=== PATIENT | female | born 1980 | race Caucasian/White ===

== ENCOUNTER 2016-08-04 17:39 | Emergency (ER) | payer OTHER ==
[2016-08-04] MEDS ORDERED: NS 0.9% 1000 ML* 1,000 ML IV ONE (17:55)
[2016-08-04] MEDS ORDERED: Ondansetron INJ* 2 MG/ML VIAL IV ONE (18:01)
[2016-08-04 18:19] LABS: Hematocrit 40 % (35-47); Hemoglobin 13.5 g/dl (12.0-16.0); Mean Corpuscular HGB Conc 34 g/dl (31-36); Mean Corpuscular Hemoglobin 30 pg (27-31); Mean Corpuscular Volume 89 fL (80-97); Mean Platelet Volume 8 um3 (7.4-10.4); Red Blood Count 4.49 10^6/ul (4.0-5.4); Red Cell Distribution Width 14 % (10.5-15); White Blood Count 7.2 10^3/ul (3.5-10.8)
[2016-08-04 18:40] LABS: Albumin 4.1 g/dL (3.2-5.2); BUN/Creatinine Ratio 15.9 (8-20); C Reactive Protein 8.77 mg/L (< 5.00); Calcium 9.3 mg/dL (8.6-10.3); EGFR African American 136.7 (>60); EGFR Non-African American 106.3 (>60); Globulin 3.3 g/dL (2-4); Potassium 3.4 mmol/L (3.5-5.0); Total Bilirubin 0.4 mg/dL (0.2-1.0); Total Protein 7.4 g/dL (6.4-8.9)
[2016-08-04 18:59] LABS: Urine Bacteria Absent (Absent); Urine Bilirubin Negative (Negative); Urine Glucose Negative (Negative); Urine Nitrite Negative (Negative)
[2016-08-04] MEDS ORDERED: HYDROcodone/ACETAMIN 5-325 MG* 1 TAB PO ONE (19:02)
--- NOTE | 2016-08-04 19:06 | RAD ---
HISTORY: Vaginal bleeding COMPARISONS: August 06, 2015 TECHNIQUE: Multiple transverse and longitudinal ultrasound images were obtained of the pelvis using grayscale, color Doppler, and spectral Doppler imaging using the endovaginal transducer. FINDINGS: UTERUS: The uterus measures 9.8 x 4.9 x 6.1 cm. The uterus is normal in shape, size, contour, and echotexture. ENDOMETRIUM: The endometrial stripe is smooth. The endometrium measures 1.2 cm in thickness. CUL-DE-SAC: There is no free fluid within the cul-de-sac. RIGHT OVARY: The right ovary measures 2.5 x 1.3 x 1.9 cm. Normal arterial and venous waveforms are identifiable within the ovary on spectral Doppler imaging. LEFT OVARY: The left ovary measures 2.2 x 1.4 x 2 cm. Normal arterial and venous waveforms are identifiable within the ovary on spectral Doppler imaging. BLADDER: The bladder is not well visualized. IMPRESSION: UNREMARKABLE ULTRASOUND OF THE PELVIS. THE ENDOMETRIAL STRIPE MEASURES UP TO 1.2 CM IN THICKNESS.
[2016-08-04] MEDS ORDERED: Potassium Chlor TAB* 20 MEQ TAB.ER PO ONE (19:12)
--- NOTE | 2016-08-04 19:19 | ED ---
Alex Mason Erika, scribed for Bear Lorenzo MD on 08/04/16 at 1816 . GI/ HPI - HPI Summary HPI Summary: Patient is a 35-year-old female presenting to the ED with a CC of left suprapubic pain starting 5 days ago. Currently, patient rates pain a 10/10. Patient reports that this pain has been associated with vaginal bleeding, which is unusual for patient as she takes the Depo shot. Patient also reports nausea and vomiting (3x) today, but denies diarrhea and constipation. Patient states she was seen at [facility] yesterday, and had a negative pelvic exam. She declines a pelvic exam today. Hx left ovarian cyst. Patient also reports that she has had nasal discharge for a few days. Hx asthma, seizures, COPD. PSHx cholecystectomy, appendectomy, D&C, laparoscopic surgery. FHx diabetes, CAD , kidney cancer. Patient smokes 1 PPD, rarely drinks, and denies illicit drug use. - History of Current Complaint Chief Complaint: EDVaginalBleeding Time Seen by Provider: 08/04/16 17:50 Stated Complaint: LOWER LEFT ABD PAIN Hx Obtained From: Patient Onset/Duration: Started Days Ago, Atraumatic, Still Present Timing: Constant Severity: Moderate Pain Intensity: 10 Location of Pain: Suprapubic - L Associated Signs and Symptoms: Positive: Nausea, Vomiting. Negative: Constipation, Diarrhea Additional Signs & Symptoms: Positive: Vaginal Bleeding - Allergy/Home Medications Allergies/Adverse Reactions: Allergies Allergy/AdvReac Type Severity Reaction Status Date / Time Aspirin Allergy Severe Swelling Verified 06/18/16 14:23 Of Face,Lips,& Throat Latex Allergy Intermediate Unknown Verified 06/18/16 14:23 Reaction Details Phenobarbital Allergy Intermediate Swelling Verified 06/18/16 14:23 Of Face,Lips,& Throat Cortisone Allergy LOCALIZED Verified 06/18/16 14:23 SWELLING TO INJ SITE PMH/Surg Hx/FS Hx/Imm Hx Endocrine/Hematology History: Denies: Hx Anticoagulant Therapy, Hx Diabetes, Hx Thyroid Disease, Other Endocrine/Hematological Disorders Cardiovascular History: Denies: Hx Congestive Heart Failure, Hx Deep Vein Thrombosis, Hx Hypertension , Hx Myocardial Infarction, Hx Pacemaker/ICD, Other Cardiovascular Problems/ Disorders Respiratory History: Reports: Hx Asthma - She is using her sister's Symbicort 160/4.5--she states she is on abluterol, Hx Chronic Obstructive Pulmonary Disease (COPD) Denies: Hx Lung Cancer, Hx Pneumonia, Hx Pulmonary Embolism, Other Respiratory Problems/Disorders GI History: Reports: Hx Gall Bladder Disease Denies: Hx Gastrointestinal Bleed, Hx Ulcer, Hx Urosepsis, Other GI Disorders History: Reports: Other Problems/Disorders - OVARIAN CYST, Denies: Hx Kidney Stones, Hx Renal Disease Musculoskeletal History: Denies: Other Musculoskeletal History Sensory History: Denies: Other Sensory Impairments Opthamlomology History: Denies: Other Sensory Impairments Neurological History: Reports: Hx Seizures Denies: Hx Dementia, Hx Migraine, Hx Transient Ischemic Attacks (TIA), Other Neuro Impairments/Disorders Psychiatric History: Reports: Hx Anxiety, Hx Depression - She confesses to depression--on no Rx., Hx Bipolar Disorder Denies: Hx Schizophrenia, Hx Substance Abuse, Other Psychiatric Issues/ Disorders - Surgical History Surgery Procedure, Year, and Place: GALLBLADDER OUT 2010. 2010. APPENDECTOMY - Immunization History Date of Tetanus Vaccine: w/in last 10 years Date of Influenza Vaccine: none Infectious Disease History: No Infectious Disease History: Denies: Hx Clostridium Difficile, Hx Hepatitis, Hx Human Immunodeficiency Virus (HIV), Hx of Known/Suspected MRSA, Hx Shingles, Hx Tuberculosis, Hx Known/ Suspected VRE, Hx Known/Suspected VRSA, History Other Infectious Disease, Traveled Outside the [place] in Last 30 Days - Family History Known Family History: Positive: Cardiac Disease, Diabetes, Other - kidney cancer - Social History Alcohol Use: Rare Hx Substance Use: No Substance Use Type: Reports: None Hx Tobacco Use: Yes Smoking Status (MU): Heavy Every Day Tobacco Smoker Review of Systems Positive: Nasal Discharge Positive: Abdominal Pain - left suprapubic, Vomiting, Nausea. Negative: Diarrhea Genitourinary: Other - vaginal bleeding All Other Systems Reviewed And Are Negative: Yes Physical Exam - Summary Physical Exam Summary: VITAL SIGNS: Reviewed. GENERAL: Patient is a well developed and nourished female who is lying comfortable in the stretcher. Patient is not in any acute respiratory distress. HEAD AND FACE: Normocephalic and atraumatic. EYES: PERRLA, EOMI x 2, No injected conjunctiva. EARS: Hearing grossly intact. Ear canals and tympanic membranes are WNL. MOUTH: Oropharynx within normal limits. NECK: Supple, trachea is midline, no adenopathy, no JVD. CHEST: Symmetric, no tenderness at palpation LUNGS: Clear to auscultation bilaterally. No wheezing or crackles. CVS: RRR,, S1 and S2 present, no murmurs or gallops appreciated. ABDOMEN: Soft, non-tender. No signs of distention. Positive bowel sounds. No rebound no guarding, and no masses palpated. No abdominal bruit or pulsations. EXTREMITIES: FROM in all major joints, no edema, no cyanosis or clubbing. NEURO: Alert and oriented x 3. No acute neurological deficits. Speech is normal. SKIN: Dry and warm HEALTHCARE SPECIALIST: patient refuses. She reports she [facility] and it was found wnl. Triage Information Reviewed: Yes Vital Signs On Initial Exam: Initial Vitals Temp Pulse Resp BP Pulse Ox 99.9 F 108 18 138/82 98 08/04/16 17:40 08/04/16 17:40 08/04/16 17:40 08/04/16 17:40 08/04/16 17:40 Vital Signs Reviewed: Yes Diagnostics - Vital Signs Vital Signs Temp Pulse Resp BP Pulse Ox 08/04/16 17:40 99.9 F 108 18 138/82 98 - Laboratory Result Diagrams: 08/04/16 18:10 08/04/16 18:10 Lab Statement: Any lab studies that have been ordered have been reviewed, and results considered in the medical decision making process. - Ultrasound No standard instances Ultrasound Interpretation Completed By: Radiologist - IMPRESSION: UNREMARKABLE ULTRASOUND OF THE PELVIS. THE ENDOMETRIAL STRIPE MEASURES UP TO 1.2 CM IN THICKNESS. GIGU Course/Dx - Course Assessment/Plan: Patient is a 35-year-old female presenting to the ED with a CC of left suprapubic pain starting 5 days ago. Currently, patient rates pain a 10/ 10. Patient reports that this pain has been associated with vaginal bleeding, which is unusual for patient as she takes the Depo shot. Patient also reports nausea and vomiting (3x) today, but denies diarrhea and constipation. Patient states she was seen [facility], and had a negative pelvic exam. She declines a pelvic exam today. Hx left ovarian cyst. Blood work WNL except potassium of 3.4 for which the pt was given potassium chloride. Pelvic US unremarkable, both ovaries WNL. In the ED course the patient was given [place] for the pain. I offered the pt a CT scan to r/o Diverticulitis. colitis or any other intrabadominal pathology but she declined. I offered the pt a pelvic exam and she declined since she had a pelvic exam yesterday at [facility]. Therefore, she is going to be discharged home with follow up from her PCP. I discussed all the findings and test results with the patient. Patient was instructed to return to the emergency room immediately if any of the symptoms return or worsens. They were explained the possibility of an early abdominal pathology which was not detected at this time despite the physical exam and testing. They understand and agree. Abdominal exam before discharge: Soft, NT. No signs of distention. BS present. No rebound no guarding , and no masses palpated. Patient is alert and oriented and hemodynamically stable. Patient is to follow up with primary care physician in the next 2 to 3 days. Patient agree and understands. VITAL SIGNS: Reviewed. - Diagnoses Differential Diagnoses - Female: Diverticulitis, Ovarian Cyst, Ovarian Torsion, Provider Diagnoses: Pelvic pain Discharge - Discharge Plan Condition: Stable Disposition: HOME Prescriptions: Naproxen TAB* [Naprosyn TAB*] 500 mg PO Q8H PRN #12 tab PRN Reason: Pain Patient Education Materials: Pelvic Pain in Women (ED) Referrals: Bear Ritchie MD [Primary Care Provider] - The documentation as recorded by the Alex sharma Erika accurately reflects the service I personally performed and the decisions made by me, Bear Lorenzo MD.
[2016-08-04 19:38] VITALS: BP 119/75
== END 2016-08-04 19:38 | disposition home or self-care (01) ==
LOC: ED 17:39
DX: R10.2 Pelvic and perineal pain (principal); J44.9 Chronic obstructive pulmonary disease, unspecified; J45.909 Unspecified asthma, uncomplicated; F31.9 Bipolar disorder, unspecified; F41.9 Anxiety disorder, unspecified; F17.210 Nicotine dependence, cigarettes, uncomplicated
CPT/HCPCS: 36415; 76830; 80053; 81003; 81015; 82150; 83690; 84702; 85025; 86140; 96360; 96374; 99283; A9270-GY; J2405

== ENCOUNTER 2016-08-10 15:58 | Emergency (ER) | payer OTHER ==
[2016-08-10] MEDS ORDERED: NS 0.9% 1000 ML* 2,000 ML IV ONE (17:08)
[2016-08-10] MEDS ORDERED: Ondansetron INJ* 2 MG/ML VIAL IV ONE (17:32)
[2016-08-10] MEDS ORDERED: HYDROmorphone INJ* 1 MG/ML CARPUJECT SYRINGE IV ONE (17:32)
[2016-08-10 17:33] LABS: Hematocrit 44 % (35-47); Hemoglobin 14.4 g/dl (12.0-16.0); Mean Corpuscular HGB Conc 33 g/dl (31-36); Mean Corpuscular Hemoglobin 30 pg (27-31); Mean Corpuscular Volume 91 fL (80-97); Mean Platelet Volume 8 um3 (7.4-10.4); Red Cell Distribution Width 14 % (10.5-15); White Blood Count 8.9 10^3/ul (3.5-10.8)
[2016-08-10 18:03] LABS: Albumin 4.4 g/dL (3.2-5.2); BUN/Creatinine Ratio 22.1 (8-20); C Reactive Protein 4.86 mg/L (< 5.00); Calcium 9.5 mg/dL (8.6-10.3); EGFR African American 125.2 (>60); EGFR Non-African American 97.4 (>60); Globulin 3.5 g/dL (2-4); Magnesium 1.8 mg/dL (1.9-2.7); Potassium 3.5 mmol/L (3.5-5.0); Total Bilirubin 0.2 mg/dL (0.2-1.0); Total Protein 7.9 g/dL (6.4-8.9)
[2016-08-10 18:26] LABS: TSH (Thyroid Stimulating Horm) 1.89 mcIU/mL (0.34-5.60)
--- NOTE | 2016-08-10 18:37 | RAD ---
INDICATION: Fall. Possible chest injury. COMPARISON: Chest x-ray February 09, 2015 TECHNIQUE: An AP portable view obtained at 1753 hours is submitted. FINDINGS: Bones/Soft Tissues: There are no acute bony findings. Cardiomediastinal: The cardiomediastinal silhouette is normal. Lungs: There are no infiltrates. Pleura: There are no pleural effusions. Other: None IMPRESSION: NO ACTIVE DISEASE.
--- NOTE | 2016-08-10 18:38 | RAD ---
INDICATION: Left elbow injury COMPARISON: None TECHNIQUE: AP, lateral, and oblique views were obtained. FINDINGS: The bony structures, joint spaces, and soft tissues are normal for age. IMPRESSION: NEGATIVE EXAMINATION.
--- NOTE | 2016-08-10 18:38 | RAD ---
INDICATION: Left forearm injury COMPARISON: None TECHNIQUE: AP and lateral views were obtained. FINDINGS: The bony structures, joint spaces, and soft tissues are normal for age. IMPRESSION: NO ACUTE FRACTURE
--- NOTE | 2016-08-10 18:38 | RAD ---
INDICATION: Left humerus injury COMPARISON: None TECHNIQUE: AP and lateral views were obtained. FINDINGS: The bony structures, joint spaces, and soft tissues are normal for age. IMPRESSION: NEGATIVE EXAMINATION.
--- NOTE | 2016-08-10 18:39 | RAD ---
INDICATION: Left wrist injury COMPARISON: None TECHNIQUE: AP, lateral, and oblique views were obtained. FINDINGS: The bony structures, joint spaces, and soft tissues are normal for age. IMPRESSION: NO ACUTE FRACTURE.
--- NOTE | 2016-08-10 19:47 | ED ---
Clau Mason Anna, scribed for Shahzad Hoffmann MD on 08/10/16 at 1658 . Syncope/Near Syncope - HPI Summary HPI Summary: Patient is a 35 y/o female coming to [facility] following sudden onset of syncope that occurred this afternoon at 1500 while she was standing at the bus stop. She reports feeling dizzy, when her left knee buckled and she lost consciousness. A witness reported seizure-like behavior and called EMS. Upon arrival of EMS, she was A&Ox3. She did not remember falling but now reports left arm pain and lack of sensation in left arm. She heard a pop in her wrist after the incident. She additionally reports feeling hot flashes this morning. Denies CP, palpitations, SOB, incontinence, or head pain. She reports that today s symptoms are similar to previous seizures. Her last seizure was two months ago. Denies use of drugs or alcohol but reports drinking four cups of coffee today. She takes Kepra daily. She reports that she recently had to move and has experienced increased stress. - History Of Current Complaint Chief Complaint: ED Time Seen by Provider: 08/10/16 16:23 Hx Obtained From: Patient, EMS, Other: - Passerby Onset/Duration: Sudden Onset, Lasting Minutes, Resolved Timing: Minutes Context: Witnessed, Loss Of Consciousness Activity At Onset: Other - Standing Associated Head Trauma: No Associated Signs And Symptoms: Seizure - Allergies/Home Medications Allergies/Adverse Reactions: Allergies Allergy/AdvReac Type Severity Reaction Status Date / Time Aspirin Allergy Severe Swelling Verified 06/18/16 14:23 Of Face,Lips,& Throat Latex Allergy Intermediate Unknown Verified 06/18/16 14:23 Reaction Details Phenobarbital Allergy Intermediate Swelling Verified 06/18/16 14:23 Of Face,Lips,& Throat Cortisone Allergy LOCALIZED Verified 06/18/16 14:23 SWELLING TO INJ SITE PMH/Surg Hx/FS Hx/Imm Hx Endocrine/Hematology History: Denies: Hx Anticoagulant Therapy, Hx Diabetes, Hx Thyroid Disease, Other Endocrine/Hematological Disorders Cardiovascular History: Denies: Hx Congestive Heart Failure, Hx Deep Vein Thrombosis, Hx Hypertension , Hx Myocardial Infarction, Hx Pacemaker/ICD, Other Cardiovascular Problems/ Disorders Respiratory History: Reports: Hx Asthma - She is using her sister's Symbicort 160/4.5--she states she is on abluterol, Hx Chronic Obstructive Pulmonary Disease (COPD) Denies: Hx Lung Cancer, Hx Pneumonia, Hx Pulmonary Embolism, Other Respiratory Problems/Disorders GI History: Reports: Hx Gall Bladder Disease Denies: Hx Gastrointestinal Bleed, Hx Ulcer, Hx Urosepsis, Other GI Disorders History: Reports: Other Problems/Disorders - OVARIAN CYST, Denies: Hx Kidney Stones, Hx Renal Disease Musculoskeletal History: Denies: Other Musculoskeletal History Sensory History: Denies: Other Sensory Impairments Opthamlomology History: Denies: Other Sensory Impairments Neurological History: Reports: Hx Seizures Denies: Hx Dementia, Hx Migraine, Hx Transient Ischemic Attacks (TIA), Other Neuro Impairments/Disorders Psychiatric History: Reports: Hx Anxiety, Hx Depression - She confesses to depression--on no Rx., Hx Bipolar Disorder Denies: Hx Schizophrenia, Hx Substance Abuse, Other Psychiatric Issues/ Disorders - Surgical History Surgery Procedure, Year, and Place: GALLBLADDER OUT 2010. 2010. APPENDECTOMY - Immunization History Date of Tetanus Vaccine: w/in last 10 years Date of Influenza Vaccine: none Infectious Disease History: No Infectious Disease History: Denies: Hx Clostridium Difficile, Hx Hepatitis, Hx Human Immunodeficiency Virus (HIV), Hx of Known/Suspected MRSA, Hx Shingles, Hx Tuberculosis, Hx Known/ Suspected VRE, Hx Known/Suspected VRSA, History Other Infectious Disease, Traveled Outside the [place] in Last 30 Days - Family History Known Family History: Positive: None, Cardiac Disease, Diabetes, Other - kidney cancer - Social History Alcohol Use: Rare Alcohol Amount: states quit 12/19/15 Hx Substance Use: No Substance Use Type: Reports: None Hx Tobacco Use: Yes Smoking Status (MU): Heavy Every Day Tobacco Smoker Review of Systems Positive: Other - hot flashes Positive: Arthralgia - left arm pain Neurological: Other - dizziness Positive: Numbness, Syncope All Other Systems Reviewed And Are Negative: Yes Physical Exam Triage Information Reviewed: Yes Vital Signs On Initial Exam: Initial Vitals Temp Pulse Resp BP Pulse Ox 97.5 F 109 16 121/80 98 08/10/16 16:02 08/10/16 16:02 08/10/16 16:02 08/10/16 16:02 08/10/16 16:02 Vital Signs Reviewed: Yes Appearance: Positive: Well-Appearing, No Pain Distress Skin: Positive: Warm, Skin Color Reflects Adequate Perfusion, Dry Head/Face: Positive: Normal Head/Face Inspection Eyes: Positive: EOMI, HAN[place]H ENT: Positive: Normal ENT inspection Neck: Positive: Supple, Nontender Respiratory/Lung Sounds: Positive: Clear to Auscultation, Breath Sounds Present Cardiovascular: Positive: RRR, Other - Bilateral pulses symmetric and 2+ Abdomen Description: Positive: Nontender, Soft Bowel Sounds: Positive: Present Musculoskeletal: Positive: Other - Left arm tenderness Neurological: Positive: Normal, Sensory/Motor Intact, Alert, Oriented to Person Place, Time Psychiatric: Positive: Affect/Mood Appropriate Diagnostics - Vital Signs Vital Signs Temp Pulse Resp BP Pulse Ox 08/10/16 16:02 97.5 F 109 16 121/80 98 - Laboratory Lab Results: Lab Results 08/10/16 08/10/16 08/10/16 Range/Units 17:21 17:21 17:21 WBC 8.9 (3.5-10.8) 10^3/ul RBC 4.80 (4.0-5.4) 10^6/ul Hgb 14.4 (12.0-16.0) g/dl Hct 44 (35-47) % MCV 91 (80-97) fL MCH 30 (27-31) pg MCHC 33 (31-36) g/dl RDW 14 (10.5-15) % Plt Count 256 (150-450) 10^3/ul MPV 8 (7.4-10.4) um3 Neut % (Auto) 56.5 (38-83) % Lymph % (Auto) 34.4 (25-47) % [place] % (Auto) 6.3 (1-9) % Eos % (Auto) 1.4 (0-6) % Baso % (Auto) 1.4 (0-2) % Absolute Neuts (auto) 5.0 (1.5-7.7) 10^3/ul Absolute Lymphs (auto) 3.1 (1.0-4.8) 10^3/ul Absolute Monos (auto) 0.6 (0-0.8) 10^3/ul Absolute Eos (auto) 0.1 (0-0.6) 10^3/ul Absolute Basos (auto) 0.1 (0-0.2) 10^3/ul Absolute Nucleated RBC 0 10^3/ul Nucleated RBC % 0 INR (Anticoag Therapy) 1.06 (0.89-1.11) APTT 27.3 (26.0-36.3) seconds Sodium 137 (133-145) mmol/L Potassium 3.5 (3.5-5.0) mmol/L Chloride 108 (101-111) mmol/L Carbon Dioxide 21 L (22-32) mmol/L Anion Gap 8 (2-11) mmol/L BUN 15 (6-24) mg/dL Creatinine 0.68 (0.51-0.95) mg/dL Est GFR ( Amer) 125.2 (>60) Est GFR (Non-Af Amer) 97.4 (>60) BUN/Creatinine Ratio 22.1 H (8-20) Glucose 136 H (70-100) mg/dL Lactic Acid (0.5-2.0) mmol/L Calcium 9.5 (8.6-10.3) mg/dL Magnesium 1.8 L (1.9-2.7) mg/dL Total Bilirubin 0.20 (0.2-1.0) mg/dL AST 16 (13-39) U/L ALT 19 (7-52) U/L Alkaline Phosphatase 43 (34-104) U/L Total Creatine Kinase 69 (10-223) U/L CK-MB (CK-2) 0.8 (0.6-6.3) ng/mL Troponin I 0.00 (<0.04) ng/mL C-Reactive Protein 4.86 (< 5.00) mg/L Total Protein 7.9 (6.4-8.9) g/dL Albumin 4.4 (3.2-5.2) g/dL Globulin 3.5 (2-4) g/dL Albumin/Globulin Ratio 1.3 (1-3) TSH 1.89 (0.34-5.60) mcIU/mL Beta HCG, Quant 1.71 mIU/mL 08/10/16 Range/Units 17:21 WBC (3.5-10.8) 10^3/ul RBC (4.0-5.4) 10^6/ul Hgb (12.0-16.0) g/dl Hct (35-47) % MCV (80-97) fL MCH (27-31) pg MCHC (31-36) g/dl RDW (10.5-15) % Plt Count (150-450) 10^3/ul MPV (7.4-10.4) um3 Neut % (Auto) (38-83) % Lymph % (Auto) (25-47) % [place] % (Auto) (1-9) % Eos % (Auto) (0-6) % Baso % (Auto) (0-2) % Absolute Neuts (auto) (1.5-7.7) 10^3/ul Absolute Lymphs (auto) (1.0-4.8) 10^3/ul Absolute Monos (auto) (0-0.8) 10^3/ul Absolute Eos (auto) (0-0.6) 10^3/ul Absolute Basos (auto) (0-0.2) 10^3/ul Absolute Nucleated RBC 10^3/ul Nucleated RBC % INR (Anticoag Therapy) (0.89-1.11) APTT (26.0-36.3) seconds Sodium (133-145) mmol/L Potassium (3.5-5.0) mmol/L Chloride (101-111) mmol/L Carbon Dioxide (22-32) mmol/L Anion Gap (2-11) mmol/L BUN (6-24) mg/dL Creatinine (0.51-0.95) mg/dL Est GFR ( Amer) (>60) Est GFR (Non-Af Amer) (>60) BUN/Creatinine Ratio (8-20) Glucose (70-100) mg/dL Lactic Acid 2.0 (0.5-2.0) mmol/L Calcium (8.6-10.3) mg/dL Magnesium (1.9-2.7) mg/dL Total Bilirubin (0.2-1.0) mg/dL AST (13-39) U/L ALT (7-52) U/L Alkaline Phosphatase (34-104) U/L Total Creatine Kinase (10-223) U/L CK-MB (CK-2) (0.6-6.3) ng/mL Troponin I (<0.04) ng/mL C-Reactive Protein (< 5.00) mg/L Total Protein (6.4-8.9) g/dL Albumin (3.2-5.2) g/dL Globulin (2-4) g/dL Albumin/Globulin Ratio (1-3) TSH (0.34-5.60) mcIU/mL Beta HCG, Quant mIU/mL Result Diagrams: 08/10/16 17:21 08/10/16 17:21 Lab Statement: Any lab studies that have been ordered have been reviewed, and results considered in the medical decision making process. - Radiology CXR Xray Interpretation: No Acute Changes Radiology Interpretation Completed By: Radiologist Humerus XR Xray Interpretation: No Acute Changes Radiology Interpretation Completed By: Radiologist Forearm XR Xray Interpretation: No Acute Changes Radiology Interpretation Completed By: Radiologist Elbow XR Xray Interpretation: No Acute Changes Radiology Interpretation Completed By: Radiologist Wrist XR Xray Interpretation: No Acute Changes Radiology Interpretation Completed By: Radiologist Re-Evaluation - Re-Evaluation First Eval Re-Evaluation Time: 19:43 Change: Improved - Patient reports the medication has helped her pain. Discussed results and plan of care with patient. Patient is agreeable with plan. Course/Dx Assessment/Plan: DISCUSSED RESULTS WITH PATIENT. RX TORADOL. F/U PMD. DISCHARGE HOME STABLE. - Diagnoses Provider Diagnoses: Arm pain, Altered mental state Discharge - Discharge Plan Condition: Stable Disposition: HOME Patient Education Materials: Arm Pain (ED), Epilepsy (ED) Referrals: Bear Ritchie MD [Primary Care Provider] - Additional Instructions: FOLLOW UP WITH YOUR DOCTOR. RETURN TO THE EMERGENCY DEPARTMENT FOR ANY WORSENING OF YOUR CONDITION OR QUESTIONS OR CONCERNS. The documentation as recorded by the Clau sharma Anna accurately reflects the service I personally performed and the decisions made by , Shahzad Hoffmann MD.
[2016-08-10] MEDS ORDERED: Ketorolac INJ* 30 MG/ML 1 ML VIAL IV ONE (20:03)
[2016-08-10 20:38] VITALS: BP 123/76
== END 2016-08-10 20:36 | disposition home or self-care (01) ==
LOC: ED 15:58
DX: M79.602 Pain in left arm (principal); R41.82 Altered mental status, unspecified; R55 Syncope and collapse; R20.0 Anesthesia of skin; F17.210 Nicotine dependence, cigarettes, uncomplicated
CPT/HCPCS: 36415; 71010; 80053; 80177; 82550; 82553; 83605; 83735; 84443; 84484; 84702; 85025; 85610; 85730; 86140; 93005; 96374; 96375; 99285; J1170; J1885; J2405

== ENCOUNTER 2016-08-13 12:47 | Emergency (ER) | payer OTHER ==
[2016-08-13 14:12] LABS: Hematocrit 44 % (35-47); Hemoglobin 14.4 g/dl (12.0-16.0); Mean Corpuscular HGB Conc 33 g/dl (31-36); Mean Corpuscular Hemoglobin 30 pg (27-31); Mean Corpuscular Volume 91 fL (80-97); Mean Platelet Volume 8 um3 (7.4-10.4); Red Blood Count 4.78 10^6/ul (4.0-5.4); Red Cell Distribution Width 14 % (10.5-15); White Blood Count 9.7 10^3/ul (3.5-10.8)
[2016-08-13 14:23] LABS: Albumin 4.3 g/dL (3.2-5.2); BUN/Creatinine Ratio 23.9 (8-20); Calcium 9.6 mg/dL (8.6-10.3); EGFR African American 119.1 (>60); EGFR Non-African American 92.6 (>60); Globulin 3.5 g/dL (2-4); Potassium 3.7 mmol/L (3.5-5.0); Total Bilirubin 0.2 mg/dL (0.2-1.0); Total Protein 7.8 g/dL (6.4-8.9)
[2016-08-13] MEDS ORDERED: levETIRAcetam IV* 500 MG in NS 0.9% 100 ML* 100 ML IVPB ONE (15:31)
[2016-08-13 15:33] VITALS: BP 104/67
--- NOTE | 2016-08-15 23:25 | ED ---
Alex Mason Erika, scribed for Colt Gregory MD on 08/13/16 at 1505 . Neurological HPI - HPI Summary HPI Summary: Patient is a 35-year-old female presenting to the ED with a CC of seizures today. She reports that she had 3 seizures today - 1 in [employer], and [address] stop. Each sz lasted less than one minute per friend, who states that he pushes a pressure point under each of pt's breasts to stop the seizures. Per friend, patient was banging her head onto the bus stop wall during the seizure, which he describes as tonic-clonic. Currently, patient reports a headache and her aura, which she describes as dizziness and shaking. Patient denies recent fever, cold, or cough. She states she has been sleeping and eating well. Patient states she has been compliant with her 750 mg Keppra. She is followed by Dr. Singer, but prescriptions were from Dr. Bear Ritchie. - History of Current Complaint Chief Complaint: EDSeizure Stated Complaint: DIFF BREATHING/SEIZURE Time Seen by Provider: 08/13/16 13:30 Hx Obtained From: Patient, Family/Subpoena Server Hx Last Menstrual Period: depo Onset/Duration: Sudden Onset, Started hours ago, Resolved Timing: Intermittent Episodes Lasting: - 1 minute Onset Severity: Moderate Current Severity: None Number of Seizures: 3 Pain Intensity: 8 Seizure Character: Total-Clonic Associated Signs and Symptoms: Positive: Headache, Dizziness - Allergy/Home Medications Allergies/Adverse Reactions: Allergies Allergy/AdvReac Type Severity Reaction Status Date / Time Aspirin Allergy Severe Swelling Verified 06/18/16 14:23 Of Face,Lips,& Throat Latex Allergy Intermediate Unknown Verified 06/18/16 14:23 Reaction Details Phenobarbital Allergy Intermediate Swelling Verified 06/18/16 14:23 Of Face,Lips,& Throat Cortisone Allergy LOCALIZED Verified 06/18/16 14:23 SWELLING TO INJ SITE Home Medications: Home Medications medroxyPROGESTERone ACETATE* [DEPO-Provera] 150 mg IM SEE INSTRUCTIONS 08/13/16 [History Confirmed 08/13/16] PMH/Surg Hx/FS Hx/Imm Hx Endocrine/Hematology History: Denies: Hx Anticoagulant Therapy, Hx Diabetes, Hx Thyroid Disease, Other Endocrine/Hematological Disorders Cardiovascular History: Denies: Hx Congestive Heart Failure, Hx Deep Vein Thrombosis, Hx Hypertension , Hx Myocardial Infarction, Hx Pacemaker/ICD, Other Cardiovascular Problems/ Disorders Respiratory History: Reports: Hx Asthma - She is using her sister's Symbicort 160/4.5--she states she is on abluterol, Hx Chronic Obstructive Pulmonary Disease (COPD) Denies: Hx Lung Cancer, Hx Pneumonia, Hx Pulmonary Embolism, Other Respiratory Problems/Disorders GI History: Reports: Hx Gall Bladder Disease Denies: Hx Gastrointestinal Bleed, Hx Ulcer, Hx Urosepsis, Other GI Disorders History: Reports: Other Problems/Disorders - OVARIAN CYST, Denies: Hx Kidney Stones, Hx Renal Disease Musculoskeletal History: Denies: Other Musculoskeletal History Sensory History: Denies: Other Sensory Impairments Opthamlomology History: Denies: Other Sensory Impairments Neurological History: Reports: Hx Seizures Denies: Hx Dementia, Hx Migraine, Hx Transient Ischemic Attacks (TIA), Other Neuro Impairments/Disorders Psychiatric History: Reports: Hx Anxiety, Hx Depression - She confesses to depression--on no Rx., Hx Bipolar Disorder Denies: Hx Schizophrenia, Hx Substance Abuse, Other Psychiatric Issues/ Disorders - Surgical History Surgery Procedure, Year, and Place: GALLBLADDER OUT 2010. 2010. APPENDECTOMY - Immunization History Date of Tetanus Vaccine: w/in last 10 years Date of Influenza Vaccine: none Infectious Disease History: No Infectious Disease History: Denies: Hx Clostridium Difficile, Hx Hepatitis, Hx Human Immunodeficiency Virus (HIV), Hx of Known/Suspected MRSA, Hx Shingles, Hx Tuberculosis, Hx Known/ Suspected VRE, Hx Known/Suspected VRSA, History Other Infectious Disease, Traveled Outside the [place] in Last 30 Days - Family History Known Family History: Positive: Cardiac Disease, Diabetes, Other - kidney cancer - Social History Alcohol Use: Rare Alcohol Amount: states quit 12/19/15 Hx Substance Use: No Substance Use Type: Reports: None Hx Tobacco Use: Yes Smoking Status (MU): Heavy Every Day Tobacco Smoker Review of Systems Negative: Fever Negative: Sore Throat, Nasal Discharge Negative: Cough Neurological: Other - seizures, dizziness, shaking Positive: Headache All Other Systems Reviewed And Are Negative: Yes Physical Exam Triage Information Reviewed: Yes Vital Signs On Initial Exam: Initial Vitals Temp Pulse Resp BP Pulse Ox 98.5 F 94 16 114/67 96 08/13/16 13:40 08/13/16 13:40 08/13/16 13:40 08/13/16 13:40 08/13/16 13:40 Vital Signs Reviewed: Yes Appearance: Positive: Well-Appearing, No Pain Distress Skin: Positive: Warm, Skin Color Reflects Adequate Perfusion, Dry Head/Face: Positive: Normal Head/Face Inspection Eyes: Positive: Normal ENT: Positive: Normal ENT inspection Neck: Positive: Supple, Nontender Respiratory/Lung Sounds: Positive: Clear to Auscultation, Breath Sounds Present Cardiovascular: Positive: RRR Abdomen Description: Positive: Nontender, Soft Bowel Sounds: Positive: Present Musculoskeletal: Positive: Normal Neurological: Positive: Normal Psychiatric: Positive: Affect/Mood Appropriate Diagnostics - Vital Signs Vital Signs Temp Pulse Resp BP Pulse Ox 08/13/16 13:40 98.5 F 94 16 114/67 96 - Laboratory Lab Results: Lab Results 08/13/16 08/13/16 08/13/16 Range/Units 13:33 13:33 13:33 WBC 9.7 (3.5-10.8) 10^3/ul RBC 4.78 (4.0-5.4) 10^6/ul Hgb 14.4 (12.0-16.0) g/dl Hct 44 (35-47) % MCV 91 (80-97) fL MCH 30 (27-31) pg MCHC 33 (31-36) g/dl RDW 14 (10.5-15) % Plt Count 261 (150-450) 10^3/ul MPV 8 (7.4-10.4) um3 Neut % (Auto) 62.7 (38-83) % Lymph % (Auto) 30.0 (25-47) % [place] % (Auto) 5.8 (1-9) % Eos % (Auto) 1.0 (0-6) % Baso % (Auto) 0.5 (0-2) % Absolute Neuts (auto) 6.1 (1.5-7.7) 10^3/ul Absolute Lymphs (auto) 2.9 (1.0-4.8) 10^3/ul Absolute Monos (auto) 0.6 (0-0.8) 10^3/ul Absolute Eos (auto) 0.1 (0-0.6) 10^3/ul Absolute Basos (auto) 0 (0-0.2) 10^3/ul Absolute Nucleated RBC 0 10^3/ul Nucleated RBC % 0 INR (Anticoag Therapy) 1.05 (0.89-1.11) Sodium 138 (133-145) mmol/L Potassium 3.7 (3.5-5.0) mmol/L Chloride 108 (101-111) mmol/L Carbon Dioxide 23 (22-32) mmol/L Anion Gap 7 (2-11) mmol/L BUN 17 (6-24) mg/dL Creatinine 0.71 (0.51-0.95) mg/dL Est GFR ( Amer) 119.1 (>60) Est GFR (Non-Af Amer) 92.6 (>60) BUN/Creatinine Ratio 23.9 H (8-20) Glucose 111 H (70-100) mg/dL Lactic Acid (0.5-2.0) mmol/L Calcium 9.6 (8.6-10.3) mg/dL Magnesium 2.0 (1.9-2.7) mg/dL Total Bilirubin 0.20 (0.2-1.0) mg/dL AST 14 (13-39) U/L ALT 16 (7-52) U/L Alkaline Phosphatase 45 (34-104) U/L Total Protein 7.8 (6.4-8.9) g/dL Albumin 4.3 (3.2-5.2) g/dL Globulin 3.5 (2-4) g/dL Albumin/Globulin Ratio 1.2 (1-3) // Range/Units 14:12 WBC (3.5-10.8) 10^3/ul RBC (4.0-5.4) 10^6/ul Hgb (12.0-16.0) g/dl Hct (35-47) % MCV (80-97) fL MCH (27-31) pg MCHC (31-36) g/dl RDW (10.5-15) % Plt Count (150-450) 10^3/ul MPV (7.4-10.4) um3 Neut % (Auto) (38-83) % Lymph % (Auto) (25-47) % [place] % (Auto) (1-9) % Eos % (Auto) (0-6) % Baso % (Auto) (0-2) % Absolute Neuts (auto) (1.5-7.7) 10^3/ul Absolute Lymphs (auto) (1.0-4.8) 10^3/ul Absolute Monos (auto) (0-0.8) 10^3/ul Absolute Eos (auto) (0-0.6) 10^3/ul Absolute Basos (auto) (0-0.2) 10^3/ul Absolute Nucleated RBC 10^3/ul Nucleated RBC % INR (Anticoag Therapy) (0.89-1.11) Sodium (133-145) mmol/L Potassium (3.5-5.0) mmol/L Chloride (101-111) mmol/L Carbon Dioxide (22-32) mmol/L Anion Gap (2-11) mmol/L BUN (6-24) mg/dL Creatinine (0.51-0.95) mg/dL Est GFR ( Amer) (>60) Est GFR (Non-Af Amer) (>60) BUN/Creatinine Ratio (8-20) Glucose (70-100) mg/dL Lactic Acid 1.4 (0.5-2.0) mmol/L Calcium (8.6-10.3) mg/dL Magnesium (1.9-2.7) mg/dL Total Bilirubin (0.2-1.0) mg/dL AST (13-39) U/L ALT (7-52) U/L Alkaline Phosphatase (34-104) U/L Total Protein (6.4-8.9) g/dL Albumin (3.2-5.2) g/dL Globulin (2-4) g/dL Albumin/Globulin Ratio (1-3) Result Diagrams: 08/13/16 13:33 08/13/16 13:33 Lab Statement: Any lab studies that have been ordered have been reviewed, and results considered in the medical decision making process. Re-Evaluation - Re-Evaluation First Eval Re-Evaluation Time: 15:08 Comment: Discussed results and discharge Course/Dx - Course Course Of Treatment: Ms. Winn had no further seizures here and her W/U was normal. - Diagnoses Provider Diagnoses: Breakthrough seizure Discharge - Discharge Plan Condition: Stable Disposition: HOME Patient Education Materials: Recurrent Seizures in Adults (ED) Referrals: Brenda Corado MD [Medical Doctor] - Sandrine Singer MD [Primary Care Provider] - (Next week) Additional Instructions: Please follow up with your PCP next week The documentation as recorded by the Alex sharma Erika accurately reflects the service I personally performed and the decisions made by me, Colt Gregory MD.
== END 2016-08-13 15:31 | disposition home or self-care (01) ==
LOC: ED 12:47
DX: G40.909 Epilepsy, unspecified, not intractable, without status epilepticus (principal); F17.290 Nicotine dependence, other tobacco product, uncomplicated; J45.909 Unspecified asthma, uncomplicated; F31.9 Bipolar disorder, unspecified; Z72.0 Tobacco use
CPT/HCPCS: 36415; 80053; 83605; 83735; 85025; 85610; 99284

== ENCOUNTER 2016-09-01 14:19 | Emergency (ER) | payer OTHER ==
[2016-09-01] MEDS ORDERED: Diazepam TAB(*) 5 MG PO ONE (14:38)
--- NOTE | 2016-09-01 15:19 | ED ---
Back Pain - HPI Summary HPI Summary: Patient presents with exacerbation of her low back pain after lifting a heavy TV two days ago. She felt a twinge in the back when she lifted the TV and had a little pain yesterday, but today around lunch time her pain became more severe. She is able to bear weight with pain and denies N/T, incontinence of urine or stool. She too two 500mg Naproxen without relief. - History of Current Complaint Chief Complaint: EDBackInjuryPain Stated Complaint: BACK PAIN Time Seen by Provider: 09/01/16 14:29 Hx Obtained From: Patient Hx Last Menstrual Period: depo Onset/Duration: Gradual Onset Onset/Duration: Started Days Ago, Traumatic - lifting a TV, Worse Since - today Timing: Constant Back Pain Location: Is Discrete @ - lower back Severity Initially: Mild Severity Currently: Severe Pain Intensity: 9 Aggravating Symptom(s): Movement Alleviating Symptom(s): Rest Associated Signs And Symptoms: Positive: Pain with Weight Bearing Related History: Previous Back Injury - Allergies/Home Medications Allergies/Adverse Reactions: Allergies Allergy/AdvReac Type Severity Reaction Status Date / Time Aspirin Allergy Severe Swelling Verified 06/18/16 14:23 Of Face,Lips,& Throat Latex Allergy Intermediate Unknown Verified 06/18/16 14:23 Reaction Details Phenobarbital Allergy Intermediate Swelling Verified 06/18/16 14:23 Of Face,Lips,& Throat Cortisone Allergy LOCALIZED Verified 06/18/16 14:23 SWELLING TO INJ SITE PMH/Surg Hx/FS Hx/Imm Hx Endocrine/Hematology History: Denies: Hx Anticoagulant Therapy, Hx Diabetes, Hx Thyroid Disease, Other Endocrine/Hematological Disorders Cardiovascular History: Denies: Hx Congestive Heart Failure, Hx Deep Vein Thrombosis, Hx Hypertension , Hx Myocardial Infarction, Hx Pacemaker/ICD, Other Cardiovascular Problems/ Disorders Respiratory History: Reports: Hx Asthma - She is using her sister's Symbicort 160/4.5--she states she is on abluterol, Hx Chronic Obstructive Pulmonary Disease (COPD) Denies: Hx Lung Cancer, Hx Pneumonia, Hx Pulmonary Embolism, Other Respiratory Problems/Disorders GI History: Reports: Hx Gall Bladder Disease Denies: Hx Gastrointestinal Bleed, Hx Ulcer, Hx Urosepsis, Other GI Disorders History: Reports: Other Problems/Disorders - OVARIAN CYST, Denies: Hx Kidney Stones, Hx Renal Disease Musculoskeletal History: Reports: Hx Back Problems Denies: Other Musculoskeletal History Sensory History: Denies: Other Sensory Impairments Opthamlomology History: Denies: Other Sensory Impairments Neurological History: Reports: Hx Seizures Denies: Hx Dementia, Hx Migraine, Hx Transient Ischemic Attacks (TIA), Other Neuro Impairments/Disorders Psychiatric History: Reports: Hx Anxiety, Hx Depression - She confesses to depression--on no Rx., Hx Bipolar Disorder Denies: Hx Schizophrenia, Hx Substance Abuse, Other Psychiatric Issues/ Disorders - Surgical History Surgery Procedure, Year, and Place: GALLBLADDER OUT 2010. 2010. APPENDECTOMY - Immunization History Date of Tetanus Vaccine: w/in last 10 years Date of Influenza Vaccine: none Infectious Disease History: Denies: Hx Clostridium Difficile, Hx Hepatitis, Hx Human Immunodeficiency Virus (HIV), Hx of Known/Suspected MRSA, Hx Shingles, Hx Tuberculosis, Hx Known/ Suspected VRE, Hx Known/Suspected VRSA, History Other Infectious Disease, Traveled Outside the [place] in Last 30 Days - Family History Known Family History: Positive: None, Cardiac Disease, Diabetes, Other - kidney cancer - Social History Occupation: Unemployed Lives: With Family Alcohol Use: Rare Alcohol Amount: states quit 12/19/15 Hx Substance Use: No Substance Use Type: Reports: None Hx Tobacco Use: Yes Smoking Status (MU): Heavy Every Day Tobacco Smoker Review of Systems Positive: Myalgia. Negative: Decreased ROM, Edema Negative: Bruising Negative: Weakness, Paresthesia, Numbness All Other Systems Reviewed And Are Negative: Yes Physical Exam Triage Information Reviewed: Yes Vital Signs On Initial Exam: Initial Vitals Temp Pulse Resp BP Pulse Ox 98.4 F 91 20 112/68 98 09/01/16 14:27 09/01/16 14:27 09/01/16 14:27 09/01/16 14:27 09/01/16 14:27 Vital Signs Reviewed: Yes Appearance: Positive: Well-Appearing, Well-Nourished, Pain Distress Skin: Positive: Warm, Skin Color Reflects Adequate Perfusion, Dry, Soft Head/Face: Positive: Normal Head/Face Inspection Eyes: Positive: EOMI, HANNAH, Conjunctiva Clear ENT: Positive: Hearing grossly normal Neck: Positive: Supple, Nontender, No Lymphadenopathy Respiratory/Lung Sounds: Positive: Clear to Auscultation, Breath Sounds Present Cardiovascular: Positive: RRR Abdomen Description: Positive: Nontender, Soft Bowel Sounds: Positive: Present Musculoskeletal: Positive: Limited @ - flexion limited to 60 degrees due to pain , Pain @ - TTP bilateral lower back muscles. Negative: Edema Left, Edema Right Neurological: Positive: Sensory/Motor Intact, Alert, Oriented to Person Place, Time, NV Bundle Intact Distally, Abnormal Gait Psychiatric: Positive: Affect/Mood Appropriate AVPU Assessment: Alert - Roverto Coma Scale Coma Scale Total: 15 Diagnostics - Vital Signs Vital Signs Temp Pulse Resp BP Pulse Ox 09/01/16 14:27 98.4 F 91 20 112/68 98 - Laboratory Lab Statement: Any lab studies that have been ordered have been reviewed, and results considered in the medical decision making process. Re-Evaluation - Re-Evaluation First Eval Re-Evaluation Time: 16:10 Change: Unchanged Comment: Patient still thinks her pain is bad and mentions that when she went to [facility] they gave her Dilaudid and morphine, which both took her pain away. I explained that we do not use narcotics for acute exacerbations of chronic back pain. Second Eval Change: Improved Comment: Lidoderm patch and toradol have decreased her pain. Back Pain Course/Dx - Diagnoses Differential Diagnosis/HQI/PQRI: Positive: Aneurysm, Arthritis, Cauda Equina Syndrome, Epidural Abscess, Herniated Disc, Strain, Sprain Provider Diagnoses: Acute exacerbation of chronic low back pain Discharge - Discharge Plan Condition: Stable Disposition: HOME Prescriptions: Cyclobenzaprine TAB* [Flexeril 10 MG TAB*] 10 mg PO TID PRN #15 tab PRN Reason: Pain Patient Education Materials: Low Back Strain (ED) Referrals: Sandrine Singer MD [Primary Care Provider] - Additional Instructions: Please use the medication provided as needed and use the walker to take pressure off your back for the next 1-2 days. Follow-up with your primary care provider in 2-3 days for evaluation. Return to the emergency department if symptoms worsen.
[2016-09-01] MEDS ORDERED: Ketorolac INJ* 60 MG/2 ML VIAL IM ONE (16:12)
[2016-09-01] MEDS ORDERED: Lidocaine PATCH 5%* 1 PATCH TRANSDERM ONE (16:27)
[2016-09-01 17:15] VITALS: BP 114/66
== END 2016-09-01 17:13 | disposition home or self-care (01) ==
LOC: ED 14:19
DX: G89.29 Other chronic pain (principal); M54.5 Low back pain
CPT/HCPCS: 96372; 99283; A9270-GY; J1885

== ENCOUNTER 2016-10-08 15:42 | Emergency (ER) | payer OTHER ==
[2016-10-08 16:46] VITALS: BP 111/61
[2016-10-08] MEDS ORDERED: Ketorolac INJ* 60 MG/2 ML VIAL IM ONE (17:55)
[2016-10-08] MEDS ORDERED: Cyclobenzaprine TAB* 10 MG PO ONE (17:55)
--- NOTE | 2016-10-08 18:51 | ED ---
Back Pain - HPI Summary HPI Summary: patient presents with an exacerbation of her chronic back pain after several falls over the past week. Her pain started yesterday and became worse today while walking. She has tried Motrin without relief. She has pain with weight bearing and has not discussed this with her PCP. No incontinence of urine or stool. No N/T or inability to ambulate. - History of Current Complaint Chief Complaint: EDBackInjuryPain Stated Complaint: BACK PAIN Time Seen by Provider: 10/08/16 17:42 Hx Obtained From: Patient Hx Last Menstrual Period: depo Onset/Duration: Gradual Onset Onset/Duration: Started Days Ago Timing: Constant Back Pain Location: Is Discrete @ - low back Severity Initially: Moderate Severity Currently: Severe Pain Intensity: 10 Character: Sharp, Aching, Stiffness Aggravating Symptom(s): Walking Alleviating Symptom(s): Nothing Associated Signs And Symptoms: Positive: Pain with Weight Bearing Related History: Previous Back Injury - Allergies/Home Medications Allergies/Adverse Reactions: Allergies Allergy/AdvReac Type Severity Reaction Status Date / Time Aspirin Allergy Severe Swelling Verified 06/18/16 14:23 Of Face,Lips,& Throat Latex Allergy Intermediate Unknown Verified 06/18/16 14:23 Reaction Details Phenobarbital Allergy Intermediate Swelling Verified 06/18/16 14:23 Of Face,Lips,& Throat Cortisone Allergy LOCALIZED Verified 06/18/16 14:23 SWELLING TO INJ SITE PMH/Surg Hx/FS Hx/Imm Hx Endocrine/Hematology History: Denies: Hx Anticoagulant Therapy, Hx Diabetes, Hx Thyroid Disease, Other Endocrine/Hematological Disorders Cardiovascular History: Denies: Hx Congestive Heart Failure, Hx Deep Vein Thrombosis, Hx Hypertension , Hx Myocardial Infarction, Hx Pacemaker/ICD, Other Cardiovascular Problems/ Disorders Respiratory History: Reports: Hx Asthma - She is using her sister's Symbicort 160/4.5--she states she is on abluterol, Hx Chronic Obstructive Pulmonary Disease (COPD) Denies: Hx Lung Cancer, Hx Pneumonia, Hx Pulmonary Embolism, Other Respiratory Problems/Disorders GI History: Reports: Hx Gall Bladder Disease Denies: Hx Gastrointestinal Bleed, Hx Ulcer, Hx Urosepsis, Other GI Disorders History: Reports: Other Problems/Disorders - OVARIAN CYST, Denies: Hx Kidney Stones, Hx Renal Disease Musculoskeletal History: Reports: Hx Back Problems Denies: Other Musculoskeletal History Sensory History: Denies: Other Sensory Impairments Opthamlomology History: Denies: Other Sensory Impairments Neurological History: Reports: Hx Seizures Denies: Hx Dementia, Hx Migraine, Hx Transient Ischemic Attacks (TIA), Other Neuro Impairments/Disorders Psychiatric History: Reports: Hx Anxiety, Hx Depression - She confesses to depression--on no Rx., Hx Bipolar Disorder Denies: Hx Schizophrenia, Hx Substance Abuse, Other Psychiatric Issues/ Disorders - Surgical History Surgery Procedure, Year, and Place: GALLBLADDER OUT 2010. 2010. APPENDECTOMY - Immunization History Date of Tetanus Vaccine: w/in last 10 years Date of Influenza Vaccine: none Infectious Disease History: No Infectious Disease History: Denies: Hx Clostridium Difficile, Hx Hepatitis, Hx Human Immunodeficiency Virus (HIV), Hx of Known/Suspected MRSA, Hx Shingles, Hx Tuberculosis, Hx Known/ Suspected VRE, Hx Known/Suspected VRSA, History Other Infectious Disease, Traveled Outside the [place] in Last 30 Days - Family History Known Family History: Positive: None, Cardiac Disease, Diabetes, Other - kidney cancer - Social History Occupation: Unemployed Lives: With Family Alcohol Use: Rare Alcohol Amount: states quit 12/19/15 Hx Substance Use: No Substance Use Type: Reports: None Hx Tobacco Use: Yes Smoking Status (MU): Heavy Every Day Tobacco Smoker Cessation Counseling: Patient Advised to Stop Review of Systems Positive: Myalgia. Negative: Edema Negative: Weakness, Paresthesia, Numbness All Other Systems Reviewed And Are Negative: Yes Physical Exam Triage Information Reviewed: Yes Vital Signs On Initial Exam: Initial Vitals Temp Pulse Resp BP Pulse Ox 98.3 F 100 20 108/88 98 10/08/16 15:43 10/08/16 15:43 10/08/16 15:43 10/08/16 15:43 10/08/16 15:43 Vital Signs Reviewed: Yes Appearance: Positive: Well-Appearing, Well-Nourished, Pain Distress Skin: Positive: Warm, Skin Color Reflects Adequate Perfusion, Dry, Soft Head/Face: Positive: Normal Head/Face Inspection Eyes: Positive: EOMI, HANNAH, Conjunctiva Clear ENT: Positive: Hearing grossly normal Respiratory/Lung Sounds: Positive: Breath Sounds Present Cardiovascular: Positive: RRR Musculoskeletal: Positive: Strength/ROM Intact, Pain @ - TTP bilateral SI joints and lumbar spine muscles Neurological: Positive: Sensory/Motor Intact, Alert, Oriented to Person Place, Time, NV Bundle Intact Distally, Abnormal Gait Psychiatric: Positive: Affect/Mood Appropriate AVPU Assessment: Alert Diagnostics - Vital Signs Vital Signs Temp Pulse Resp BP Pulse Ox 10/08/16 16:45 99.1 F 89 16 111/61 99 10/08/16 16:25 98.3 F 100 20 108/88 98 10/08/16 15:43 98.3 F 100 20 108/88 98 - Laboratory Lab Statement: Any lab studies that have been ordered have been reviewed, and results considered in the medical decision making process. - Radiology No standard instances Xray Interpretation: No Acute Changes Radiology Interpretation Completed By: Radiologist Back Pain Course/Dx - Course Course Of Treatment: I reiterated to the patient that she needs to use the walker I provided previously to support her and take weight off her back when she has pain, and that it is imperative that she see her PCP to develop a plan to deal with her back pain and acute exacerbations. The patient was mildly belligerent but ultimately agreed to follow through. - Diagnoses Differential Diagnosis/HQI/PQRI: Positive: Cauda Equina Syndrome, Compressive Cord Syndrome, Herniated Disc, Strain, Sprain Provider Diagnoses: Acute exacerbation of chronic low back pain Discharge - Discharge Plan Condition: Stable Disposition: HOME Prescriptions: Cyclobenzaprine TAB* [Flexeril 10 MG TAB*] 10 mg PO TID PRN #15 tab PRN Reason: Pain Ketorolac TAB (NF) [Toradol TAB (NF)] 10 mg PO Q6H #12 tab Patient Education Materials: Chronic Back Pain (ED) Referrals: Sandrine Singer MD [Primary Care Provider] - Additional Instructions: Please call Dr. Singer's office for an appointment to be seen next week to discuss how to manage your back pain and what can help. Use the medication provided as needed. Rest your back and use heat or ice to help with pain.
--- NOTE | 2016-10-08 18:58 | RAD ---
Indication: Fall, low back pain. 5 views of lumbar spine are reviewed. There is disc space narrowing at L4-L5 with endplate sclerosis. Degenerative disc disease is noted at L2-L3 and L3-L4. The intravertebral foramen appear patent. IMPRESSION: Degenerative disc disease at L2-L3 and L3-L4 as well as L4-L5. No fracture is noted.
== END 2016-10-08 19:58 | disposition home or self-care (01) ==
LOC: ED 15:42
DX: M54.9 Dorsalgia, unspecified (principal)
CPT/HCPCS: 72110; 99282; A9270-GY; J1885

== ENCOUNTER 2016-12-02 17:11 | Emergency (ER) | payer OTHER ==
[2016-12-02] MEDS ORDERED: oxyCODONE/Acetamin 5/325 MG* TAB PO ONE (19:02)
[2016-12-02 19:13] VITALS: BP 122/86
[2016-12-02 21:04] LABS: UR Preg Internal Control QC Line Present
--- NOTE | 2016-12-02 21:08 | RAD ---
Indication: Left hip pain. 2 views of left hip and an AP view the pelvis demonstrates no fracture. Pelvic ring is intact. IMPRESSION: No fracture of the pelvis or left hip is noted.
--- NOTE | 2016-12-02 23:36 | ED ---
Art Mason Aidan, scribed for Mor Cutler MD on 12/02/16 at 1930 . Back Pain - HPI Summary HPI Summary: 36 y/o female presents to the ED with a complaint of acute, constant, severe ( reported 04/05) left hip pain that began just after the patient tripped and fell onto the left side of her hip just VERIFICATION REP. Pt denies any dizziness/ lightheadedness. Hx of chronic back problems. Pt is allergic to ASA. - History of Current Complaint Chief Complaint: EDHipPelvisInjury Stated Complaint: LT HIP PAIN Time Seen by Provider: 12/02/16 17:30 Hx Obtained From: Patient Hx Last Menstrual Period: depo Onset/Duration: Sudden Onset Onset/Duration: Started Hours Ago, Still Present Timing: Constant Back Pain Location: Is Discrete @ - left hip Severity Initially: Severe Severity Currently: Severe Pain Intensity: 10 Pain Scale Used: 0-10 Numeric Character: Sharp Aggravating Symptom(s): Nothing - unknown Alleviating Symptom(s): Nothing - unknown Associated Signs And Symptoms: Positive: Negative Related History: Previous Back Injury - Hx of chronic back problems - Risk Factors TAD Risk Factors: Smoking - Allergies/Home Medications Allergies/Adverse Reactions: Allergies Allergy/AdvReac Type Severity Reaction Status Date / Time Aspirin Allergy Severe Swelling Verified 10/20/16 11:59 Of Face,Lips,& Throat Latex Allergy Intermediate Unknown Verified 10/20/16 11:59 Reaction Details Phenobarbital Allergy Intermediate Swelling Verified 10/20/16 11:59 Of Face,Lips,& Throat Cortisone Allergy LOCALIZED Verified 10/20/16 11:59 SWELLING TO INJ SITE PMH/Surg Hx/FS Hx/Imm Hx Endocrine/Hematology History: Denies: Hx Anticoagulant Therapy, Hx Diabetes, Hx Thyroid Disease, Other Endocrine/Hematological Disorders Cardiovascular History: Denies: Hx Congestive Heart Failure, Hx Deep Vein Thrombosis, Hx Hypertension , Hx Myocardial Infarction, Hx Pacemaker/ICD, Other Cardiovascular Problems/ Disorders Respiratory History: Reports: Hx Asthma - She is using her sister's Symbicort 160/4.5--she states she is on abluterol, Hx Chronic Obstructive Pulmonary Disease (COPD) Denies: Hx Lung Cancer, Hx Pneumonia, Hx Pulmonary Embolism, Other Respiratory Problems/Disorders GI History: Reports: Hx Gall Bladder Disease Denies: Hx Gastrointestinal Bleed, Hx Ulcer, Hx Urosepsis, Other GI Disorders History: Reports: Other Problems/Disorders - OVARIAN CYST, Denies: Hx Kidney Stones, Hx Renal Disease Musculoskeletal History: Reports: Hx Back Problems Denies: Other Musculoskeletal History Sensory History: Denies: Other Sensory Impairments Opthamlomology History: Denies: Other Sensory Impairments Neurological History: Reports: Hx Seizures Denies: Hx Dementia, Hx Migraine, Hx Transient Ischemic Attacks (TIA), Other Neuro Impairments/Disorders Psychiatric History: Reports: Hx Anxiety, Hx Depression - She confesses to depression--on no Rx., Hx Bipolar Disorder Denies: Hx Schizophrenia, Hx Substance Abuse, Other Psychiatric Issues/ Disorders - Surgical History Surgery Procedure, Year, and Place: GALLBLADDER OUT 2010. 2010. APPENDECTOMY - Immunization History Date of Tetanus Vaccine: w/in last 10 years Date of Influenza Vaccine: none Infectious Disease History: No Infectious Disease History: Denies: Hx Clostridium Difficile, Hx Hepatitis, Hx Human Immunodeficiency Virus (HIV), Hx of Known/Suspected MRSA, Hx Shingles, Hx Tuberculosis, Hx Known/ Suspected VRE, Hx Known/Suspected VRSA, History Other Infectious Disease, Traveled Outside the [place] in Last 30 Days - Family History Known Family History: Positive: Cardiac Disease, Diabetes, Other - kidney cancer - Social History Occupation: Unemployed Lives: Alone Alcohol Use: Rare Alcohol Amount: states quit 12/19/15 Hx Substance Use: No Substance Use Type: Reports: None Hx Tobacco Use: Yes Smoking Status (MU): Heavy Every Day Tobacco Smoker Review of Systems Constitutional: Negative Eyes: Negative ENT: Negative Cardiovascular: Negative Respiratory: Negative Gastrointestinal: Negative Genitourinary: Negative Positive: Arthralgia - left hip pain. Negative: Myalgia, Decreased ROM, Edema Skin: Negative Neurological: Negative Psychological: Normal All Other Systems Reviewed And Are Negative: Yes Physical Exam - Summary Physical Exam Summary: Constitutional: Well-developed, Well-nourished, Alert. (-) Distressed Skin: Warm, Dry HENT: Normocephalic; Atraumatic Eyes: Conjunctiva normal Neck: Musculoskeletal ROM normal neck. (-) JVD, (-) Stridor, (-) Tracheal deviation Cardio: Rhythm regular, rate normal, Heart sounds normal; Intact distal pulses; The pedal pulses are 2+ and symmetric. Radial pulses are 2+ and symmetric. (-) Murmur Pulmonary/Chest wall: Effort normal. (-) Respiratory distress, (-) Wheezes, (-) Rales Abd: Soft, (-) Tenderness, (-) Distension, (-) Guarding, (-) Rebound Musculoskeletal: (-) Edema Lymph: (-) Cervical adenopathy Neuro: Alert, Oriented x3 Psych: Mood and affect Normal Triage Information Reviewed: Yes Vital Signs On Initial Exam: Initial Vitals Temp Pulse Resp BP Pulse Ox 98.7 F 95 18 107/76 97 12/02/16 17:12 12/02/16 17:12 12/02/16 17:12 12/02/16 17:12 12/02/16 17:12 Vital Signs Reviewed: Yes - Roverto Coma Scale Coma Scale Total: 15 Diagnostics - Vital Signs Vital Signs Temp Pulse Resp BP Pulse Ox 12/02/16 19:18 16 12/02/16 19:00 92 122/86 96 12/02/16 18:42 94 110/72 96 12/02/16 18:00 95 96 12/02/16 17:18 100 98 12/02/16 17:12 98.7 F 95 18 107/76 97 - Laboratory Lab Statement: Any lab studies that have been ordered have been reviewed, and results considered in the medical decision making process. - Radiology LEFT HIP/PELVIS X-RAY Xray Interpretation: No Acute Changes - IMPRESSION: No fracture of the pelvis or left hip is noted. Re-Evaluation - Re-Evaluation First Eval Re-Evaluation Time: 21:02 - Pt is feeling much better Change: Improved Back Pain Course/Dx - Course Course Of Treatment: 36 y/o female presents with left hip pain. Imaging and labs reviewed. While in the ED, she is ambulatory and able to bear weight. - Diagnoses Provider Diagnoses: Fall, Contusion, hip, Chronic back pain Discharge - Discharge Plan Condition: Stable Disposition: HOME Discharge Disposition Comment: Please follow up with your primary care provider within 48 hours. Prescriptions: Lidocaine PATCH 5%* [Lidoderm 5% Patch*] 1 patch TRANSDERM DAILY #10 patch Patient Education Materials: Hip Contusion (ED), Chronic Back Pain (ED) Referrals: No Primary Care Phys,NOPCP [Primary Care Provider] - [facility] [Outside] The documentation as recorded by the Art sharma Aidan accurately reflects the service I personally performed and the decisions made by He gordillo Jerry, MD.
== END 2016-12-02 21:10 | disposition home or self-care (01) ==
LOC: ED 17:11
DX: S70.00XA Contusion of unspecified hip, initial encounter (principal); M54.9 Dorsalgia, unspecified; G89.29 Other chronic pain; W19.XXXA Unspecified fall, initial encounter; Y93.9 Activity, unspecified; Y92.9 Unspecified place or not applicable; Y99.9 Unspecified external cause status
CPT/HCPCS: 81025; 99282; A9270-GY

== ENCOUNTER 2016-12-23 13:15 | Emergency (ER) | payer OTHER ==
[2016-12-23] MEDS ORDERED: HYDROcodone/ACETAMIN 5-325 MG* 1 TAB PO ONE (13:59)
[2016-12-23 14:06] LABS: Hematocrit 40 % (35-47); Hemoglobin 13.3 g/dl (12.0-16.0); Mean Corpuscular HGB Conc 33 g/dl (31-36); Mean Corpuscular Hemoglobin 30 pg (27-31); Mean Corpuscular Volume 92 fL (80-97); Mean Platelet Volume 9 um3 (7.4-10.4); Red Blood Count 4.38 10^6/ul (4.0-5.4); Red Cell Distribution Width 14 % (10.5-15)
--- NOTE | 2016-12-23 14:24 | RAD ---
INDICATION: Left greater than right hip pain after a fall TECHNIQUE: An AP view of the pelvis was obtained. FINDINGS: The bones are in normal alignment. No fracture is seen. Joint spaces appear maintained. IMPRESSION: NO EVIDENCE FOR FRACTURE. IF THE PATIENT'S SYMPTOMS PERSIST RECOMMEND FOLLOW-UP IMAGING.
[2016-12-23 14:25] LABS: Albumin 3.9 g/dL (3.2-5.2); BUN/Creatinine Ratio 17.9 (8-20); Calcium 9.3 mg/dL (8.6-10.3); EGFR African American 126.7 (>60); EGFR Non-African American 98.5 (>60); Magnesium 1.7 mg/dL (1.9-2.7); Potassium 3.2 mmol/L (3.5-5.0); Total Bilirubin 0.3 mg/dL (0.2-1.0); Total Protein 6.9 g/dL (6.4-8.9)
--- NOTE | 2016-12-23 15:02 | RAD ---
Indication: Seizure. History of seizures. Comparison: December 12, 2015 Technique: Noncontrast CT vertex of skull through foramen magnum. Report: The sulci, ventricles, and basal cisterns are normal for age. Monique matter white matter differentiation is preserved without evidence for edema. No intra or extra axial hemorrhage, mass, or fluid collection detected. Unremarkable visualized orbital contents. Unremarkable calvarium and skull base. Unremarkable scalp. The visualized paranasal sinuses and mastoid air spaces are clear. IMPRESSION: Negative unenhanced head CT.
[2016-12-23 15:08] VITALS: BP 115/76
--- NOTE | 2016-12-23 22:17 | ED ---
Giovana Mason Edward, scribed for Colt Gregory MD on 12/23/16 at 1358 . Syncope/Near Syncope - HPI Summary HPI Summary: 36 y/o BIBA s/p seizure earlier today. Patient's episode was a witnessed LOC by her friends. Friends stated patient fell and hit her head hard. Patient c/o L head and L hip pain. Denies neck pain and lower extremity pain. Patient does not remember the seizure episode. PMHx seizures. - History Of Current Complaint Chief Complaint: EDSeizure Time Seen by Provider: 12/23/16 13:32 Hx Obtained From: Patient Onset/Duration: Sudden Onset Timing: Frequency Of Episodes - 1 Context: Witnessed Associated Head Trauma: Yes Associated Signs And Symptoms: Negative - Denies neck pain, Head Trauma (Recent ) - L side head pain. Fell during seizure, Other - L hip pain Frequency: Episodes x___ - 1 - Allergies/Home Medications Allergies/Adverse Reactions: Allergies Allergy/AdvReac Type Severity Reaction Status Date / Time Aspirin Allergy Severe Swelling Verified 10/20/16 11:59 Of Face,Lips,& Throat Latex Allergy Intermediate Unknown Verified 10/20/16 11:59 Reaction Details Phenobarbital Allergy Intermediate Swelling Verified 10/20/16 11:59 Of Face,Lips,& Throat Cortisone Allergy LOCALIZED Verified 10/20/16 11:59 SWELLING TO INJ SITE PMH/Surg Hx/FS Hx/Imm Hx Previously Healthy: No Endocrine/Hematology History: Denies: Hx Anticoagulant Therapy, Hx Diabetes, Hx Thyroid Disease, Other Endocrine/Hematological Disorders Cardiovascular History: Denies: Hx Congestive Heart Failure, Hx Deep Vein Thrombosis, Hx Hypertension , Hx Myocardial Infarction, Hx Pacemaker/ICD, Other Cardiovascular Problems/ Disorders Respiratory History: Reports: Hx Asthma - She is using her sister's Symbicort 160/4.5--she states she is on abluterol, Hx Chronic Obstructive Pulmonary Disease (COPD) Denies: Hx Lung Cancer, Hx Pneumonia, Hx Pulmonary Embolism, Other Respiratory Problems/Disorders GI History: Reports: Hx Gall Bladder Disease Denies: Hx Gastrointestinal Bleed, Hx Ulcer, Hx Urosepsis, Other GI Disorders History: Reports: Other Problems/Disorders - OVARIAN CYST, Denies: Hx Kidney Stones, Hx Renal Disease Musculoskeletal History: Reports: Hx Back Problems Denies: Other Musculoskeletal History Sensory History: Denies: Other Sensory Impairments Opthamlomology History: Denies: Other Sensory Impairments Neurological History: Reports: Hx Seizures Denies: Hx Dementia, Hx Migraine, Hx Transient Ischemic Attacks (TIA), Other Neuro Impairments/Disorders Psychiatric History: Reports: Hx Anxiety, Hx Depression - She confesses to depression--on no Rx., Hx Bipolar Disorder Denies: Hx Schizophrenia, Hx Substance Abuse, Other Psychiatric Issues/ Disorders - Surgical History Surgery Procedure, Year, and Place: GALLBLADDER OUT 2010. 2010. APPENDECTOMY - Immunization History Date of Tetanus Vaccine: w/in last 10 years Date of Influenza Vaccine: none Infectious Disease History: No Infectious Disease History: Denies: Hx Clostridium Difficile, Hx Hepatitis, Hx Human Immunodeficiency Virus (HIV), Hx of Known/Suspected MRSA, Hx Shingles, Hx Tuberculosis, Hx Known/ Suspected VRE, Hx Known/Suspected VRSA, History Other Infectious Disease, Traveled Outside the [place] in Last 30 Days - Family History Known Family History: Positive: Cardiac Disease, Diabetes, Other - kidney cancer - Social History Alcohol Use: Rare Alcohol Amount: states quit 12/19/15 Hx Substance Use: No Substance Use Type: Reports: None Hx Tobacco Use: Yes Smoking Status (MU): Heavy Every Day Tobacco Smoker Type: Cigarettes Review of Systems Constitutional: Negative Eyes: Negative ENT: Negative Cardiovascular: Negative Respiratory: Negative Gastrointestinal: Negative Genitourinary: Negative Musculoskeletal: Other - L head pain due to fall Positive: Arthralgia - L hip pain due to fall Skin: Negative Positive: Syncope - Witnessed LOC Psychological: Normal All Other Systems Reviewed And Are Negative: Yes Physical Exam Triage Information Reviewed: Yes Vital Signs On Initial Exam: Initial Vitals Temp Pulse Resp BP Pulse Ox 98.7 F 90 18 123/82 98 12/23/16 13:22 12/23/16 13:22 12/23/16 13:22 12/23/16 13:22 12/23/16 13:22 Vital Signs Reviewed: Yes Appearance: Positive: Well-Appearing, No Pain Distress Skin: Positive: Warm, Skin Color Reflects Adequate Perfusion, Dry Head/Face: Positive: Normal Head/Face Inspection Eyes: Positive: Normal ENT: Positive: Normal ENT inspection Neck: Positive: Supple, Nontender Respiratory/Lung Sounds: Positive: Clear to Auscultation, Breath Sounds Present Cardiovascular: Positive: RRR Abdomen Description: Positive: Nontender, Soft Bowel Sounds: Positive: Present Musculoskeletal: Positive: Other - Not tender to ROM but TTP in left hip. Tender in L parietal without obvious injury Neurological: Positive: Normal Psychiatric: Positive: Normal, Affect/Mood Appropriate Diagnostics - Vital Signs Vital Signs Temp Pulse Resp BP Pulse Ox 12/23/16 13:48 99 12/23/16 13:22 98.7 F 90 18 123/82 98 - Laboratory Lab Results: Lab Results 12/23/16 12/23/16 12/23/16 Range/Units 14:00 14:00 14:00 WBC 11.0 H (3.5-10.8) 10^3/ul RBC 4.38 (4.0-5.4) 10^6/ul Hgb 13.3 (12.0-16.0) g/dl Hct 40 (35-47) % MCV 92 (80-97) fL MCH 30 (27-31) pg MCHC 33 (31-36) g/dl RDW 14 (10.5-15) % Plt Count 221 (150-450) 10^3/ul MPV 9 (7.4-10.4) um3 Neut % (Auto) 62.4 (38-83) % Lymph % (Auto) 29.4 (25-47) % [place] % (Auto) 5.0 (1-9) % Eos % (Auto) 1.7 (0-6) % Baso % (Auto) 1.5 (0-2) % Absolute Neuts (auto) 6.9 (1.5-7.7) 10^3/ul Absolute Lymphs (auto) 3.2 (1.0-4.8) 10^3/ul Absolute Monos (auto) 0.5 (0-0.8) 10^3/ul Absolute Eos (auto) 0.2 (0-0.6) 10^3/ul Absolute Basos (auto) 0.2 (0-0.2) 10^3/ul Absolute Nucleated RBC 0 10^3/ul Nucleated RBC % 0 INR (Anticoag Therapy) 1.08 (0.89-1.11) Sodium 136 (133-145) mmol/L Potassium 3.2 L (3.5-5.0) mmol/L Chloride 105 (101-111) mmol/L Carbon Dioxide 22 (22-32) mmol/L Anion Gap 9 (2-11) mmol/L BUN 12 (6-24) mg/dL Creatinine 0.67 (0.51-0.95) mg/dL Est GFR ( Amer) 126.7 (>60) Est GFR (Non-Af Amer) 98.5 (>60) BUN/Creatinine Ratio 17.9 (8-20) Glucose 171 H (70-100) mg/dL Lactic Acid (0.5-2.0) mmol/L Calcium 9.3 (8.6-10.3) mg/dL Magnesium 1.7 L (1.9-2.7) mg/dL Total Bilirubin 0.30 (0.2-1.0) mg/dL AST 18 (13-39) U/L ALT 26 (7-52) U/L Alkaline Phosphatase 37 (34-104) U/L Total Protein 6.9 (6.4-8.9) g/dL Albumin 3.9 (3.2-5.2) g/dL Globulin 3.0 (2-4) g/dL Albumin/Globulin Ratio 1.3 (1-3) Beta HCG, Quant 1.99 mIU/mL 12/23/16 Range/Units 14:00 WBC (3.5-10.8) 10^3/ul RBC (4.0-5.4) 10^6/ul Hgb (12.0-16.0) g/dl Hct (35-47) % MCV (80-97) fL MCH (27-31) pg MCHC (31-36) g/dl RDW (10.5-15) % Plt Count (150-450) 10^3/ul MPV (7.4-10.4) um3 Neut % (Auto) (38-83) % Lymph % (Auto) (25-47) % [place] % (Auto) (1-9) % Eos % (Auto) (0-6) % Baso % (Auto) (0-2) % Absolute Neuts (auto) (1.5-7.7) 10^3/ul Absolute Lymphs (auto) (1.0-4.8) 10^3/ul Absolute Monos (auto) (0-0.8) 10^3/ul Absolute Eos (auto) (0-0.6) 10^3/ul Absolute Basos (auto) (0-0.2) 10^3/ul Absolute Nucleated RBC 10^3/ul Nucleated RBC % INR (Anticoag Therapy) (0.89-1.11) Sodium (133-145) mmol/L Potassium (3.5-5.0) mmol/L Chloride (101-111) mmol/L Carbon Dioxide (22-32) mmol/L Anion Gap (2-11) mmol/L BUN (6-24) mg/dL Creatinine (0.51-0.95) mg/dL Est GFR ( Amer) (>60) Est GFR (Non-Af Amer) (>60) BUN/Creatinine Ratio (8-20) Glucose (70-100) mg/dL Lactic Acid 2.6 H* (0.5-2.0) mmol/L Calcium (8.6-10.3) mg/dL Magnesium (1.9-2.7) mg/dL Total Bilirubin (0.2-1.0) mg/dL AST (13-39) U/L ALT (7-52) U/L Alkaline Phosphatase (34-104) U/L Total Protein (6.4-8.9) g/dL Albumin (3.2-5.2) g/dL Globulin (2-4) g/dL Albumin/Globulin Ratio (1-3) Beta HCG, Quant mIU/mL Result Diagrams: 12/23/16 14:00 12/23/16 14:00 Lab Statement: Any lab studies that have been ordered have been reviewed, and results considered in the medical decision making process. - Radiology PELVIS XRAY Xray Interpretation: No Acute Changes - NO EVIDENCE FOR FRACTURE. IF THE PATIENT 'S SYMPTOMS PERSIST RECOMMEND FOLLOW-UP IMAGING. Radiology Interpretation Completed By: Radiologist - CT BRAIN CT CT Interpretation: No Acute Changes - Negative unenhanced head CT. CT Interpretation Completed By: Radiologist Course/Dx Course Of Treatment: Ms. Winn had a witnessed seizure at home. She was fine here and had no further seizure activity. I arranged F/U with Dr. Corado. Assessment/Plan: Discussed with Dr. Paolo Knapp @ 15:12 - Diagnoses Provider Diagnoses: Breakthrough seizure Discharge - Discharge Plan Condition: Stable Disposition: HOME Patient Education Materials: Nonepileptic Seizures (ED) Referrals: Brenda Corado MD [Medical Doctor] - 3 Days (Please follow-up with Dr. Corado in 2- 3 days.) Additional Instructions: PLEASE TAKE KEPPRA PRESCRIBED The documentation as recorded by the Giovana sharma Edward accurately reflects the service I personally performed and the decisions made by me, Colt Gregory MD.
== END 2016-12-23 15:30 | disposition home or self-care (01) ==
LOC: ED 13:15
DX: R55 Syncope and collapse (principal); F17.210 Nicotine dependence, cigarettes, uncomplicated
CPT/HCPCS: 36415; 70450; 72170; 80053; 83605; 83735; 84702; 85025; 85610; 99283

== ENCOUNTER 2017-01-01 18:05 | Emergency (ER) | payer OTHER ==
[2017-01-01] MEDS ORDERED: NS 0.9% 1000 ML* 1,000 ML IV ONE (18:31)
[2017-01-01] MEDS ORDERED: Ondansetron INJ* 2 MG/ML VIAL IV ONE ×2 (18:31→20:42)
[2017-01-01] MEDS ORDERED: HYDROmorphone* 1 MG/ML 1 ML SYR IV ONE ×2 (18:31→20:42)
[2017-01-01 18:58] LABS: Hematocrit 41 % (35-47); Hemoglobin 13.8 g/dl (12.0-16.0); Mean Corpuscular HGB Conc 34 g/dl (31-36); Mean Corpuscular Hemoglobin 31 pg (27-31); Mean Corpuscular Volume 91 fL (80-97); Mean Platelet Volume 9 um3 (7.4-10.4); Red Blood Count 4.47 10^6/ul (4.0-5.4); Red Cell Distribution Width 14 % (10.5-15); White Blood Count 10.7 10^3/ul (3.5-10.8)
[2017-01-01 19:15] LABS: ALT 38 U/L (7-52); AST 29 U/L (13-39); Albumin 4.2 g/dL (3.2-5.2); Alkaline Phosphatase 47 U/L (34-104); Anion Gap 10 mmol/L (2-11); BUN/Creatinine Ratio 14.1 (8-20); Blood Urea Nitrogen 9 mg/dL (6-24); C Reactive Protein 13.26 mg/L (< 5.00); CO2 Carbon Dioxide 20 mmol/L (22-32); Calcium 9.4 mg/dL (8.6-10.3); Chloride 105 mmol/L (101-111); EGFR African American 133.6 (>60); EGFR Non-African American 103.9 (>60); Globulin 3.1 g/dL (2-4); Glucose 110 mg/dL (70-100); Lipase 33 U/L (11.0-82.0); Potassium 3.5 mmol/L (3.5-5.0); Sodium 135 mmol/L (133-145); Total Protein 7.3 g/dL (6.4-8.9)
--- NOTE | 2017-01-01 19:21 | RAD ---
HISTORY: Left adnexal pain COMPARISONS: August 14, 2016 TECHNIQUE: Multiple transverse and longitudinal ultrasound images were obtained of the pelvis using grayscale, color Doppler, and spectral Doppler imaging using the transabdominal transducer. FINDINGS: UTERUS: The uterus measures 9.7 x 5.3 x 6.5 cm. The uterus is normal in shape, size, contour, and echotexture. ENDOMETRIUM: The endometrial stripe is smooth. The endometrium measures 0.8 cm in thickness. CUL-DE-SAC: There is no free fluid within the cul-de-sac. RIGHT OVARY: The right ovary measures 2.1 x 1.5 x 2.5 cm. Normal arterial and venous waveforms are identifiable within the ovary on spectral Doppler imaging. LEFT OVARY: The left ovary measures 2.8 x 1.8 x 2.8 cm. Normal arterial and venous waveforms are identifiable within the ovary on spectral Doppler imaging. There is a 2 cm follicular cyst of the left ovary BLADDER: The bladder is not well visualized. IMPRESSION: 2 CM LEFT OVARIAN CYST. NO ACUTE SONOGRAPHIC PATHOLOGY OF THE VISUALIZED PORTION OF THE PELVIS. NO SONOGRAPHIC FEATURES OF TORSION. PLEASE NOTE THAT PARTIAL OR INTERMITTENT TORSION MAY BE SONOGRAPHICALLY NORMAL.
[2017-01-01 22:00] LABS: Urine Bilirubin Negative (Negative); Urine Glucose Negative (Negative); Urine Nitrite Negative (Negative)
[2017-01-01] MEDS ORDERED: HYDROcodone/ACETAMIN 5-325 MG* 1 TAB PO ONE (22:11)
[2017-01-01 22:15] VITALS: BP 116/80
--- NOTE | 2017-01-02 12:56 | ED ---
Rafaela Mason Alfonso, scribed for Colt Gregory MD on 01/01/17 at 1849 . Abdominal Pain/Female - HPI Summary HPI Summary: This patient is a 36 year old F BIBA to [facility] accompanied by brother with a chief complaint of sharp lower abdominal pain since a few days ago. She reports the pain is worse as of a few hours ago. Pt rates the pain 10/10 in severity. Symptoms aggravated and alleviated by nothing. Pt reports nausea and dizziness. Pt denies vaginal discharge and vaginal bleeding. - History of Current Complaint Chief Complaint: EDAbdPain Stated Complaint: SEIZURE Time Seen by Provider: 01/01/17 18:19 Hx Obtained From: Patient Hx Last Menstrual Period: depo Onset/Duration: Sudden Onset, Lasting Days - a few days, Worse Since - a few hours ago Timing: Constant Severity Initially: Moderate Severity Currently: Severe Pain Intensity: 10 Pain Scale Used: 0-10 Numeric Location: Other - Lower Character: Sharp Aggravating Factor(s): Nothing Alleviating Factor(s): Nothing Associated Signs and Symptoms: Positive: Dizzy, Nausea. Negative: Vaginal Bleeding, Vaginal Discharge Allergies/Adverse Reactions: Allergies Allergy/AdvReac Type Severity Reaction Status Date / Time Aspirin Allergy Severe Swelling Verified 10/20/16 11:59 Of Face,Lips,& Throat Latex Allergy Intermediate Unknown Verified 10/20/16 11:59 Reaction Details Phenobarbital Allergy Intermediate Swelling Verified 10/20/16 11:59 Of Face,Lips,& Throat Cortisone Allergy LOCALIZED Verified 10/20/16 11:59 SWELLING TO INJ SITE PMH/Surg Hx/FS Hx/Imm Hx Endocrine/Hematology History: Denies: Hx Anticoagulant Therapy, Hx Diabetes, Hx Thyroid Disease, Other Endocrine/Hematological Disorders Cardiovascular History: Denies: Hx Congestive Heart Failure, Hx Deep Vein Thrombosis, Hx Hypertension , Hx Myocardial Infarction, Hx Pacemaker/ICD, Other Cardiovascular Problems/ Disorders Respiratory History: Reports: Hx Asthma - She is using her sister's Symbicort 160/4.5--she states she is on abluterol, Hx Chronic Obstructive Pulmonary Disease (COPD) Denies: Hx Lung Cancer, Hx Pneumonia, Hx Pulmonary Embolism, Other Respiratory Problems/Disorders GI History: Reports: Hx Gall Bladder Disease Denies: Hx Gastrointestinal Bleed, Hx Ulcer, Hx Urosepsis, Other GI Disorders History: Reports: Other Problems/Disorders - OVARIAN CYST, Denies: Hx Kidney Stones, Hx Renal Disease Musculoskeletal History: Reports: Hx Back Problems Denies: Other Musculoskeletal History Sensory History: Denies: Other Sensory Impairments Opthamlomology History: Denies: Other Sensory Impairments Neurological History: Reports: Hx Seizures Denies: Hx Dementia, Hx Migraine, Hx Transient Ischemic Attacks (TIA), Other Neuro Impairments/Disorders Psychiatric History: Reports: Hx Anxiety, Hx Depression - She confesses to depression--on no Rx., Hx Bipolar Disorder Denies: Hx Schizophrenia, Hx Substance Abuse, Other Psychiatric Issues/ Disorders - Surgical History Surgery Procedure, Year, and Place: GALLBLADDER OUT 2010. 2010. APPENDECTOMY - Immunization History Date of Tetanus Vaccine: w/in last 10 years Date of Influenza Vaccine: none Infectious Disease History: No Infectious Disease History: Denies: Hx Clostridium Difficile, Hx Hepatitis, Hx Human Immunodeficiency Virus (HIV), Hx of Known/Suspected MRSA, Hx Shingles, Hx Tuberculosis, Hx Known/ Suspected VRE, Hx Known/Suspected VRSA, History Other Infectious Disease, Traveled Outside the [place] in Last 30 Days - Family History Known Family History: Positive: Cardiac Disease, Diabetes, Other - kidney cancer - Social History Alcohol Use: Rare Alcohol Amount: states quit 12/19/15 Hx Substance Use: No Substance Use Type: Reports: None Hx Tobacco Use: Yes Smoking Status (MU): Light Every Day Tobacco Smoker Type: Cigarettes Review of Systems Negative: Fever Positive: Abdominal Pain - Sharp lower, Nausea Positive: other - Negative vaginal discharge and vaginal bleeding. Neurological: Other - Positive dizziness All Other Systems Reviewed And Are Negative: Yes Physical Exam Triage Information Reviewed: Yes Vital Signs On Initial Exam: Initial Vitals Temp Pulse Resp BP Pulse Ox 98.7 F 104 15 120/73 97 01/01/17 18:12 01/01/17 18:12 01/01/17 18:12 01/01/17 18:12 01/01/17 18:12 Vital Signs Reviewed: Yes Appearance: Positive: Well-Appearing, No Pain Distress Skin: Positive: Warm, Skin Color Reflects Adequate Perfusion, Dry Head/Face: Positive: Normal Head/Face Inspection Eyes: Positive: Normal ENT: Positive: Normal ENT inspection Neck: Positive: Supple, Nontender Respiratory/Lung Sounds: Positive: Clear to Auscultation, Breath Sounds Present Cardiovascular: Positive: RRR Abdomen Description: Positive: Other: - Tender in LLQ and suprapubic region. Bowel Sounds: Positive: Present Musculoskeletal: Positive: Normal, Strength/ROM Intact Neurological: Positive: Normal, Sensory/Motor Intact, Alert, Oriented to Person Place, Time, CN Intact II-III Psychiatric: Positive: Affect/Mood Appropriate - [place] Coma Scale Coma Scale Total: 15 Diagnostics - Vital Signs Vital Signs Temp Pulse Resp BP Pulse Ox 01/01/17 18:13 101 120/73 97 01/01/17 18:12 98.7 F 104 15 120/73 96 - Laboratory Lab Results: Lab Results 01/01/17 01/01/17 01/01/17 Range/Units 18:43 18:43 18:43 WBC 10.7 (3.5-10.8) 10^3/ul RBC 4.47 (4.0-5.4) 10^6/ul Hgb 13.8 (12.0-16.0) g/dl Hct 41 (35-47) % MCV 91 (80-97) fL MCH 31 (27-31) pg MCHC 34 (31-36) g/dl RDW 14 (10.5-15) % Plt Count 225 (150-450) 10^3/ul MPV 9 (7.4-10.4) um3 Neut % (Auto) 62.1 (38-83) % Lymph % (Auto) 29.9 (25-47) % Sunflower % (Auto) 5.6 (1-9) % Eos % (Auto) 1.4 (0-6) % Baso % (Auto) 1.0 (0-2) % Absolute Neuts (auto) 6.7 (1.5-7.7) 10^3/ul Absolute Lymphs (auto) 3.2 (1.0-4.8) 10^3/ul Absolute Monos (auto) 0.6 (0-0.8) 10^3/ul Absolute Eos (auto) 0.1 (0-0.6) 10^3/ul Absolute Basos (auto) 0.1 (0-0.2) 10^3/ul Absolute Nucleated RBC 0 10^3/ul Nucleated RBC % 0 Sodium 135 (133-145) mmol/L Potassium 3.5 (3.5-5.0) mmol/L Chloride 105 (101-111) mmol/L Carbon Dioxide 20 L (22-32) mmol/L Anion Gap 10 (2-11) mmol/L BUN 9 (6-24) mg/dL Creatinine 0.64 (0.51-0.95) mg/dL Est GFR ( Amer) 133.6 (>60) Est GFR (Non-Af Amer) 103.9 (>60) BUN/Creatinine Ratio 14.1 (8-20) Glucose 110 H (70-100) mg/dL Lactic Acid 1.8 (0.5-2.0) mmol/L Calcium 9.4 (8.6-10.3) mg/dL Total Bilirubin 0.40 (0.2-1.0) mg/dL AST 29 (13-39) U/L ALT 38 (7-52) U/L Alkaline Phosphatase 47 (34-104) U/L C-Reactive Protein 13.26 H (< 5.00) mg/L Total Protein 7.3 (6.4-8.9) g/dL Albumin 4.2 (3.2-5.2) g/dL Globulin 3.1 (2-4) g/dL Albumin/Globulin Ratio 1.4 (1-3) Lipase 33 (11.0-82.0) U/L Beta HCG, Quant < 0.60 mIU/mL Urine Color Urine Appearance Urine pH (5-9) Ur Specific [place] (1.010-1.030) Urine Protein (Negative) Urine Ketones (Negative) Urine Blood (Negative) Urine Nitrate (Negative) Urine Bilirubin (Negative) Urine Urobilinogen (Negative) Ur Leukocyte Esterase (Negative) Urine Glucose (Negative) 01/01/17 Range/Units 21:51 WBC (3.5-10.8) 10^3/ul RBC (4.0-5.4) 10^6/ul Hgb (12.0-16.0) g/dl Hct (35-47) % MCV (80-97) fL MCH (27-31) pg MCHC (31-36) g/dl RDW (10.5-15) % Plt Count (150-450) 10^3/ul MPV (7.4-10.4) um3 Neut % (Auto) (38-83) % Lymph % (Auto) (25-47) % Sunflower % (Auto) (1-9) % Eos % (Auto) (0-6) % Baso % (Auto) (0-2) % Absolute Neuts (auto) (1.5-7.7) 10^3/ul Absolute Lymphs (auto) (1.0-4.8) 10^3/ul Absolute Monos (auto) (0-0.8) 10^3/ul Absolute Eos (auto) (0-0.6) 10^3/ul Absolute Basos (auto) (0-0.2) 10^3/ul Absolute Nucleated RBC 10^3/ul Nucleated RBC % Sodium (133-145) mmol/L Potassium (3.5-5.0) mmol/L Chloride (101-111) mmol/L Carbon Dioxide (22-32) mmol/L Anion Gap (2-11) mmol/L BUN (6-24) mg/dL Creatinine (0.51-0.95) mg/dL Est GFR ( Amer) (>60) Est GFR (Non-Af Amer) (>60) BUN/Creatinine Ratio (8-20) Glucose (70-100) mg/dL Lactic Acid (0.5-2.0) mmol/L Calcium (8.6-10.3) mg/dL Total Bilirubin (0.2-1.0) mg/dL AST (13-39) U/L ALT (7-52) U/L Alkaline Phosphatase (34-104) U/L C-Reactive Protein (< 5.00) mg/L Total Protein (6.4-8.9) g/dL Albumin (3.2-5.2) g/dL Globulin (2-4) g/dL Albumin/Globulin Ratio (1-3) Lipase (11.0-82.0) U/L Beta HCG, Quant mIU/mL Urine Color Yellow Urine Appearance Clear Urine pH 6.0 (5-9) Ur Specific [place] 1.010 (1.010-1.030) Urine Protein Negative (Negative) Urine Ketones Negative (Negative) Urine Blood Negative (Negative) Urine Nitrate Negative (Negative) Urine Bilirubin Negative (Negative) Urine Urobilinogen Negative (Negative) Ur Leukocyte Esterase Negative (Negative) Urine Glucose Negative (Negative) Result Diagrams: 01/01/17 18:43 01/01/17 18:43 Lab Statement: Any lab studies that have been ordered have been reviewed, and results considered in the medical decision making process. - Additional Comments Diagnostic Additional Comments: Pelvis US : 2 CM LEFT OVARIAN CYST. NO ACUTE SONOGRAPHIC PATHOLOGY OF THE VISUALIZED PORTION OF THE PELVIS. NO SONOGRAPHIC FEATURES OF TORSION. PLEASE NOTE THAT PARTIAL OR INTERMITTENT TORSION MAY BE SONOGRAPHICALLY NORMAL. Abdominal Pain Fem Course/Dx - Course Course Of Treatment: Ms. Winn presented with a few days of left lower quadrant pain that got a lot worse a few hours ago. Her labs and vitals were OK and she was found to have an ovarian cyst on U/S. - Diagnoses Provider Diagnoses: Ovarian cyst, Abdominal pain Discharge - Discharge Plan Condition: Stable Disposition: HOME Prescriptions: HYDROcodone/ACETAMIN 5-325 MG* [[place] 5-325 TAB*] 1 tab PO Q6H PRN #20 tab MDD 4 PRN Reason: Pain Patient Education Materials: Ovarian Cyst (ED) Referrals: Angy Ramirez MD [Medical Doctor] - 1 Week The documentation as recorded by the Rafaela sharma Alfonso accurately reflects the service I personally performed and the decisions made by me, Colt Gregory MD.
== END 2017-01-01 22:14 | disposition home or self-care (01) ==
LOC: ED 18:05
DX: N83.202 Unspecified ovarian cyst, left side (principal); J44.9 Chronic obstructive pulmonary disease, unspecified; F17.210 Nicotine dependence, cigarettes, uncomplicated
CPT/HCPCS: 36415; 76856; 80053; 81003; 83605; 83690; 84702; 85025; 86140; 86703; 96360; 96374; 96375; 96376; 99283; J1170; J2405

== ENCOUNTER 2017-01-06 17:44 | Emergency (ER) | payer OTHER ==
--- NOTE | 2017-01-06 21:45 | ED ---
Mendy Mason Salem, scribed for Paolo Howell MD on 01/06/17 at 2140 . Abdominal Pain/Female - HPI Summary HPI Summary: Patient is a 36 y/o F who presents to the ED with left-sided abdominal pain continued from 2 days when she was seen in here. At that time, pts imaging revealed a 2cm left ovarian cyst. She states that she received [place] with little alleviation to pain and increasing vomiting and hematemesis. 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 - History of Current Complaint Chief Complaint: EDAbdPain Stated Complaint: LOWER ABD PAIN, VOMITING BLOOD Time Seen by Provider: 01/06/17 21:35 Hx Obtained From: Patient Hx Last Menstrual Period: depo Onset/Duration: Gradual Onset, Lasting Days, Still Present Timing: Constant Severity Initially: Moderate Severity Currently: Moderate Pain Intensity: 10 Pain Scale Used: 0-10 Numeric Location: Diffuse Radiates: No Aggravating Factor(s): Nothing Alleviating Factor(s): Nothing Associated Signs and Symptoms: Positive: Vomiting Allergies/Adverse Reactions: Allergies Allergy/AdvReac Type Severity Reaction Status Date / Time Aspirin Allergy Severe Swelling Verified 10/20/16 11:59 Of Face,Lips,& Throat Latex Allergy Intermediate Unknown Verified 10/20/16 11:59 Reaction Details Phenobarbital Allergy Intermediate Swelling Verified 10/20/16 11:59 Of Face,Lips,& Throat Cortisone Allergy LOCALIZED Verified 10/20/16 11:59 SWELLING TO INJ SITE PMH/Surg Hx/FS Hx/Imm Hx Endocrine/Hematology History: Denies: Hx Anticoagulant Therapy, Hx Diabetes, Hx Thyroid Disease, Other Endocrine/Hematological Disorders Cardiovascular History: Denies: Hx Congestive Heart Failure, Hx Deep Vein Thrombosis, Hx Hypertension , Hx Myocardial Infarction, Hx Pacemaker/ICD, Other Cardiovascular Problems/ Disorders Respiratory History: Reports: Hx Asthma - She is using her sister's Symbicort 160/4.5--she states she is on abluterol, Hx Chronic Obstructive Pulmonary Disease (COPD) Denies: Hx Lung Cancer, Hx Pneumonia, Hx Pulmonary Embolism, Other Respiratory Problems/Disorders GI History: Reports: Hx Gall Bladder Disease Denies: Hx Gastrointestinal Bleed, Hx Ulcer, Hx Urosepsis, Other GI Disorders History: Reports: Other Problems/Disorders - OVARIAN CYST, Denies: Hx Kidney Stones, Hx Renal Disease Musculoskeletal History: Reports: Hx Back Problems Denies: Other Musculoskeletal History Sensory History: Denies: Other Sensory Impairments Opthamlomology History: Denies: Other Sensory Impairments Neurological History: Reports: Hx Seizures Denies: Hx Dementia, Hx Migraine, Hx Transient Ischemic Attacks (TIA), Other Neuro Impairments/Disorders Psychiatric History: Reports: Hx Anxiety, Hx Depression - She confesses to depression--on no Rx., Hx Bipolar Disorder Denies: Hx Schizophrenia, Hx Substance Abuse, Other Psychiatric Issues/ Disorders - Surgical History Surgery Procedure, Year, and Place: GALLBLADDER OUT 2010. 2010. APPENDECTOMY - Immunization History Date of Tetanus Vaccine: w/in last 10 years Date of Influenza Vaccine: none Infectious Disease History: Denies: Hx Clostridium Difficile, Hx Hepatitis, Hx Human Immunodeficiency Virus (HIV), Hx of Known/Suspected MRSA, Hx Shingles, Hx Tuberculosis, Hx Known/ Suspected VRE, Hx Known/Suspected VRSA, History Other Infectious Disease, Traveled Outside the [place] in Last 30 Days - Family History Known Family History: Positive: Cardiac Disease, Diabetes, Other - kidney cancer - Social History Alcohol Use: Rare Alcohol Amount: states quit 12/19/15 Hx Substance Use: No Substance Use Type: Reports: None Hx Tobacco Use: Yes Smoking Status (MU): Light Every Day Tobacco Smoker Type: Cigarettes Review of Systems Negative: Fever Positive: Abdominal Pain, Vomiting, Other - Hematemesis. All Other Systems Reviewed And Are Negative: Yes Physical Exam Triage Information Reviewed: Yes Vital Signs On Initial Exam: Initial Vitals Temp Pulse Resp BP Pulse Ox 98.0 F 98 20 115/70 97 01/06/17 17:50 01/06/17 17:50 01/06/17 17:50 01/06/17 17:50 01/06/17 17:50 Vital Signs Reviewed: Yes Appearance: Positive: Well-Appearing, Pain Distress - mild discomfort Skin: Positive: Warm Head/Face: Positive: Normal Head/Face Inspection Eyes: Positive: HANNHA ENT: Positive: Hearing grossly normal Neck: Positive: Supple Respiratory/Lung Sounds: Positive: Clear to Auscultation, Breath Sounds Present Cardiovascular: Positive: RRR Abdomen Description: Positive: No Organomegaly, Soft, Other: - milkd llq tenderness. Negative: Distended, Guarding Bowel Sounds: Positive: Present Musculoskeletal: Positive: Strength/ROM Intact Neurological: Positive: Alert, Oriented to Person Place, Time Psychiatric: Positive: Affect/Mood Appropriate Diagnostics - Vital Signs Vital Signs Temp Pulse Resp BP Pulse Ox 01/06/17 20:30 97.4 F 87 112/68 97 01/06/17 17:50 98.0 F 98 20 115/70 97 - Laboratory Result Diagrams: 01/06/17 22:10 01/06/17 22:10 Lab Statement: Any lab studies that have been ordered have been reviewed, and results considered in the medical decision making process. - CT Abd/pelvis CT Interpretation Completed By: Radiologist - Impression: Left adnexal cyst. No findings to suggest torsion. No inflammatory process identified in the abdomen or pelvis. No abdominal mass, adenopathy or collection seen. Re-Evaluation - Re-Evaluation First Eval Change: Improved - results d/w pt Abdominal Pain Fem Course/Dx - Course Course Of Treatment: 36 y/o F presents with left-sided abdominal pain continued from 2 days when she was seen in here. At that time, pts imaging revealed a 2cm left ovarian cyst. She states that she received [place] with little alleviation to pain and she reports increasing vomiting and hematemesis. CT a/p shows, per radiology, Impression: Left adnexal cyst. No findings to suggest torsion. No inflammatory process identified in the abdomen or pelvis. No abdominal mass, adenopathy or collection seen. Pt will be DC'd. - Diagnoses Provider Diagnoses: Abdominal pain Discharge - Discharge Plan Condition: Stable Disposition: HOME Patient Education Materials: Abdominal Pain (ED) Referrals: [facility] [Outside] Additional Instructions: Please follow up [place] [facility] The documentation as recorded by the Mendy sharma Salem accurately reflects the service I personally performed and the decisions made by , Paolo Howell MD.
[2017-01-06 22:18] LABS: Hematocrit 41 % (35-47); Hemoglobin 13.7 g/dl (12.0-16.0); Mean Corpuscular HGB Conc 33 g/dl (31-36); Mean Corpuscular Hemoglobin 31 pg (27-31); Mean Corpuscular Volume 94 fL (80-97); Mean Platelet Volume 9 um3 (7.4-10.4); Red Blood Count 4.42 10^6/ul (4.0-5.4); Red Cell Distribution Width 15 % (10.5-15); White Blood Count 10.5 10^3/ul (3.5-10.8)
[2017-01-06 22:35] LABS: ALT 26 U/L (7-52); AST 16 U/L (13-39); Albumin 3.9 g/dL (3.2-5.2); Alkaline Phosphatase 42 U/L (34-104); Anion Gap 7 mmol/L (2-11); BUN/Creatinine Ratio 15.9 (8-20); Blood Urea Nitrogen 10 mg/dL (6-24); C Reactive Protein 6.53 mg/L (< 5.00); CO2 Carbon Dioxide 22 mmol/L (22-32); Calcium 9.1 mg/dL (8.6-10.3); Chloride 108 mmol/L (101-111); EGFR Non-African American 105.8 (>60); Globulin 3.1 g/dL (2-4); Glucose 92 mg/dL (70-100); Lipase 79 U/L (11.0-82.0); Magnesium 1.8 mg/dL (1.9-2.7); Potassium 3.7 mmol/L (3.5-5.0); Sodium 137 mmol/L (133-145)
[2017-01-06 23:03] LABS: Urine Bilirubin Negative (Negative); Urine Glucose Negative (Negative); Urine Nitrite Negative (Negative)
[2017-01-07] MEDS ORDERED: Iohexol 300* (CONTRAST) 10 ML SDV IV ONE (01:04)
[2017-01-07 02:26] VITALS: BP 133/70
--- NOTE | 2017-01-07 08:08 | RAD ---
CLINICAL HISTORY: Lower abdominal pain COMPARISON: November 30, 2015, ultrasound dated January 02, 2016 TECHNIQUE: Multiple contiguous axial CT scans were obtained of the abdomen and pelvis after the administration of intravenous contrast. Coronal and sagittal multiplanar reformations are submitted for review. Oral contrast was administered. Delayed images were obtained through the abdomen and pelvis. FINDINGS: LUNG BASES: The lung bases are clear. LIVER: The liver is diffusely low in attenuation compared to the spleen. There are no focal hepatic parenchymal masses. The liver is enlarged measuring 20 cm in long axis. BILE DUCTS: There is no intrahepatic or extrahepatic biliary dilatation. GALLBLADDER: The gallbladder is not visualized. Surgical clips are noted in the gallbladder fossa. PANCREAS: The pancreas is normal, without mass or ductal dilatation. SPLEEN: Normal in size and appearance. UPPER GI TRACT: Evaluation of the gastrointestinal tract is limited by incomplete gastric distention. The upper GI tract is unremarkable. SMALL BOWEL AND MESENTERY: The small bowel is normal in contour, course, and caliber. There is no obstruction or dilatation. COLON: The colon is normal in contour, course, caliber. There is no pericolonic inflammatory change. The appendix is not clearly visualized ADRENALS: Normal bilaterally. KIDNEYS: The kidneys are normal in shape, size, contour, and axis. There is no hydronephrosis or nephrolithiasis. BLADDER: The bladder is smooth in contour. PELVIC ORGANS: There is a 1.7 cm left ovarian cyst. The pelvic organs are otherwise unremarkable for age and technique. AORTA: The aorta is normal. IVC: Unremarkable LYMPH NODES: There is no lymphadenopathy by size criteria. ABDOMINAL WALL: There is no evidence for abdominal wall hernia. BONES AND SOFT TISSUES: Degenerative changes are noted most pronounced of L4-L5 OTHER: None IMPRESSION: 1. AGAIN NOTED IS A LEFT OVARIAN CYST. 2. HEPATOMEGALY WITH FATTY INFILTRATION OF THE LIVER. 3. NO ACUTE CT PATHOLOGY OF THE VISUALIZED ABDOMEN OR PELVIS.
== END 2017-01-07 02:12 | disposition home or self-care (01) ==
LOC: ED 17:44
DX: R10.9 Unspecified abdominal pain (principal); R11.10 Vomiting, unspecified; F17.210 Nicotine dependence, cigarettes, uncomplicated
CPT/HCPCS: 36415; 74177; 80053; 81003; 83605; 83690; 83735; 84702; 85025; 86140; 99283; Q9967

== ENCOUNTER 2017-01-08 19:42 | Emergency (ER) | payer OTHER ==
[2017-01-08] MEDS ORDERED: Ketorolac INJ* 60 MG/2 ML VIAL IM ONE (23:53)
--- NOTE | 2017-01-09 00:14 | ED ---
Guillermina Mason Rebecca, scribed for Paolo Howell MD on 01/08/17 at 2351 . Abdominal Pain/Female - HPI Summary HPI Summary: Pt is a 36 y/o F who presents to ED c/o left sided abd pain. Pain began 1 week ago and has been constant and worsening since onset. Pain is currently severe, ranked 10/10. Sx aggravated and alleviated by nothing, unchanged by Hydrocodone. Pt was evaluated 2 days ago [place] [facility] [place] Abd/Pel was performed which reaffirmed the presence of a 2 cm left ovarian cyst, discovered by US on 01/01/2017. - History of Current Complaint Chief Complaint: EDGeneral Stated Complaint: LOWER ABD PAIN Time Seen by Provider: 01/08/17 23:49 Hx Obtained From: Patient Hx Last Menstrual Period: depo Onset/Duration: Lasting Weeks - 1 week, Still Present Timing: Constant Severity Currently: Severe Pain Intensity: 10 Pain Scale Used: 0-10 Numeric Location: Discrete At: LUQ, Discrete At: LLQ Radiates: No Aggravating Factor(s): Nothing Alleviating Factor(s): Nothing Associated Signs and Symptoms: Positive: Negative Allergies/Adverse Reactions: Allergies Allergy/AdvReac Type Severity Reaction Status Date / Time Aspirin Allergy Severe Swelling Verified 10/20/16 11:59 Of Face,Lips,& Throat Bee Venom Allergy Severe Anaphylatic Verified 01/08/17 20:57 Shock Latex Allergy Intermediate Unknown Verified 10/20/16 11:59 Reaction Details Phenobarbital Allergy Intermediate Swelling Verified 10/20/16 11:59 Of Face,Lips,& Throat Cortisone Allergy LOCALIZED Verified 10/20/16 11:59 SWELLING TO INJ SITE PMH/Surg Hx/FS Hx/Imm Hx Endocrine/Hematology History: Denies: Hx Anticoagulant Therapy, Hx Diabetes, Hx Thyroid Disease, Other Endocrine/Hematological Disorders Cardiovascular History: Denies: Hx Congestive Heart Failure, Hx Deep Vein Thrombosis, Hx Hypertension , Hx Myocardial Infarction, Hx Pacemaker/ICD, Other Cardiovascular Problems/ Disorders Respiratory History: Reports: Hx Asthma - She is using her sister's Symbicort 160/4.5--she states she is on abluterol, Hx Chronic Obstructive Pulmonary Disease (COPD) Denies: Hx Lung Cancer, Hx Pneumonia, Hx Pulmonary Embolism, Other Respiratory Problems/Disorders GI History: Reports: Hx Gall Bladder Disease Denies: Hx Gastrointestinal Bleed, Hx Ulcer, Hx Urosepsis, Other GI Disorders History: Reports: Other Problems/Disorders - OVARIAN CYST, Denies: Hx Dialysis, Hx Kidney Stones, Hx Renal Disease Musculoskeletal History: Reports: Hx Back Problems Denies: Other Musculoskeletal History Sensory History: Denies: Other Sensory Impairments Opthamlomology History: Denies: Other Sensory Impairments Neurological History: Reports: Hx Seizures Denies: Hx Dementia, Hx Migraine, Hx Transient Ischemic Attacks (TIA), Other Neuro Impairments/Disorders Psychiatric History: Reports: Hx Anxiety, Hx Depression - She confesses to depression--on no Rx., Hx Bipolar Disorder Denies: Hx Schizophrenia, Hx Substance Abuse, Other Psychiatric Issues/ Disorders - Surgical History Surgery Procedure, Year, and Place: GALLBLADDER OUT 2010. 2010. APPENDECTOMY - Immunization History Date of Tetanus Vaccine: w/in last 10 years Date of Influenza Vaccine: none Infectious Disease History: No Infectious Disease History: Denies: Hx Clostridium Difficile, Hx Hepatitis, Hx Human Immunodeficiency Virus (HIV), Hx of Known/Suspected MRSA, Hx Shingles, Hx Tuberculosis, Hx Known/ Suspected VRE, Hx Known/Suspected VRSA, History Other Infectious Disease, Traveled Outside the [place] in Last 30 Days - Family History Known Family History: Positive: Cardiac Disease, Diabetes, Other - kidney cancer - Social History Alcohol Use: Rare Alcohol Amount: states quit 12/19/15 Hx Substance Use: No Substance Use Type: Reports: None Hx Tobacco Use: Yes Smoking Status (MU): Light Every Day Tobacco Smoker Type: Cigarettes Review of Systems Negative: Fever Positive: Abdominal Pain - L-sided abd pain All Other Systems Reviewed And Are Negative: Yes Physical Exam Triage Information Reviewed: Yes Vital Signs On Initial Exam: Initial Vitals Temp Pulse Resp BP Pulse Ox 97.6 F 118 22 146/81 99 01/08/17 19:44 01/08/17 19:44 01/08/17 19:44 01/08/17 19:44 01/08/17 19:44 Vital Signs Reviewed: Yes Appearance: Positive: Well-Appearing, Pain Distress - mild discomfort Skin: Positive: Warm Head/Face: Positive: Normal Head/Face Inspection Eyes: Positive: [place] ENT: Positive: Hearing grossly normal Neck: Positive: Supple Respiratory/Lung Sounds: Positive: Clear to Auscultation, Breath Sounds Present Cardiovascular: Positive: RRR Abdomen Description: Positive: Soft, Other: - mild llq tenderness. Negative: Distended, Guarding Bowel Sounds: Positive: Present Musculoskeletal: Positive: Strength/ROM Intact Neurological: Positive: Alert, Oriented to Person Place, Time - [place] Coma Scale Coma Scale Total: 15 Diagnostics - Vital Signs Vital Signs Temp Pulse Resp BP Pulse Ox 01/08/17 22:30 96 109/66 97 01/08/17 22:19 95 97 01/08/17 22:00 109/67 01/08/17 21:37 94 97 01/08/17 21:30 94 105/89 97 01/08/17 21:00 95 99/66 97 01/08/17 20:55 96 97 01/08/17 20:52 98.7 F 90 16 101/79 97 01/08/17 20:21 98.0 F 100 20 135/72 100 01/08/17 19:44 97.6 F 118 22 146/81 99 - Laboratory Result Diagrams: 01/09/17 00:55 01/09/17 00:55 Lab Statement: Any lab studies that have been ordered have been reviewed, and results considered in the medical decision making process. Re-Evaluation - Re-Evaluation First Eval Change: Improved - Results d/w pt Abdominal Pain Fem Course/Dx - Course Course Of Treatment: Pt is a 36 y/o F who presents to ED c/o constant left sided abd pain for 1 week. Sx aggravated and alleviated by nothing, unchanged by Hydrocodone. Pt was evaluated 2 days ago [place] [facility] [place] CT Abd/Pel was performed which reaffirmed the presence of a 2 cm left ovarian cyst, discovered by US on 01/01/2017. Pt administered Toradol IM. She will be D/C to home with Dx of abdominal pain. She understands and agrees. Patient's medications reviewed this visit. - Diagnoses Provider Diagnoses: Abdominal pain Discharge - Discharge Plan Condition: Improved Disposition: HOME Patient Education Materials: Abdominal Pain (ED) Referrals: [facility] [place]Outside] - 3 Days The documentation as recorded by the Guillermina sharma Rebecca accurately reflects the service I personally performed and the decisions made by me, Paolo Howell MD.
[2017-01-09 01:00] LABS: Urine Bacteria Absent (Absent); Urine Bilirubin Negative (Negative); Urine Glucose Negative (Negative); Urine Nitrite Negative (Negative)
[2017-01-09 01:06] LABS: Hematocrit 39 % (35-47); Hemoglobin 12.9 g/dl (12.0-16.0); Mean Corpuscular HGB Conc 33 g/dl (31-36); Mean Corpuscular Hemoglobin 31 pg (27-31); Mean Corpuscular Volume 93 fL (80-97); Mean Platelet Volume 9 um3 (7.4-10.4); Red Blood Count 4.19 10^6/ul (4.0-5.4); Red Cell Distribution Width 15 % (10.5-15); White Blood Count 13.1 10^3/ul (3.5-10.8)
[2017-01-09 01:29] LABS: BUN/Creatinine Ratio 17.5 (8-20); Calcium 9.4 mg/dL (8.6-10.3); EGFR African American 152.7 (>60); EGFR Non-African American 118.7 (>60); Globulin 2.6 g/dL (2-4); Potassium 3.7 mmol/L (3.5-5.0); Total Bilirubin 0.4 mg/dL (0.2-1.0); Total Protein 6.6 g/dL (6.4-8.9)
[2017-01-09 03:07] VITALS: BP 95/53
== END 2017-01-09 02:30 | disposition home or self-care (01) ==
LOC: ED 19:42
DX: R10.9 Unspecified abdominal pain (principal); F17.210 Nicotine dependence, cigarettes, uncomplicated
CPT/HCPCS: 36415; 80053; 81003; 81015; 85025; 96372; 99283; J1885

== ENCOUNTER 2017-01-12 15:49 | Emergency (ER) | payer OTHER ==
[2017-01-12 16:52] LABS: Hematocrit 41 % (35-47); Hemoglobin 13.2 g/dl (12.0-16.0); Mean Corpuscular HGB Conc 33 g/dl (31-36); Mean Corpuscular Hemoglobin 31 pg (27-31); Mean Corpuscular Volume 94 fL (80-97); Mean Platelet Volume 9 um3 (7.4-10.4); Red Blood Count 4.32 10^6/ul (4.0-5.4); Red Cell Distribution Width 15 % (10.5-15); White Blood Count 9.8 10^3/ul (3.5-10.8)
[2017-01-12 16:54] LABS: Urine Bilirubin Negative (Negative); Urine Glucose Negative (Negative); Urine Nitrite Negative (Negative)
[2017-01-12 17:10] LABS: Albumin 3.9 g/dL (3.2-5.2); BUN/Creatinine Ratio 10.1 (8-20); Calcium 9.1 mg/dL (8.6-10.3); EGFR African American 122.5 (>60); EGFR Non-African American 95.2 (>60); Globulin 3.2 g/dL (2-4); Magnesium 1.8 mg/dL (1.9-2.7); Potassium 3.4 mmol/L (3.5-5.0); Total Bilirubin 0.3 mg/dL (0.2-1.0); Total Protein 7.1 g/dL (6.4-8.9)
[2017-01-12 17:41] LABS: TSH (Thyroid Stimulating Horm) 3.36 mcIU/mL (0.34-5.60)
[2017-01-12 18:10] VITALS: BP 104/65
--- NOTE | 2017-01-12 21:22 | ED ---
Juliana Mason Alok, scribed for Colt Gregory MD on 01/12/17 at 1630 . Syncope/Near Syncope - HPI Summary HPI Summary: 36F presents to the ED for syncope-like event earlier today. Pt was reportedly walking on the street to the bus stop returning home when she lost consciousness falling to her left-side and impacting the back of her head. Pt has no memory of losing consciousness or hitting pavement. Pt syncope was witnessed by her boyfriend who states that patient lost consciousness for approximately 5-6 minutes displaying no seizure-like symptoms. Pt notes at present an occipital HINES and slight CP. Pt denies nausea, diaphoresis, or lightheadedness prior to syncope. PMHx includes h/o seizures lasting usually 30 seconds at a time, asthma, abd COPD. PSHx includes appendectomy and cholecystectomy. Pt smokes tobacco. - History Of Current Complaint Chief Complaint: EDSyncope Time Seen by Provider: 01/12/17 16:12 Hx Obtained From: Patient Onset/Duration: Sudden Onset, Lasting Minutes, Resolved Timing: Intermittent Episode Lasting - 5-6 minutes Context: Witnessed Activity At Onset: Other - while ambulating Associated Head Trauma: Yes Aggravating Factor(s): Nothing Alleviating Factor(s): Nothing Associated Signs And Symptoms: Chest Pain, Headache - Allergies/Home Medications Allergies/Adverse Reactions: Allergies Allergy/AdvReac Type Severity Reaction Status Date / Time Aspirin Allergy Severe Swelling Verified 10/20/16 11:59 Of Face,Lips,& Throat Bee Venom Allergy Severe Anaphylatic Verified 01/08/17 20:57 Shock Latex Allergy Intermediate Unknown Verified 10/20/16 11:59 Reaction Details Phenobarbital Allergy Intermediate Swelling Verified 10/20/16 11:59 Of Face,Lips,& Throat Cortisone Allergy LOCALIZED Verified 10/20/16 11:59 SWELLING TO INJ SITE PMH/Surg Hx/FS Hx/Imm Hx Endocrine/Hematology History: Denies: Hx Anticoagulant Therapy, Hx Diabetes, Hx Thyroid Disease, Other Endocrine/Hematological Disorders Cardiovascular History: Denies: Hx Congestive Heart Failure, Hx Deep Vein Thrombosis, Hx Hypertension , Hx Myocardial Infarction, Hx Pacemaker/ICD, Other Cardiovascular Problems/ Disorders Respiratory History: Reports: Hx Asthma - She is using her sister's Symbicort 160/4.5--she states she is on abluterol, Hx Chronic Obstructive Pulmonary Disease (COPD) Denies: Hx Lung Cancer, Hx Pneumonia, Hx Pulmonary Embolism, Other Respiratory Problems/Disorders GI History: Reports: Hx Gall Bladder Disease Denies: Hx Gastrointestinal Bleed, Hx Ulcer, Hx Urosepsis, Other GI Disorders History: Reports: Other Problems/Disorders - OVARIAN CYST, Denies: Hx Dialysis, Hx Kidney Stones, Hx Renal Disease Musculoskeletal History: Reports: Hx Back Problems Denies: Other Musculoskeletal History Sensory History: Denies: Other Sensory Impairments Opthamlomology History: Denies: Other Sensory Impairments Neurological History: Reports: Hx Seizures Denies: Hx Dementia, Hx Migraine, Hx Transient Ischemic Attacks (TIA), Other Neuro Impairments/Disorders Psychiatric History: Reports: Hx Anxiety, Hx Depression - She confesses to depression--on no Rx., Hx Bipolar Disorder Denies: Hx Schizophrenia, Hx Substance Abuse, Other Psychiatric Issues/ Disorders - Surgical History Surgery Procedure, Year, and Place: GALLBLADDER OUT 2010. 2010. APPENDECTOMY - Immunization History Date of Tetanus Vaccine: w/in last 10 years Date of Influenza Vaccine: none Infectious Disease History: No Infectious Disease History: Denies: Hx Clostridium Difficile, Hx Hepatitis, Hx Human Immunodeficiency Virus (HIV), Hx of Known/Suspected MRSA, Hx Shingles, Hx Tuberculosis, Hx Known/ Suspected VRE, Hx Known/Suspected VRSA, History Other Infectious Disease, Traveled Outside the [place] in Last 30 Days - Family History Known Family History: Positive: Cardiac Disease, Diabetes, Other - kidney cancer - Social History Occupation: Unemployed Lives: With Family Alcohol Use: Rare Alcohol Amount: states quit 12/19/15 Hx Substance Use: No Substance Use Type: Reports: None Hx Tobacco Use: Yes Smoking Status (MU): Light Every Day Tobacco Smoker Type: Cigarettes Review of Systems Negative: Fever, Skin Diaphoresis Positive: Chest Pain Negative: Nausea Positive: Headache, Syncope All Other Systems Reviewed And Are Negative: Yes Physical Exam Triage Information Reviewed: Yes Vital Signs On Initial Exam: Initial Vitals Temp Pulse Resp BP Pulse Ox 98.5 F 93 20 123/73 98 01/12/17 15:55 01/12/17 15:55 01/12/17 15:55 01/12/17 15:55 01/12/17 15:55 Vital Signs Reviewed: Yes Appearance: Positive: Well-Appearing, No Pain Distress Skin: Positive: Warm, Skin Color Reflects Adequate Perfusion, Dry Head/Face: Positive: Other - Tender over occipital area Eyes: Positive: Normal ENT: Positive: Normal ENT inspection Neck: Positive: Supple, Nontender Respiratory/Lung Sounds: Positive: Clear to Auscultation Cardiovascular: Positive: RRR Abdomen Description: Positive: Nontender, Soft Bowel Sounds: Positive: Present Musculoskeletal: Positive: Normal Neurological: Positive: Other - Unsteady to Romberg test. In essense patient is baseline. Psychiatric: Positive: Normal, Affect/Mood Appropriate - [place] Coma Scale Coma Scale Total: 15 Diagnostics - Vital Signs Vital Signs Temp Pulse Resp BP Pulse Ox 01/12/17 16:02 98.5 F 93 18 116/77 97 01/12/17 15:55 98.5 F 93 20 123/73 98 - Laboratory Lab Results: Lab Results 01/12/17 01/12/17 01/12/17 Range/Units 16:35 16:35 16:35 WBC 9.8 (3.5-10.8) 10^3/ul RBC 4.32 (4.0-5.4) 10^6/ul Hgb 13.2 (12.0-16.0) g/dl Hct 41 (35-47) % MCV 94 (80-97) fL MCH 31 (27-31) pg MCHC 33 (31-36) g/dl RDW 15 (10.5-15) % Plt Count 257 (150-450) 10^3/ul MPV 9 (7.4-10.4) um3 Neut % (Auto) 58.4 (38-83) % Lymph % (Auto) 31.6 (25-47) % Lewis % (Auto) 7.4 (1-9) % Eos % (Auto) 1.4 (0-6) % Baso % (Auto) 1.2 (0-2) % Absolute Neuts (auto) 5.7 (1.5-7.7) 10^3/ul Absolute Lymphs (auto) 3.1 (1.0-4.8) 10^3/ul Absolute Monos (auto) 0.7 (0-0.8) 10^3/ul Absolute Eos (auto) 0.1 (0-0.6) 10^3/ul Absolute Basos (auto) 0.1 (0-0.2) 10^3/ul Absolute Nucleated RBC 0 10^3/ul Nucleated RBC % 0 D-Dimer, Quantitative (Less Than 230) ng/mL Sodium 137 (133-145) mmol/L Potassium 3.4 L (3.5-5.0) mmol/L Chloride 107 (101-111) mmol/L Carbon Dioxide 21 L (22-32) mmol/L Anion Gap 9 (2-11) mmol/L BUN 7 (6-24) mg/dL Creatinine 0.69 (0.51-0.95) mg/dL Est GFR ( Amer) 122.5 (>60) Est GFR (Non-Af Amer) 95.2 (>60) BUN/Creatinine Ratio 10.1 (8-20) Glucose 82 (70-100) mg/dL Lactic Acid (0.5-2.0) mmol/L Calcium 9.1 (8.6-10.3) mg/dL Magnesium 1.8 L (1.9-2.7) mg/dL Total Bilirubin 0.30 (0.2-1.0) mg/dL AST 20 (13-39) U/L ALT 23 (7-52) U/L Alkaline Phosphatase 44 (34-104) U/L Troponin I 0.00 (<0.04) ng/mL Total Protein 7.1 (6.4-8.9) g/dL Albumin 3.9 (3.2-5.2) g/dL Globulin 3.2 (2-4) g/dL Albumin/Globulin Ratio 1.2 (1-3) TSH 3.36 (0.34-5.60) mcIU/mL Urine Color Straw Urine Appearance Clear Urine pH 6.0 (5-9) Ur Specific [place] 1.002 L (1.010-1.030) Urine Protein Negative (Negative) Urine Ketones Negative (Negative) Urine Blood Negative (Negative) Urine Nitrate Negative (Negative) Urine Bilirubin Negative (Negative) Urine Urobilinogen Negative (Negative) Ur Leukocyte Esterase Negative (Negative) Urine Glucose Negative (Negative) 01/12/17 01/12/17 Range/Units 16:35 16:35 WBC (3.5-10.8) 10^3/ul RBC (4.0-5.4) 10^6/ul Hgb (12.0-16.0) g/dl Hct (35-47) % MCV (80-97) fL MCH (27-31) pg MCHC (31-36) g/dl RDW (10.5-15) % Plt Count (150-450) 10^3/ul MPV (7.4-10.4) um3 Neut % (Auto) (38-83) % Lymph % (Auto) (25-47) % Lewis % (Auto) (1-9) % Eos % (Auto) (0-6) % Baso % (Auto) (0-2) % Absolute Neuts (auto) (1.5-7.7) 10^3/ul Absolute Lymphs (auto) (1.0-4.8) 10^3/ul Absolute Monos (auto) (0-0.8) 10^3/ul Absolute Eos (auto) (0-0.6) 10^3/ul Absolute Basos (auto) (0-0.2) 10^3/ul Absolute Nucleated RBC 10^3/ul Nucleated RBC % D-Dimer, Quantitative < 200 (Less Than 230) ng/mL Sodium (133-145) mmol/L Potassium (3.5-5.0) mmol/L Chloride (101-111) mmol/L Carbon Dioxide (22-32) mmol/L Anion Gap (2-11) mmol/L BUN (6-24) mg/dL Creatinine (0.51-0.95) mg/dL Est GFR ( Amer) (>60) Est GFR (Non-Af Amer) (>60) BUN/Creatinine Ratio (8-20) Glucose (70-100) mg/dL Lactic Acid 1.6 (0.5-2.0) mmol/L Calcium (8.6-10.3) mg/dL Magnesium (1.9-2.7) mg/dL Total Bilirubin (0.2-1.0) mg/dL AST (13-39) U/L ALT (7-52) U/L Alkaline Phosphatase (34-104) U/L Troponin I (<0.04) ng/mL Total Protein (6.4-8.9) g/dL Albumin (3.2-5.2) g/dL Globulin (2-4) g/dL Albumin/Globulin Ratio (1-3) TSH (0.34-5.60) mcIU/mL Urine Color Urine Appearance Urine pH (5-9) Ur Specific [place] (1.010-1.030) Urine Protein (Negative) Urine Ketones (Negative) Urine Blood (Negative) Urine Nitrate (Negative) Urine Bilirubin (Negative) Urine Urobilinogen (Negative) Ur Leukocyte Esterase (Negative) Urine Glucose (Negative) Result Diagrams: 01/12/17 16:35 01/12/17 16:35 Lab Statement: Any lab studies that have been ordered have been reviewed, and results considered in the medical decision making process. - EKG 1644 Cardiac Rate: NL - 85 bpm EKG Rhythm: Sinus Rhythm Course/Dx Course Of Treatment: Alondra was fine here with good vitals. Her W/U was negative and she was D/C'd. - Diagnoses Provider Diagnoses: Syncope and collapse Discharge - Discharge Plan Condition: Stable Disposition: HOME Patient Education Materials: Syncope (ED) [place] [facility] [place]] No Primary Care Phys,NOPCP [Primary Care Provider] - Additional Instructions: Please follow up with your primary care physician. The documentation as recorded by the Juliana sharma Alok accurately reflects the service I personally performed and the decisions made by me, Colt Gregory MD.
== END 2017-01-12 18:48 | disposition home or self-care (01) ==
LOC: ED 15:49
DX: R55 Syncope and collapse (principal); R07.89 Other chest pain; R51 Headache; J44.9 Chronic obstructive pulmonary disease, unspecified; R56.9 Unspecified convulsions; F41.9 Anxiety disorder, unspecified; F32.9 Major depressive disorder, single episode, unspecified; Z88.8 Allergy status to other drugs, medicaments and biological substances; Z88.6 Allergy status to analgesic agent; Z91.030 Bee allergy status; Z91.040 Latex allergy status; F17.210 Nicotine dependence, cigarettes, uncomplicated
CPT/HCPCS: 36415; 80053; 81003; 83605; 83735; 84443; 84484; 85025; 85379; 93005; 99283

== ENCOUNTER 2017-03-14 16:51 | Emergency (ER) | payer OTHER ==
[2017-03-14] MEDS ORDERED: NS 0.9% 1000 ML* 1,000 ML IV ONE ×2 (19:18→19:56)
[2017-03-14 19:53] LABS: Hematocrit 39 % (35-47); Hemoglobin 12.9 g/dl (12.0-16.0); Mean Corpuscular HGB Conc 33 g/dl (31-36); Mean Corpuscular Hemoglobin 30 pg (27-31); Mean Corpuscular Volume 91 fL (80-97); Mean Platelet Volume 8 um3 (7.4-10.4); Red Cell Distribution Width 14 % (10.5-15); White Blood Count 11.4 10^3/ul (3.5-10.8)
[2017-03-14] MEDS ORDERED: Ondansetron INJ* 2 MG/ML VIAL IV ONE (19:56)
[2017-03-14] MEDS ORDERED: Morphine INJ* 4 MG/ML 1 ML CARPUJECT IV ONE ×2 (19:56→21:56)
[2017-03-14 20:10] LABS: Albumin 3.9 g/dL (3.2-5.2); BUN/Creatinine Ratio 16.4 (8-20); C Reactive Protein 8.5 mg/L (< 5.00); Calcium 9.1 mg/dL (8.6-10.3); EGFR African American 141.2 (>60); EGFR Non-African American 109.8 (>60); Globulin 3.2 g/dL (2-4); Magnesium 1.9 mg/dL (1.9-2.7); Potassium 3.5 mmol/L (3.5-5.0); Total Bilirubin 0.2 mg/dL (0.2-1.0); Total Protein 7.1 g/dL (6.4-8.9)
[2017-03-14 20:15] LABS: Urine Bacteria Absent (Absent); Urine Bilirubin Negative (Negative); Urine Glucose Negative (Negative); Urine Nitrite Negative (Negative)
[2017-03-14] MEDS ORDERED: Iohexol 300* (CONTRAST) 10 ML SDV IV ONE (20:46)
--- NOTE | 2017-03-14 20:59 | RAD ---
HISTORY: Pelvic pain COMPARISONS: January 01, 2017 TECHNIQUE: Multiple transverse and longitudinal ultrasound images were obtained of the pelvis using grayscale, color Doppler, and spectral Doppler imaging using the endovaginal transducer. FINDINGS: UTERUS: The uterus measures 9.2 x 4.6 x 6.1 cm. The uterus is normal in shape, size, contour, and echotexture. ENDOMETRIUM: The endometrial stripe is smooth. The endometrium measures 0.3 cm in thickness. CUL-DE-SAC: There is no free fluid within the cul-de-sac. RIGHT OVARY: The right ovary measures 2.5 x 2.1 x 1.2 cm. Normal arterial and venous waveforms are identifiable within the ovary on spectral Doppler imaging. LEFT OVARY: The left ovary measures 2. 2 x 2 by 1.5 cm. Normal arterial and venous waveforms are identifiable within the ovary on spectral Doppler imaging. BLADDER: The bladder is not well visualized. OTHER: None IMPRESSION: UNREMARKABLE ULTRASOUND OF THE PELVIS. NO SONOGRAPHIC FEATURES OF TORSION. PLEASE NOTE THAT PARTIAL OR INTERMITTENT TORSION MAY BE SONOGRAPHICALLY NORMAL.
[2017-03-15] MEDS ORDERED: Gabapentin CAP(*) 300 MG PO ONE (01:12)
--- NOTE | 2017-03-15 01:20 | ED ---
Jacob Mason Benjamin, scribed for Shahzad Hoffmann MD on 03/14/17 at 2020 . Abdominal Pain/Female - HPI Summary HPI Summary: 36yo female BIBA from home c/o diffuse lower abdominal pain since this morning. Pain was initially mild but has become severe throughout the day. Pt states that laughing, moving, and walking makes her pain worse. Pt also reported vomiting 3 times, and her 3rd time, pt noticed a small frankie of blood in her vomit. Pt had normal BM today. She reports having on and off intermittent vaginal bleeding the past few days that she describes is not like her normal MP. Surgical hx of appy, beverly, and abdominal laparoscopic surgery. PMHx of claustrophobia, Sz, and chronic back problems. Pt recently changed her sz meds to gabapentin 300mg BID, and is requesting more since she ran out. - History of Current Complaint Chief Complaint: EDAbdPain Stated Complaint: SEVERE ABD PAIN/VOMITING BLOOD Hx Obtained From: Patient, Family/Supervisor [employer] - Significant other Hx Last Menstrual Period: depo Onset/Duration: Sudden Onset, Lasting Hours, Still Present, Worse Since - progressively worsened Timing: Constant Severity Initially: Mild Severity Currently: Severe Pain Intensity: 10 Pain Scale Used: 0-10 Numeric Location: Diffuse - diffuse lower abd Radiates: No Aggravating Factor(s): Movement, Other: - laughing, coughing Alleviating Factor(s): Nothing Associated Signs and Symptoms: Positive: Back Pain - chronic, Vaginal Bleeding, Vomiting - with small amounts of blood. Negative: Fever, Constipation, Blood in Stool Allergies/Adverse Reactions: Allergies Allergy/AdvReac Type Severity Reaction Status Date / Time Aspirin Allergy Severe Swelling Verified 10/20/16 11:59 Of Face,Lips,& Throat Bee Venom Allergy Severe Anaphylatic Verified 01/08/17 20:57 Shock Latex Allergy Intermediate Unknown Verified 10/20/16 11:59 Reaction Details Phenobarbital Allergy Intermediate Swelling Verified 10/20/16 11:59 Of Face,Lips,& Throat Cortisone Allergy LOCALIZED Verified 10/20/16 11:59 SWELLING TO INJ SITE Home Medications: Home Medications Acetaminophen [Eq Acetaminophen] 1,000 mg PO Q4H PRN 03/14/17 [History Confirmed 03/14/17] Gabapentin CAP(*) [Neurontin 300 CAP(*)] 300 mg PO BID 03/14/17 [History Confirmed 03/14/17] PMH/Surg Hx/FS Hx/Imm Hx Endocrine/Hematology History: Denies: Hx Anticoagulant Therapy, Hx Diabetes, Hx Thyroid Disease, Other Endocrine/Hematological Disorders Cardiovascular History: Denies: Hx Congestive Heart Failure, Hx Deep Vein Thrombosis, Hx Hypertension , Hx Myocardial Infarction, Hx Pacemaker/ICD, Other Cardiovascular Problems/ Disorders Respiratory History: Reports: Hx Asthma - She is using her sister's Symbicort 160/4.5--she states she is on abluterol, Hx Chronic Obstructive Pulmonary Disease (COPD) Denies: Hx Lung Cancer, Hx Pneumonia, Hx Pulmonary Embolism, Other Respiratory Problems/Disorders GI History: Reports: Hx Gall Bladder Disease Denies: Hx Gastrointestinal Bleed, Hx Ulcer, Hx Urosepsis, Other GI Disorders History: Reports: Other Problems/Disorders - OVARIAN CYST, Denies: Hx Dialysis, Hx Kidney Stones, Hx Renal Disease Musculoskeletal History: Reports: Hx Back Problems Denies: Other Musculoskeletal History Sensory History: Denies: Other Sensory Impairments Opthamlomology History: Denies: Other Sensory Impairments Neurological History: Reports: Hx Seizures Denies: Hx Dementia, Hx Migraine, Hx Transient Ischemic Attacks (TIA), Other Neuro Impairments/Disorders Psychiatric History: Reports: Hx Anxiety, Hx Depression - She confesses to depression--on no Rx., Hx Bipolar Disorder Denies: Hx Schizophrenia, Hx Substance Abuse, Other Psychiatric Issues/ Disorders - Surgical History Surgery Procedure, Year, and Place: GALLBLADDER OUT 2010. 2010. APPENDECTOMY - Immunization History Date of Tetanus Vaccine: w/in last 10 years Date of Influenza Vaccine: none Infectious Disease History: No Infectious Disease History: Denies: Hx Clostridium Difficile, Hx Hepatitis, Hx Human Immunodeficiency Virus (HIV), Hx of Known/Suspected MRSA, Hx Shingles, Hx Tuberculosis, Hx Known/ Suspected VRE, Hx Known/Suspected VRSA, History Other Infectious Disease, Traveled Outside the [place] in Last 30 Days - Family History Known Family History: Positive: None, Cardiac Disease, Diabetes, Other - kidney cancer - Social History Occupation: Unemployed Lives: With Family Alcohol Use: Rare Alcohol Amount: states quit 12/19/15 Hx Substance Use: No Substance Use Type: Reports: None Hx Tobacco Use: Yes Smoking Status (MU): Light Every Day Tobacco Smoker Type: Cigarettes Review of Systems Constitutional: Negative Eyes: Negative ENT: Negative Cardiovascular: Negative Respiratory: Negative Positive: Abdominal Pain - diffuse lower abdominal pain, Vomiting, Nausea. Negative: Diarrhea Positive: other - vaginal bleeding Musculoskeletal: Negative Skin: Negative Neurological: Negative Psychological: Normal All Other Systems Reviewed And Are Negative: Yes Physical Exam Triage Information Reviewed: Yes Vital Signs On Initial Exam: Initial Vitals Temp Pulse Resp BP Pulse Ox 99 F 98 14 116/69 98 03/14/17 17:25 03/14/17 17:25 03/14/17 17:25 03/14/17 17:25 03/14/17 17:25 Vital Signs Reviewed: Yes Appearance: Positive: Well-Appearing, Well-Nourished, Pain Distress - mild pain distress Skin: Positive: Warm, Skin Color Reflects Adequate Perfusion, Dry Head/Face: Positive: Normal Head/Face Inspection Eyes: Positive: Normal ENT: Positive: Normal ENT inspection, Hearing grossly normal Neck: Positive: Supple, Nontender Respiratory/Lung Sounds: Positive: Clear to Auscultation, Breath Sounds Present Cardiovascular: Positive: RRR, Pulses are Symmetrical in both Upper and Lower Extremities Abdomen Description: Positive: Soft. Negative: Nontender - diffuse lower abdominal tenderness Bowel Sounds: Positive: Hypoactive Musculoskeletal: Positive: Strength/ROM Intact Neurological: Positive: Sensory/Motor Intact, Alert, Oriented to Person Place, Time Psychiatric: Positive: Affect/Mood Appropriate - [place] Coma Scale Coma Scale Total: 15 Diagnostics - Vital Signs Vital Signs Temp Pulse Resp BP Pulse Ox 03/14/17 20:10 16 03/14/17 19:30 94 98/63 96 03/14/17 19:03 95 96 03/14/17 19:02 103/60 03/14/17 17:25 99 F 98 14 116/69 98 - Laboratory Lab Results: Lab Results 03/14/17 03/14/17 03/14/17 Range/Units 19:43 19:43 19:43 WBC 11.4 H (3.5-10.8) 10^3/ul RBC 4.30 (4.0-5.4) 10^6/ul Hgb 12.9 (12.0-16.0) g/dl Hct 39 (35-47) % MCV 91 (80-97) fL MCH 30 (27-31) pg MCHC 33 (31-36) g/dl RDW 14 (10.5-15) % Plt Count 263 (150-450) 10^3/ul MPV 8 (7.4-10.4) um3 Neut % (Auto) 57.1 (38-83) % Lymph % (Auto) 33.3 (25-47) % Stephens % (Auto) 6.7 (1-9) % Eos % (Auto) 1.6 (0-6) % Baso % (Auto) 1.3 (0-2) % Absolute Neuts (auto) 6.5 (1.5-7.7) 10^3/ul Absolute Lymphs (auto) 3.8 (1.0-4.8) 10^3/ul Absolute Monos (auto) 0.8 (0-0.8) 10^3/ul Absolute Eos (auto) 0.2 (0-0.6) 10^3/ul Absolute Basos (auto) 0.2 (0-0.2) 10^3/ul Absolute Nucleated RBC 0 10^3/ul Nucleated RBC % 0 INR (Anticoag Therapy) 0.97 (0.89-1.11) APTT 28.4 (26.0-36.3) seconds Sodium 138 (133-145) mmol/L Potassium 3.5 (3.5-5.0) mmol/L Chloride 109 (101-111) mmol/L Carbon Dioxide 22 (22-32) mmol/L Anion Gap 7 (2-11) mmol/L BUN 10 (6-24) mg/dL Creatinine 0.61 (0.51-0.95) mg/dL Est GFR ( Amer) 141.2 (>60) Est GFR (Non-Af Amer) 109.8 (>60) BUN/Creatinine Ratio 16.4 (8-20) Glucose 72 (70-100) mg/dL Lactic Acid (0.5-2.0) mmol/L Calcium 9.1 (8.6-10.3) mg/dL Magnesium 1.9 (1.9-2.7) mg/dL Total Bilirubin 0.20 (0.2-1.0) mg/dL AST 14 (13-39) U/L ALT 21 (7-52) U/L Alkaline Phosphatase 46 (34-104) U/L C-Reactive Protein 8.50 H (< 5.00) mg/L Total Protein 7.1 (6.4-8.9) g/dL Albumin 3.9 (3.2-5.2) g/dL Globulin 3.2 (2-4) g/dL Albumin/Globulin Ratio 1.2 (1-3) Lipase 247 H (11.0-82.0) U/L Beta HCG, Quant Pending 03/14/17 Range/Units 19:43 WBC (3.5-10.8) 10^3/ul RBC (4.0-5.4) 10^6/ul Hgb (12.0-16.0) g/dl Hct (35-47) % MCV (80-97) fL MCH (27-31) pg MCHC (31-36) g/dl RDW (10.5-15) % Plt Count (150-450) 10^3/ul MPV (7.4-10.4) um3 Neut % (Auto) (38-83) % Lymph % (Auto) (25-47) % Stephens % (Auto) (1-9) % Eos % (Auto) (0-6) % Baso % (Auto) (0-2) % Absolute Neuts (auto) (1.5-7.7) 10^3/ul Absolute Lymphs (auto) (1.0-4.8) 10^3/ul Absolute Monos (auto) (0-0.8) 10^3/ul Absolute Eos (auto) (0-0.6) 10^3/ul Absolute Basos (auto) (0-0.2) 10^3/ul Absolute Nucleated RBC 10^3/ul Nucleated RBC % INR (Anticoag Therapy) (0.89-1.11) APTT (26.0-36.3) seconds Sodium (133-145) mmol/L Potassium (3.5-5.0) mmol/L Chloride (101-111) mmol/L Carbon Dioxide (22-32) mmol/L Anion Gap (2-11) mmol/L BUN (6-24) mg/dL Creatinine (0.51-0.95) mg/dL Est GFR ( Amer) (>60) Est GFR (Non-Af Amer) (>60) BUN/Creatinine Ratio (8-20) Glucose (70-100) mg/dL Lactic Acid 1.3 (0.5-2.0) mmol/L Calcium (8.6-10.3) mg/dL Magnesium (1.9-2.7) mg/dL Total Bilirubin (0.2-1.0) mg/dL AST (13-39) U/L ALT (7-52) U/L Alkaline Phosphatase (34-104) U/L C-Reactive Protein (< 5.00) mg/L Total Protein (6.4-8.9) g/dL Albumin (3.2-5.2) g/dL Globulin (2-4) g/dL Albumin/Globulin Ratio (1-3) Lipase (11.0-82.0) U/L Beta HCG, Quant Result Diagrams: 03/14/17 19:43 03/14/17 19:43 Lab Statement: Any lab studies that have been ordered have been reviewed, and results considered in the medical decision making process. - CT CT A/P W CT Interpretation: Positive (See Comments) - small nonobstructing stones on right kidney CT Interpretation Completed By: Radiologist - ED physician has reviewed this radiology report and agrees. - Additional Comments Diagnostic Additional Comments: TRANSVAGINAL US IMPRESSION: UNREMARKABLE ULTRASOUND OF THE PELVIS. NO SONOGRAPHIC FEATURES OF TORSION. PLEASE NOTE THAT PARTIAL OR INTERMITTENT TORSION MAY BE SONOGRAPHICALLY NORMAL. ED physician has reviewed this radiology report and agrees. Re-Evaluation - Re-Evaluation First Eval Re-Evaluation Time: 01:08 Change: Improved Comment: Discussed results with the pt. Pain is completely resolved. Reexamination is normal. Abdominal Pain Fem Course/Dx - Course Course Of Treatment: Reviewed pts medication and allergy lists. Blood pressure noted. PAIN GONE IN ED. DISCUSSED RESULTS WITH PATIENT/PARTNER. DISCUSSED NEED FOR CLOSE FOLLOW UP; RETURN IF WORSE. - Diagnoses Provider Diagnoses: Abdominal pain, Pancreatitis Discharge - Discharge Plan Condition: Stable Disposition: HOME Prescriptions: Gabapentin CAP(*) [Neurontin 300 CAP(*)] 300 mg PO BID #60 cap Patient Education Materials: Abdominal Pain (ED), Pancreatitis (ED) Referrals: No Primary Care Phys,NOPCP [Primary Care Provider] - [facility] [place] [facility] [Outside] Additional Instructions: FOLLOW UP WITH YOUR DOCTOR. RETURN TO THE EMERGENCY DEPARTMENT FOR ANY WORSENING OF YOUR CONDITION; PAIN, FEVER, VOMITING, YOU FEEL ILL OR QUESTIONS OR CONCERNS. The documentation as recorded by the scribJacob ames Benjamin accurately reflects the service I personally performed and the decisions made by me, Shahzad Hoffmann MD.
[2017-03-15 01:30] VITALS: BP 110/74
--- NOTE | 2017-03-15 07:50 | RAD ---
INDICATION: Lower abdominal pain. COMPARISON: Comparison is made with a prior CT of the abdomen and pelvis from January 07, 2017. TECHNIQUE: A CT scan of the abdomen and pelvis was performed with intravenous and oral contrast following intravenous injection of 116 ml of Omnipaque 300 nonionic contrast. Contiguous axial sections were obtained from the lung bases through the symphysis pubis. Images were reconstructed in the coronal and sagittal planes. FINDINGS: There is mild dependent bilateral lower lobe subsegmental atelectasis. No pleural effusion is present. The liver is moderately enlarged and decreased in attenuation consistent with fatty infiltration. The patient is status post cholecystectomy. The spleen and pancreas appear to be within normal limits. The kidneys and adrenal glands are normal in size. No hydronephrosis is seen. There is a 0.5 cm nonobstructing calculus in the midportion of the right kidney. The aorta is normal in caliber and demonstrates homogeneous contrast opacification. No significant enlarged retroperitoneal lymph nodes are seen. The stomach, small and large bowel appear nondistended. The patient is status post appendectomy by history. There is a short appendiceal stump present. There is no evidence for diverticulitis or colitis. The uterus is anteverted in position and mildly enlarged and normal in shape. No free intraperitoneal air or fluid is seen. No significant focal osseous abnormality is seen. IMPRESSION: 1. NO EVIDENCE FOR ACUTE FINDING. 2. STATUS POST CHOLECYSTECTOMY AND APPENDECTOMY. 3. SMALL NONOBSTRUCTING RIGHT RENAL CALCULUS. 4. HEPATOMEGALY AND HEPATIC STEATOSIS, UNCHANGED.
== END 2017-03-15 01:30 | disposition home or self-care (01) ==
LOC: ED 16:51
DX: R10.30 Lower abdominal pain, unspecified (principal); K85.90 Acute pancreatitis without necrosis or infection, unspecified; R11.2 Nausea with vomiting, unspecified; N93.9 Abnormal uterine and vaginal bleeding, unspecified; F17.210 Nicotine dependence, cigarettes, uncomplicated
CPT/HCPCS: 36415; 74177; 76830; 80053; 81003; 81015; 83605; 83690; 83735; 84702; 85025; 85610; 85730; 86140; 96374; 96375; 99283; A9270-GY; J2270; J2405; Q9967

== ENCOUNTER 2017-03-22 16:43 | Emergency (ER) | payer OTHER ==
[2017-03-22] MEDS ORDERED: NS 0.9% 1000 ML* 2,000 ML IV ONE ×2 (19:30→19:53)
[2017-03-22] MEDS ORDERED: Ondansetron INJ* 2 MG/ML VIAL IV ONE (19:53)
[2017-03-22] MEDS ORDERED: Ketorolac INJ* 30 MG/ML 1 ML VIAL IV ONE (19:53)
[2017-03-22 20:11] LABS: Hematocrit 40 % (35-47); Hemoglobin 13.7 g/dl (12.0-16.0); Mean Corpuscular HGB Conc 34 g/dl (31-36); Mean Corpuscular Hemoglobin 31 pg (27-31); Mean Corpuscular Volume 90 fL (80-97); Mean Platelet Volume 8 um3 (7.4-10.4); Red Blood Count 4.49 10^6/ul (4.0-5.4); Red Cell Distribution Width 13 % (10.5-15); White Blood Count 12.5 10^3/ul (3.5-10.8)
[2017-03-22 20:15] LABS: Urine Bacteria Absent (Absent); Urine Bilirubin Negative (Negative); Urine Glucose Negative (Negative); Urine Nitrite Negative (Negative)
--- NOTE | 2017-03-22 20:24 | RAD ---
INDICATION: Abdominal pain. COMPARISON: Comparison is made with a prior CT of the abdomen and pelvis from March 14, 2017. TECHNIQUE: Supine and upright views of the abdomen were obtained. FINDINGS: There is moderate distention of the stomach with an air-fluid level. The small bowel colon appear nondistended. No free intraperitoneal air is seen. There are surgical clips in the right upper quadrant consistent with a prior cholecystectomy. IMPRESSION: MODERATE GASTRIC DISTENTION.
[2017-03-22 20:29] LABS: Albumin 3.9 g/dL (3.2-5.2); BUN/Creatinine Ratio 23.1 (8-20); C Reactive Protein 13.07 mg/L (< 5.00); Calcium 9.5 mg/dL (8.6-10.3); EGFR African American 131.2 (>60); Globulin 3.6 g/dL (2-4); Potassium 3.6 mmol/L (3.5-5.0); Total Bilirubin 0.2 mg/dL (0.2-1.0); Total Protein 7.5 g/dL (6.4-8.9)
[2017-03-22] MEDS ORDERED: traMADol TAB* 50 MG PO ONE (23:05)
[2017-03-22] MEDS ORDERED: Omeprazole CAP* 20 MG PO ONE (23:06)
--- NOTE | 2017-03-22 23:13 | ED ---
Rafaela Mason Alfonso, scribed for Shahzad Hoffmann MD on 03/22/17 at 1941 . Abdominal Pain/Female - HPI Summary HPI Summary: This patient is a 36 year old F BIBA to [facility] accompanied by male with a chief complaint of abdominal pain since 8 days ago. She presented to [facility] 8 days ago for the same chief complaint, and a diagnosis of pancreatitis and abdominal pain. She reports her pain resolved after that visit, but returned a few days ago, and became worse earlier today. The patient rates her aching pain 8/10 in severity currently. Symptoms aggravated by eating. Symptoms alleviated by nothing. Patient reports nausea, vomiting, loss of appetite, and diarrhea ( watery with no blood). Patient denies fever, chills, constipation, urinary symptoms, and vaginal discharge. Tobacco abuse disorder. PSHx includes abdominal laparoscopic surgery, cholecystectomy and appendectomy. PMHx includes seizures and back problems. - History of Current Complaint Chief Complaint: EDAbdPain Stated Complaint: ABD PAIN/N/V Time Seen by Provider: 03/22/17 19:35 Hx Obtained From: Patient Onset/Duration: Sudden Onset, Lasting Days - 8, Worse Since - today Timing: Intermittent Episode Lasting Severity Currently: Severe Pain Intensity: 8 Pain Scale Used: 0-10 Numeric Character: Other: - aching Aggravating Factor(s): Food Alleviating Factor(s): Nothing Associated Signs and Symptoms: Positive: Other: - nausea, vomiting, loss of appetite, and diarrhea (watery with no blood). Patient denies fever, chills, constipation, urinary symptoms, and vaginal discharge Allergies/Adverse Reactions: Allergies Allergy/AdvReac Type Severity Reaction Status Date / Time Aspirin Allergy Severe Swelling Verified 03/22/17 17:32 Of Face,Lips,& Throat Bee Venom Allergy Severe Anaphylatic Verified 03/22/17 17:32 Shock Latex Allergy Intermediate Unknown Verified 03/22/17 17:32 Reaction Details Phenobarbital Allergy Intermediate Swelling Verified 03/22/17 17:32 Of Face,Lips,& Throat Cortisone Allergy LOCALIZED Verified 03/22/17 17:32 SWELLING TO INJ SITE PMH/Surg Hx/FS Hx/Imm Hx Endocrine/Hematology History: Denies: Hx Anticoagulant Therapy, Hx Diabetes, Hx Thyroid Disease, Other Endocrine/Hematological Disorders Cardiovascular History: Denies: Hx Congestive Heart Failure, Hx Deep Vein Thrombosis, Hx Hypertension , Hx Myocardial Infarction, Hx Pacemaker/ICD, Other Cardiovascular Problems/ Disorders Respiratory History: Reports: Hx Asthma - She is using her sister's Symbicort 160/4.5--she states she is on abluterol, Hx Chronic Obstructive Pulmonary Disease (COPD) Denies: Hx Lung Cancer, Hx Pneumonia, Hx Pulmonary Embolism, Other Respiratory Problems/Disorders GI History: Reports: Hx Gall Bladder Disease Denies: Hx Gastrointestinal Bleed, Hx Ulcer, Hx Urosepsis, Other GI Disorders History: Reports: Other Problems/Disorders - OVARIAN CYST, Denies: Hx Dialysis, Hx Kidney Stones, Hx Renal Disease Musculoskeletal History: Reports: Hx Back Problems Denies: Other Musculoskeletal History Sensory History: Denies: Other Sensory Impairments Opthamlomology History: Denies: Other Sensory Impairments Neurological History: Reports: Hx Seizures Denies: Hx Dementia, Hx Migraine, Hx Transient Ischemic Attacks (TIA), Other Neuro Impairments/Disorders Psychiatric History: Reports: Hx Anxiety, Hx Depression - She confesses to depression--on no Rx., Hx Bipolar Disorder Denies: Hx Schizophrenia, Hx Substance Abuse - Surgical History Surgery Procedure, Year, and Place: GALLBLADDER OUT 2010. 2010. APPENDECTOMY. abdominal laparoscopic surgery - Immunization History Date of Tetanus Vaccine: w/in last 10 years Date of Influenza Vaccine: none Infectious Disease History: No Infectious Disease History: Denies: Hx Clostridium Difficile, Hx Hepatitis, Hx Human Immunodeficiency Virus (HIV), Hx of Known/Suspected MRSA, Hx Shingles, Hx Tuberculosis, Hx Known/ Suspected VRE, Hx Known/Suspected VRSA, History Other Infectious Disease, Traveled Outside the [place] in Last 30 Days - Family History Known Family History: Positive: Cardiac Disease, Diabetes, Other - kidney cancer - Social History Alcohol Use: Rare Alcohol Amount: states quit 12/19/15 Hx Substance Use: No Substance Use Type: Reports: Marijuana Substance Use Comment - Amount & Last Used: few months ago Hx Tobacco Use: Yes Smoking Status (MU): Light Every Day Tobacco Smoker Type: Cigarettes Review of Systems Negative: Fever, Chills Positive: Abdominal Pain, Vomiting, Diarrhea, Nausea, Other - loss of appetite; Negative constipation Positive: no symptoms reported, other - Negative vaginal discharge All Other Systems Reviewed And Are Negative: Yes Physical Exam - Summary Physical Exam Summary: General: well-appearing, mild pain distress Skin: warm, color reflects adequate perfusion, dry Head: normal Eyes: EOMI, HANNAH ENT: normal Neck: supple, nontender Respiratory: CTA, breath sounds present Cardiovascular: Tachycardia. Regular rate. Abdomen: soft, mild diffuse tenderness Bowel: hypoactive Musculoskeletal: normal, strength/ROM intact Neurological: normal, sensory/motor intact, A&O x3 Psychological: affect/mood appropriate Triage Information Reviewed: Yes Vital Signs On Initial Exam: Initial Vitals Temp Pulse Resp BP Pulse Ox 98.8 F 101 19 98/62 98 03/22/17 17:24 03/22/17 17:24 03/22/17 17:24 03/22/17 17:24 03/22/17 17:24 Vital Signs Reviewed: Yes - [place] Coma Scale Coma Scale Total: 15 Diagnostics - Vital Signs Vital Signs Temp Pulse Resp BP Pulse Ox 03/22/17 18:30 91 107/62 97 03/22/17 18:02 95 104/66 95 03/22/17 18:00 100 97 03/22/17 17:32 100 96 03/22/17 17:30 94/57 03/22/17 17:24 98.8 F 101 19 98/62 98 - Laboratory Lab Results: Lab Results 03/22/17 03/22/17 03/22/17 Range/Units 19:50 19:50 19:50 WBC 12.5 H (3.5-10.8) 10^3/ul RBC 4.49 (4.0-5.4) 10^6/ul Hgb 13.7 (12.0-16.0) g/dl Hct 40 (35-47) % MCV 90 (80-97) fL MCH 31 (27-31) pg MCHC 34 (31-36) g/dl RDW 13 (10.5-15) % Plt Count 254 (150-450) 10^3/ul MPV 8 (7.4-10.4) um3 Neut % (Auto) 56.8 (38-83) % Lymph % (Auto) 33.8 (25-47) % Knox % (Auto) 6.3 (1-9) % Eos % (Auto) 2.1 (0-6) % Baso % (Auto) 1.0 (0-2) % Absolute Neuts (auto) 7.1 (1.5-7.7) 10^3/ul Absolute Lymphs (auto) 4.2 (1.0-4.8) 10^3/ul Absolute Monos (auto) 0.8 (0-0.8) 10^3/ul Absolute Eos (auto) 0.3 (0-0.6) 10^3/ul Absolute Basos (auto) 0.1 (0-0.2) 10^3/ul Absolute Nucleated RBC 0 10^3/ul Nucleated RBC % 0 Sodium 136 (133-145) mmol/L Potassium 3.6 (3.5-5.0) mmol/L Chloride 105 (101-111) mmol/L Carbon Dioxide 24 (22-32) mmol/L Anion Gap 7 (2-11) mmol/L BUN 15 (6-24) mg/dL Creatinine 0.65 (0.51-0.95) mg/dL Est GFR ( Amer) 131.2 (>60) Est GFR (Non-Af Amer) 102.0 (>60) BUN/Creatinine Ratio 23.1 H (8-20) Glucose 92 (70-100) mg/dL Lactic Acid 1.3 (0.5-2.0) mmol/L Calcium 9.5 (8.6-10.3) mg/dL Total Bilirubin 0.20 (0.2-1.0) mg/dL AST 19 (13-39) U/L ALT 24 (7-52) U/L Alkaline Phosphatase 54 (34-104) U/L C-Reactive Protein 13.07 H (< 5.00) mg/L Total Protein 7.5 (6.4-8.9) g/dL Albumin 3.9 (3.2-5.2) g/dL Globulin 3.6 (2-4) g/dL Albumin/Globulin Ratio 1.1 (1-3) Lipase 57 (11.0-82.0) U/L Beta HCG, Quant 2.47 mIU/mL Urine Color Urine Appearance Urine pH (5-9) Ur Specific Warner (1.010-1.030) Urine Protein (Negative) Urine Ketones (Negative) Urine Blood (Negative) Urine Nitrate (Negative) Urine Bilirubin (Negative) Urine Urobilinogen (Negative) Ur Leukocyte Esterase (Negative) Urine WBC (Auto) (Absent) Urine RBC (Auto) (Absent) Ur Squamous Epith Cells (Absent) Urine Bacteria (Absent) Urine Glucose (Negative) 03/22/17 Range/Units 19:50 WBC (3.5-10.8) 10^3/ul RBC (4.0-5.4) 10^6/ul Hgb (12.0-16.0) g/dl Hct (35-47) % MCV (80-97) fL MCH (27-31) pg MCHC (31-36) g/dl RDW (10.5-15) % Plt Count (150-450) 10^3/ul MPV (7.4-10.4) um3 Neut % (Auto) (38-83) % Lymph % (Auto) (25-47) % Knox % (Auto) (1-9) % Eos % (Auto) (0-6) % Baso % (Auto) (0-2) % Absolute Neuts (auto) (1.5-7.7) 10^3/ul Absolute Lymphs (auto) (1.0-4.8) 10^3/ul Absolute Monos (auto) (0-0.8) 10^3/ul Absolute Eos (auto) (0-0.6) 10^3/ul Absolute Basos (auto) (0-0.2) 10^3/ul Absolute Nucleated RBC 10^3/ul Nucleated RBC % Sodium (133-145) mmol/L Potassium (3.5-5.0) mmol/L Chloride (101-111) mmol/L Carbon Dioxide (22-32) mmol/L Anion Gap (2-11) mmol/L BUN (6-24) mg/dL Creatinine (0.51-0.95) mg/dL Est GFR ( Amer) (>60) Est GFR (Non-Af Amer) (>60) BUN/Creatinine Ratio (8-20) Glucose (70-100) mg/dL Lactic Acid (0.5-2.0) mmol/L Calcium (8.6-10.3) mg/dL Total Bilirubin (0.2-1.0) mg/dL AST (13-39) U/L ALT (7-52) U/L Alkaline Phosphatase (34-104) U/L C-Reactive Protein (< 5.00) mg/L Total Protein (6.4-8.9) g/dL Albumin (3.2-5.2) g/dL Globulin (2-4) g/dL Albumin/Globulin Ratio (1-3) Lipase (11.0-82.0) U/L Beta HCG, Quant mIU/mL Urine Color Yellow Urine Appearance Clear Urine pH 6.0 (5-9) Ur Specific Warner 1.014 (1.010-1.030) Urine Protein Negative (Negative) Urine Ketones Negative (Negative) Urine Blood 2+ H (Negative) Urine Nitrate Negative (Negative) Urine Bilirubin Negative (Negative) Urine Urobilinogen Negative (Negative) Ur Leukocyte Esterase Negative (Negative) Urine WBC (Auto) Trace(0-5/hpf) (Absent) Urine RBC (Auto) 1+(3-5/hpf) H (Absent) Ur Squamous Epith Cells Present H (Absent) Urine Bacteria Absent (Absent) Urine Glucose Negative (Negative) Result Diagrams: 03/22/17 19:50 03/22/17 19:50 Lab Statement: Any lab studies that have been ordered have been reviewed, and results considered in the medical decision making process. - Radiology Abdomen X-Ray Radiology Interpretation Completed By: Radiologist - MODERATE GASTRIC DISTENTION. ED physician has reviewed this radiology report and agrees. Abdominal Pain Fem Course/Dx - Course Course Of Treatment: IMPROVED IN ED. PATIENT HAD FOOD IN ED. WISHES TO GO HOME. ABD NON TENDER AT DISCHARGE. RX TORADOL 50MG #5 AND OMEPRAZOLE 20MG PO BID #60. F/U PMD; RETURN IF WORSE. - Diagnoses Provider Diagnoses: Abdominal pain Discharge - Discharge Plan Condition: Stable Disposition: HOME Prescriptions: Omeprazole CAP* [Prilosec CAP* 20 MG] 20 mg PO BID #60 cap. traMADol TAB* [Ultram*] 50 mg PO Q6HR PRN #5 tab MDD 4 PRN Reason: Pain Patient Education Materials: Abdominal Pain (ED) Referrals: [facility] [Outside] Additional Instructions: FOLLOW UP WITH YOUR DOCTOR. TAKE THE ANTACID OMEPRAZOLE 20MG TWICE A DAY. RETURN TO THE EMERGENCY DEPARTMENT FOR ANY WORSENING OF YOUR CONDITION; PAIN, FEVER, YOU FEEL ILL OR QUESTIONS OR CONCERNS. The documentation as recorded by the Rafaela sharma Alfonso accurately reflects the service I personally performed and the decisions made by me, Shahzad Hoffmann MD.
[2017-03-22 23:42] VITALS: BP 116/75
== END 2017-03-22 23:45 | disposition home or self-care (01) ==
LOC: ED 16:43
DX: R10.9 Unspecified abdominal pain (principal); R11.2 Nausea with vomiting, unspecified; R19.7 Diarrhea, unspecified
CPT/HCPCS: 36415; 74020; 80053; 81003; 81015; 83605; 83690; 84702; 85025; 86140; 96374; 96375; 99285; A9270-GY; J1885; J2405

== ENCOUNTER 2017-05-26 13:48 | Emergency (ER) | payer OTHER ==
[2017-05-26] MEDS ORDERED: Metoclopramide IV* 5 MG/ML 2 ML VIAL IV ONE (17:32)
[2017-05-26] MEDS ORDERED: NS 0.9% 1000 ML* 1,000 ML IV ONE ×2 (17:32→19:04)
[2017-05-26 17:33] LABS: Hematocrit 42 % (35-47); Hemoglobin 14.1 g/dl (12.0-16.0); Mean Corpuscular HGB Conc 34 g/dl (31-36); Mean Corpuscular Hemoglobin 30 pg (27-31); Mean Corpuscular Volume 90 fL (80-97); Mean Platelet Volume 9 um3 (7.4-10.4); Red Blood Count 4.67 10^6/ul (4.0-5.4); Red Cell Distribution Width 14 % (10.5-15); White Blood Count 9.5 10^3/ul (3.5-10.8)
[2017-05-26 17:36] LABS: Urine Bacteria Absent (Absent); Urine Bilirubin Negative (Negative); Urine Glucose Negative (Negative); Urine Nitrite Negative (Negative)
[2017-05-26 17:53] LABS: ALT 22 U/L (7-52); AST 17 U/L (13-39); Albumin 4.3 g/dL (3.2-5.2); Alkaline Phosphatase 53 U/L (34-104); Anion Gap 8 mmol/L (2-11); BUN/Creatinine Ratio 18.8 (8-20); Blood Urea Nitrogen 12 mg/dL (6-24); CO2 Carbon Dioxide 22 mmol/L (22-32); Calcium 9.4 mg/dL (8.6-10.3); Chloride 105 mmol/L (101-111); EGFR African American 133.6 (>60); EGFR Non-African American 103.9 (>60); Globulin 3.1 g/dL (2-4); Glucose 91 mg/dL (70-100); Lipase 36 U/L (11.0-82.0); Potassium 3.9 mmol/L (3.5-5.0); Sodium 135 mmol/L (133-145); Total Protein 7.4 g/dL (6.4-8.9)
[2017-05-26] MEDS ORDERED: Acetaminophen TAB* 325 MG PO ONE (18:23)
--- NOTE | 2017-05-26 19:22 | RAD ---
INDICATION: Pelvic pain COMPARISON: Pelvic sonogram March 14, 2017 TECHNIQUE: Longitudinal and transverse transvaginal scans of the pelvis were obtained. FINDINGS: Uterus: The uterus is normal in size. There are no focal masses. The uterus measures 9.4 x 4.9 x 6.1 cm. Endometrial thickness: The endometrial thickness is measured at 0.3 cm. . Free fluid: There is no significant free fluid . Ovaries: The ovaries are normal in size. The right ovary measures 2.8 x 2.2 x 2.5 cm. The left ovary measures 2.3 x 1.2 x 2.1 cm. There is a 2.5 x 1.4 x 1.5 cm right ovarian cyst. Doppler interrogation demonstrates flow to each ovary. Other: None IMPRESSION: 2.5 CM RIGHT OVARIAN CYST, OTHERWISE NEGATIVE
--- NOTE | 2017-05-26 19:32 | ED ---
Abdominal Pain/Female - HPI Summary HPI Summary: 36F presents with vomiting and lower abdominal pain today. She states she ate lunch and started to vomit. She had a normal BM today. She denies any diarrhea. She states her abdominal pain is in the same location as usually when has abdominal pain. She had her appendix and gallbladder removed by lap. She thinks she is . She denies any vaginal discharge. She denies any dysuria, hematuira, or flank pain. She has history of chronic back pain that takes tramadol for. She denies any fever. - History of Current Complaint Chief Complaint: EDAbdPain Stated Complaint: ABD PAIN/VOMITING Time Seen by Provider: 05/26/17 17:05 Hx Last Menstrual Period: depo Pain Intensity: 10 Allergies/Adverse Reactions: Allergies Allergy/AdvReac Type Severity Reaction Status Date / Time Aspirin Allergy Severe Swelling Verified 05/26/17 13:50 Of Face,Lips,& Throat Bee Venom Allergy Severe Anaphylatic Verified 05/26/17 13:50 Shock Latex Allergy Intermediate Unknown Verified 05/26/17 13:50 Reaction Details Phenobarbital Allergy Intermediate Swelling Verified 05/26/17 13:50 Of Face,Lips,& Throat Cortisone Allergy LOCALIZED Verified 05/26/17 13:50 SWELLING TO INJ SITE PMH/Surg Hx/FS Hx/Imm Hx Endocrine/Hematology History: Denies: Hx Anticoagulant Therapy, Hx Diabetes, Hx Thyroid Disease, Other Endocrine/Hematological Disorders Cardiovascular History: Denies: Hx Congestive Heart Failure, Hx Deep Vein Thrombosis, Hx Hypertension , Hx Myocardial Infarction, Hx Pacemaker/ICD, Other Cardiovascular Problems/ Disorders Respiratory History: Reports: Hx Asthma - She is using her sister's Symbicort 160/4.5--she states she is on abluterol, Hx Chronic Obstructive Pulmonary Disease (COPD) Denies: Hx Lung Cancer, Hx Pneumonia, Hx Pulmonary Embolism, Other Respiratory Problems/Disorders GI History: Reports: Hx Gall Bladder Disease Denies: Hx Gastrointestinal Bleed, Hx Ulcer, Hx Urosepsis, Other GI Disorders History: Reports: Other Problems/Disorders - OVARIAN CYST, Denies: Hx Dialysis, Hx Kidney Stones, Hx Renal Disease Musculoskeletal History: Reports: Hx Back Problems Denies: Other Musculoskeletal History Sensory History: Denies: Other Sensory Impairments Opthamlomology History: Denies: Other Sensory Impairments Neurological History: Reports: Hx Seizures Denies: Hx Dementia, Hx Migraine, Hx Transient Ischemic Attacks (TIA), Other Neuro Impairments/Disorders Psychiatric History: Reports: Hx Anxiety, Hx Depression - She confesses to depression--on no Rx., Hx Bipolar Disorder Denies: Hx Schizophrenia, Hx Substance Abuse, Other Psychiatric Issues/ Disorders - Surgical History Surgery Procedure, Year, and Place: GALLBLADDER OUT 2010. 2010. APPENDECTOMY. abdominal laparoscopic surgery - Immunization History Date of Tetanus Vaccine: w/in last 10 years Date of Influenza Vaccine: none Infectious Disease History: No Infectious Disease History: Denies: Hx Clostridium Difficile, Hx Hepatitis, Hx Human Immunodeficiency Virus (HIV), Hx of Known/Suspected MRSA, Hx Shingles, Hx Tuberculosis, Hx Known/ Suspected VRE, Hx Known/Suspected VRSA, History Other Infectious Disease, Traveled Outside the [place] in Last 30 Days - Family History Known Family History: Positive: None, Cardiac Disease, Diabetes, Other - kidney cancer - Social History Alcohol Use: Rare Alcohol Amount: states quit 12/19/15 Hx Substance Use: No Substance Use Type: Reports: Marijuana Substance Use Comment - Amount & Last Used: few months ago Hx Tobacco Use: Yes Smoking Status (MU): Light Every Day Tobacco Smoker Type: Cigarettes Review of Systems Negative: Fever Negative: Chest Pain Negative: Shortness Of Breath Positive: Abdominal Pain, Vomiting, Nausea. Negative: Diarrhea All Other Systems Reviewed And Are Negative: Yes Physical Exam Triage Information Reviewed: Yes Vital Signs On Initial Exam: Initial Vitals Temp Pulse Resp BP Pulse Ox 97.5 F 105 16 127/75 98 05/26/17 13:50 05/26/17 13:50 05/26/17 13:50 05/26/17 13:50 05/26/17 13:50 Vital Signs Reviewed: Yes Appearance: Positive: Well-Appearing Skin: Positive: Warm, Dry Head/Face: Positive: Normal Head/Face Inspection Eyes: Positive: Normal, EOMI, HANNAH, Conjunctiva Clear ENT: Positive: Normal ENT inspection, Pharynx normal, TMs normal Respiratory/Lung Sounds: Positive: Clear to Auscultation, Breath Sounds Present Cardiovascular: Positive: Normal, RRR Abdomen Description: Positive: Soft, Other: - mild tenderness bilateral lower quadrants Bowel Sounds: Positive: Present Musculoskeletal: Positive: Normal Neurological: Positive: Normal Psychiatric: Positive: Normal - Roverto Coma Scale Coma Scale Total: 15 Diagnostics - Vital Signs Vital Signs Temp Pulse Resp BP Pulse Ox 05/26/17 15:57 97 F 65 16 111/61 99 05/26/17 13:50 97.5 F 105 16 127/75 98 - Laboratory Lab Results: Lab Results 05/26/17 05/26/17 05/26/17 Range/Units 17:17 17:19 17:19 WBC 9.5 (3.5-10.8) 10^3/ul RBC 4.67 (4.0-5.4) 10^6/ul Hgb 14.1 (12.0-16.0) g/dl Hct 42 (35-47) % MCV 90 (80-97) fL MCH 30 (27-31) pg MCHC 34 (31-36) g/dl RDW 14 (10.5-15) % Plt Count 269 (150-450) 10^3/ul MPV 9 (7.4-10.4) um3 Neut % (Auto) 52.3 (38-83) % Lymph % (Auto) 38.2 (25-47) % Mckenzie % (Auto) 6.2 (1-9) % Eos % (Auto) 3.1 (0-6) % Baso % (Auto) 0.2 (0-2) % Absolute Neuts (auto) 4.9 (1.5-7.7) 10^3/ul Absolute Lymphs (auto) 3.6 (1.0-4.8) 10^3/ul Absolute Monos (auto) 0.6 (0-0.8) 10^3/ul Absolute Eos (auto) 0.3 (0-0.6) 10^3/ul Absolute Basos (auto) 0 (0-0.2) 10^3/ul Absolute Nucleated RBC 0.01 10^3/ul Nucleated RBC % 0.1 Sodium 135 (133-145) mmol/L Potassium 3.9 (3.5-5.0) mmol/L Chloride 105 (101-111) mmol/L Carbon Dioxide 22 (22-32) mmol/L Anion Gap 8 (2-11) mmol/L BUN 12 (6-24) mg/dL Creatinine 0.64 (0.51-0.95) mg/dL Est GFR ( Amer) 133.6 (>60) Est GFR (Non-Af Amer) 103.9 (>60) BUN/Creatinine Ratio 18.8 (8-20) Glucose 91 (70-100) mg/dL Calcium 9.4 (8.6-10.3) mg/dL Total Bilirubin 0.30 (0.2-1.0) mg/dL AST 17 (13-39) U/L ALT 22 (7-52) U/L Alkaline Phosphatase 53 (34-104) U/L C-React Prot High Sens 3.97 mg/L Total Protein 7.4 (6.4-8.9) g/dL Albumin 4.3 (3.2-5.2) g/dL Globulin 3.1 (2-4) g/dL Albumin/Globulin Ratio 1.4 (1-3) Lipase 36 (11.0-82.0) U/L Beta HCG, Quant < 0.60 mIU/mL Urine Color Yellow Urine Appearance Clear Urine pH 6.0 (5-9) Ur Specific [place] 1.018 (1.010-1.030) Urine Protein Negative (Negative) Urine Ketones Negative (Negative) Urine Blood 1+ H (Negative) Urine Nitrate Negative (Negative) Urine Bilirubin Negative (Negative) Urine Urobilinogen Negative (Negative) Ur Leukocyte Esterase Negative (Negative) Urine WBC (Auto) Trace(0-5/hpf) (Absent) Urine RBC (Auto) 2+(6-10/hpf) H (Absent) Ur Squamous Epith Cells Present H (Absent) Urine Bacteria Absent (Absent) Urine Glucose Negative (Negative) Result Diagrams: 05/26/17 17:19 05/26/17 17:19 Lab Statement: Any lab studies that have been ordered have been reviewed, and results considered in the medical decision making process. - Radiology abd Xray Interpretation: No Acute Changes Radiology Interpretation Completed By: Radiologist - Ultrasound No standard instances Ultrasound Interpretation: Positive (See Comments) - IMPRESSION: 2.5 CM RIGHT OVARIAN CYST, OTHERWISE NEGATIVE Ultrasound Interpretation Completed By: Radiologist Abdominal Pain Fem Course/Dx - Course Course Of Treatment: 36F presents with vomiting and lower abdominal pain today. She states she ate lunch and started to vomit. She had a normal BM today. She denies any diarrhea. She states her abdominal pain is in the same location as usually when has abdominal pain. She had her appendix and gallbladder removed by lap. She thinks she is . She denies any vaginal discharge. She denies any dysuria, hematuira, or flank pain. She has history of chronic back pain that takes tramadol for. She denies any fever. on exam mild tenderness in bilateral lower quadrants. labs normal. not . pelvic u/s shows right side ovarian cyst. patient feeling better after fluids and nausea medication. abd xray normal. will send home with script for zofran. patient understand and agrees with plan. - Diagnoses Differential Diagnosis: Positive: Bowel Obstruction, Urinary Tract Infection, Other - gastroenteritis Provider Diagnoses: Vomiting, Abdominal pain Discharge - Discharge Plan Condition: Good Disposition: HOME Prescriptions: Ondansetron ODT TAB* [Zofran 4 MG Odt TAB*] 4 mg PO Q6H PRN #20 tab.odt PRN Reason: Nausea Patient Education Materials: Acute Nausea and Vomiting (ED) Referrals: Nathalie Pope [employer] [Primary Care Provider] - Additional Instructions: Can take Zofran every 6 hours as needed for nausea Drink small amounts of fluid as tolerated When able to eat follow BRAT diet: Bananas, rice, applesauce, toast Take ibuprofen or Tylenol for pain as needed every 6 hours Follow up with primary within 5 days Return to ED if develop any new or worsening symptoms
--- NOTE | 2017-05-26 20:15 | RAD ---
INDICATION: Abdominal pain COMPARISON: None TECHNIQUE: Erect and supine views of the abdomen are submitted. FINDINGS: Bones: There are no acute bony findings. Soft tissues: The soft tissues appear normal. The psoas margins are sharp. Bowel gas pattern: Normal Calcifications: There are no abnormal calcifications. Other: None IMPRESSION: NO ACUTE DIAGNOSTIC FINDINGS.
[2017-05-26 20:37] VITALS: BP 113/75
== END 2017-05-26 20:37 | disposition home or self-care (01) ==
LOC: ED 13:48
DX: R10.9 Unspecified abdominal pain (principal); R11.2 Nausea with vomiting, unspecified
CPT/HCPCS: 36415; 74020; 76830; 80053; 81003; 81015; 83690; 84702; 85025; 86141; 96374; 99283; A9270-GY; J2765

== ENCOUNTER 2017-07-24 19:07 | Emergency (ER) | payer OTHER ==
[2017-07-24] MEDS ORDERED: Lidocaine PATCH 5%* 1 PATCH TRANSDERM ONE (19:49)
[2017-07-24] MEDS ORDERED: Methocarbamol TAB* 500 MG PO ONE (19:49)
--- NOTE | 2017-07-24 19:52 | ED ---
Back Pain - HPI Summary HPI Summary: 36-year-old female presents with acute back pain today. She states she was lifting a TV and felt her back give out. She states the pain is in the location previous injuries. She states she has a herniated disc at this location. She denies any pain or numbness or tingling down her legs. She denies any weakness. She is able to ambulate. She took ibuprofen Tylenol Flexeril tramadol antibiotics and heat without relief. She denies any saddle anesthesia. She denies any loss of bowel or bladder. She denies any dysuria. - History of Current Complaint Chief Complaint: EDBackInjuryPain Stated Complaint: BACK PAIN Time Seen by Provider: 07/24/17 19:32 Hx Last Menstrual Period: depo Pain Intensity: 10 - Allergies/Home Medications Allergies/Adverse Reactions: Allergies Allergy/AdvReac Type Severity Reaction Status Date / Time Aspirin Allergy Severe Swelling Verified 05/26/17 13:50 Of Face,Lips,& Throat Bee Venom Allergy Severe Anaphylatic Verified 05/26/17 13:50 Shock Latex Allergy Intermediate Unknown Verified 05/26/17 13:50 Reaction Details Phenobarbital Allergy Intermediate Swelling Verified 05/26/17 13:50 Of Face,Lips,& Throat Cortisone Allergy LOCALIZED Verified 05/26/17 13:50 SWELLING TO INJ SITE PMH/Surg Hx/FS Hx/Imm Hx Endocrine/Hematology History: Denies: Hx Anticoagulant Therapy, Hx Diabetes, Hx Thyroid Disease, Other Endocrine/Hematological Disorders Cardiovascular History: Denies: Hx Congestive Heart Failure, Hx Deep Vein Thrombosis, Hx Hypertension , Hx Myocardial Infarction, Hx Pacemaker/ICD, Other Cardiovascular Problems/ Disorders Respiratory History: Reports: Hx Asthma - She is using her sister's Symbicort 160/4.5--she states she is on abluterol, Hx Chronic Obstructive Pulmonary Disease (COPD) Denies: Hx Lung Cancer, Hx Pneumonia, Hx Pulmonary Embolism, Other Respiratory Problems/Disorders GI History: Reports: Hx Gall Bladder Disease Denies: Hx Gastrointestinal Bleed, Hx Ulcer, Hx Urosepsis, Other GI Disorders History: Reports: Other Problems/Disorders - OVARIAN CYST, Denies: Hx Dialysis, Hx Kidney Stones, Hx Renal Disease Musculoskeletal History: Reports: Hx Back Problems Denies: Other Musculoskeletal History Sensory History: Denies: Other Sensory Impairments Opthamlomology History: Denies: Other Sensory Impairments Neurological History: Reports: Hx Seizures Denies: Hx Dementia, Hx Migraine, Hx Transient Ischemic Attacks (TIA), Other Neuro Impairments/Disorders Psychiatric History: Reports: Hx Anxiety, Hx Depression - She confesses to depression--on no Rx., Hx Bipolar Disorder Denies: Hx Schizophrenia, Hx Substance Abuse, Other Psychiatric Issues/ Disorders - Surgical History Surgery Procedure, Year, and Place: GALLBLADDER OUT 2010. 2010. APPENDECTOMY. abdominal laparoscopic surgery - Immunization History Date of Tetanus Vaccine: w/in last 10 years Date of Influenza Vaccine: none Infectious Disease History: No Infectious Disease History: Denies: Hx Clostridium Difficile, Hx Hepatitis, Hx Human Immunodeficiency Virus (HIV), Hx of Known/Suspected MRSA, Hx Shingles, Hx Tuberculosis, Hx Known/ Suspected VRE, Hx Known/Suspected VRSA, History Other Infectious Disease, Traveled Outside the [place] in Last 30 Days - Family History Known Family History: Positive: None, Cardiac Disease, Diabetes, Other - kidney cancer - Social History Alcohol Use: Rare Alcohol Amount: states quit 12/19/15 Hx Substance Use: No Substance Use Type: Reports: Marijuana Substance Use Comment - Amount & Last Used: few months ago Hx Tobacco Use: Yes Smoking Status (MU): Light Every Day Tobacco Smoker Type: Cigarettes Review of Systems Negative: Fever Negative: Chest Pain Negative: Shortness Of Breath Positive: Myalgia - back pain All Other Systems Reviewed And Are Negative: Yes Physical Exam Triage Information Reviewed: Yes Vital Signs On Initial Exam: Initial Vitals Temp Pulse Resp BP Pulse Ox 98.7 F 110 16 127/105 98 07/24/17 19:15 07/24/17 19:15 07/24/17 19:15 07/24/17 19:15 07/24/17 19:15 Vital Signs Reviewed: Yes Appearance: Positive: Well-Appearing Skin: Positive: Warm, Dry Head/Face: Positive: Normal Head/Face Inspection Eyes: Positive: Normal, Conjunctiva Clear Respiratory/Lung Sounds: Positive: Clear to Auscultation, Breath Sounds Present Cardiovascular: Positive: Normal, RRR Musculoskeletal: Positive: Strength/ROM Intact - back, Other - tenderness over lower back, neg SLR, Neurological: Positive: Reflexes Intact - patella Psychiatric: Positive: Normal Diagnostics - Vital Signs Vital Signs Temp Pulse Resp BP Pulse Ox 07/24/17 19:15 98.7 F 110 16 127/105 98 - Laboratory Lab Statement: Any lab studies that have been ordered have been reviewed, and results considered in the medical decision making process. - Radiology back Xray Interpretation: No Acute Changes - IMPRESSION: DEGENERATIVE DISEASE L4-L5, UNCHANGED. Radiology Interpretation Completed By: Radiologist Back Pain Course/Dx - Course Course Of Treatment: 36-year-old female presents with acute back pain today. She states she was lifting a TV and felt her back give out. She states the pain is in the location previous injuries. She states she has a herniated disc at this location. She denies any pain or numbness or tingling down her legs. She denies any weakness. She is able to ambulate. She took ibuprofen Tylenol Flexeril tramadol antibiotics and heat without relief. She denies any saddle anesthesia. She denies any loss of bowel or bladder. She denies any dysuria. on exam neurovascular intact. tenderness lower back. neg SLR. xray shows DDD. will treat with prednisone and robaxin. patient understand and agrees with plan. - Diagnoses Differential Diagnosis/HQI/PQRI: Positive: Herniated Disc, Strain, Sprain Provider Diagnoses: Back pain Discharge - Discharge Plan Condition: Good Disposition: HOME Prescriptions: Lidocaine PATCH 5%* [Lidoderm 5% Patch*] 1 patch TRANSDERM DAILY #6 patch Methocarbamol [Robaxin-750 MG TAB] 750 mg PO TID #15 tab Methylprednisolone [Medrol Dosepak 4 MG*] 4 mg PO .SEE EDUARD INSTRUCTION #1 packet Patient Education Materials: Back Pain (ED) Referrals: Nathalie Pope NP [Primary Care Provider] - Additional Instructions: Follow directions on package for Medrol pack Take muscle relaxers three times a day Apply lidocaine patches to area for up to 12 hours in one 24 hour period Use ibuprofen or Tylenol for pain every 6 hours ice/heat area, move as much as possible Follow up with primary within 5 days Return to ED if develop any new or worsening symptoms
--- NOTE | 2017-07-24 20:17 | RAD ---
INDICATION: Back pain COMPARISON: CT January 07, 2017 TECHNIQUE: Routine PA, lateral, and oblique imaging was performed . FINDINGS: Bones: There are no acute bony findings. There are arthritic changes consisting of moderate narrowing at L4-L5 with vacuum disc phenomena, endplate sclerosis and marginal osteophyte formation. Alignment: Normal Disc spaces: The remaining disc spaces are well-maintained Soft tissues: There are no soft tissue abnormalities. IMPRESSION: DEGENERATIVE DISEASE L4-L5, UNCHANGED.
[2017-07-24] MEDS ORDERED: Dexamethasone TAB* 4 MG PO ONE (20:28)
[2017-07-24 21:10] VITALS: BP 130/80
== END 2017-07-24 21:06 | disposition home or self-care (01) ==
LOC: ED 19:07
DX: M54.9 Dorsalgia, unspecified (principal); F17.210 Nicotine dependence, cigarettes, uncomplicated; J44.9 Chronic obstructive pulmonary disease, unspecified; M51.36 Other intervertebral disc degeneration, lumbar region
CPT/HCPCS: 72110; 99282; A9270-GY; J8540

== ENCOUNTER 2017-09-05 16:54 | Emergency (ER) | payer OTHER ==
[2017-09-05] MEDS ORDERED: NS 0.9% 1000 ML* 1,000 ML IV ONE (18:02)
[2017-09-05] MEDS ORDERED: Metoclopramide IV* 5 MG/ML 2 ML VIAL IV SLOW PU ONE (18:21)
[2017-09-05] MEDS ORDERED: Ketorolac INJ* 30 MG/ML 1 ML VIAL IV PUSH ONE ×2 (18:22→19:59)
[2017-09-05 18:29] LABS: ABS Basophils 0.1 10^3/ul (0-0.2); ABS Eosinophils 0.2 10^3/ul (0-0.6); ABS Lymphocytes 3.7 10^3/ul (1.0-4.8); ABS Monocytes 0.8 10^3/ul (0-0.8); ABS Nucleated RBC 0 10^3/ul; Hematocrit 41 % (35-47); Hemoglobin 13.7 g/dl (12.0-16.0); Mean Corpuscular HGB Conc 33 g/dl (31-36); Mean Corpuscular Hemoglobin 30 pg (27-31); Mean Corpuscular Volume 88 fL (80-97); Mean Platelet Volume 8 um3 (7.4-10.4); Nucleated Red Blood Cells % 0.1; Platelet Count 264 10^3/ul (150-450); Red Blood Count 4.66 10^6/ul (4.0-5.4); Red Cell Distribution Width 14 % (10.5-15); White Blood Count 11.9 10^3/ul (3.5-10.8)
[2017-09-05 18:47] LABS: Urine Appearance Clear; Urine Blood 1+ (Negative); Urine Color Straw; Urine Ketones Negative (Negative); Urine Protein Negative (Negative); Urine Specific Gravity 1.003 (1.010-1.030); Urine Urobilinogen Negative (Negative)
[2017-09-05 18:52] LABS: EGFR Non-African American 118.7 (>60)
[2017-09-05] MEDS ORDERED: Iohexol 300* (CONTRAST) 10 ML SDV IV ONE (19:12)
--- NOTE | 2017-09-05 19:51 | ED ---
GI/ HPI - HPI Summary HPI Summary: 36F presents with abdominal pain for the past day. She states that this is similar to when she has had colitis before. She denies any diarrhea or constipation. She admits to nausea and vomiting. She states blood in her vomit once. She has had her gallbladder and appendix removed before. She has been taking Zofran and Toradol without relief. She states her pain is greatest in the right lower left lower quadrant. She denies any pain with urination. She denies any vaginal discharge. She states this is not pelvic pain but is abdominal pain. She denies any flank pain. She denies any fever. Nothing makes the pain better or worse. She is seeing GI in October. - History of Current Complaint Chief Complaint: EDNauseaVomitDiarrh Time Seen by Provider: 09/05/17 18:01 Stated Complaint: ABD PAIN/VOMITING Hx Last Menstrual Period: depo Pain Intensity: 10 - Allergy/Home Medications Allergies/Adverse Reactions: Allergies Allergy/AdvReac Type Severity Reaction Status Date / Time MS Aspirin [Aspirin] Allergy Severe Swelling Verified 09/05/17 17:01 Of Face,Lips,& Throat MS Bee Venom [Bee Venom] Allergy Severe Anaphylatic Verified 09/05/17 17:01 Shock MS Latex [Latex] Allergy Intermediate Unknown Verified 09/05/17 17:01 Reaction Details MS Phenobarbital Allergy Intermediate Swelling Verified 09/05/17 17:01 [Phenobarbital] Of Face,Lips,& Throat MS Cortisone [Cortisone] Allergy LOCALIZED Verified 09/05/17 17:01 SWELLING TO INJ SITE PMH/Surg Hx/FS Hx/Imm Hx Endocrine/Hematology History: Denies: Hx Anticoagulant Therapy, Hx Diabetes, Hx Thyroid Disease, Other Endocrine/Hematological Disorders Cardiovascular History: Denies: Hx Congestive Heart Failure, Hx Deep Vein Thrombosis, Hx Hypertension , Hx Myocardial Infarction, Hx Pacemaker/ICD, Other Cardiovascular Problems/ Disorders Respiratory History: Reports: Hx Asthma - She is using her sister's Symbicort 160/4.5--she states she is on abluterol, Hx Chronic Obstructive Pulmonary Disease (COPD) Denies: Hx Lung Cancer, Hx Pneumonia, Hx Pulmonary Embolism, Other Respiratory Problems/Disorders GI History: Reports: Hx Gall Bladder Disease Denies: Hx Gastrointestinal Bleed, Hx Ulcer, Hx Urosepsis, Other GI Disorders History: Reports: Other Problems/Disorders - OVARIAN CYST, Denies: Hx Dialysis, Hx Kidney Stones, Hx Renal Disease Musculoskeletal History: Reports: Hx Back Problems Denies: Other Musculoskeletal History Sensory History: Denies: Other Sensory Impairments Opthamlomology History: Denies: Other Sensory Impairments Neurological History: Reports: Hx Seizures Denies: Hx Dementia, Hx Migraine, Hx Transient Ischemic Attacks (TIA), Other Neuro Impairments/Disorders Psychiatric History: Reports: Hx Anxiety, Hx Depression - She confesses to depression--on no Rx., Hx Bipolar Disorder Denies: Hx Schizophrenia, Hx Substance Abuse, Other Psychiatric Issues/ Disorders - Surgical History Surgery Procedure, Year, and Place: GALLBLADDER OUT 2010. 2010. APPENDECTOMY. abdominal laparoscopic surgery - Immunization History Date of Tetanus Vaccine: w/in last 10 years Date of Influenza Vaccine: none Infectious Disease History: No Infectious Disease History: Denies: Hx Clostridium Difficile, Hx Hepatitis, Hx Human Immunodeficiency Virus (HIV), Hx of Known/Suspected MRSA, Hx Shingles, Hx Tuberculosis, Hx Known/ Suspected VRE, Hx Known/Suspected VRSA, History Other Infectious Disease, Traveled Outside the [place] in Last 30 Days - Family History Known Family History: Positive: None, Cardiac Disease, Diabetes, Other - kidney cancer - Social History Alcohol Use: Rare Alcohol Amount: states quit 12/19/15 Hx Substance Use: No Substance Use Type: Reports: Marijuana Substance Use Comment - Amount & Last Used: few months ago Hx Tobacco Use: Yes Smoking Status (MU): Light Every Day Tobacco Smoker Type: Cigarettes Review of Systems Negative: Fever Negative: Chest Pain Negative: Shortness Of Breath Positive: Abdominal Pain, Vomiting, Nausea. Negative: Diarrhea All Other Systems Reviewed And Are Negative: Yes Physical Exam Triage Information Reviewed: Yes Vital Signs On Initial Exam: Initial Vitals Temp Pulse Resp BP Pulse Ox 99 F 97 18 109/70 98 09/05/17 16:57 09/05/17 16:57 09/05/17 16:57 09/05/17 16:57 09/05/17 16:57 Vital Signs Reviewed: Yes Appearance: Positive: Well-Appearing Skin: Positive: Warm, Dry Head/Face: Positive: Normal Head/Face Inspection Eyes: Positive: Normal, Conjunctiva Clear Respiratory/Lung Sounds: Positive: Clear to Auscultation, Breath Sounds Present Cardiovascular: Positive: Normal, RRR Abdomen Description: Positive: Soft, Other: - diffuse tenderness greatest in LLQ Bowel Sounds: Positive: Present Musculoskeletal: Positive: Normal Neurological: Positive: Normal Psychiatric: Positive: Normal Diagnostics - Vital Signs Vital Signs Temp Pulse Resp BP Pulse Ox 09/05/17 16:57 99 F 97 18 109/70 98 - Laboratory Lab Results: Lab Results 09/05/17 09/05/17 09/05/17 Range/Units 18:15 18:15 18:35 WBC 11.9 H (3.5-10.8) 10^3/ul RBC 4.66 (4.0-5.4) 10^6/ul Hgb 13.7 (12.0-16.0) g/dl Hct 41 (35-47) % MCV 88 (80-97) fL MCH 30 (27-31) pg MCHC 33 (31-36) g/dl RDW 14 (10.5-15) % Plt Count 264 (150-450) 10^3/ul MPV 8 (7.4-10.4) um3 Neut % (Auto) 59.0 (38-83) % Lymph % (Auto) 31.0 (25-47) % [place] % (Auto) 6.9 (0-7) % Eos % (Auto) 2.0 (0-6) % Baso % (Auto) 1.1 (0-2) % Absolute Neuts (auto) 7.0 (1.5-7.7) 10^3/ul Absolute Lymphs (auto) 3.7 (1.0-4.8) 10^3/ul Absolute Monos (auto) 0.8 (0-0.8) 10^3/ul Absolute Eos (auto) 0.2 (0-0.6) 10^3/ul Absolute Basos (auto) 0.1 (0-0.2) 10^3/ul Absolute Nucleated RBC 0 10^3/ul Nucleated RBC % 0.1 Sodium 136 (133-145) mmol/L Potassium 3.6 (3.5-5.0) mmol/L Chloride 106 (101-111) mmol/L Carbon Dioxide 21 L (22-32) mmol/L Anion Gap 9 (2-11) mmol/L BUN 8 (6-24) mg/dL Creatinine 0.57 (0.51-0.95) mg/dL Est GFR ( Amer) 152.7 (>60) Est GFR (Non-Af Amer) 118.7 (>60) BUN/Creatinine Ratio 14.0 (8-20) Glucose 100 (70-100) mg/dL Calcium 9.5 (8.6-10.3) mg/dL Total Bilirubin 0.20 (0.2-1.0) mg/dL AST 14 (13-39) U/L ALT 20 (7-52) U/L Alkaline Phosphatase 59 (34-104) U/L C-React Prot High Sens 5.92 mg/L Total Protein 7.8 (6.4-8.9) g/dL Albumin 4.3 (3.2-5.2) g/dL Globulin 3.5 (2-4) g/dL Albumin/Globulin Ratio 1.2 (1-3) Lipase 70 (11.0-82.0) U/L Beta HCG, Quant 3.69 mIU/mL Urine Color Straw Urine Appearance Clear Urine pH 6.0 (5-9) Ur Specific Dix 1.003 L (1.010-1.030) Urine Protein Negative (Negative) Urine Ketones Negative (Negative) Urine Blood 1+ A (Negative) Urine Nitrate Negative (Negative) Urine Bilirubin Negative (Negative) Urine Urobilinogen Negative (Negative) Ur Leukocyte Esterase Negative (Negative) Urine WBC (Auto) Absent (Absent) Urine RBC (Auto) 1+(3-5/hpf) A (Absent) Ur Squamous Epith Cells Present A (Absent) Urine Bacteria Absent (Absent) Urine Glucose Negative (Negative) Result Diagrams: 09/05/17 18:15 09/05/17 18:15 Lab Statement: Any lab studies that have been ordered have been reviewed, and results considered in the medical decision making process. - CT abd CT Interpretation: No Acute Changes - IMPRESSION: 1. NO EVIDENCE FOR ACUTE FINDING OR CAUSE FOR THE PATIENT'S ABDOMINAL PAIN IS SEEN. 2. HEPATOMEGALY AND HEPATIC STEATOSIS, UNCHANGED. 3. STATUS POST CHOLECYSTECTOMY AND APPENDECTOMY. CT Interpretation Completed By: Radiologist SIXTO Course/Dx - Course Course Of Treatment: 36F presents with abdominal pain for the past day. She states that this is similar to when she has had colitis before. She denies any diarrhea or constipation. She admits to nausea and vomiting. She states blood in her vomit once. She has had her gallbladder and appendix removed before. She has been taking Zofran and Toradol without relief. She states her pain is greatest in the right lower left lower quadrant. She denies any pain with urination. She denies any vaginal discharge. She states this is not pelvic pain but is abdominal pain. She denies any flank pain. She denies any fever. Nothing makes the pain better or worse. She is seeing GI in October. on exam diffusely tender greatest in LLQ. labs wbc 11.9. crp 6. CT: no acute findings. will send home with reglan. will have follow up with GI due to multiple times seen here for vague abdominal sx. patient understand and agrees with plan. - Diagnoses Differential Diagnoses - Female: Bowel Obstruction, Diverticulitis, Gastroenteritis (Viral), Gastroenteritis (Bacterial), Urinary Tract Infection Provider Diagnoses: Abdominal pain, Vomiting Discharge - Discharge Plan Condition: Good Disposition: HOME Prescriptions: Metoclopramide TAB* [Reglan TAB*] 5 mg PO Q6H PRN #20 tab PRN Reason: Nausea Patient Education Materials: Abdominal Pain (ED) Referrals: Nathalie Pope NP [Primary Care Provider] - Christopher Thomason MD [Medical Doctor] - Additional Instructions: Take reglan every 6 hours for nausea Drink small amounts of fluid as tolerated When able to eat follow BRAT diet: Bananas, rice, applesauce, toast Take ibuprofen or Tylenol for pain as needed every 6 hours Follow up with primary within 5 days You need to follow up with GI for possible additional testing as you have been seen multiple times for abdominal pain and this needs to be further worked up by them Return to ED if develop any new or worsening symptoms
--- NOTE | 2017-09-05 19:53 | RAD ---
INDICATION: Left lower quadrant abdominal pain. COMPARISON: Comparison is made with a prior study from March 14, 2017. TECHNIQUE: A CT scan of the abdomen and pelvis was performed with intravenous and without oral contrast following intravenous injection of 125 ml of Omnipaque 300 nonionic contrast. Contiguous axial sections were obtained from the lung bases through the symphysis pubis. Images were reconstructed in the coronal and sagittal planes. FINDINGS: There is mild dependent bilateral lower lobe subsegmental atelectasis. No pleural effusion is present. The liver is moderately enlarged and decreased in attenuation consistent with fatty infiltration. No significant focal abnormality is seen. The patient is status post cholecystectomy. The spleen and pancreas appear to be within normal limits. The kidneys and adrenal glands are normal in size. No hydronephrosis is seen. No significant focal renal abnormality is seen. The aorta is normal in caliber and demonstrates homogeneous contrast opacification. No significant enlarged retroperitoneal lymph nodes are seen. The stomach, small and large bowel appear nondistended. The patient is status post appendectomy. Note is made of a surgical sutures adjacent to the medial aspect of the cecum. There is mild descending and sigmoid diverticulosis without evidence for diverticulitis. The uterus is anteverted and normal in size. No free intraperitoneal air or fluid is seen. No significant focal osseous abnormality is seen. IMPRESSION: 1. NO EVIDENCE FOR ACUTE FINDING OR CAUSE FOR THE PATIENT'S ABDOMINAL PAIN IS SEEN. 2. HEPATOMEGALY AND HEPATIC STEATOSIS, UNCHANGED. 3. STATUS POST CHOLECYSTECTOMY AND APPENDECTOMY.
[2017-09-05 20:26] VITALS: BP 114/75
== END 2017-09-05 20:23 | disposition home or self-care (01) ==
LOC: ED 16:54
DX: R10.9 Unspecified abdominal pain (principal); R11.2 Nausea with vomiting, unspecified; F17.210 Nicotine dependence, cigarettes, uncomplicated
CPT/HCPCS: 36415; 74177; 80053; 81003; 81015; 83690; 84702; 85025; 86141; 96374; 96375; 99284; J1885; J2765; Q9967

== ENCOUNTER 2017-09-16 15:11 | Emergency (ER) | payer OTHER ==
[2017-09-16] MEDS ORDERED: NS 0.9% 1000 ML* 1,000 ML IV ONE (16:01)
[2017-09-16] MEDS ORDERED: Gabapentin CAP(*) 300 MG PO ONE (16:21)
[2017-09-16] MEDS ORDERED: Ketorolac INJ* 30 MG/ML 1 ML VIAL IV PUSH ONE (16:21)
[2017-09-16 16:22] LABS: ABS Basophils 0.2 10^3/ul (0-0.2); ABS Eosinophils 0.3 10^3/ul (0-0.6); ABS Lymphocytes 3.1 10^3/ul (1.0-4.8); ABS Monocytes 0.7 10^3/ul (0-0.8); ABS Neutrophils 6.2 10^3/ul (1.5-7.7); ABS Nucleated RBC 0 10^3/ul; Eosinophil % 2.8 % (0-6); Hematocrit 40 % (35-47); Hemoglobin 13.6 g/dl (12.0-16.0); Lymphocyte % 29.7 % (25-47); Mean Corpuscular HGB Conc 34 g/dl (31-36); Mean Corpuscular Hemoglobin 30 pg (27-31); Mean Corpuscular Volume 88 fL (80-97); Mean Platelet Volume 8.2 um3 (7.4-10.4); Nucleated Red Blood Cells % 0; Platelet Count 261 10^3/ul (150-450); Red Blood Count 4.57 10^6/ul (4.0-5.4); Red Cell Distribution Width 14 % (10.5-15); White Blood Count 10.4 10^3/ul (3.5-10.8)
[2017-09-16 16:48] LABS: EGFR Non-African American 95.2 (>60)
--- NOTE | 2017-09-16 16:56 | ED ---
Yun Mason Julia, scribed for Love Adame MD on 09/16/17 at 1628 . Neurological HPI - HPI Summary HPI Summary: This patient is a 36 year old F BIBA to [facility] accompanied by her fianc due to eight seizures in the past 24 hours. Her last seizure was two weeks ago. Patient reports left shoulder pain and inability to move LUE secondary to injury during seizure. she rates the pain 4/10 in intensity. No analgesia taken. Patient takes 300mg of gabapentin twice a day. She states she missed her dose this morning and maybe last night. and has been under a lot of stress recently. Pt states she has been smoking more cigarettes and drinking caffeine related to stress. Patient states she had a referral with a neurologist, but was mistaken about the date of the appointment. She does not currently have a neurologist in [place]. Her PCP is Nathalie Pope SCOURER. No cp, sob, abd pain. No n/ v/d. No yan. No vision changes. Pt is RHD. Medications and allergies reviewed. - History of Current Complaint Chief Complaint: EDSeizure Stated Complaint: FAINTING/SEIZURES Time Seen by Provider: 09/16/17 15:59 Hx Obtained From: Patient Hx Last Menstrual Period: depo Onset/Duration: Sudden Onset, Started hours ago Onset Severity: Moderate Current Severity: Moderate Number of Seizures: 8 - brief, not witnessed by EMS mikael juarez saying did Pain Intensity: 4 Pain Scale Used: 0-10 Numeric Character: Other: - typical seizure Seizure Character: Generalized Aggravating: Medication Change, Nothing - stress - Allergy/Home Medications Allergies/Adverse Reactions: Allergies Allergy/AdvReac Type Severity Reaction Status Date / Time aspirin Allergy Swelling Verified 09/16/17 16:52 Of Face,Lips,& Throat bee venom protein (honey bee) Allergy Anaphylatic Verified 09/16/17 16:53 Shock cortisone Allergy localized Verified 09/16/17 16:56 swelling at injection site Latex, Natural Rubber Allergy Unknown Verified 09/16/17 16:53 Reaction Details phenobarbital Allergy Swelling Verified 09/16/17 16:53 Of Face,Lips,& Throat PMH/Surg Hx/FS Hx/Imm Hx Previously Healthy: Yes Endocrine/Hematology History: Denies: Hx Anticoagulant Therapy, Hx Diabetes, Hx Thyroid Disease, Other Endocrine/Hematological Disorders Cardiovascular History: Denies: Hx Congestive Heart Failure, Hx Deep Vein Thrombosis, Hx Hypertension , Hx Myocardial Infarction, Hx Pacemaker/ICD, Other Cardiovascular Problems/ Disorders Respiratory History: Reports: Hx Asthma - She is using her sister's Symbicort 160/4.5--she states she is on abluterol, Hx Chronic Obstructive Pulmonary Disease (COPD) Denies: Hx Lung Cancer, Hx Pneumonia, Hx Pulmonary Embolism, Other Respiratory Problems/Disorders GI History: Reports: Hx Gall Bladder Disease Denies: Hx Gastrointestinal Bleed, Hx Ulcer, Hx Urosepsis, Other GI Disorders History: Reports: Other Problems/Disorders - OVARIAN CYST, Denies: Hx Dialysis, Hx Kidney Stones, Hx Renal Disease Musculoskeletal History: Reports: Hx Back Problems Denies: Other Musculoskeletal History Sensory History: Denies: Other Sensory Impairments Opthamlomology History: Denies: Other Sensory Impairments Neurological History: Reports: Hx Seizures Denies: Hx Dementia, Hx Migraine, Hx Transient Ischemic Attacks (TIA), Other Neuro Impairments/Disorders Psychiatric History: Reports: Hx Anxiety, Hx Depression - She confesses to depression--on no Rx., Hx Bipolar Disorder Denies: Hx Schizophrenia, Hx Substance Abuse, Other Psychiatric Issues/ Disorders - Surgical History Surgery Procedure, Year, and Place: GALLBLADDER OUT 2010. 2010. APPENDECTOMY. abdominal laparoscopic surgery - Immunization History Date of Tetanus Vaccine: w/in last 10 years Date of Influenza Vaccine: none Infectious Disease History: No Infectious Disease History: Denies: Hx Clostridium Difficile, Hx Hepatitis, Hx Human Immunodeficiency Virus (HIV), Hx of Known/Suspected MRSA, Hx Shingles, Hx Tuberculosis, Hx Known/ Suspected VRE, Hx Known/Suspected VRSA, History Other Infectious Disease, Traveled Outside the [place] in Last 30 Days - Family History Known Family History: Positive: Cardiac Disease, Diabetes, Other - kidney cancer - Social History Occupation: Unemployed Lives: With Family Alcohol Use: Rare Alcohol Amount: states quit 12/19/15 Hx Substance Use: No Substance Use Type: Reports: Marijuana Substance Use Comment - Amount & Last Used: few months ago Hx Tobacco Use: Yes Smoking Status (MU): Light Every Day Tobacco Smoker Type: Cigarettes Review of Systems Constitutional: Negative Eyes: Negative Positive: Myalgia - LUE pain Neurological: Other - seizures All Other Systems Reviewed And Are Negative: Yes Physical Exam Triage Information Reviewed: Yes Vital Signs On Initial Exam: Initial Vitals Temp Pulse Resp BP Pulse Ox 98.6 F 120 20 104/53 98 09/16/17 15:15 09/16/17 15:15 09/16/17 15:15 09/16/17 15:15 09/16/17 15:15 Vital Signs Reviewed: Yes Appearance: Positive: Pain Distress - pain with movement left arm Skin: Positive: Warm, Skin Color Reflects Adequate Perfusion, Dry Head/Face: Positive: Normal Head/Face Inspection Eyes: Positive: Normal, EOMI, HANNAH ENT: Positive: Normal ENT inspection, Hearing grossly normal, Pharynx normal, Other - no intra-oral wounds Neck: Positive: Supple, Nontender, No Lymphadenopathy Respiratory/Lung Sounds: Positive: Clear to Auscultation, Breath Sounds Present , Decreased Breath Sounds Cardiovascular: Positive: Normal, RRR, Other - 2+ radial, 2+ ulnar CBT< 2 sec all digits. Negative: Murmur Abdomen Description: Positive: Nontender, No Organomegaly Bowel Sounds: Positive: Present Musculoskeletal: Positive: Other - pt lue in sling. Pt resisiting any movement second to pain Pain along entire arm with palpation. no deformity, no edema Neurological: Positive: Normal, Sensory/Motor Intact, Alert, Oriented to Person Place, Time, CN Intact II-III Psychiatric: Positive: Normal AVPU Assessment: Alert - [place] Coma Scale Best Eye Response: 4 - Spontaneous Best Motor Response: 6 - Obeys Commands Best Verbal Response: 5 - Oriented Coma Scale Total: 15 Diagnostics - Vital Signs Vital Signs Temp Pulse Resp BP Pulse Ox 09/16/17 15:15 98.6 F 120 20 104/53 98 - Laboratory Result Diagrams: 09/16/17 16:11 09/16/17 16:11 Lab Statement: Any lab studies that have been ordered have been reviewed, and results considered in the medical decision making process. - Radiology L Wrist XR Radiology Interpretation Completed By: Radiologist - NO ACUTE OSSEOUS INJURY. IF SYMPTOMS PERSIST, RECOMMEND REPEAT IMAGING. ED Physician has reviewed this report. L Shoulder XR Radiology Interpretation Completed By: Radiologist - NO ACUTE OSSEOUS INJURY. IF SYMPTOMS PERSIST, RECOMMEND REPEAT IMAGING. ED Physician has reviewed this report. L Elbow XR Radiology Interpretation Completed By: Radiologist - NO ACUTE OSSEOUS INJURY. IF SYMPTOMS PERSIST, RECOMMEND REPEAT IMAGING. ED Physician has reviewed this report. Re-Evaluation - Re-Evaluation First Eval Comment: Pt states feeling better. + po. reviewed labs and imaging. place in sling. motrin/apap. demonstrated elbow and shoulder ROM. pcp f/u. Pt does not drive, reviewe seizure precautions. pt comfortable and in agreement with plan Course/Dx - Course Course Of Treatment: Pt presents reporting 8 seziures today. Pt with h/o similar. Pt has missed medications. Pt developed left arm injury from seizure. Will give Gapabentin. check labs, urine. IVF. Toradol. arm imaging. sling. reassess - Diagnoses Provider Diagnoses: Seizure, Shoulder strain, Contusion Discharge - Sign-Out/Discharge Documenting (check all that apply): Discharge - Discharge Plan Condition: Stable Disposition: HOME Patient Education Materials: Epilepsy (ED), Contusion in Adults (ED), Shoulder Sprain (ED) Referrals: Nathalie Pope NP [Primary Care Provider] - Additional Instructions: - Okay to alternate ibuprofen (Advil, Motrin) 600mg and tylenol every 3 hours for pain. Take with food. do NOT take for more than 4-5 days - Take your arm out of your sling - make small circles at your shoulder - bend and straighten your elbow 2- 3 times a day as demonstrated - Apply ice (20 minutes at a time) 2-3 times per day - Take your medications exactly as prescribed - contact your doctor to schedule a follow-up appointment. Contact your doctor or return with questions or concerns - Billing Disposition and Condition Condition: STABLE Disposition: HOME The documentation as recorded by the Yun sharma Julia accurately reflects the service I personally performed and the decisions made by , Love Adame MD.
[2017-09-16 17:32] LABS: Urine Appearance Clear; Urine Blood 1+ (Negative); Urine Color Yellow; Urine Ketones Negative (Negative); Urine Protein 1+(30 mg/dL) (Negative); Urine Specific Gravity 1.009 (1.010-1.030); Urine Urobilinogen Negative (Negative)
--- NOTE | 2017-09-16 17:35 | RAD ---
HISTORY: Fall, left arm pain COMPARISONS: November 18, 2015 VIEWS: 4, Frontal internal rotation, external rotation, outlet, and axillary views of the left shoulder FINDINGS: BONE DENSITY: Normal. BONES: There is no displaced fracture. JOINTS: There is no arthropathy. ALIGNMENT: There is no dislocation. SOFT TISSUES: Unremarkable. OTHER FINDINGS: None. IMPRESSION: NO ACUTE OSSEOUS INJURY. IF SYMPTOMS PERSIST, RECOMMEND REPEAT IMAGING.
--- NOTE | 2017-09-16 17:36 | RAD ---
HISTORY: Fall, left arm pain COMPARISONS: August 10, 2016 VIEWS: 4, Frontal, lateral, and oblique views of the left wrist FINDINGS: BONE DENSITY: Normal. BONES: There is no displaced fracture. JOINTS: There is no arthropathy. ALIGNMENT: There is no dislocation. SOFT TISSUES: Unremarkable. OTHER FINDINGS: None. IMPRESSION: NO ACUTE OSSEOUS INJURY. IF SYMPTOMS PERSIST, RECOMMEND REPEAT IMAGING.
--- NOTE | 2017-09-16 17:45 | RAD ---
HISTORY: Fall, left arm pain COMPARISONS: August 10, 2016 VIEWS: 5, Frontal, lateral, and oblique views of the left elbow FINDINGS: BONE DENSITY: Normal. BONES: There is no displaced fracture. JOINTS: There is no arthropathy. There is no posterior supracondylar fat pad to suggest a joint effusion. ALIGNMENT: There is no dislocation. SOFT TISSUES: Unremarkable. OTHER FINDINGS: None. IMPRESSION: NO ACUTE OSSEOUS INJURY. IF SYMPTOMS PERSIST, RECOMMEND REPEAT IMAGING.
[2017-09-16 18:25] VITALS: BP 108/54
== END 2017-09-16 18:24 | disposition home or self-care (01) ==
LOC: ED 15:11
DX: R56.9 Unspecified convulsions (principal); S46.912A Strain of unspecified muscle, fascia and tendon at shoulder and upper arm level, left arm, initial encounter; S40.012A Contusion of left shoulder, initial encounter; X58.XXXA Exposure to other specified factors, initial encounter; Y92.9 Unspecified place or not applicable; I25.10 Atherosclerotic heart disease of native coronary artery without angina pectoris
CPT/HCPCS: 36415; 80053; 80307; 81003; 81015; 82550; 83605; 83735; 85025; 87086; 96374; 99284; A9270-GY; J1885

== ENCOUNTER 2017-10-25 16:54 | Emergency (ER) | payer OTHER ==
--- OUTSIDE RECORDS SUMMARY | 2017-10-25 17:09 | XMS REPORT ---
:1980 External Reference #:[id number] Author Organization [facility] Address [address] [place] [address] Phone [phone] Care Team Providers Name Role Phone Jerrell Finn MD Care Team Information Jeeper Operator Unavailable Jerrell Finn MD Primary Care Physician Unavailable Payers Type Date Identification Numbers Payment Provider Subscriber Medicaid Policy Number: [id number] [facility] Bhaskar Winn PayID: [id number] [address] [address] [place] [address] Problems Date Description Provider Status Onset: 04/21/2017 Nathalie Pope NP Active Family History Date Family Member(s) Problem(s) Comments Father No Current Problems Mother Lung Cancer Mother Diabetes Mellitus, II Paternal Grandmother due to Lung Cancer () Paternal Grandmother due to Cancer () - kidney Social History Type Date Description Comments Marital Status Not Lives With Fiance Lives With Cousins Lives With Mother Diet Skips Meals eats 1-2 meals per day Sleep Typically sleeps 10 hours a night Occupation Unemployed Cigarette Use Heavy tobacco smoker (more than 10 cigarettes/day) ETOH Use Rare Recreational Drug Use Marijuana Smoking Heavy tobacco smoker (more than 10 cigarettes/day) Currently Active Patient is currently sexually active Allergies, Adverse Reactions, Alerts Date Description Reaction Status Severity Comments 04/21/2017 Ephedrine / Phenobarbital active 04/21/2017 Bees active 04/21/2017 Aluminum Aspirin active 04/21/2017 Latex active Medications Medication Date Status Form Strength Qnty SIG Indications Ordering Provider Anucort-HC 10/12 Active Suppository 25mg 24uni [address] K64.8 ts of rectum Kathy, every 12h BACK FACER Epinephrine 09/27 Active Solution 0.3mg/0.3 2unit use as Nathalie Fair Auto-Inject ML s directed Niok, for [employer] allergy symptoms Physical Therapy 05/26 Active please Nathalie Fair diagnose Niko, and treat [employer] for lower back pain with radiation into left hip Cyclobenzaprine 05/05 Active Tablets 10mg 45tab take one M54.5 Leeanna HCL /2016 s by mouth Kathy, up to 2 BACK FACER times per day for back pain Slow Fe 05/05 Active Tablets ER 142(45Fe) 30tab 1 by mouth E61.1 Nathalie Fair mg s every day ALYSSA Pope Spacer For Mdi 05/05 Active 1unit For use R73.01 Nathalie Fair s with Niko inhaler [employer] Lucina Microlet 05/05 Active Misc 100un test daily Nathalie Fair its ALYSSA Pope Dulera 05/05 Active Aerosol 100-5mcg/ 13uni Inhale One Nathalie Fair Act ts puff By Kasey Pope [employer] Twice A Day Tramadol HCL 05/05 Active Tablets 50mg 90tab take one M54.5 Leeanna /2016 s to two Kathy, tablet by BACK FACER mouth every 8 hours as needed for severe pain maximum daily dose=6 tablets Ventolin HFA 04/21 Active Aerosol 108(90Bas 18gm take 1-2 J45.901 e) puffs Ren, mcg/Act inhaled BACK FACER every 4 hours as needed for wheezing or tightness in the chest Indomethacin 04/21 Active Capsules 50mg 45cap Take One Nathalie Fair s Capsule By Kasey Pope [employer] Three Times A Day as Needed For Pain Gabapentin Active Capsules 300mg 60cap take 1 cap M54.5 Stella Mary /0000 s by mouth Amaya, twice [employer] daily Benadryl Allergy Active Capsules 50mg one by Unknown /0000 mouth every day as needed Contour Blood 05/05 Hx 120un For use R73.01 Nathalie Fair Test its with Niko, - glucose [employer] 10/12 qid Prednisone 04/21 Hx Tablets 50mg 5tabs take one J45.901 by mouth Ren, - daily for BACK FACER 05/26 5 Xopenex HFA 04/21 Hx Aerosol 45mcg/Act 15gm Inhale 1-2 J45.901 Nathalie Fair /2017 puffs Niko, - every 4-6 [employer] 04/21 Bentyl Hx Capsules 10mg 1 capsule Unknown /0000 twice - daily 05/26 Vital Signs Date Vital Result Comment 10/21/2017 BP Systolic 128 mmHg BP Diastolic 80 mmHg Heart Rate 102 /min Body Temperature 98.8 F Respiratory Rate 16 /min Height 67 inches 5'7" 10/12/2017 BP Systolic 110 mmHg BP Diastolic 84 mmHg Heart Rate 84 /min Body Temperature 98.4 F Respiratory Rate 18 /min Height 67 inches 5'7" 05/26/2017 BP Systolic 110 mmHg BP Diastolic 70 mmHg Heart Rate 84 /min Body Temperature 97.7 F Height 67 inches 5'7" Weight 186.00 lb per patient BMI (Body Mass Index) 29.1 kg/m2 05/05/2017 BP Systolic 118 mmHg BP Diastolic 70 mmHg Heart Rate 88 /min Body Temperature 99.3 F Weight 186.00 lb Stated 04/21/2017 BP Systolic 138 mmHg BP Diastolic 78 mmHg Heart Rate 88 /min Body Temperature 98.8 F Results Test Date Test Result H/L Range Note Urinalysis Profile 09/16/2017 Urine Color Yellow Urine Appearance Clear Urine Specific [place] 1.009 Low 1.010-1.030 Urine pH 5.0 5-9 Urine Urobilinogen Negative Negative Urine Ketones Negative Negative Urine Protein 1+(30 mg/dL) Negative Urine Leukocytes Negative Negative Urine Blood 1+ Negative Urine Nitrite Negative Negative Urine Bilirubin Negative Negative Urine Glucose Negative Negative Urine White Blood Cell Trace(0-5/hpf) Absent Urine Red Blood Cell Trace(0-2/hpf) Absent Urine Bacteria 1+ Absent Urine Squamous Epithelial Cell Present Absent Urine Drug SCR ED 09/16/2017 Amphetamine Ur Screen None Detected None Detect & [facility] Barbiturates Urine Screen None Detected None Detect Benzodiazepine Urine Screen None Detected None Detect Urine Cannabinoids Screen Presumptive Posi <SEE NOTE> None Detect 1 Urine Cocaine Screen None Detected None Detect Urine Opiates Screen None Detected None Detect Urine Phencyclidine Screen None Detected None Detect 2 Laboratory test 09/16/2017 Urine Culture And SEE RESULT BELOW 3 finding Sensitivities CBC Auto Diff 09/16/2017 White Blood Count 10.4 10^3/uL 3.5-10.8 Red Blood Count 4.57 10^6/uL 4.0-5.4 Hemoglobin 13.6 g/dL 12.0-16.0 Hematocrit 40 % 35-47 Mean Corpuscular Volume 88 fL 80-97 Mean Corpuscular Hemoglobin 30 pg 27-31 Mean Corpuscular HGB Conc 34 g/dL 31-36 Red Cell Distribution Width 14 % 10.5-15 Platelet Count 261 10^3/uL 150-450 Mean Platelet Volume 8.2 um3 7.4-10.4 Abs Neutrophils 6.2 10^3/uL 1.5-7.7 Abs Lymphocytes 3.1 10^3/uL 1.0-4.8 Abs Monocytes 0.7 10^3/uL 0-0.8 Abs Eosinophils 0.3 10^3/uL 0-0.6 Abs Basophils 0.2 10^3/uL 0-0.2 Abs Nucleated RBC 0 10^3/uL Granulocyte % 59.2 % 38-83 Lymphocyte % 29.7 % 25-47 Monocyte % 6.8 % 0-7 Eosinophil % 2.8 % 0-6 Basophil % 1.5 % 0-2 Nucleated Red Blood Cells % 0 Comp Metabolic Panel 09/16/2017 Sodium 137 mmol/L 133-145 Potassium 3.6 mmol/L 3.5-5.0 Chloride 106 mmol/L 101-111 Co2 Carbon Dioxide 22 mmol/L 22-32 Anion Gap 9 mmol/L 2-11 Glucose 127 mg/dL High 70-100 Blood Urea Nitrogen 9 mg/dL 6-24 Creatinine 0.69 mg/dL 0.51-0.95 BUN/Creatinine Ratio 13.0 8-20 Calcium 9.7 mg/dL 8.6-10.3 Total Protein 7.6 g/dL 6.4-8.9 Albumin 4.2 g/dL 3.2-5.2 Globulin 3.4 g/dL 2-4 Albumin/Globulin Ratio 1.2 1-3 Total Bilirubin 0.20 mg/dL 0.2-1.0 Alkaline Phosphatase 47 U/L 34-104 Alt 21 U/L 7-52 Ast 15 U/L 13-39 Egfr Non- 95.2 >60 Egfr 122.5 >60 4 Laboratory test finding 09/16/2017 Magnesium 1.9 mg/dL 1.9-2.7 Creatine Kinase(CK) 48 U/L 10-223 Lactic Acid 2.4 mmol/L High 0.5-2.0 5 Urinalysis Profile 09/05/2017 Urine Color Straw Urine Appearance Clear Urine Specific [place] 1.003 Low 1.010-1.030 Urine pH 6.0 5-9 Urine Urobilinogen Negative Negative Urine Ketones Negative Negative Urine Protein Negative Negative Urine Leukocytes Negative Negative Urine Blood 1+ Negative Urine Nitrite Negative Negative Urine Bilirubin Negative Negative Urine Glucose Negative Negative Urine White Blood Cell Absent Absent Urine Red Blood Cell 1+(3-5/hpf) Absent Urine Bacteria Absent Absent Urine Squamous Epithelial Cell Present Absent CBC Auto Diff 09/05/2017 White Blood Count 11.9 10^3/uL High 3.5-10.8 Red Blood Count 4.66 10^6/uL 4.0-5.4 Hemoglobin 13.7 g/dL 12.0-16.0 Hematocrit 41 % 35-47 Mean Corpuscular Volume 88 fL 80-97 Mean Corpuscular Hemoglobin 30 pg 27-31 Mean Corpuscular HGB Conc 33 g/dL 31-36 Red Cell Distribution Width 14 % 10.5-15 Platelet Count 264 10^3/uL 150-450 Mean Platelet Volume 8 um3 7.4-10.4 Abs Neutrophils 7.0 10^3/uL 1.5-7.7 Abs Lymphocytes 3.7 10^3/uL 1.0-4.8 Abs Monocytes 0.8 10^3/uL 0-0.8 Abs Eosinophils 0.2 10^3/uL 0-0.6 Abs Basophils 0.1 10^3/uL 0-0.2 Abs Nucleated RBC 0 10^3/uL Granulocyte % 59.0 % 38-83 Lymphocyte % 31.0 % 25-47 Monocyte % 6.9 % 0-7 Eosinophil % 2.0 % 0-6 Basophil % 1.1 % 0-2 Nucleated Red Blood Cells % 0.1 Comp Metabolic Panel 09/05/2017 Sodium 136 mmol/L 133-145 Potassium 3.6 mmol/L 3.5-5.0 Chloride 106 mmol/L 101-111 Co2 Carbon Dioxide 21 mmol/L Low 22-32 Anion Gap 9 mmol/L 2-11 Glucose 100 mg/dL 70-100 Blood Urea Nitrogen 8 mg/dL 6-24 Creatinine 0.57 mg/dL 0.51-0.95 BUN/Creatinine Ratio 14.0 8-20 Calcium 9.5 mg/dL 8.6-10.3 Total Protein 7.8 g/dL 6.4-8.9 Albumin 4.3 g/dL 3.2-5.2 Globulin 3.5 g/dL 2-4 Albumin/Globulin Ratio 1.2 1-3 Total Bilirubin 0.20 mg/dL 0.2-1.0 Alkaline Phosphatase 59 U/L 34-104 Alt 20 U/L 7-52 Ast 14 U/L 13-39 Egfr Non- 118.7 >60 Egfr 152.7 >60 6 Laboratory test finding 09/05/2017 Lipase 70 U/L 11.0-82.0 CRP High Sensitivity 5.92 mg/L 7 HCG 3.69 mIU/mL 8 Urinalysis Profile 05/26/2017 Urine Color Yellow Urine Appearance Clear Urine Specific [place] 1.018 1.010-1.030 Urine pH 6.0 5-9 Urine Urobilinogen Negative Negative Urine Ketones Negative Negative Urine Protein Negative Negative Urine Leukocytes Negative Negative Urine Blood 1+ Negative Urine Nitrite Negative Negative Urine Bilirubin Negative Negative Urine Glucose Negative Negative Urine White Blood Cell Trace(0-5/hpf) Absent Urine Red Blood Cell 2+(6-10/hpf) Absent Urine Bacteria Absent Absent Urine Squamous Epithelial Cell Present Absent Laboratory test finding 05/26/2017 Lipase 36 U/L 11.0-82.0 CRP High Sensitivity 3.97 mg/L 9 HCG < 0.60 mIU/mL 10 Comp Metabolic Panel 05/26/2017 Sodium 135 mmol/L 133-145 Potassium 3.9 mmol/L 3.5-5.0 Chloride 105 mmol/L 101-111 Co2 Carbon Dioxide 22 mmol/L 22-32 Anion Gap 8 mmol/L 2-11 Glucose 91 mg/dL 70-100 Blood Urea Nitrogen 12 mg/dL 6-24 Creatinine 0.64 mg/dL 0.51-0.95 BUN/Creatinine Ratio 18.8 8-20 Calcium 9.4 mg/dL 8.6-10.3 Total Protein 7.4 g/dL 6.4-8.9 Albumin 4.3 g/dL 3.2-5.2 Globulin 3.1 g/dL 2-4 Albumin/Globulin Ratio 1.4 1-3 Total Bilirubin 0.30 mg/dL 0.2-1.0 Alkaline Phosphatase 53 U/L 34-104 Alt 22 U/L 7-52 Ast 17 U/L 13-39 Egfr Non- 103.9 >60 Egfr 133.6 >60 11 CBC Auto Diff 05/26/2017 White Blood Count 9.5 10^3/uL 3.5-10.8 Red Blood Count 4.67 10^6/uL 4.0-5.4 Hemoglobin 14.1 g/dL 12.0-16.0 Hematocrit 42 % 35-47 Mean Corpuscular Volume 90 fL 80-97 Mean Corpuscular Hemoglobin 30 pg 27-31 Mean Corpuscular HGB Conc 34 g/dL 31-36 Red Cell Distribution Width 14 % 10.5-15 Platelet Count 269 10^3/uL 150-450 Mean Platelet Volume 9 um3 7.4-10.4 Abs Neutrophils 4.9 10^3/uL 1.5-7.7 Abs Lymphocytes 3.6 10^3/uL 1.0-4.8 Abs Monocytes 0.6 10^3/uL 0-0.8 Abs Eosinophils 0.3 10^3/uL 0-0.6 Abs Basophils 0 10^3/uL 0-0.2 Abs Nucleated RBC 0.01 10^3/uL Granulocyte % 52.3 % 38-83 Lymphocyte % 38.2 % 25-47 Monocyte % 6.2 % 1-9 Eosinophil % 3.1 % 0-6 Basophil % 0.2 % 0-2 Nucleated Red Blood Cells % 0.1 Laboratory test finding 04/21/2017 Lipase, Serum 45 U/L 14-72 12 Laboratory test finding 04/21/2017 Hemoglobin A1c (Fma) 6.2 % High 4.1- 5.7 Laboratory test finding 04/21/2017 Ferritin 36 ng/mL 6-115 Vitamin B-12 339 pg/mL 230-1050 TSH 1.41 mIU/L 0.50-6.00 Comprehensive Metabolic Prof 04/21/2017 Sodium 144 mEq/L 134-149 Potassium 4.1 mEq/L 3.6-5.5 Chloride 110 mEq/L 94-112 Carbon Dioxide 23 mEq/L 21-32 Glucose 108 mg/dL High 70-105 13 BUN 8 mg/dL 6-26 Creatinine 0.6 mg/dL 0.6-1.4 BUN/Creat Ratio 13.3 CALC 8.0-36.0 Calcium 9.0 mg/dL 8.6-10.2 Total Protein 7.1 g/dL 6.4-8.3 Albumin 4.2 g/dL 3.8-5.5 Globulin 2.9 g/dL 2.0-4.8 A/G Ratio 1.4 CALC 0.6-2.3 Alk. Phosphatase 52 U/L 30-110 Alt (SGPT) 22 U/L 7-35 Ast (Sgot) 20 U/L 5-34 Total Bilirubin 0.2 mg/dL 0.2-1.3 GFR Non- >60 ml/min/1.73m^ >=60 GFR >60 ml/min/1.73m^ >=60 Laboratory test finding 04/21/2017 Serum Iron 43 g/dL Low 60-150 14 Amylase, Serum 45 U/L 20-105 Complete Blood Count 04/21/2017 WBC 7.9 x10^3/UL 3.6-9.6 RBC 4.58 x10^6/UL 3.90-5.70 HGB 14.2 g/dL 12.1-17.2 HCT 42 % 36-50 MCV 92.0 fL 82.2-97.4 MCH 30.9 pg 27.6-33.3 MCHC 33.7 g/dL 33.0-35.5 RDW 13.8 % High 11.6-13.7 PLT 275 x10^3/UL 150-400 MPV 8.5 fL 7.4-10.4 Gran # 4.7 x10^3/UL 1.5-7.2 Lymph# 2.9 x10^3/UL 0.7-4.9 Starr# 0.3 x10^3/UL 0.1-0.9 Gran % 58.4 % 42.2-75.2 Lymph % 37.1 % 20.5-51.1 Starr% 4.5 % 1.7-9.3 1 Presumptive Positive Presumptive positive results are unconfirmed. 2 The urine specimen was tested at the listed cutoffs: Drug class test level (ng/mL) Amphetamines 500 Barbiturates 200 Benzodiazepine metabolites 200 Cocaine metabolites 150 Cannabinoids 50 Opiates 300 Pcp 25 Specimen was received without chain of custody. Results should be used for medical purposes only. 3 SEE RESULT BELOW Name: BHASKAR WINN : [address]: Love Adame MD Acct: [id number] Unit: [id number] AGE: 36 Location: ED Re09/16/17 SEX: F Status: DEP ER SPEC: [id number] MARCELINO: 09/16/[address] [facility] [address]: Love Adame MD REQ: [id number] RECD: 09/16/17 STATUS: KASSIDY SANCHEZ DR: Nathalie Pope [employer] _ SOURCE: URINE SPDESC: ORDERED: Urine Culture Procedure Result Reported Site Urine Culture Final 09/18/17- 0744 ML No growth of clinically significant organisms * ML - Main Lab . END OF REPORT DEPARTMENT OF PATHOLOGY, [address] [place] [address] Chucho Wilhelm M.D. Director [facility] # [id number] 4 Because ethnic data is not always readily available, this report includes an eGFR for both -Americans and non- Americans. The National Kidney Disease Education Program (NKDEP) does not endorse the use of the MDRD equation for patients that are not between the ages of 18 and 70, are , have extremes of body size, muscle mass, or nutritional status, or are non- or non-. According to the National Kidney Foundation, irrespective of diagnosis, the stage of the disease is based on the level of kidney function: Stage Description GFR(mL/min/1.73 m(2)) 1 Kidney damage with normal or decreased GFR 90 2 Kidney damage with mild decrease in GFR 60-89 3 Moderate decrease in GFR 30-59 4 Severe decrease in GFR 15-29 5 Kidney failure <15 (or dialysis) 5 Critical Result LACT:2.4 Called to [id number] at: 16:50:22 by:[id number] Read back by:[facility] Severe Sepsis and Septic Shock Management Bundle Measure requires all lactic acids initially measuring >2.0 mmol/L be repeated. 6 Because ethnic data is not always readily available, this report includes an eGFR for both -Americans and non- Americans. The National Kidney Disease Education Program (NKDEP) does not endorse the use of the MDRD equation for patients that are not between the ages of 18 and 70, are , have extremes of body size, muscle mass, or nutritional status, or are non- or non-. According to the National Kidney Foundation, irrespective of diagnosis, the stage of the disease is based on the level of kidney function: Stage Description GFR(mL/min/1.73 m(2)) 1 Kidney damage with normal or decreased GFR 90 2 Kidney damage with mild decrease in GFR 60-89 3 Moderate decrease in GFR 30-59 4 Severe decrease in GFR 15-29 5 Kidney failure <15 (or dialysis) 7 Low risk: <1.00 Average risk: 1.00-3.00 High risk: >3.00 8 <5.0 Negative 5.0 - 25.0 Indeterminate (Repeat testing recommended after 72 hours) >25.0 Positive Perimenopausal women can display HCG levels of up to 20 mIU/mL 9 Low risk: <1.00 Average risk: 1.00-3.00 High risk: >3.00 10 <5.0 Negative 5.0 - 25.0 Indeterminate (Repeat testing recommended after 72 hours) >25.0 Positive Perimenopausal women can display HCG levels of up to 20 mIU/mL 11 Because ethnic data is not always readily available, this report includes an eGFR for both -Americans and non- Americans. The National Kidney Disease Education Program (NKDEP) does not endorse the use of the MDRD equation for patients that are not between the ages of 18 and 70, are , have extremes of body size, muscle mass, or nutritional status, or are non- or non-. According to the National Kidney Foundation, irrespective of diagnosis, the stage of the disease is based on the level of kidney function: Stage Description GFR(mL/min/1.73 m(2)) 1 Kidney damage with normal or decreased GFR 90 2 Kidney damage with mild decrease in GFR 60-89 3 Moderate decrease in GFR 30-59 4 Severe decrease in GFR 15-29 5 Kidney failure <15 (or dialysis) 12 1 sst 13 RESULTS VERIFIED BY REPEAT ANALYSIS 14 RESULTS VERIFIED BY REPEAT ANALYSIS Procedures Date CPT Code Description Status Comment 06/27/2007 Colonoscopy Completed for rectal bleeding Encounters Type Date Location Provider CPT E/M Dx Office Visit 10/12/2017 3:30p Main Office [facility] [address]506 K64.8 M54.5 Office Visit 05/26/2017 9:00a Main Office Nathalie Pope, [employer] 88872 R73.01 M54.5 D64.9 Office Visit 05/05/2017 1:00p Main Office Nathalie Pope, ALYSSA 57305 R73.01 E61.1 J45.901 M54.5 Office Visit 04/21/2017 1:00p Main Office Nathalie Pope, [employer] 54230 J45.901 D64.9 G40.89 E16.1 Plan of Care Future Appointment(s):11/25/2017 1:00 pm - [facility] at [id number] - Stella Amaya, NPB88.9 Infestation, unspecifiedComments:Advised to wash all linens, pillows, clothes, bedsheets, blankets, towels curtains in hot water, dryin dryer, bomb the apartment, information provided, patient states understanding and plans to adhere.L03.319 Cellulitis of trunk, unspecifiedComments:on amoxicillin, does not appear infectedtriple Abx ointment and bandaid PRNAllComments:~B_~U_Medication Management~b_~u_ Patient Understands medications she's taking? Yes No Are there Barriers to Adherence? Yes No Has the patient been asked about herbal supplements and therapies, and OTC meds? Yes No ~B_~U_Care Plan~b_~u_1. Patient has been queried about patient's goals/preferences and functional/ lifestyle goals at relevant visits. If relevant, describe: na2. Treatment goals as explained to the patient: above3. Are there barriers to meeting treatment goals? Yes No If Yes, please describe: poor hygenic environment, financial 4. Self-Management goals as described to the patient: Yes NoFollow up:As always, we strongly encourage a healthy diet and making physical activity a part of your every day life. If you have questions about how or where to start, please contact the office.
--- NOTE | 2017-10-25 18:51 | ED ---
- HPI Summary HPI Summary: Pt 5 months with twins, states was told at [facility] she has already miscarried 1 twin 1 week ago after being "punched in stomach", c/o vaginal spotting and diffuse cramping starting today, and nausea during ambulance ride. Cough each am x 2 days for "scratchy throat". Called OB and was told to come to ED. Noticed blood on paper when wiping after urinating. Denies fever, V/D, sore throat, cp, sob, urinary sx, vaginal pain or d/c. Pt smoker, still smoking 1/2 pack daily, occasional etoh. Last visit with OB mid august. + prior US. Med hx = seizures, COPD, asthma, chronic back pain in wheel chair. . - History of Current Complaint Chief Complaint: EDOBProblems Stated Complaint: ABD PAIN Time Seen by Provider: 10/25/17 18:25 Hx Obtained From: Patient Chief Complaint: Pain, Vaginal Bleeding Onset/Duration: Started Hours Ago Timing: Constant Severity: Moderate Current Severity: Moderate Pain Intensity: 9 Location of Pain: Diffuse Character: Cramping Associated Signs and Symptoms: Positive: Nausea - Assessment Hx Now: No Hx Hysterectomy: No - Allergies/Home Medications Allergies/Adverse Reactions: Allergies Allergy/AdvReac Type Severity Reaction Status Date / Time aspirin Allergy Swelling Verified 10/25/17 16:58 Of Face,Lips,& Throat bee venom protein (honey bee) Allergy Anaphylatic Verified 10/25/17 16:58 Shock cortisone Allergy localized Verified 10/25/17 16:58 swelling at injection site Latex, Natural Rubber Allergy Unknown Verified 10/25/17 16:58 Reaction Details phenobarbital Allergy Swelling Verified 10/25/17 16:58 Of Face,Lips,& Throat Home Medications: Home Medications Clindamycin Cap(NF) [Clindamycin Cap 300 mg Cap(NF)] 300 mg PO BID 10/25/17 [ History Confirmed 10/25/17] Cyclobenzaprine TAB* [Flexeril 10 MG TAB*] 10 mg PO QPM 10/25/17 [History Confirmed 10/25/17] Gabapentin CAP(*) [Neurontin 300 CAP(*)] 300 mg PO QAM 10/25/17 [History Confirmed 10/25/17] Gabapentin CAP(*) [Neurontin 300 CAP(*)] 600 mg PO QPM 10/25/17 [History Confirmed 10/25/17] traMADol TAB* [Ultram*] 50 mg PO QPM 10/25/17 [History Confirmed 10/25/17] PMH/Surg Hx/FS Hx/Imm Hx Endocrine/Hematology History: Denies: Hx Anticoagulant Therapy, Hx Diabetes, Hx Thyroid Disease, Other Endocrine/Hematological Disorders Cardiovascular History: Denies: Hx Congestive Heart Failure, Hx Deep Vein Thrombosis, Hx Hypertension , Hx Myocardial Infarction, Hx Pacemaker/ICD, Other Cardiovascular Problems/ Disorders Respiratory History: Reports: Hx Asthma - She is using her sister's Symbicort 160/4.5--she states she is on abluterol, Hx Chronic Obstructive Pulmonary Disease (COPD) Denies: Hx Lung Cancer, Hx Pneumonia, Hx Pulmonary Embolism, Other Respiratory Problems/Disorders GI History: Reports: Hx Gall Bladder Disease Denies: Hx Gastrointestinal Bleed, Hx Ulcer, Hx Urosepsis, Other GI Disorders History: Reports: Other Problems/Disorders - OVARIAN CYST, Denies: Hx Dialysis, Hx Kidney Stones, Hx Renal Disease Musculoskeletal History: Reports: Hx Back Problems Denies: Other Musculoskeletal History Sensory History: Denies: Other Sensory Impairments Opthamlomology History: Denies: Other Sensory Impairments Neurological History: Reports: Hx Seizures Denies: Hx Dementia, Hx Migraine, Hx Transient Ischemic Attacks (TIA), Other Neuro Impairments/Disorders Psychiatric History: Reports: Hx Anxiety, Hx Depression - She confesses to depression--on no Rx., Hx Bipolar Disorder Denies: Hx Schizophrenia, Hx Substance Abuse, Other Psychiatric Issues/ Disorders - Surgical History Surgery Procedure, Year, and Place: GALLBLADDER OUT 2010. 2010. APPENDECTOMY. abdominal laparoscopic surgery - Immunization History Date of Tetanus Vaccine: w/in last 10 years Date of Influenza Vaccine: none Infectious Disease History: No Infectious Disease History: Denies: Hx Clostridium Difficile, Hx Hepatitis, Hx Human Immunodeficiency Virus (HIV), Hx of Known/Suspected MRSA, Hx Shingles, Hx Tuberculosis, Hx Known/ Suspected VRE, Hx Known/Suspected VRSA, History Other Infectious Disease, Traveled Outside the [place] in Last 30 Days - Family History Known Family History: Positive: None, Cardiac Disease, Diabetes, Other - kidney cancer - Social History Alcohol Use: Occasionally Alcohol Amount: on special occasions Hx Substance Use: No Substance Use Type: Reports: Marijuana Substance Use Comment - Amount & Last Used: few months ago Hx Tobacco Use: Yes Smoking Status (MU): Heavy Every Day Tobacco Smoker Type: Cigarettes Review of Systems Constitutional: Negative Eyes: Negative ENT: Negative Cardiovascular: Negative Positive: Cough Positive: Nausea Genitourinary: Negative Musculoskeletal: Negative Skin: Negative Neurological: Negative Psychological: Normal All Other Systems Reviewed And Are Negative: Yes Physical Exam - Physical Exam Triage Information Reviewed: Yes Vital Signs Reviewed: Yes Appearance: Positive: Well-Appearing Skin: Positive: Warm Head/Face: Positive: Normal Head/Face Inspection Eyes: Positive: Normal ENT: Positive: Normal ENT inspection Neck: Positive: Supple Respiratory/Lung Sounds: Positive: Clear to Auscultation Cardiovascular: Positive: Normal Abdomen Description: Positive: Other: Musculoskeletal: Positive: Normal Neurological: Positive: Normal Psychiatric: Positive: Normal AVPU Assessment: Alert - [place] Coma Scale Eye: 4 - Spontaneous Motor: 6 - Obeys Commands Verbal: 5 - Oriented Coma Scale Total: 15 Diagnostics - Vital Signs Vital Signs Temp Pulse Resp BP Pulse Ox 10/25/17 18:30 132 141/108 99 10/25/17 18:29 114 97 10/25/17 16:59 97.8 F 123 16 109/63 98 - Laboratory Lab Statement: Any lab studies that have been ordered have been reviewed, and results considered in the medical decision making process. Course/Dx - Course Course Of Treatment: VS wnl. Per staff, no hx of monitoring on record. Pt states she has been followed at "[facility]", but does not remember name of DR. US indicates no intrauterine gestation. HCG 1.93. Pt refused pelvic exam. Will advise pt to follow up with [facility]. - Diagnoses Provider Diagnoses: Spontaneous miscarriage Discharge - Sign-Out/Discharge Documenting (check all that apply): Discharge/Admit/Transfer - Discharge Plan Condition: Stable Disposition: HOME Patient Education Materials: Miscarriage (ED) Forms: *Work Release Referrals: Nathalie Pope NP [Primary Care Provider] - Elie Cuello MD [Medical Doctor] - Additional Instructions: Follow up with your [facility] or [facility] Cuello to confirm complete expulsion of products of conception. Return to ED for any new or worsening symptoms. - Billing Disposition and Condition Condition: STABLE Disposition: HOME
[2017-10-25] MEDS ORDERED: Acetaminophen TAB* 325 MG PO ONE (19:37)
--- NOTE | 2017-10-25 19:56 | RAD ---
HISTORY: Vaginal bleeding, history of twin COMPARISONS: None relevant available at the time of dictation TECHNIQUE: Multiple transverse and longitudinal ultrasound images were obtained of the pelvis using grayscale, color Doppler, and spectral Doppler imaging using the endovaginal transducer. FINDINGS: UTERUS: The uterus measures 5.7 x 8.9 x 4.2 cm. The uterus is normal in shape, size, contour, and echotexture. ENDOMETRIUM: There is no identified intrauterine gestation. There are echogenic nonvascular foci within the endometrial cavity suggestive of subendometrial calcifications.. The endometrium measures 0.3 cm in thickness. CUL-DE-SAC: There is no free fluid within the cul-de-sac. RIGHT OVARY: The right ovary measures 2.4 x 2.3 x 1.1 cm. Normal arterial and venous waveforms are identifiable within the ovary on spectral Doppler imaging. LEFT OVARY: The left ovary measures 3.2 x 1.2 x 2.1 cm. Normal arterial and venous waveforms are identifiable within the ovary on spectral Doppler imaging. BLADDER: The bladder is not well visualized. OTHER: None IMPRESSION: NO INTRAUTERINE GESTATION IS IDENTIFIED. THE DIFFERENTIAL INCLUDES EARLY INTRAUTERINE GESTATION, MISSED , OR ECTOPIC . RECOMMEND CORRELATION WITH ANY PRIOR IMAGING, SERIAL BETA-HCG LEVELS, AND FOLLOW-UP IMAGING
[2017-10-25 21:10] VITALS: BP 123/79
== END 2017-10-25 21:10 | disposition home or self-care (01) ==
LOC: ED 16:54
DX: O03.9 Complete or unspecified spontaneous abortion without complication (principal); R11.0 Nausea; F17.210 Nicotine dependence, cigarettes, uncomplicated; R05 Cough
CPT/HCPCS: 36415; 76817; 84702; 99283; A9270-GY

== ENCOUNTER 2017-11-01 18:42 | Emergency (ER) | payer OTHER ==
[2017-11-01] MEDS ORDERED: predniSONE TAB* 20 MG PO ONE (20:58)
[2017-11-01] MEDS ORDERED: Albuterol/Ipratropium NEB.SOL* Albuterol 2.5 MG/Ipratropium 0.5 MG 3 ML INH ONE (20:59)
[2017-11-01] MEDS ORDERED: Codeine TAB* 30 MG PO ONE (20:59)
[2017-11-01] MEDS ORDERED: Pseudoephedrine TAB* 30 MG PO ONE (20:59)
[2017-11-01] MEDS ORDERED: Ondansetron ODT TAB* 4 MG SL ONE (22:08)
[2017-11-01] MEDS ORDERED: Albuterol HFA INHALER* 8 gm MDI INH PRN (22:09)
--- NOTE | 2017-11-01 22:30 | ED ---
Casimiro Mason Angela, scribed for Anitha Rubi MD on 11/01/17 at 2101 . Respiratory - HPI Summary HPI Summary: This pt is a 36 y/o female presenting to [facility] c/o nonproductive cough for approximately 2 days. Pt additionally reports chest congestion, nasal congestion , sinus pain, sore throat. She notes she has chest pain secondary to cough. Pt states difficulty sleeping at night secondary to her symptoms. Denies fever. Pt is a current smoker, reports the menthol cigarettes alleviates her sore throat. - History of Current Complaint Chief Complaint: EDUpperRespComplaint Stated Complaint: COUGH/CONGESTION Hx Obtained From: Patient Onset/Duration: Lasting Days, Still Present Timing: Constant Current Severity: Moderate Pain Intensity: 5 Character: Cough (Nonproductive) Sputum Amount: None Aggravating Factor(s): Nothing Alleviating Factor(s): Nothing Associated Signs and Symptoms: Chest Pain with Cough, Nasal Congestion, Sinus Discomfort - Allergy/Home Medications Allergies/Adverse Reactions: Allergies Allergy/AdvReac Type Severity Reaction Status Date / Time aspirin Allergy Swelling Verified 11/01/17 18:47 Of Face,Lips,& Throat bee venom protein (honey bee) Allergy Anaphylatic Verified 11/01/17 18:47 Shock cortisone Allergy localized Verified 11/01/17 18:47 swelling at injection site Latex, Natural Rubber Allergy Unknown Verified 11/01/17 18:47 Reaction Details phenobarbital Allergy Swelling Verified 11/01/17 18:47 Of Face,Lips,& Throat PMH/Surg Hx/FS Hx/Imm Hx Endocrine/Hematology History: Denies: Hx Anticoagulant Therapy, Hx Diabetes, Hx Thyroid Disease, Other Endocrine/Hematological Disorders Cardiovascular History: Denies: Hx Congestive Heart Failure, Hx Deep Vein Thrombosis, Hx Hypertension , Hx Myocardial Infarction, Hx Pacemaker/ICD, Other Cardiovascular Problems/ Disorders Respiratory History: Reports: Hx Asthma - She is using her sister's Symbicort 160/4.5--she states she is on abluterol, Hx Chronic Obstructive Pulmonary Disease (COPD) Denies: Hx Lung Cancer, Hx Pneumonia, Hx Pulmonary Embolism, Other Respiratory Problems/Disorders GI History: Reports: Hx Gall Bladder Disease Denies: Hx Gastrointestinal Bleed, Hx Ulcer, Hx Urosepsis, Other GI Disorders History: Reports: Other Problems/Disorders - OVARIAN CYST, Denies: Hx Dialysis, Hx Kidney Stones, Hx Renal Disease Musculoskeletal History: Reports: Hx Back Problems Denies: Other Musculoskeletal History Sensory History: Denies: Other Sensory Impairments Opthamlomology History: Denies: Other Sensory Impairments Neurological History: Reports: Hx Seizures Denies: Hx Dementia, Hx Migraine, Hx Transient Ischemic Attacks (TIA), Other Neuro Impairments/Disorders Psychiatric History: Reports: Hx Anxiety, Hx Depression - She confesses to depression--on no Rx., Hx Bipolar Disorder Denies: Hx Schizophrenia, Hx Substance Abuse, Other Psychiatric Issues/ Disorders - Surgical History Surgery Procedure, Year, and Place: GALLBLADDER OUT 2010. 2010. APPENDECTOMY. abdominal laparoscopic surgery - Immunization History Date of Tetanus Vaccine: w/in last 10 years Date of Influenza Vaccine: none Infectious Disease History: No Infectious Disease History: Denies: Hx Clostridium Difficile, Hx Hepatitis, Hx Human Immunodeficiency Virus (HIV), Hx of Known/Suspected MRSA, Hx Shingles, Hx Tuberculosis, Hx Known/ Suspected VRE, Hx Known/Suspected VRSA, History Other Infectious Disease, Traveled Outside the [place] in Last 30 Days - Family History Known Family History: Positive: Cardiac Disease, Diabetes, Other - kidney cancer - Social History Alcohol Use: Occasionally Alcohol Amount: on special occasions Hx Substance Use: No Substance Use Type: Reports: Marijuana Substance Use Comment - Amount & Last Used: few months ago Hx Tobacco Use: Yes Smoking Status (MU): Heavy Every Day Tobacco Smoker Type: Cigarettes Review of Systems Negative: Fever, Chills ENT: Other - nasal congestion, sinus pain Positive: Sore Throat, Nasal Discharge Positive: Cough Gastrointestinal: Negative Musculoskeletal: Negative Skin: Negative Neurological: Negative All Other Systems Reviewed And Are Negative: Yes Physical Exam - Summary Physical Exam Summary: VITAL SIGNS: Reviewed. GENERAL: Patient is a well-developed and nourished female who is lying comfortable in the stretcher. Patient is not in any acute respiratory distress. HEAD AND FACE: No signs of trauma. No ecchymosis, hematomas or skull depressions. No sinus tenderness. Pt is congested. EYES: PERRLA, EOMI x 2, No injected conjunctiva, no nystagmus. EARS: Hearing grossly intact. Ear canals and tympanic membranes are within normal limits. MOUTH: Oropharynx within normal limits. NECK: Supple, trachea is midline, no adenopathy, no JVD, no carotid bruit, no c- spine tenderness, neck with full ROM. CHEST: Symmetric, no tenderness at palpation LUNGS: Congested with minimal decreased breath sounds. CVS: Regular rate and rhythm, S1 and S2 present, no murmurs or gallops appreciated. ABDOMEN: Soft, non-tender. No signs of distention. No rebound no guarding, and no masses palpated. Bowel sounds are normal. EXTREMITIES: FROM in all major joints, no edema, no cyanosis or clubbing. NEURO: Alert and oriented x 3. No acute neurological deficits. Speech is normal and follows commands. SKIN: Dry and warm Triage Information Reviewed: Yes Vital Signs On Initial Exam: Initial Vitals Temp Pulse Resp BP Pulse Ox 99.0 F 127 16 111/72 97 11/01/17 18:45 11/01/17 18:45 11/01/17 18:45 11/01/17 18:45 11/01/17 18:45 Vital Signs Reviewed: Yes Diagnostics - Vital Signs Vital Signs Temp Pulse Resp BP Pulse Ox 11/01/17 20:37 99.3 F 110 18 108/62 100 11/01/17 18:45 99.0 F 127 16 111/72 97 - Laboratory Lab Statement: Any lab studies that have been ordered have been reviewed, and results considered in the medical decision making process. Re-Evaluation - Re-Evaluation First Eval Re-Evaluation Time: 22:08 Comment: Pt will be given a dose of Zofran after duoneb treatment. Pt will be discharged home with an albuterol inhaler. Disposition - Course Assessment/Plan: Pt is a 36 y/o female who presentes with nonproductive cough for approximately 2 days. Pt additionally reports chest congestion, nasal congestion, sinus pain, sore throat. She notes she has chest pain secondary to cough. In the ED course the pt was given duoneb, prednisone, Sudafed, and codeine. Pt was given Zofran after the breathing treatment. She will be discharged home with albuterol inhaler. Pt is advised to take sudafed for the congestion. She is instructed to follow up with her PCP. - Diagnoses Provider Diagnoses: URI (upper respiratory infection), Seasonal allergies Discharge - Sign-Out/Discharge Documenting (check all that apply): Discharge/Admit/Transfer - Discharge - Discharge Plan Condition: Stable Disposition: HOME Prescriptions: predniSONE TAB* [Deltasone TAB*] 40 mg PO DAILY #10 tab Patient Education Materials: Upper Respiratory Infection (ED) Referrals: Nathalie Pope NP [Primary Care Provider] - Additional Instructions: Use Sudafed for congestion. Please follow up with your primary care provider. RETURN TO EMERGENCY DEPARTMENT FOR ANY NEW OR WORSENING SYMPTOMS. The documentation as recorded by the Casimiro sharma Angela accurately reflects the service I personally performed and the decisions made by , Anitha Rubi MD.
[2017-11-01] MEDS ORDERED: Albuterol HFA INHALER* 8 gm MDI INH ONE (22:32)
[2017-11-01 22:44] VITALS: BP 130/87
== END 2017-11-01 22:42 | disposition home or self-care (01) ==
LOC: ED 18:42
DX: J06.9 Acute upper respiratory infection, unspecified (principal); J45.909 Unspecified asthma, uncomplicated; R56.9 Unspecified convulsions; F41.9 Anxiety disorder, unspecified; F32.9 Major depressive disorder, single episode, unspecified; Z88.8 Allergy status to other drugs, medicaments and biological substances; Z88.6 Allergy status to analgesic agent; Z91.030 Bee allergy status; Z91.040 Latex allergy status; F17.210 Nicotine dependence, cigarettes, uncomplicated
CPT/HCPCS: 99283; A9270-GY; J7512

== ENCOUNTER 2018-01-15 23:26 | Emergency (ER) | payer OTHER ==
[2018-01-16] MEDS ORDERED: Gabapentin CAP(*) 300 MG PO ONE (00:26)
[2018-01-16 00:51] LABS: ABS Basophils 0.1 10^3/ul (0-0.2); ABS Eosinophils 0.3 10^3/ul (0-0.6); ABS Lymphocytes 3.4 10^3/ul (1.0-4.8); ABS Monocytes 0.7 10^3/ul (0-0.8); ABS Neutrophils 6.8 10^3/ul (1.5-7.7); ABS Nucleated RBC 0 10^3/ul; Hematocrit 38 % (35-47); Hemoglobin 12.9 g/dl (12.0-16.0); Lymphocyte % 29.9 % (25-47); Mean Corpuscular HGB Conc 34 g/dl (31-36); Mean Corpuscular Hemoglobin 30 pg (27-31); Mean Corpuscular Volume 89 fL (80-97); Mean Platelet Volume 8.1 um3 (7.4-10.4); Nucleated Red Blood Cells % 0.1; Platelet Count 229 10^3/ul (150-450); Red Cell Distribution Width 14 % (10.5-15); White Blood Count 11.4 10^3/ul (3.5-10.8)
[2018-01-16 01:17] LABS: EGFR Non-African American 107.2 (>60)
--- NOTE | 2018-01-16 01:29 | ED ---
Neurological HPI - HPI Summary HPI Summary: This is edith Valdivia documenting for attending Dr. Anitha Rubi MD. A 37 y/o female presents to the ED c/o seizure. According to the patient, she had a seizure early this morning. She noted that she was started on Gabapentin a couple months ago and normally takes 300 mg in the AM and 600 mg in the PM just before bed. She stated that she did not take her 600 mg dose of Gabapentin before bed. Pt denies any fever, cough or urinary issues. She has been having seizures since she was 6 years old, however, does not have a seizure doctor as her PCP prescribed the medication. PMHx of seizures. - History of Current Complaint Chief Complaint: EDSeizure Stated Complaint: SEIZURE Time Seen by Provider: 01/16/18 00:15 Hx Obtained From: Patient Hx Last Menstrual Period: depo Pain Intensity: 0 - Allergy/Home Medications Allergies/Adverse Reactions: Allergies Allergy/AdvReac Type Severity Reaction Status Date / Time aspirin Allergy Swelling Verified 01/16/18 00:11 Of Face,Lips,& Throat bee venom protein (honey bee) Allergy Anaphylatic Verified 01/16/18 00:11 Shock cortisone Allergy localized Verified 01/16/18 00:11 swelling at injection site Latex, Natural Rubber Allergy Unknown Verified 01/16/18 00:11 Reaction Details phenobarbital Allergy Swelling Verified 01/16/18 00:11 Of Face,Lips,& Throat Home Medications: Home Medications Naproxen [Naproxen 500 mg tab] 500 mg PO BID 01/16/18 [History Confirmed ] PMH/Surg Hx/FS Hx/Imm Hx Endocrine/Hematology History: Denies: Hx Anticoagulant Therapy, Hx Diabetes, Hx Thyroid Disease, Other Endocrine/Hematological Disorders Cardiovascular History: Denies: Hx Congestive Heart Failure, Hx Deep Vein Thrombosis, Hx Hypertension , Hx Myocardial Infarction, Hx Pacemaker/ICD, Other Cardiovascular Problems/ Disorders Respiratory History: Reports: Hx Asthma - She is using her sister's Symbicort 160/4.5--she states she is on abluterol, Hx Chronic Obstructive Pulmonary Disease (COPD) Denies: Hx Lung Cancer, Hx Pneumonia, Hx Pulmonary Embolism, Other Respiratory Problems/Disorders GI History: Reports: Hx Gall Bladder Disease Denies: Hx Gastrointestinal Bleed, Hx Ulcer, Hx Urosepsis, Other GI Disorders History: Reports: Other Problems/Disorders - OVARIAN CYST, Denies: Hx Dialysis, Hx Kidney Stones, Hx Renal Disease Musculoskeletal History: Reports: Hx Back Problems Denies: Other Musculoskeletal History Sensory History: Denies: Other Sensory Impairments Opthamlomology History: Denies: Other Sensory Impairments Neurological History: Reports: Hx Seizures Denies: Hx Dementia, Hx Migraine, Hx Transient Ischemic Attacks (TIA), Other Neuro Impairments/Disorders Psychiatric History: Reports: Hx Anxiety, Hx Depression - She confesses to depression--on no Rx., Hx Bipolar Disorder Denies: Hx Schizophrenia, Hx Substance Abuse, Other Psychiatric Issues/ Disorders - Surgical History Surgery Procedure, Year, and Place: GALLBLADDER OUT 2010. 2010. APPENDECTOMY. abdominal laparoscopic surgery - Immunization History Date of Tetanus Vaccine: w/in last 10 years Date of Influenza Vaccine: none Infectious Disease History: No Infectious Disease History: Denies: Hx Clostridium Difficile, Hx Hepatitis, Hx Human Immunodeficiency Virus (HIV), Hx of Known/Suspected MRSA, Hx Shingles, Hx Tuberculosis, Hx Known/ Suspected VRE, Hx Known/Suspected VRSA, History Other Infectious Disease, Traveled Outside the [place] in Last 30 Days - Family History Known Family History: Positive: Cardiac Disease, Diabetes, Other - kidney cancer - Social History Alcohol Use: Occasionally Alcohol Amount: on special occasions Hx Substance Use: No Substance Use Type: Reports: Marijuana Substance Use Comment - Amount & Last Used: few months ago Hx Tobacco Use: Yes Smoking Status (MU): Heavy Every Day Tobacco Smoker Type: Cigarettes Review of Systems Negative: Fever Negative: Cough Positive: no symptoms reported Neurological: Other - POSITIVE: SEIZURE All Other Systems Reviewed And Are Negative: Yes Physical Exam - Summary Physical Exam Summary: VITAL SIGNS: Reviewed. GENERAL: Patient is a well-developed and nourished FEMALE who is lying comfortable in the stretcher. Patient is not in any acute respiratory distress. HEAD AND FACE: No signs of trauma. No ecchymosis, hematomas or skull depressions. No sinus tenderness. EYES: PERRLA, EOMI x 2, No injected conjunctiva, no nystagmus. EARS: Hearing grossly intact. Ear canals and tympanic membranes are within normal limits. MOUTH: Oropharynx within normal limits. NECK: Supple, trachea is midline, no adenopathy, no JVD, no carotid bruit, no c- spine tenderness, neck with full ROM. CHEST: Symmetric, no tenderness at palpation LUNGS: Clear to auscultation bilaterally. No wheezing or crackles. CVS: Regular rate and rhythm, S1 and S2 present, no murmurs or gallops appreciated. ABDOMEN: Soft, non-tender. No signs of distention. No rebound no guarding, and no masses palpated. Bowel sounds are normal. EXTREMITIES: FROM in all major joints, no edema, no cyanosis or clubbing. NEURO: Alert and oriented x 3. No acute neurological deficits. Speech is normal and follows commands. SKIN: Dry and warm Triage Information Reviewed: Yes Vital Signs On Initial Exam: Initial Vitals Temp Pulse Resp BP Pulse Ox 97 F 95 17 119/82 98 01/15/18 23:32 01/15/18 23:32 01/15/18 23:32 01/15/18 23:32 01/15/18 23:32 Vital Signs Reviewed: Yes Diagnostics - Vital Signs Vital Signs Temp Pulse Resp BP Pulse Ox 01/15/18 23:32 97 F 95 17 119/82 98 - Laboratory Lab Results: Lab Results 01/16/18 01/16/18 Range/Units 00:41 00:41 WBC 11.4 H (3.5-10.8) 10^3/ul RBC 4.30 (4.00-5.40) 10^6/ul Hgb 12.9 (12.0-16.0) g/dl Hct 38 (35-47) % MCV 89 (80-97) fL MCH 30 (27-31) pg MCHC 34 (31-36) g/dl RDW 14 (10.5-15) % Plt Count 229 (150-450) 10^3/ul MPV 8.1 (7.4-10.4) um3 Neut % (Auto) 60.1 (38-83) % Lymph % (Auto) 29.9 (25-47) % [place] % (Auto) 5.9 (0-7) % Eos % (Auto) 3.0 (0-6) % Baso % (Auto) 1.1 (0-2) % Absolute Neuts (auto) 6.8 (1.5-7.7) 10^3/ul Absolute Lymphs (auto) 3.4 (1.0-4.8) 10^3/ul Absolute Monos (auto) 0.7 (0-0.8) 10^3/ul Absolute Eos (auto) 0.3 (0-0.6) 10^3/ul Absolute Basos (auto) 0.1 (0-0.2) 10^3/ul Absolute Nucleated RBC 0 10^3/ul Nucleated RBC % 0.1 Sodium 141 (135-145) mmol/L Potassium 3.8 (3.5-5.0) mmol/L Chloride 109 (101-111) mmol/L Carbon Dioxide 23 (22-32) mmol/L Anion Gap 9 (2-11) mmol/L BUN 11 (6-24) mg/dL Creatinine 0.62 (0.51-0.95) mg/dL Est GFR ( Amer) 129.7 (>60) Est GFR (Non-Af Amer) 107.2 (>60) BUN/Creatinine Ratio 17.7 (8-20) Glucose 108 H (70-100) mg/dL Calcium 9.4 (8.6-10.3) mg/dL Total Bilirubin 0.20 (0.2-1.0) mg/dL AST 15 (13-39) U/L ALT 24 (7-52) U/L Alkaline Phosphatase 57 (34-104) U/L Total Protein 6.9 (6.4-8.9) g/dL Albumin 3.8 (3.2-5.2) g/dL Globulin 3.1 (2-4) g/dL Albumin/Globulin Ratio 1.2 (1-3) Result Diagrams: 01/16/18 00:41 01/16/18 00:41 Lab Statement: Any lab studies that have been ordered have been reviewed, and results considered in the medical decision making process. Re-Evaluation - Re-Evaluation First Eval Re-Evaluation Time: 01:29 Change: Improved Comment: PATIENT WOULD LIKE TO GO HOME AND DOES NOT WANT TO WAIT FOR URINE CULTURE. Course/Dx - Course Course Of Treatment: A 37 y/o female presents to the ED c/o seizure. According to the patient, she had a seizure early this morning. She noted that she was started on Gabapentin a couple months ago and normally takes 300 mg in the AM and 600 mg in the PM just before bed. She stated that she did not take her 600 mg dose of Gabapentin before bed. Pt denies any fever, cough or urinary issues. No laboratory scans were done. In the ED course, the patient recieved Neurontin. During reevaluation, patient did not want to wait for urine culture and emphasized she would like to go home. In the ED, the patient did not have any seizures and was not postictal. Pt will be discharged with a diagnosis of seizure. Pt is to follow up with PCP in 1-2 days. Pt is agreeable with this plan. - Diagnoses Provider Diagnoses: Seizure Discharge - Sign-Out/Discharge Documenting (check all that apply): Patient Departure - DISCHARGE - Discharge Plan Condition: Stable Disposition: HOME Patient Education Materials: Epilepsy (ED) Referrals: Nathalie Pope NP [Primary Care Provider] - 2 Days Paolo Knapp MD [Medical Doctor] - 2 Days Additional Instructions: INSTEAD OF TAKING 300 MG AND 600 MG PER DAY, INCREASE DOSAGE TO 600 MG TWICE A DAY. FOLLOW UP WITH PRIMARY CARE PHYSICIAN AND NEUROLOGY IN 1-2 DAYS. RETURN TO ED FOR ANY NEW OR WORSENING SYMPTOMS.
[2018-01-16 01:58] VITALS: BP 140/110
== END 2018-01-16 01:55 | disposition home or self-care (01) ==
LOC: ED 23:26
DX: R56.9 Unspecified convulsions (principal); F17.210 Nicotine dependence, cigarettes, uncomplicated
CPT/HCPCS: 36415; 80053; 85025; 99282; A9270-GY

== ENCOUNTER 2018-01-17 21:49 | Emergency (ER) | payer OTHER ==
[2018-01-17 21:55] VITALS: BP 117/64
[2018-01-17] MEDS ORDERED: Cyclobenzaprine TAB* 10 MG PO ONE (23:54)
[2018-01-17] MEDS ORDERED: Ketorolac INJ* 60 MG/2 ML VIAL IM ONE (23:54)
--- NOTE | 2018-01-18 00:01 | ED ---
Back Pain - HPI Summary HPI Summary: This is edith Sultana documenting for attending Anitha Rubi MD. This patient is a 37 year old F presenting to ED with a chief complaint of severe back pain since 2002. He reports it went out on him 2x tonight. Prior treatment includes naproxen 500 mg this morning. The CC is described as on the spine. The patient rates the pain 10/10 in severity. Symptoms aggravated by touch and movement. Symptoms alleviated by nothing. - History of Current Complaint Chief Complaint: EDBackInjuryPain Stated Complaint: LOWER BACK PAIN Time Seen by Provider: 01/17/18 23:49 Hx Obtained From: Patient Hx Last Menstrual Period: depo Onset/Duration: Sudden Onset, Lasting Weeks - since 2002, Still Present Onset/Duration: Started Weeks Ago - since 2002, Still Present Timing: Constant, Lasting Weeks - since 2002 Severity Initially: Severe Severity Currently: Severe Pain Intensity: 10 Pain Scale Used: 0-10 Numeric Aggravating Symptom(s): Movement, Other - touch Alleviating Symptom(s): Nothing - Allergies/Home Medications Allergies/Adverse Reactions: Allergies Allergy/AdvReac Type Severity Reaction Status Date / Time aspirin Allergy Swelling Verified 01/16/18 00:11 Of Face,Lips,& Throat bee venom protein (honey bee) Allergy Anaphylatic Verified 01/16/18 00:11 Shock cortisone Allergy localized Verified 01/16/18 00:11 swelling at injection site Latex, Natural Rubber Allergy Unknown Verified 01/16/18 00:11 Reaction Details phenobarbital Allergy Swelling Verified 01/16/18 00:11 Of Face,Lips,& Throat PMH/Surg Hx/FS Hx/Imm Hx Endocrine/Hematology History: Denies: Hx Anticoagulant Therapy, Hx Diabetes, Hx Thyroid Disease, Other Endocrine/Hematological Disorders Cardiovascular History: Denies: Hx Congestive Heart Failure, Hx Deep Vein Thrombosis, Hx Hypertension , Hx Myocardial Infarction, Hx Pacemaker/ICD, Other Cardiovascular Problems/ Disorders Respiratory History: Reports: Hx Asthma - She is using her sister's Symbicort 160/4.5--she states she is on abluterol, Hx Chronic Obstructive Pulmonary Disease (COPD) Denies: Hx Lung Cancer, Hx Pneumonia, Hx Pulmonary Embolism, Other Respiratory Problems/Disorders GI History: Reports: Hx Gall Bladder Disease Denies: Hx Gastrointestinal Bleed, Hx Ulcer, Hx Urosepsis, Other GI Disorders History: Reports: Other Problems/Disorders - OVARIAN CYST, Denies: Hx Dialysis, Hx Kidney Stones, Hx Renal Disease Musculoskeletal History: Reports: Hx Back Problems Denies: Other Musculoskeletal History Sensory History: Denies: Other Sensory Impairments Opthamlomology History: Denies: Other Sensory Impairments Neurological History: Reports: Hx Seizures Denies: Hx Dementia, Hx Migraine, Hx Transient Ischemic Attacks (TIA), Other Neuro Impairments/Disorders Psychiatric History: Reports: Hx Anxiety, Hx Depression - She confesses to depression--on no Rx., Hx Bipolar Disorder Denies: Hx Schizophrenia, Hx Substance Abuse, Other Psychiatric Issues/ Disorders - Surgical History Surgery Procedure, Year, and Place: GALLBLADDER OUT 2010. 2010. APPENDECTOMY. abdominal laparoscopic surgery - Immunization History Date of Tetanus Vaccine: w/in last 10 years Date of Influenza Vaccine: none Infectious Disease History: No Infectious Disease History: Denies: Hx Clostridium Difficile, Hx Hepatitis, Hx Human Immunodeficiency Virus (HIV), Hx of Known/Suspected MRSA, Hx Shingles, Hx Tuberculosis, Hx Known/ Suspected VRE, Hx Known/Suspected VRSA, History Other Infectious Disease, Traveled Outside the [place] in Last 30 Days - Family History Known Family History: Positive: Cardiac Disease, Diabetes, Other - kidney cancer - Social History Alcohol Use: Occasionally Alcohol Amount: on special occasions Hx Substance Use: No Substance Use Type: Reports: Marijuana Substance Use Comment - Amount & Last Used: few months ago Hx Tobacco Use: Yes Smoking Status (MU): Heavy Every Day Tobacco Smoker Type: Cigarettes Review of Systems Negative: Fever Positive: Other - severe back pain All Other Systems Reviewed And Are Negative: Yes Physical Exam - Summary Physical Exam Summary: VITAL SIGNS: Reviewed. GENERAL: Patient is a well-developed and nourished FEMALE who is lying comfortable in the stretcher. Patient is not in any acute respiratory distress. HEAD AND FACE: No signs of trauma. No ecchymosis, hematomas or skull depressions. No sinus tenderness. EYES: PERRLA, EOMI x 2, No injected conjunctiva, no nystagmus. EARS: Hearing grossly intact. Ear canals and tympanic membranes are within normal limits. MOUTH: Oropharynx within normal limits. NECK: Supple, trachea is midline, no adenopathy, no JVD, no carotid bruit, no c- spine tenderness, neck with full ROM. CHEST: Symmetric, no tenderness at palpation LUNGS: Clear to auscultation bilaterally. No wheezing or crackles. CVS: Regular rate and rhythm, S1 and S2 present, no murmurs or gallops appreciated. ABDOMEN: Soft, non-tender. No signs of distention. No rebound no guarding, and no masses palpated. Bowel sounds are normal. BACK: L lumbar and cervical tenderness EXTREMITIES: FROM in all major joints, no edema, no cyanosis or clubbing. Bilateral leg straight test is negative NEURO: Alert and oriented x 3. No acute neurological deficits. Speech is normal and follows commands. SKIN: Dry and warm Triage Information Reviewed: Yes Vital Signs On Initial Exam: Initial Vitals Temp Pulse Resp BP Pulse Ox 98.4 F 102 20 117/64 97 01/17/18 21:52 01/17/18 21:52 01/17/18 21:52 01/17/18 21:52 01/17/18 21:52 Vital Signs Reviewed: Yes Diagnostics - Vital Signs Vital Signs Temp Pulse Resp BP Pulse Ox 01/17/18 21:52 98.4 F 102 20 117/64 97 - Laboratory Lab Statement: Any lab studies that have been ordered have been reviewed, and results considered in the medical decision making process. Back Pain Course/Dx - Course Assessment/Plan: This patient is a 37 yo with hx of low back pain. She is currently c/o low back pain. On exam, she had lumbar, cervical tenderness. She was negative for bilateral straight leg test. She felt better in the ED and was released. - Diagnoses Differential Diagnosis/HQI/PQRI: Positive: Other - back pain Provider Diagnoses: Back pain Discharge - Sign-Out/Discharge Documenting (check all that apply): Patient Departure - Discharge Plan Condition: Stable Disposition: HOME Patient Education Materials: Back Pain (ED) Referrals: Nathalie Pope NP [Primary Care Provider] - (Follow up with your primary care physician in 1-3 days.) Additional Instructions: RETURN TO THE EMERGENCY DEPARTMENT FOR CHANGING OR WORSENING SYMPTOMS.
== END 2018-01-18 01:30 | disposition home or self-care (01) ==
LOC: ED 21:49
DX: M54.9 Dorsalgia, unspecified (principal); Z88.6 Allergy status to analgesic agent; F17.210 Nicotine dependence, cigarettes, uncomplicated
CPT/HCPCS: 96372; 99282; A9270-GY; J1885

== ENCOUNTER 2018-02-16 21:56 | Emergency (ER) | payer OTHER ==
--- NOTE | 2018-02-16 22:49 | ED ---
Upper Extremity Pain - HPI Summary HPI Summary: Patient complains of mechanical fall yesterday with subsequent bilateral wrist pain. Denies loss of function or sensation. Denies any other pain or injuries. - History of Current Complaint Chief Complaint: EDExtremityUpper Stated Complaint: INJURY TO BOTH WRIST Time Seen by Provider: 02/16/18 22:40 Hx Obtained From: Patient Hx Last Menstrual Period: depo Mechanism Of Injury: Fall From A Standing Position Onset/Duration: Started Hours Ago Timing: Constant Severity Initially: Moderate Severity Currently: Moderate Pain Location: Wrist Character: Sharp, Throbbing Aggravating Factor(s): Movement Alleviating Factor(s): Nothing Associated Signs & Symptoms: Positive: Numbness/Tingling - Allergies/Home Medications Allergies/Adverse Reactions: Allergies Allergy/AdvReac Type Severity Reaction Status Date / Time aspirin Allergy Swelling Verified 01/16/18 00:11 Of Face,Lips,& Throat bee venom protein (honey bee) Allergy Anaphylatic Verified 01/16/18 00:11 Shock cortisone Allergy localized Verified 01/16/18 00:11 swelling at injection site Latex, Natural Rubber Allergy Unknown Verified 01/16/18 00:11 Reaction Details phenobarbital Allergy Swelling Verified 01/16/18 00:11 Of Face,Lips,& Throat PMH/Surg Hx/FS Hx/Imm Hx Endocrine/Hematology History: Denies: Hx Anticoagulant Therapy, Hx Diabetes, Hx Thyroid Disease, Other Endocrine/Hematological Disorders Cardiovascular History: Denies: Hx Congestive Heart Failure, Hx Deep Vein Thrombosis, Hx Hypertension , Hx Myocardial Infarction, Hx Pacemaker/ICD, Other Cardiovascular Problems/ Disorders Respiratory History: Reports: Hx Asthma - She is using her sister's Symbicort 160/4.5--she states she is on abluterol, Hx Chronic Obstructive Pulmonary Disease (COPD) Denies: Hx Lung Cancer, Hx Pneumonia, Hx Pulmonary Embolism, Other Respiratory Problems/Disorders GI History: Reports: Hx Gall Bladder Disease Denies: Hx Gastrointestinal Bleed, Hx Ulcer, Hx Urosepsis, Other GI Disorders History: Reports: Other Problems/Disorders - OVARIAN CYST, Denies: Hx Dialysis, Hx Kidney Stones, Hx Renal Disease Musculoskeletal History: Reports: Hx Back Problems Denies: Other Musculoskeletal History Sensory History: Denies: Other Sensory Impairments Opthamlomology History: Denies: Other Sensory Impairments Neurological History: Reports: Hx Seizures Denies: Hx Dementia, Hx Migraine, Hx Transient Ischemic Attacks (TIA), Other Neuro Impairments/Disorders Psychiatric History: Reports: Hx Anxiety, Hx Depression - She confesses to depression--on no Rx., Hx Bipolar Disorder Denies: Hx Schizophrenia, Hx Substance Abuse, Other Psychiatric Issues/ Disorders - Surgical History Surgery Procedure, Year, and Place: GALLBLADDER OUT 2010. 2010. APPENDECTOMY. abdominal laparoscopic surgery - Immunization History Date of Tetanus Vaccine: w/in last 10 years Date of Influenza Vaccine: none Infectious Disease History: No Infectious Disease History: Denies: Hx Clostridium Difficile, Hx Hepatitis, Hx Human Immunodeficiency Virus (HIV), Hx of Known/Suspected MRSA, Hx Shingles, Hx Tuberculosis, Hx Known/ Suspected VRE, Hx Known/Suspected VRSA, History Other Infectious Disease, Traveled Outside the [place] in Last 30 Days - Family History Known Family History: Positive: Cardiac Disease, Diabetes, Other - kidney cancer - Social History Alcohol Use: Occasionally Alcohol Amount: on special occasions Hx Substance Use: No Substance Use Type: Reports: Marijuana Substance Use Comment - Amount & Last Used: few months ago Hx Tobacco Use: Yes Smoking Status (MU): Heavy Every Day Tobacco Smoker Type: Cigarettes Review of Systems Constitutional: Negative Eyes: Negative ENT: Negative Cardiovascular: Negative Respiratory: Negative Gastrointestinal: Negative Genitourinary: Negative Positive: Arthralgia Skin: Negative Neurological: Negative Psychological: Normal All Other Systems Reviewed And Are Negative: Yes Physical Exam - Summary Physical Exam Summary: Flexion and extension intact in bilateral wrists and fingers and elbows. No ecchymosis, erythema, extra warmth, deformity, swelling noted to bilateral wrists. PMS intact distally. Patient states tenderness with palpation of bilateral wrists, but patient uses her wrists with free range of motion while talking and demonstrating how she fell and how it hurts when she pushes herself up off the bed or furniture. Triage Information Reviewed: Yes Vital Signs On Initial Exam: Initial Vitals Temp Pulse Resp BP Pulse Ox 96.7 F 98 18 152/83 97 02/16/18 22:21 02/16/18 22:21 02/16/18 22:21 02/16/18 22:21 02/16/18 22:21 Vital Signs Reviewed: Yes Appearance: Positive: Well-Appearing Skin: Positive: Warm Head/Face: Positive: Normal Head/Face Inspection Eyes: Positive: Normal Neck: Positive: Supple Respiratory/Lung Sounds: Positive: Clear to Auscultation Cardiovascular: Positive: Normal Abdomen Description: Positive: Nontender Musculoskeletal: Positive: Normal Neurological: Positive: Normal Psychiatric: Positive: Normal AVPU Assessment: Alert - Roverto Coma Scale Best Eye Response: 4 - Spontaneous Best Motor Response: 6 - Obeys Commands Best Verbal Response: 5 - Oriented Coma Scale Total: 15 Procedures - Splinting 1 Location: left wrist Pre-Made Type: velcro Splint: thumb spica Pre-Proc Neuro Vasc Exam: normal Post-Proc Neuro Vasc Exam: normal 2 Location: rt wrist Pre-Made Type: velcro Splint: thumb spica Pre-Proc Neuro Vasc Exam: normal Post-Proc Neuro Vasc Exam: normal Diagnostics - Vital Signs Vital Signs Temp Pulse Resp BP Pulse Ox 02/16/18 22:21 96.7 F 98 18 152/83 97 - Laboratory Lab Statement: Any lab studies that have been ordered have been reviewed, and results considered in the medical decision making process. - Radiology wrist bilkat Xray Interpretation: No Acute Changes Radiology Interpretation Completed By: ED Physician Course/Dx - Course Course Of Treatment: Patient complains of mechanical fall yesterday with subsequent bilateral wrist pain. Denies loss of function or sensation. Denies any other pain or injuries. Physical exam:Flexion and extension intact in bilateral wrists and fingers and elbows. No ecchymosis, erythema, extra warmth , deformity, swelling noted to bilateral wrists. PMS intact distally. Patient states tenderness with palpation of bilateral wrists, but patient uses her wrists with free range of motion while talking and demonstrating how she fell and how it hurts when she pushes herself up off the bed or furniture. Imaging negative. Positive snuffbox tenderness on bilateral wrists. splints plaved on nbilat wrists. Repeat x-ray in 2 weeks. Follow-up with ortho. - Diagnoses Provider Diagnoses: Strain of wrist, bilateral Discharge - Sign-Out/Discharge Documenting (check all that apply): Patient Departure - Discharge Plan Condition: Stable Disposition: HOME Patient Education Materials: Scaphoid Fracture (ED), Wrist Sprain (ED) Referrals: Nathalie Pope NP [Primary Care Provider] - Samir Daniel MD [Medical Doctor] - Additional Instructions: Follow-up with orthopedics Dr. Daniel to get Repeat x-ray in 2 weeks. Return to the ED for any new or worsening symptoms - Billing Disposition and Condition Condition: STABLE Disposition: Home
[2018-02-16 23:31] VITALS: BP 115/78
--- NOTE | 2018-02-17 08:12 | RAD ---
HISTORY: injury, bilateral wrist pain COMPARISONS: September 16, 2017 VIEWS: 6 , Frontal, lateral, and oblique views of the left wrist and of the right wrist FINDINGS: Right: BONE DENSITY: Normal. BONES: There is no displaced fracture. JOINTS: There is no arthropathy. ALIGNMENT: There is no dislocation. The alignment is anatomic. SOFT TISSUES: Unremarkable. Left: BONE DENSITY: Normal. BONES: There is a small bone fragment along the radial aspect of the radial styloid seen on one projection. JOINTS: There is no arthropathy. ALIGNMENT: There is no dislocation. The alignment is anatomic. SOFT TISSUES: Unremarkable. OTHER FINDINGS: None. IMPRESSION: 1. NO ACUTE OSSEOUS INJURY TO THE RIGHT WRIST. 2. PROBABLE SMALL AVULSION INJURY ALONG THE RADIAL ASPECT OF THE RADIAL STYLOID OF THE LEFT WRIST. RECOMMEND CORRELATION WITH SITE OF PAIN. 3. IF SYMPTOMS PERSIST, RECOMMEND REPEAT IMAGING. R1
--- NOTE | 2018-02-17 09:08 | PN ---
Progress Note - Progress Note Date of Service: 02/17/18 Note: Radiology read report as probable small avulsion injury on the radial aspect the radial styloid. Patient placed in thumb spica splint so no further action required. Patient has a follow-up with orthopedic.
== END 2018-02-16 23:28 | disposition home or self-care (01) ==
LOC: ED 21:56
DX: S66.912A Strain of unspecified muscle, fascia and tendon at wrist and hand level, left hand, initial encounter (principal); S66.911A Strain of unspecified muscle, fascia and tendon at wrist and hand level, right hand, initial encounter; W19.XXXA Unspecified fall, initial encounter; Y92.9 Unspecified place or not applicable; Z88.0 Allergy status to penicillin; F17.210 Nicotine dependence, cigarettes, uncomplicated
CPT/HCPCS: 99282

== ENCOUNTER 2018-02-28 20:49 | Emergency (ER) | payer OTHER ==
--- NOTE | 2018-02-28 21:51 | ED ---
Upper Extremity Pain - HPI Summary HPI Summary: 37-year-old female presents with left wrist pain for the past 2 weeks. She fell onto her outstretched hand. She says she has a scaphoid fracture. She's been having numbness into her left pinky and ring finger. She admits to some elbow pain. Pain is worse when places pressure on elbow. no pain in elbow at baseline. did not land on elbow. She has not followed up with ortho yet. She is requesting pain medication. - History of Current Complaint Chief Complaint: EDExtremityUpper Stated Complaint: LT WRIST PAIN Time Seen by Provider: 02/28/18 21:30 Hx Last Menstrual Period: depo - Allergies/Home Medications Allergies/Adverse Reactions: Allergies Allergy/AdvReac Type Severity Reaction Status Date / Time aspirin Allergy Swelling Verified 02/28/18 21:06 Of Face,Lips,& Throat bee venom protein (honey bee) Allergy Anaphylatic Verified 02/28/18 21:06 Shock cortisone Allergy localized Verified 02/28/18 21:06 swelling at injection site Latex, Natural Rubber Allergy Unknown Verified 02/28/18 21:06 Reaction Details phenobarbital Allergy Swelling Verified 02/28/18 21:06 Of Face,Lips,& Throat PMH/Surg Hx/FS Hx/Imm Hx Endocrine/Hematology History: Denies: Hx Anticoagulant Therapy, Hx Diabetes, Hx Thyroid Disease, Other Endocrine/Hematological Disorders Cardiovascular History: Denies: Hx Congestive Heart Failure, Hx Deep Vein Thrombosis, Hx Hypertension , Hx Myocardial Infarction, Hx Pacemaker/ICD, Other Cardiovascular Problems/ Disorders Respiratory History: Reports: Hx Asthma - She is using her sister's Symbicort 160/4.5--she states she is on abluterol, Hx Chronic Obstructive Pulmonary Disease (COPD) Denies: Hx Lung Cancer, Hx Pneumonia, Hx Pulmonary Embolism, Other Respiratory Problems/Disorders GI History: Reports: Hx Gall Bladder Disease Denies: Hx Gastrointestinal Bleed, Hx Ulcer, Hx Urosepsis, Other GI Disorders History: Reports: Other Problems/Disorders - OVARIAN CYST, Denies: Hx Dialysis, Hx Kidney Stones, Hx Renal Disease Musculoskeletal History: Reports: Hx Back Problems Denies: Other Musculoskeletal History Sensory History: Denies: Other Sensory Impairments Opthamlomology History: Denies: Other Sensory Impairments Neurological History: Reports: Hx Seizures Denies: Hx Dementia, Hx Migraine, Hx Transient Ischemic Attacks (TIA), Other Neuro Impairments/Disorders Psychiatric History: Reports: Hx Anxiety, Hx Depression - She confesses to depression--on no Rx., Hx Bipolar Disorder Denies: Hx Schizophrenia, Hx Substance Abuse, Other Psychiatric Issues/ Disorders - Surgical History Surgery Procedure, Year, and Place: GALLBLADDER OUT 2010. 2010. APPENDECTOMY. abdominal laparoscopic surgery - Immunization History Date of Tetanus Vaccine: w/in last 10 years Date of Influenza Vaccine: none Infectious Disease History: No Infectious Disease History: Denies: Hx Clostridium Difficile, Hx Hepatitis, Hx Human Immunodeficiency Virus (HIV), Hx of Known/Suspected MRSA, Hx Shingles, Hx Tuberculosis, Hx Known/ Suspected VRE, Hx Known/Suspected VRSA, History Other Infectious Disease, Traveled Outside the [place] in Last 30 Days - Family History Known Family History: Positive: Cardiac Disease, Diabetes, Other - kidney cancer - Social History Alcohol Use: Occasionally Alcohol Amount: on special occasions Hx Substance Use: No Substance Use Type: Reports: Marijuana Substance Use Comment - Amount & Last Used: few months ago Hx Tobacco Use: Yes Smoking Status (MU): Heavy Every Day Tobacco Smoker Type: Cigarettes Review of Systems Negative: Fever Negative: Chest Pain Negative: Shortness Of Breath Positive: Myalgia - left wrist pain Positive: Paresthesia All Other Systems Reviewed And Are Negative: Yes Physical Exam Triage Information Reviewed: Yes Vital Signs On Initial Exam: Initial Vitals Temp Pulse Resp BP Pulse Ox 98.1 F 98 16 122/74 98 02/28/18 21:00 02/28/18 21:00 02/28/18 21:00 02/28/18 21:00 02/28/18 21:00 Vital Signs Reviewed: Yes Appearance: Positive: Well-Appearing Skin: Positive: Warm, Dry Head/Face: Positive: Normal Head/Face Inspection Eyes: Positive: Normal, Conjunctiva Clear ENT: Positive: Pharynx normal Respiratory/Lung Sounds: Positive: Clear to Auscultation, Breath Sounds Present Cardiovascular: Positive: Normal, RRR Musculoskeletal: Positive: Limited @ - left wrist, Other - capillary refill<2 secs, reproducible pain when press over ulnar nerve at elbow, tenderness over medial epicondyle, good knuckle strap sewer strength Neurological: Positive: Normal Psychiatric: Positive: Normal Diagnostics - Vital Signs Vital Signs Temp Pulse Resp BP Pulse Ox 09/04/18 21:00 98.1 F 98 16 122/74 98 - Laboratory Lab Statement: Any lab studies that have been ordered have been reviewed, and results considered in the medical decision making process. Course/Dx - Course Course Of Treatment: 37-year-old female presents with left wrist pain for the past 2 weeks. She fell onto her outstretched hand. She says she has a scaphoid fracture. She's been having numbness into her left pinky and ring finger. She admits to some elbow pain. Pain is worse when places pressure on elbow. no pain in elbow at baseline. did not land on elbow. She has not followed up with ortho yet. She is requesting pain medication. On exam has full range of motion of left hand. Cap refill less than 2 seconds, tenderness over medial epicondyle and reproducible pain when present ulnar nerve at the elbow. Discussed needs to keep brace on area as has been taking it off due to the potential scaphoid fracture. Told to follow-up with orthopedic. Patient became upset when said would not give anything more than Tylenol ibuprofen for pain. - Diagnoses Differential Diagnosis/HQI/PQRI: Positive: Fracture (Closed), Strain, Sprain Provider Diagnoses: Left wrist pain Discharge - Sign-Out/Discharge Documenting (check all that apply): Patient Departure - Discharge Plan Condition: Good Disposition: HOME Patient Education Materials: R.I.C.E. Treatment (ED) Referrals: Nathalie Pope NP [Primary Care Provider] - Samir Daniel MD [Medical Doctor] - Additional Instructions: call ortho office for follow up place ice on elbow keep berta on area as can tolerate Take Tylenol or ibuprofen for pain every 6 hours Return to ED if develop any new or worsening symptoms - Billing Disposition and Condition Condition: GOOD Disposition: Home
[2018-02-28 22:16] VITALS: BP 130/78
== END 2018-02-28 22:05 | disposition home or self-care (01) ==
LOC: ED 20:49
DX: M25.532 Pain in left wrist (principal); J45.909 Unspecified asthma, uncomplicated; Z88.8 Allergy status to other drugs, medicaments and biological substances; Z88.6 Allergy status to analgesic agent; Z91.030 Bee allergy status; Z91.040 Latex allergy status; F17.210 Nicotine dependence, cigarettes, uncomplicated
CPT/HCPCS: 99281

== ENCOUNTER 2018-04-04 00:32 | Emergency (ER) | payer OTHER ==
--- NOTE | 2018-04-04 00:50 | ED ---
Neurological HPI - HPI Summary HPI Summary: A 37 y/o F presents to ED after 2 grand mal seizures per EMS onset [employer] which have since resolved. Pt does not remember anything from the episodes. Denies urinary incontinence. Pt is medication non-compliant, because she recently ran out, and last took it at the end of February. She takes Gabapentin 600mg at night and 300mg in morning. She states it has not been working. She does not see a neurologist. PMHx: sz since she was 6 years old. - History of Current Complaint Chief Complaint: EDSeizure Stated Complaint: SEIZURE Time Seen by Provider: 04/04/18 00:43 Hx Obtained From: Patient, EMS Hx Last Menstrual Period: depo Onset/Duration: Sudden Onset, Resolved Current Severity: None - sz Number of Seizures: 2 Pain Intensity: 9 Pain Scale Used: 0-10 Numeric Aggravating: Medication Change - non-compliance Associated Signs and Symptoms: Negative: Incontinent Bladder/Bowel - Allergy/Home Medications Allergies/Adverse Reactions: Allergies Allergy/AdvReac Type Severity Reaction Status Date / Time aspirin Allergy Swelling Verified 04/04/18 00:51 Of Face,Lips,& Throat bee venom protein (honey bee) Allergy Anaphylatic Verified 04/04/18 00:51 Shock cortisone Allergy localized Verified 04/04/18 00:51 swelling at injection site Latex, Natural Rubber Allergy Unknown Verified 04/04/18 00:51 Reaction Details phenobarbital Allergy Swelling Verified 04/04/18 00:51 Of Face,Lips,& Throat Home Medications: Home Medications Tramadol HCl 50 mg PO Q6HR 04/04/18 [History Confirmed 04/04/18] PMH/Surg Hx/FS Hx/Imm Hx Previously Healthy: No Endocrine/Hematology History: Denies: Hx Anticoagulant Therapy, Hx Diabetes, Hx Thyroid Disease, Other Endocrine/Hematological Disorders Cardiovascular History: Denies: Hx Congestive Heart Failure, Hx Deep Vein Thrombosis, Hx Hypertension , Hx Myocardial Infarction, Hx Pacemaker/ICD, Other Cardiovascular Problems/ Disorders Respiratory History: Reports: Hx Asthma - She is using her sister's Symbicort 160/4.5--she states she is on abluterol, Hx Chronic Obstructive Pulmonary Disease (COPD) Denies: Hx Lung Cancer, Hx Pneumonia, Hx Pulmonary Embolism, Other Respiratory Problems/Disorders GI History: Reports: Hx Gall Bladder Disease Denies: Hx Gastrointestinal Bleed, Hx Ulcer, Hx Urosepsis, Other GI Disorders History: Reports: Other Problems/Disorders - OVARIAN CYST, Denies: Hx Dialysis, Hx Kidney Stones, Hx Renal Disease Musculoskeletal History: Reports: Hx Back Problems Denies: Other Musculoskeletal History Sensory History: Denies: Other Sensory Impairments Opthamlomology History: Denies: Other Sensory Impairments Neurological History: Reports: Hx Seizures Denies: Hx Dementia, Hx Migraine, Hx Transient Ischemic Attacks (TIA), Other Neuro Impairments/Disorders Psychiatric History: Reports: Hx Anxiety, Hx Depression - She confesses to depression--on no Rx., Hx Bipolar Disorder Denies: Hx Schizophrenia, Hx Substance Abuse, Other Psychiatric Issues/ Disorders - Surgical History Surgery Procedure, Year, and Place: GALLBLADDER OUT 2010. 2010. APPENDECTOMY. abdominal laparoscopic surgery - Immunization History Date of Tetanus Vaccine: w/in last 10 years Date of Influenza Vaccine: none Infectious Disease History: No Infectious Disease History: Denies: Hx Clostridium Difficile, Hx Hepatitis, Hx Human Immunodeficiency Virus (HIV), Hx of Known/Suspected MRSA, Hx Shingles, Hx Tuberculosis, Hx Known/ Suspected VRE, Hx Known/Suspected VRSA, History Other Infectious Disease, Traveled Outside the [place] in Last 30 Days - Family History Known Family History: Positive: Cardiac Disease, Diabetes, Other - kidney cancer - Social History Occupation: Unemployed Lives: With Family Alcohol Use: Occasionally Alcohol Amount: on special occasions Hx Substance Use: No Substance Use Type: Reports: Marijuana Substance Use Comment - Amount & Last Used: few months ago Hx Tobacco Use: Yes Smoking Status (MU): Heavy Every Day Tobacco Smoker Type: Cigarettes Review of Systems Negative: Fever Negative: incontinence - urinary Neurological: Other - pos: s/p sz All Other Systems Reviewed And Are Negative: Yes Physical Exam - Summary Physical Exam Summary: VITAL SIGNS: Reviewed. GENERAL: Patient is a well-developed and nourished FEMALE who is lying comfortable in the stretcher. Patient is not in any acute respiratory distress. HEAD AND FACE: No signs of trauma. No ecchymosis, hematomas or skull depressions. No sinus tenderness. EYES: PERRLA, EOMI x 2, No injected conjunctiva, no nystagmus. EARS: Hearing grossly intact. Ear canals and tympanic membranes are within normal limits. MOUTH: Oropharynx within normal limits. NECK: Supple, trachea is midline, no adenopathy, no JVD, no carotid bruit, no c- spine tenderness, neck with full ROM. CHEST: Symmetric, no tenderness at palpation LUNGS: Clear to auscultation bilaterally. No wheezing or crackles. CVS: Regular rate and rhythm, S1 and S2 present, no murmurs or gallops appreciated. ABDOMEN: Soft, non-tender. No signs of distention. No rebound no guarding, and no masses palpated. Bowel sounds are normal. EXTREMITIES: FROM in all major joints, no edema, no cyanosis or clubbing. NEURO: Alert and oriented x 3. No acute neurological deficits. Speech is normal and follows commands. SKIN: Dry and warm Triage Information Reviewed: Yes Vital Signs On Initial Exam: Initial Vitals Temp Pulse Resp BP Pulse Ox 98.5 F 105 22 123/82 96 04/04/18 00:38 04/04/18 00:38 04/04/18 00:38 04/04/18 00:38 04/04/18 00:38 Vital Signs Reviewed: Yes Diagnostics - Vital Signs Vital Signs Temp Pulse Resp BP Pulse Ox 04/04/18 00:38 98.5 F 105 22 123/82 96 - Laboratory Result Diagrams: 04/04/18 01:07 04/04/18 01:07 Lab Statement: Any lab studies that have been ordered have been reviewed, and results considered in the medical decision making process. Course/Dx - Course Course Of Treatment: Pt is a 37 y/o F present after 2 grand mal seizures per EMS onset [employer] which have since resolved. Pt is medication non-compliant, last took it at the end of February. Usually, she takes Gabapentin 600mg at night and 300mg in morning. - Diagnoses Provider Diagnoses: Seizure Discharge - Sign-Out/Discharge Documenting (check all that apply): Patient Departure - DC - Discharge Plan Condition: Stable Disposition: HOME Prescriptions: Gabapentin 600 mg PO BID #60 tablet Patient Education Materials: Recurrent Seizures in Adults (ED), Gabapentin (By mouth) Referrals: Nathalie Pope NP [Primary Care Provider] - 2 Days Paolo Knapp MD [Medical Doctor] - 2 Days Additional Instructions: Follow up with your primary care provider in 2-3 days. Follow up with Dr. Knapp, neuro, in 2-3 days. RETURN TO THE EMERGENCY DEPARTMENT FOR CHANGING OR WORSENING SYMPTOMS. - Attestation Statements Document Initiated by Scribe: Yes Documenting Scribe: Andrea Estrella Provider For Whom Scribe is Documenting (Include Credential): Dr. Anitha Rubi MD Scribe Attestation: I, Andrea Estrella, scribed for Dr. Anitha Rubi MD on 04/04/18 at 0323.
[2018-04-04] MEDS ORDERED: NS 0.9% 1000 ML* 1,000 ML IV ONE (00:56)
--- OUTSIDE RECORDS SUMMARY | 2018-04-04 00:57 | XMS REPORT ---
:1980 External Reference #:[id number] Author Organization [facility] Address [address] [place] [address] Phone [phone] Care Team Providers Name Role Phone Jerrell Finn MD Primary Care Physician Unavailable Payers Type Date Identification Numbers Payment Provider Subscriber Commercial Policy Number: [id number] Gomez/[employer] Medicaid Bhaskar Cherry Group Name: [id number] [address] [address] PayID: [id number] [place] [address] Commercial Expires: 2015 PayID: [id number] Piero Bhaskar Cherry [address] [place] [address] Medigap Part B Expires: 2015 Policy Number: [id number] Medicaid Bhaskar Cherry PayID: [id number] [address] [place] [address] Advance Directives Type Date Description Status Comment Other Directive 08/23/2015 Health Care Proxy Current and Verified Problems Description No Information Family History Date Family Member(s) Problem(s) Comments General Diabetes General Cancer Mother Diabetes Social History Type Date Description Comments Marital Status Single Lives With Friends Occupation Unemployed ETOH Use Currently consumes alcohol Smoking Patient is a current smoker, Patient rolls cigarettes.. smokes every day approx 1 ppd - started smoking at 6 years old Daily Caffeine Consumes on average 4 cups of regular coffee per day Exercise Type/Frequency Exercises sporadically Allergies, Adverse Reactions, Alerts Date Description Reaction Status Severity Comments 06/12/2015 Phenobarbital active 06/12/2015 Aspirin active 06/12/2015 Latex active 11/27/2015 Bee Sting Anaphylaxis active Severe 06/12/2015 Ultram inactive 06/12/2015 Corticosteroids inactive Medications Medication Date Status Form Strength Qnty SIG Indications Ordering Provider Tramadol HCL 03/06/ Active Tablets 50mg 30tabs 1 by S63.512A Purnima 2017 mouth Mccloud, q6hr as M.D. needed pain No Active Hx Unknown Medications 2017 - 2017 Ondansetron HCL 12/10/ Hx Tablets 4mg 30tabs 1 po up R10.2 Bear Ascencio 2015 - to 3 Erma, 03/05/ times a M.D. 2018 day for nausea Epipen 2-Jeovany 11/26/ Hx Solution 0.3mg/0.3M 2units use as Bear Ascencio 2015 - Auto-Injec L directed Erma, 03/05/ t M.D. 2017 Tramadol HCL 10/06/ Hx Tablets 50mg 40tabs 1-2 M75.31 Samir 2015 - tablets María, 03/05/ every 6 M.D. 2018 hours as needed Keppra 06/12/ Hx Tablets 750mg 60tabs 1 by Bear Ascencio 2014 - mouth Erma, 12/02/ twice a M.D. 2016 day Ciprofloxacin 06/12/ Hx Tablets 500mg 14tabs 1 tab by Bear BROWN 2014 - mouth Erma, 10/05/ three M.D. 2016 times a day Flagyl 06/12/ Hx Tablets 500mg 30tabs 1 by Bear Ascencio 2014 - mouth two Erma, 10/05/ times a M.D. 2015 day Hydrocodone-Iain / Hx Tablets 5-325mg Unknown taminophen 0000 - 2017 Medications Administered in Office Medication Date Status Form Strength Qnty SIG Indications Ordering Provider Triamcinolone 10/06/ Administered Injection Zaneb (Kenalog) 2015 MD Vipul Vital Signs Date Vital Result Comment 03/06/2018 Height 67 inches 5'7" Heart Rate 92 /min BP Systolic 116 mmHg BP Diastolic 72 mmHg Respiratory Rate 20 /min Body Temperature 97.9 F Pain Level 9 12/11/2015 Weight 185.00 lb Heart Rate 72 /min BP Systolic Sitting 103 mmHg BP Diastolic Sitting 74 mmHg Body Temperature 9.1 F 12/09/2015 Weight 183.00 lb Heart Rate 95 /min BP Systolic Sitting 125 mmHg BP Diastolic Sitting 71 mmHg Body Temperature 97.3 F 12/03/2015 Weight 187.00 lb Heart Rate 85 /min BP Systolic Sitting 107 mmHg BP Diastolic Sitting 65 mmHg Body Temperature 97.4 F 11/27/2015 Weight 186.00 lb Heart Rate 79 /min BP Systolic Sitting 118 mmHg BP Diastolic Sitting 78 mmHg Body Temperature 97.5 F Pain Level 8 L knee O2 % BldC Oximetry 98 % 10/07/2015 Height 67 inches 5'7" Weight 200.00 lb Heart Rate 68 /min BP Systolic Sitting 118 mmHg BP Diastolic Sitting 82 mmHg Respiratory Rate 16 /min Pain Level 10 BMI (Body Mass Index) 31.3 kg/m2 06/12/2015 Height 67 inches 5'7" Weight 187.00 lb Heart Rate 101 /min BP Systolic 122 mmHg BP Diastolic 83 mmHg Body Temperature 98.8 F O2 % BldC Oximetry 96 % BMI (Body Mass Index) 29.3 kg/m2 Results Test Date Test Result H/L Range Note Inr/Protime 08/13/2016 Inr 1.05 0.89-1.11 CBC Auto Diff 08/13/2016 White Blood Count 9.7 10^3/uL 3.5-10.8 Red Blood Count 4.78 10^6/uL 4.0-5.4 Hemoglobin 14.4 g/dL 12.0-16.0 Hematocrit 44 % 35-47 Mean Corpuscular Volume 91 fL 80-97 Mean Corpuscular Hemoglobin 30 pg 27-31 Mean Corpuscular HGB Conc 33 g/dL 31-36 Red Cell Distribution Width 14 % 10.5-15 Platelet Count 261 10^3/uL 150-450 Mean Platelet Volume 8 um3 7.4-10.4 Abs Neutrophils 6.1 10^3/uL 1.5-7.7 Abs Lymphocytes 2.9 10^3/uL 1.0-4.8 Abs Monocytes 0.6 10^3/uL 0-0.8 Abs Eosinophils 0.1 10^3/uL 0-0.6 Abs Basophils 0 10^3/uL 0-0.2 Abs Nucleated RBC 0 10^3/uL Granulocyte % 62.7 % 38-83 Lymphocyte % 30.0 % 25-47 Monocyte % 5.8 % 1-9 Eosinophil % 1.0 % 0-6 Basophil % 0.5 % 0-2 Nucleated Red Blood Cells % 0 Laboratory test finding 08/13/2016 Lactic Acid 1.4 mmol/L 0.5-2.0 1 Laboratory test finding 08/13/2016 Magnesium 2.0 mg/dL 1.9-2.7 Comp Metabolic Panel 08/13/2016 Sodium 138 mmol/L 133-145 Potassium 3.7 mmol/L 3.5-5.0 Chloride 108 mmol/L 101-111 Co2 Carbon Dioxide 23 mmol/L 22-32 Anion Gap 7 mmol/L 2-11 Glucose 111 mg/dL High 70-100 Blood Urea Nitrogen 17 mg/dL 6-24 Creatinine 0.71 mg/dL 0.51-0.95 BUN/Creatinine Ratio 23.9 High 8-20 Calcium 9.6 mg/dL 8.6-10.3 Total Protein 7.8 g/dL 6.4-8.9 Albumin 4.3 g/dL 3.2-5.2 Globulin 3.5 g/dL 2-4 Albumin/Globulin Ratio 1.2 1-3 Total Bilirubin 0.20 mg/dL 0.2-1.0 Alkaline Phosphatase 45 U/L 34-104 Alt 16 U/L 7-52 Ast 14 U/L 13-39 Egfr Non- 92.6 >60 Egfr 119.1 >60 2 Laboratory test finding 08/10/2016 HCG 1.71 mIU/mL 3 TSH (Thyroid Stim Horm) 1.89 mcIU/mL 0.34-5.60 Levetiracetam (Keppra) <2.0 g/mL 4 CKMB 08/10/2016 CKMB ng/mL 0.8 ng/mL 0.6-6.3 CBC Auto Diff 08/10/2016 White Blood Count 8.9 10^3/uL 3.5-10.8 Red Blood Count 4.80 10^6/uL 4.0-5.4 Hemoglobin 14.4 g/dL 12.0-16.0 Hematocrit 44 % 35-47 Mean Corpuscular Volume 91 fL 80-97 Mean Corpuscular Hemoglobin 30 pg 27-31 Mean Corpuscular HGB Conc 33 g/dL 31-36 Red Cell Distribution Width 14 % 10.5-15 Platelet Count 256 10^3/uL 150-450 Mean Platelet Volume 8 um3 7.4-10.4 Abs Neutrophils 5.0 10^3/uL 1.5-7.7 Abs Lymphocytes 3.1 10^3/uL 1.0-4.8 Abs Monocytes 0.6 10^3/uL 0-0.8 Abs Eosinophils 0.1 10^3/uL 0-0.6 Abs Basophils 0.1 10^3/uL 0-0.2 Abs Nucleated RBC 0 10^3/uL Granulocyte % 56.5 % 38-83 Lymphocyte % 34.4 % 25-47 Monocyte % 6.3 % 1-9 Eosinophil % 1.4 % 0-6 Basophil % 1.4 % 0-2 Nucleated Red Blood Cells % 0 Inr/Protime 08/10/2016 Inr 1.06 0.89-1.11 Laboratory test finding 08/10/2016 Magnesium 1.8 mg/dL Low 1.9-2.7 Creatine Kinase(CK) 69 U/L 10-223 C Reactive Protein 4.86 mg/L < 5.00 5 Comp Metabolic Panel 08/10/2016 Sodium 137 mmol/L 133-145 Potassium 3.5 mmol/L 3.5-5.0 Chloride 108 mmol/L 101-111 Co2 Carbon Dioxide 21 mmol/L Low 22-32 Anion Gap 8 mmol/L 2-11 Glucose 136 mg/dL High 70-100 Blood Urea Nitrogen 15 mg/dL 6-24 Creatinine 0.68 mg/dL 0.51-0.95 BUN/Creatinine Ratio 22.1 High 8-20 Calcium 9.5 mg/dL 8.6-10.3 Total Protein 7.9 g/dL 6.4-8.9 Albumin 4.4 g/dL 3.2-5.2 Globulin 3.5 g/dL 2-4 Albumin/Globulin Ratio 1.3 1-3 Total Bilirubin 0.20 mg/dL 0.2-1.0 Alkaline Phosphatase 43 U/L 34-104 Alt 19 U/L 7-52 Ast 16 U/L 13-39 Egfr Non- 97.4 >60 Egfr 125.2 >60 6 Laboratory test finding 08/10/2016 Partial Thrombo Time 27.3 seconds 26.0 -36.3 PTT Lactic Acid 2.0 mmol/L 0.5-2.0 7 Troponin-I (TnI) 0.00 ng/mL <0.04 8 Comp Metabolic Panel 08/04/2016 Sodium 135 mmol/L 133-145 Potassium 3.4 mmol/L Low 3.5-5.0 Chloride 106 mmol/L 101-111 Co2 Carbon Dioxide 22 mmol/L 22-32 Anion Gap 7 mmol/L 2-11 Glucose 88 mg/dL 70-100 Blood Urea Nitrogen 10 mg/dL 6-24 Creatinine 0.63 mg/dL 0.51-0.95 BUN/Creatinine Ratio 15.9 8-20 Calcium 9.3 mg/dL 8.6-10.3 Total Protein 7.4 g/dL 6.4-8.9 Albumin 4.1 g/dL 3.2-5.2 Globulin 3.3 g/dL 2-4 Albumin/Globulin Ratio 1.2 1-3 Total Bilirubin 0.40 mg/dL 0.2-1.0 Alkaline Phosphatase 47 U/L 34-104 Alt 22 U/L 7-52 Ast 20 U/L 13-39 Egfr Non- 106.3 >60 Egfr 136.7 >60 9 Laboratory test finding 08/04/2016 Amylase 37 U/L 29-103 Lipase 30 U/L 11.0-82.0 C Reactive Protein 8.77 mg/L High < 5.00 10 HCG 0.96 mIU/mL 11 CBC Auto Diff 08/04/2016 White Blood Count 7.2 10^3/uL 3.5-10.8 Red Blood Count 4.49 10^6/uL 4.0-5.4 Hemoglobin 13.5 g/dL 12.0-16.0 Hematocrit 40 % 35-47 Mean Corpuscular Volume 89 fL 80-97 Mean Corpuscular Hemoglobin 30 pg 27-31 Mean Corpuscular HGB Conc 34 g/dL 31-36 Red Cell Distribution Width 14 % 10.5-15 Platelet Count 224 10^3/uL 150-450 Mean Platelet Volume 8 um3 7.4-10.4 Abs Neutrophils 3.7 10^3/uL 1.5-7.7 Abs Lymphocytes 2.8 10^3/uL 1.0-4.8 Abs Monocytes 0.6 10^3/uL 0-0.8 Abs Eosinophils 0.1 10^3/uL 0-0.6 Abs Basophils 0.1 10^3/uL 0-0.2 Abs Nucleated RBC 0 10^3/uL Granulocyte % 50.5 % 38-83 Lymphocyte % 38.2 % 25-47 Monocyte % 8.3 % 1-9 Eosinophil % 1.8 % 0-6 Basophil % 1.2 % 0-2 Nucleated Red Blood Cells % 0 Urinalysis Profile 08/04/2016 Urine Color Yellow Urine Appearance Clear Urine Specific [place] 1.011 1.010-1.030 Urine pH 6.0 5-9 Urine Urobilinogen Negative Negative Urine Ketones Negative Negative Urine Protein Negative Negative Urine Leukocytes Negative Negative Urine Blood 3+ Negative Urine Nitrite Negative Negative Urine Bilirubin Negative Negative Urine Glucose Negative Negative Urine White Blood Cell Absent Absent Urine Red Blood Cell 2+(6-10/hpf) Absent Urine Bacteria Absent Absent Urine Squamous Epithelial Cell Present Absent Laboratory test finding 04/22/2016 Lactic Acid 0.8 mmol/L 0.5-2.0 12 Urine Culture And 04/22/2016 Urine Culture SEE RESULT BELOW 13 Sensitivities Laboratory test finding 04/22/2016 Magnesium 2.1 mg/dL 1.9-2.7 Lipase 53 U/L 11.0-82.0 HCG 2.32 mIU/mL 14 C Reactive Protein 7.51 mg/L High < 5.00 15 Comp Metabolic Panel 04/22/2016 Sodium 136 mmol/L 133-145 Potassium 3.7 mmol/L 3.5-5.0 Chloride 108 mmol/L 101-111 Co2 Carbon Dioxide 21 mmol/L Low 22-32 Anion Gap 7 mmol/L 2-11 Glucose 87 mg/dL 70-100 Blood Urea Nitrogen 12 mg/dL 6-24 Creatinine 0.62 mg/dL 0.51-0.95 BUN/Creatinine Ratio 19.4 8-20 Calcium 9.6 mg/dL 8.6-10.3 Total Protein 7.8 g/dL 6.4-8.9 Albumin 4.3 g/dL 3.2-5.2 Globulin 3.5 g/dL 2-4 Albumin/Globulin Ratio 1.2 1-3 Total Bilirubin 0.40 mg/dL 0.2-1.0 Alkaline Phosphatase 49 U/L 34-104 Alt 26 U/L 7-52 Ast 18 U/L 13-39 Egfr Non- 108.3 >60 Egfr 139.3 >60 16 CBC Auto Diff 04/22/2016 White Blood Count 9.0 10^3/uL 3.5-10.8 Red Blood Count 4.77 10^6/uL 4.0-5.4 Hemoglobin 14.1 g/dL 12.0-16.0 Hematocrit 43 % 35-47 Mean Corpuscular Volume 89 fL 80-97 Mean Corpuscular Hemoglobin 30 pg 27-31 Mean Corpuscular HGB Conc 33 g/dL 31-36 Red Cell Distribution Width 14 % 10.5-15 Platelet Count 262 10^3/uL 150-450 Mean Platelet Volume 9 um3 7.4-10.4 Abs Neutrophils 4.5 10^3/uL 1.5-7.7 Abs Lymphocytes 3.8 10^3/uL 1.0-4.8 Abs Monocytes 0.5 10^3/uL 0-0.8 Abs Eosinophils 0.2 10^3/uL 0-0.6 Abs Basophils 0.1 10^3/uL 0-0.2 Abs Nucleated RBC 0 10^3/uL Granulocyte % 50.2 % 38-83 Lymphocyte % 41.6 % 25-47 Monocyte % 5.7 % 1-9 Eosinophil % 1.7 % 0-6 Basophil % 0.8 % 0-2 Nucleated Red Blood Cells % 0 Urinalysis Profile 04/22/2016 Urine Color Yellow Urine Appearance Cloudy Urine Specific [place] 1.016 1.010-1.030 Urine pH 6.0 5-9 Urine Urobilinogen Negative Negative Urine Ketones Negative Negative Urine Protein Negative Negative Urine Leukocytes Trace Negative Urine Blood 1+ Negative Urine Nitrite Positive Negative Urine Bilirubin Negative Negative Urine Glucose Negative Negative Urine White Blood Cell 1+(6-10/hpf) Absent Urine Red Blood Cell 1+(3-5/hpf) Absent Urine Bacteria Absent Absent Urine Squamous Epithelial Cell Present Absent Urinalysis Profile 12/12/2015 Urine Color Straw Urine Appearance Clear Urine Specific [place] 1.009 Low 1.010-1.030 Urine pH 6.0 5-9 Urine Urobilinogen Negative Negative Urine Ketones Negative Negative Urine Protein Negative Negative Urine Leukocytes Negative Negative Urine Blood 1+ Negative Urine Nitrite Negative Negative Urine Bilirubin Negative Negative Urine Glucose Negative Negative Urine White Blood Cell Absent Absent Urine Red Blood Cell Trace(0-2/hpf) Absent Urine Bacteria 1+ Absent Urine Squamous Epithelial Cell Present Absent Urine Drug SCR ED & 12/12/2015 Amphetamine Ur Screen None Detected None Detect Pain Clinic Barbiturates Urine Screen None Detected None Detect Benzodiazepine Urine Screen None Detected None Detect Urine Cannabinoids Screen None Detected None Detect Urine Cocaine Screen None Detected None Detect Urine Opiates Screen None Detected None Detect Urine Phencyclidine Screen None Detected None Detect 17 Urine Culture And 12/12/2015 Urine Culture SEE RESULT BELOW 18 Sensitivities CBC Auto Diff 12/12/2015 White Blood Count 10.4 10^3/uL 3.5-10.8 Red Blood Count 4.44 10^6/uL 4.0-5.4 Hemoglobin 13.1 g/dL 12.0-16.0 Hematocrit 40 % 35-47 Mean Corpuscular Volume 90 fL 80-97 Mean Corpuscular Hemoglobin 30 pg 27-31 Mean Corpuscular HGB Conc 33 g/dL 31-36 Red Cell Distribution Width 15 % 10.5-15 Platelet Count 210 10^3/uL 150-450 Mean Platelet Volume 8 um3 7.4-10.4 Abs Neutrophils 6.2 10^3/uL 1.5-7.7 Abs Lymphocytes 3.5 10^3/uL 1.0-4.8 Abs Monocytes 0.6 10^3/uL 0-0.8 Abs Eosinophils 0.1 10^3/uL 0-0.6 Abs Basophils 0.1 10^3/uL 0-0.2 Abs Nucleated RBC 0.01 10^3/uL Granulocyte % 59.1 % 38-83 Lymphocyte % 33.4 % 25-47 Monocyte % 5.4 % 1-9 Eosinophil % 1.4 % 0-6 Basophil % 0.7 % 0-2 Nucleated Red Blood Cells % 0.1 Comp Metabolic Panel 12/12/2015 Sodium 137 mmol/L 133-145 Potassium 3.8 mmol/L 3.5-5.0 Chloride 105 mmol/L 101-111 Co2 Carbon Dioxide 25 mmol/L 22-32 Anion Gap 7 mmol/L 2-11 Glucose 83 mg/dL 70-100 Blood Urea Nitrogen 14 mg/dL 6-24 Creatinine 0.72 mg/dL 0.51-0.95 BUN/Creatinine Ratio 19.4 8-20 Calcium 8.9 mg/dL 8.6-10.3 Total Protein 6.9 g/dL 6.4-8.9 Albumin 4.0 g/dL 3.2-5.2 Globulin 2.9 g/dL 2-4 Albumin/Globulin Ratio 1.4 1-3 Total Bilirubin 0.20 mg/dL 0.2-1.0 Alkaline Phosphatase 44 U/L 34-104 Alt 19 U/L 7-52 Ast 14 U/L 13-39 Egfr Non- 91.1 >60 Egfr 117.2 >60 19 Laboratory test finding 12/12/2015 HCG 2.11 mIU/mL 20 Levetiracetam (Keppra) <2.0 g/mL 21 Laboratory test finding 12/12/2015 Point of Care Glucose 85 mg/dL 74-106 22 CBC Auto Diff 12/10/2015 White Blood Count 10.6 10^3/uL 3.5-10.8 Red Blood Count 4.71 10^6/uL 4.0-5.4 Hemoglobin 13.8 g/dL 12.0-16.0 Hematocrit 42 % 35-47 Mean Corpuscular Volume 89 fL 80-97 Mean Corpuscular Hemoglobin 29 pg 27-31 Mean Corpuscular HGB Conc 33 g/dL 31-36 Red Cell Distribution Width 15 % 10.5-15 Platelet Count 218 10^3/uL 150-450 Mean Platelet Volume 8 um3 7.4-10.4 Abs Neutrophils 6.1 10^3/uL 1.5-7.7 Abs Lymphocytes 3.7 10^3/uL 1.0-4.8 Abs Monocytes 0.7 10^3/uL 0-0.8 Abs Eosinophils 0.1 10^3/uL 0-0.6 Abs Basophils 0.1 10^3/uL 0-0.2 Abs Nucleated RBC 0.01 10^3/uL Granulocyte % 57.0 % 38-83 Lymphocyte % 34.4 % 25-47 Monocyte % 6.2 % 1-9 Eosinophil % 1.3 % 0-6 Basophil % 1.1 % 0-2 Nucleated Red Blood Cells % 0.1 Basic Metabolic Panel 12/10/2015 Sodium 135 mmol/L 133-145 Potassium 3.8 mmol/L 3.5-5.0 Chloride 103 mmol/L 101-111 Co2 Carbon Dioxide 23 mmol/L 22-32 Anion Gap 9 mmol/L 2-11 Glucose 93 mg/dL 70-100 Blood Urea Nitrogen 22 mg/dL 6-24 Creatinine 0.75 mg/dL 0.51-0.95 BUN/Creatinine Ratio 29.3 High 8-20 Calcium 9.6 mg/dL 8.6-10.3 Egfr Non- 87.0 >60 Egfr 111.8 >60 23 Urinalysis W/Microscopic 01/25/2012 Ua Color YELLOW Yellow Appearance-Urine CLEAR Clear Specific [place]-Ur 1.013 1.010-1.030 Esterase-Urine NEGATIVE Negative Nitrite NEGATIVE Negative Htygzhtuqzot-As-VLM NEGATIVE Negative Protein-Urine NEGATIVE Negative PH-Urine 6.0 5-9 Blood-Urine 2+ Negative Ketones-Urine NEGATIVE Negative Bilirubin-Ur NEGATIVE Negative Glucose-Urine NEGATIVE Negative WBC-Urine NONE SEEN 0-5 RBC-Urine 5-10 0-2 Epith Cells-Ur FEW None (HCG) Urine 01/25/2012 Specific [place] 1.013 1.010-1.030 Urine NEGATIVE Negative 24 1 [facility] Severe Sepsis and Septic Shock Management Bundle Measure requires all lactic acids initially measuring >2.0 mmol/L be repeated. 2 Because ethnic data is not always readily [...] 15-29 5 Kidney failure <15 (or dialysis) 3 <5.0 Negative 5.0 - 25.0 Indeterminate (Repeat testing recommended after 72 hours) >25.0 Positive Perimenopausal women can display HCG levels of up to 20 mIU/mL 4 REFERENCE VALUE 12.0 - 46.0 ADDITIONAL INFORMATION This test was developed and its performance characteristics determined by [facility] in a manner consistent with CLIA requirements. This test has not been cleared or approved by the U.S. Food and Drug Administration. Test Performed by: [place] [address] Smoking Tobacco Packing Machine Hand: Shahzad Granda II, M.D., Ph.D. 5 Acute inflammation: >10.00 6 Because ethnic data is not always [...] 5 Kidney failure <15 (or dialysis) 7 [facility] Severe Sepsis and Septic Shock Management Bundle Measure requires all lactic acids initially measuring >2.0 mmol/L be repeated. 8 99th percentile=0.04 ng/mL Troponin results at [facility] and [facility] are not interchangeable. 9 Because ethnic data is not always readily [...] 15-29 5 Kidney failure <15 (or dialysis) 10 Acute inflammation: >10.00 11 <5.0 Negative 5.0 - 25.0 Indeterminate (Repeat testing recommended after 72 hours) >25.0 Positive Perimenopausal women can display HCG levels of up to 20 mIU/mL 12 [facility] Severe Sepsis and Septic Shock Management Bundle Measure requires all lactic acids initially measuring >2.0 mmol/L be repeated. 13 SEE RESULT BELOW Name: BHASKAR CHERRY : [address]: Shahzad Hoffmann MD Acct: [id number] Unit: [id number] AGE: 35 Location: ED Re04/22/16 SEX: F Status: DEP ER SPEC: [id number] MARCELINO: 04/22/[address]: Shahzad Hoffmann MD REQ: [id number] RECD: 04/22/16 STATUS: KASSIDY SANCEHZ DR: Bear Ritchie III, MD _ SOURCE: URINE SPDESC: ORDERED: Urine Culture Procedure Result Reported Site Urine Culture Final 04/24/16- 0839 ML Organism 1 ESCHERICHIA COLI [place] Count >100,000 (Many) CFU/ML 1. ESCHERICHIA COLI M.I.C. RX --------- ------ Ampicillin 4 S Cefazolin <=4 S Cefepime <=1 S Ceftriaxone <=1 S Ciprofloxacin <=0.25 S Gentamicin <=1 S Levofloxacin <=0.12 S Meropenem <=0.25 S Nitrofurantoin <=16 S Tetracycline <=1 S Pipercillin/Tazobactam <=4 S Trimethoprim/Sulfamethoxazole <=20 S Amoxicillin/Clavulanic Acid 4 S Aztreonam <=1 S Contact the Microbiology Department for any additional antibiotic reporting. * ML - MAIN LAB ([facility]) . END OF REPORT * ML=Testing performed at Main Lab DEPARTMENT OF PATHOLOGY, [address] [place] [address] Chucho Wilhelm M.D. Director [facility] # [id number] 14 <5.0 Negative 5.0 - 25.0 Indeterminate (Repeat testing recommended after 72 hours) >25.0 Positive Perimenopausal women can display HCG levels of up to 20 mIU/mL 15 Acute inflammation: >10.00 16 Because ethnic data is not always readily [...] 15-29 5 Kidney failure <15 (or dialysis) 17 The urine specimen was tested at the listed cutoffs: Drug class test level (ng/mL) Amphetamines 500 Barbiturates 200 Benzodiazepine metabolites 200 Cocaine metabolites 150 Cannabinoids 50 Opiates 300 Pcp 25 Specimen was received without chain of custody. Results should be used for medical purposes only. 18 SEE RESULT BELOW Name: BHASKAR CHERRY : [address]: Bear Lorenzo MD Acct: [id number] Unit: [id number] AGE: 35 Location: ED Re12/12/15 SEX: F Status: DEP ER SPEC: [id number] MARCELINO: 12/12/[address]: Bear Lorenzo MD REQ: [id number] RECD: 12/12/15 STATUS: COMP [facility] DR: Bear Ritchie III, MD _ SOURCE: URINE SPDESC: ORDERED: Urine Culture Procedure Result Reported Site Urine Culture Final 12/13/15- 1538 ML No Growth (<1,000 CFU/mL) * ML - MAIN LAB ([facility]) . END OF REPORT * ML=Testing performed at Main Lab DEPARTMENT OF PATHOLOGY, [address] [place] [address] Chucho Wilhelm M.D. Director [facility] # [id number] 19 Because ethnic data is not always readily [...] 15-29 5 Kidney failure <15 (or dialysis) 20 <5.0 Negative 5.0 - 25.0 Indeterminate (Repeat testing recommended after 72 hours) >25.0 Positive Perimenopausal women can display HCG levels of up to 20 mIU/mL 21 REFERENCE VALUE 12.0 - 46.0 Test Performed by: [place] [address] Smoking Tobacco Packing Machine Hand: Shahzad Granda II, M.D., Ph.D. 22 Teleprinter Installer: [id number] [place] 23 Because ethnic data is not always readily [...] 15-29 5 Kidney failure <15 (or dialysis) 24 If is still suspected, please repeat test after 48 to 72 hours. . This test detects intact HCG only and is indicated for the early detection of . Procedures Date CPT Code Description Status 10/07/2015 44390 Inject/Drain Joint/Bursa Major W/O US Completed Encounters Type Date Location Provider CPT E/M Dx Office Visit 12/11/2015 [facility] Internal Medicine Bear Ritchie, [address]209 R10.2 10:00a - Madhav Maurer Office Visit 12/03/2015 [facility] Internal Medicine Bear Ascencio Erma, 09706 R10.30 2:40p - Madhav Maurer R10.2 Office Visit 11/27/2015 10:20a [facility] Internal Medicine Bear Sonu Ritchie, 28216 S80.02xA - Madhav Maurer Office Visit 10/07/2015 2:00p [place] [address] M75.31 Of [place] Office Visit 06/12/2015 3:40p [facility] Internal Medicine Bear ECesar Ritchie, 33226 R10.30 - Madhav Maurer M54.5 Office Visit 01/21/2011 3:00p [facility] Bennie Quinn [address] 924.11 Of C.M.ACesar Ramey R.P.A.-C 844.1 Plan of Care Future Appointment(s):03/24/2018 10:00 am - Paolo Knapp MD at [facility]603/06/2018 - Purnima Mccloud M.D.S63.512A Sprain of carpal joint of left wrist, initial encounterNew Medication:Tramadol HCL 50 mgNew Orders:EMG w/Nerve Conduct Study, UpperFollow up:Follow up: after testing is marcjexoiQ05.512D Sprain of carpal joint of left wrist, subsequent encounterFollow up:Follow up: after testing is uxbshinpeL15.22 Lesion of ulnar nerve, left upper limb
[2018-04-04] MEDS ORDERED: Gabapentin CAP(*) 300 MG PO ONE (00:58)
[2018-04-04] MEDS ORDERED: LORazepam INJ* 2 MG/ML 1 ML VIAL IV PUSH ONE (00:58)
[2018-04-04 01:14] LABS: ABS Basophils 0.1 10^3/ul (0-0.2); ABS Eosinophils 0.3 10^3/ul (0-0.6); ABS Lymphocytes 3.4 10^3/ul (1.0-4.8); ABS Monocytes 0.7 10^3/ul (0-0.8); ABS Neutrophils 4.8 10^3/ul (1.5-7.7); ABS Nucleated RBC 0 10^3/ul; Eosinophil % 2.8 % (0-6); Hematocrit 38 % (35-47); Hemoglobin 12.6 g/dl (12.0-16.0); Lymphocyte % 36.5 % (25-47); Mean Corpuscular HGB Conc 34 g/dl (31-36); Mean Corpuscular Hemoglobin 30 pg (27-31); Mean Corpuscular Volume 89 fL (80-97); Nucleated Red Blood Cells % 0; Platelet Count 252 10^3/ul (150-450); Red Cell Distribution Width 15 % (10.5-15); White Blood Count 9.3 10^3/ul (3.5-10.8)
[2018-04-04 01:39] LABS: EGFR Non-African American 99.7 (>60)
[2018-04-04 03:33] VITALS: BP 108/71
== END 2018-04-04 03:43 | disposition home or self-care (01) ==
LOC: ED 00:32
DX: R56.9 Unspecified convulsions (principal)
CPT/HCPCS: 36415; 80053; 80320; 82550; 83605; 83735; 84702; 85025; 96361; 96374; 99283; A9270-GY; G0480; J2060

== ENCOUNTER 2018-04-06 19:48 | Emergency (ER) | payer OTHER ==
[2018-04-06] MEDS ORDERED: Albuterol/Ipratropium NEB.SOL* Albuterol 2.5 MG/Ipratropium 0.5 MG 3 ML INH ONE (20:39)
[2018-04-06] MEDS ORDERED: Ondansetron ODT TAB* 4 MG PO ONE (20:40)
[2018-04-06] MEDS ORDERED: Benzonatate CAP* 100 MG PO ONE (20:40)
[2018-04-06 21:03] LABS: ABS Basophils 0.1 10^3/ul (0-0.2); ABS Eosinophils 0.3 10^3/ul (0-0.6); ABS Lymphocytes 1.7 10^3/ul (1.0-4.8); ABS Monocytes 0.7 10^3/ul (0-0.8); ABS Neutrophils 4.5 10^3/ul (1.5-7.7); ABS Nucleated RBC 0 10^3/ul; Eosinophil % 3.9 % (0-6); Hematocrit 38 % (35-47); Hemoglobin 12.8 g/dl (12.0-16.0); Lymphocyte % 23.5 % (25-47); Mean Corpuscular HGB Conc 34 g/dl (31-36); Mean Corpuscular Hemoglobin 30 pg (27-31); Mean Corpuscular Volume 90 fL (80-97); Nucleated Red Blood Cells % 0; Platelet Count 237 10^3/ul (150-450); Red Blood Count 4.24 10^6/ul (4.00-5.40); Red Cell Distribution Width 15 % (10.5-15); White Blood Count 7.4 10^3/ul (3.5-10.8)
[2018-04-06] MEDS ORDERED: Lidocaine 2% VISCOUS* 15 ML UDC PO ONE (21:11)
[2018-04-06] MEDS ORDERED: Al Hydrox/Mg Hydrox/Simet LIQ* 30 ML UDC PO ONE (21:11)
[2018-04-06 21:21] LABS: EGFR Non-African American 76.5 (>60)
[2018-04-06] MEDS ORDERED: Amoxicillin/Clavulanate TAB* 875 MG PO ONE (21:45)
[2018-04-06] MEDS ORDERED: predniSONE TAB* 20 MG PO ONE (21:46)
--- NOTE | 2018-04-06 21:49 | ED ---
Respiratory - HPI Summary HPI Summary: 37 year old female presents with cough for the past 3 days. She states she ate some chicken that was not cooked and she developed nausea vomiting diarrhea. She admits to generalized abdominal pain. She states she has history of asthma COPD. She ran out of her dulera. She denies any chest pain. She admits to shortness breath. Her partner has similar symptoms. - History of Current Complaint Chief Complaint: EDUpperRespComplaint Stated Complaint: COUGH/ABD PAIN/VOMITING Time Seen by Provider: 04/06/18 20:22 Pain Intensity: 2 Sputum Amount: None - Allergy/Home Medications Allergies/Adverse Reactions: Allergies Allergy/AdvReac Type Severity Reaction Status Date / Time aspirin Allergy Swelling Verified 04/04/18 00:51 Of Face,Lips,& Throat bee venom protein (honey bee) Allergy Anaphylatic Verified 04/04/18 00:51 Shock cortisone Allergy localized Verified 04/04/18 00:51 swelling at injection site Latex, Natural Rubber Allergy Unknown Verified 04/04/18 00:51 Reaction Details phenobarbital Allergy Swelling Verified 04/04/18 00:51 Of Face,Lips,& Throat PMH/Surg Hx/FS Hx/Imm Hx Endocrine/Hematology History: Denies: Hx Anticoagulant Therapy, Hx Diabetes, Hx Thyroid Disease, Other Endocrine/Hematological Disorders Cardiovascular History: Denies: Hx Congestive Heart Failure, Hx Deep Vein Thrombosis, Hx Hypertension , Hx Myocardial Infarction, Hx Pacemaker/ICD, Other Cardiovascular Problems/ Disorders Respiratory History: Reports: Hx Asthma - She is using her sister's Symbicort 160/4.5--she states she is on abluterol, Hx Chronic Obstructive Pulmonary Disease (COPD) Denies: Hx Lung Cancer, Hx Pneumonia, Hx Pulmonary Embolism, Other Respiratory Problems/Disorders GI History: Reports: Hx Gall Bladder Disease Denies: Hx Gastrointestinal Bleed, Hx Ulcer, Hx Urosepsis, Other GI Disorders History: Reports: Other Problems/Disorders - OVARIAN CYST, Denies: Hx Dialysis, Hx Kidney Stones, Hx Renal Disease Musculoskeletal History: Reports: Hx Back Problems Denies: Other Musculoskeletal History Sensory History: Denies: Other Sensory Impairments Opthamlomology History: Denies: Other Sensory Impairments Neurological History: Reports: Hx Seizures Denies: Hx Dementia, Hx Migraine, Hx Transient Ischemic Attacks (TIA), Other Neuro Impairments/Disorders Psychiatric History: Reports: Hx Anxiety, Hx Depression - She confesses to depression--on no Rx., Hx Bipolar Disorder Denies: Hx Schizophrenia, Hx Substance Abuse, Other Psychiatric Issues/ Disorders - Surgical History Surgery Procedure, Year, and Place: GALLBLADDER OUT 2010. 2010. APPENDECTOMY. abdominal laparoscopic surgery - Immunization History Date of Tetanus Vaccine: w/in last 10 years Date of Influenza Vaccine: none Infectious Disease History: No Infectious Disease History: Denies: Hx Clostridium Difficile, Hx Hepatitis, Hx Human Immunodeficiency Virus (HIV), Hx of Known/Suspected MRSA, Hx Shingles, Hx Tuberculosis, Hx Known/ Suspected VRE, Hx Known/Suspected VRSA, History Other Infectious Disease, Traveled Outside the [place] in Last 30 Days - Family History Known Family History: Positive: Cardiac Disease, Diabetes, Other - kidney cancer - Social History Alcohol Use: Occasionally Alcohol Amount: on special occasions Hx Substance Use: No Substance Use Type: Reports: Marijuana Substance Use Comment - Amount & Last Used: few months ago Hx Tobacco Use: Yes Smoking Status (MU): Heavy Every Day Tobacco Smoker Type: Cigarettes Review of Systems Negative: Fever Negative: Chest Pain Positive: Shortness Of Breath, Cough Positive: Abdominal Pain, Vomiting, Diarrhea, Nausea All Other Systems Reviewed And Are Negative: Yes Physical Exam Triage Information Reviewed: Yes Vital Signs On Initial Exam: Initial Vitals Temp Pulse Resp BP Pulse Ox 98.0 F 112 15 120/86 97 04/06/18 20:10 04/06/18 20:10 04/06/18 20:10 04/06/18 20:10 04/06/18 20:10 Vital Signs Reviewed: Yes Appearance: Positive: Well-Appearing Skin: Positive: Warm, Dry Head/Face: Positive: Normal Head/Face Inspection Eyes: Positive: Normal, EOMI, HANNAH, Conjunctiva Clear ENT: Positive: Normal ENT inspection, Pharynx normal, TMs normal Neck: Positive: Supple, Nontender, No Lymphadenopathy Respiratory/Lung Sounds: Positive: Breath Sounds Present, Wheezes Cardiovascular: Positive: Normal, RRR Abdomen Description: Positive: Soft, Other: - mildly tenderness diffuse Bowel Sounds: Positive: Present Musculoskeletal: Positive: Normal Neurological: Positive: Normal Psychiatric: Positive: Normal Diagnostics - Vital Signs Vital Signs Temp Pulse Resp BP Pulse Ox 04/06/18 20:56 106 16 100 04/06/18 20:10 98.0 F 112 15 120/86 97 - Laboratory Lab Results: Lab Results 04/06/18 04/06/18 Range/Units 20:57 20:57 WBC 7.4 (3.5-10.8) 10^3/ul RBC 4.24 (4.00-5.40) 10^6/ul Hgb 12.8 (12.0-16.0) g/dl Hct 38 (35-47) % MCV 90 (80-97) fL MCH 30 (27-31) pg MCHC 34 (31-36) g/dl RDW 15 (10.5-15) % Plt Count 237 (150-450) 10^3/ul MPV 8.0 (7.4-10.4) um3 Neut % (Auto) 61.5 (38-83) % Lymph % (Auto) 23.5 L (25-47) % [place] % (Auto) 9.9 H (0-7) % Eos % (Auto) 3.9 (0-6) % Baso % (Auto) 1.2 (0-2) % Absolute Neuts (auto) 4.5 (1.5-7.7) 10^3/ul Absolute Lymphs (auto) 1.7 (1.0-4.8) 10^3/ul Absolute Monos (auto) 0.7 (0-0.8) 10^3/ul Absolute Eos (auto) 0.3 (0-0.6) 10^3/ul Absolute Basos (auto) 0.1 (0-0.2) 10^3/ul Absolute Nucleated RBC 0 10^3/ul Nucleated RBC % 0 Sodium 140 (135-145) mmol/L Potassium 3.6 (3.5-5.0) mmol/L Chloride 104 (101-111) mmol/L Carbon Dioxide 28 (22-32) mmol/L Anion Gap 8 (2-11) mmol/L BUN 11 (6-24) mg/dL Creatinine 0.83 (0.51-0.95) mg/dL Est GFR ( Amer) 92.6 (>60) Est GFR (Non-Af Amer) 76.5 (>60) BUN/Creatinine Ratio 13.3 (8-20) Glucose 102 H (70-100) mg/dL Calcium 9.6 (8.6-10.3) mg/dL Total Bilirubin 0.30 (0.2-1.0) mg/dL AST 16 (13-39) U/L ALT 19 (7-52) U/L Alkaline Phosphatase 63 (34-104) U/L Total Protein 7.1 (6.4-8.9) g/dL Albumin 4.1 (3.2-5.2) g/dL Globulin 3.0 (2-4) g/dL Albumin/Globulin Ratio 1.4 (1-3) Lipase 25 (11.0-82.0) U/L Beta HCG, Quant 0.97 mIU/mL Result Diagrams: 04/06/18 20:57 04/06/18 20:57 Lab Statement: Any lab studies that have been ordered have been reviewed, and results considered in the medical decision making process. Disposition - Course Course Of Treatment: 37 year old female presents with cough for the past 3 days. She states she ate some chicken that was not cooked and she developed nausea vomiting diarrhea. She admits to generalized abdominal pain. She states she has history of asthma COPD. She ran out of her dulera. She denies any chest pain. She admits to shortness breath. Her partner has similar symptoms. On exam wheezing present. Abdomen diffusely tender mildly. Labs within normal limits. Chest x-ray by me as normal. Will place on Augmentin ( due to zofran usage) steroid inhaler for COPD. We'll give Zofran for nausea. Patient understands and agrees with plan. - Differential Dx - Cardiopulmonary Differential Diagnoses - Cardiopulmonary: Asthma, Lower Resp Infection - Diagnoses Provider Diagnoses: COPD (chronic obstructive pulmonary disease), Bronchitis, Vomiting, Abdominal pain Discharge - Sign-Out/Discharge Documenting (check all that apply): Patient Departure - Discharge Plan Condition: Good Disposition: HOME Prescriptions: Albuterol HFA INHALER* [Ventolin HFA Inhaler*] 1 puff INH Q4H PRN #1 mdi PRN Reason: Sob/Wheezing Amoxicillin/Clavulanate TAB* [Augmentin TAB 875*] 875 mg PO BID #9 tab Mometasone/Formoter 200/5 MDI* [Dulera 200/5 MDI*] 2 puff INH BID #1 mdi Ondansetron TAB* [Zofran 4 MG Tab*] 4 mg PO Q6H PRN #12 tab PRN Reason: Nausea predniSONE TAB* [Deltasone TAB*] 50 mg PO DAILY #4 tab Patient Education Materials: Acute Bronchitis (ED) Referrals: Nathalie Pope NP [Primary Care Provider] - Additional Instructions: Use inhaler up to two puffs every 4 hours for cough and wheezing Take steroid once a day for 4 more days Take antibiotic twice daily starting tomorrow for 4 days take zofran every 6 hour for nausea Take Tylenol pain every 6 hours Return to ED if develop severe shortness of breath, worsening chest pain, or any new or worsening symptoms - Billing Disposition and Condition Condition: GOOD Disposition: Home
[2018-04-06 22:11] VITALS: BP 98/63
--- NOTE | 2018-04-07 08:02 | RAD ---
HISTORY: cough COMPARISONS: October 22, 2016 VIEWS: 2: Frontal and lateral views of the chest. FINDINGS: CARDIOMEDIASTINAL SILHOUETTE: The cardiomediastinal silhouette is normal. RANCHO: The rancho are normal. PLEURA: The costophrenic angles are sharp. No pleural abnormalities are noted. LUNG PARENCHYMA: The lungs are clear. ABDOMEN: The upper abdomen is clear. There is no subphrenic gas. BONES AND SOFT TISSUES: No bone or soft tissue abnormalities are noted. OTHER: None. IMPRESSION: NO ACTIVE CARDIOPULMONARY DISEASE. R0
== END 2018-04-06 22:10 | disposition home or self-care (01) ==
LOC: ED 19:48
DX: J44.9 Chronic obstructive pulmonary disease, unspecified (principal); R11.10 Vomiting, unspecified; R10.84 Generalized abdominal pain; Z90.49 Acquired absence of other specified parts of digestive tract; Z90.89 Acquired absence of other organs; Z88.8 Allergy status to other drugs, medicaments and biological substances; Z88.6 Allergy status to analgesic agent; Z91.030 Bee allergy status; Z91.040 Latex allergy status; F17.210 Nicotine dependence, cigarettes, uncomplicated
CPT/HCPCS: 36415; 71046; 80053; 83690; 84702; 85025; 99283; A9270-GY; J7512

== ENCOUNTER → 2018-04-22 13:04 | Emergency (ER) | payer OTHER ==
[~2018-04-22 13:04] MED LIST: NS 0.9% 1000 ML* 1,000 ML IV ONE; Ondansetron INJ* 2 MG/ML VIAL IV ONE
--- NOTE | 2018-04-22 14:36 | ED ---
GI/ HPI - HPI Summary HPI Summary: Patient presents with nausea and vomiting since taking a friend's Suboxone last night to treat her chronic low back pain. She does not recall the dose of this medication however reports it helped her back pain and then she developed nausea and vomiting after taking it - has not been feeling well since. As a result of vomiting so much she is now hungry, thirsty and has abdominal pain. She denies diarrhea dysuria fevers chills and has not had any illness leading up to the symptoms. Her chronic back pain is being followed by Dr. Finn and his nurse practitioner, Leeanna She was told she has degenerative disc disease yrs ago and while living in [place], [place] many years ago was told if she had surgery, she had a 50-50 chance of getting better or being paralyzed. She opted not to have the surgery for fear paralyzation. She reports she tried PT but it didn't help. Since then, she's been using a wheelchair which was recently damaged - anju reports he was pushing her up onto a sidewalk and hit a pothole which caused the wheel/frame to bend. He's been unable to fix this on his own. She received this wheelchair through [facility] ([facility] She called them and they have agreed to assess the wheelchair/replace it if she brings it to them however she reports she is "not walking on the way over there". Asked if her fiance or brother could take it over for her and she is agreeable. She is requesting an electric wheelchair from us today - explained the only ambulatory device we have to offer is a pair of crutches - she will try these until wheelchair can be repaired/replaced. Additionally, she reports a history of working with pain management however when she accidentally dropped a bottle of her rx pain pills in the toilet one time and shared this with her medical provider at pain management, they discharged her from the practice. She reports Dr. Finn used to provide tramadol for her however he no longe rx's this due to the events that took place through pain management. She states she does not trust Dr. Finn as her provider anymore however she does trust his nurse practitioner Leeanna who she sees most regularly. Back pain is controlled at this time. Denies h/o narcotic dependence and when directly asked if she was taking suboxone for narcotic withdrawal, she said no. Denies taking narcotics for her pain - uses marijuana for her chronic back pain. - History of Current Complaint Chief Complaint: EDNauseaVomitDiarrh Time Seen by Provider: 04/22/18 13:11 Stated Complaint: NEUSEA/VOMTING Hx Obtained From: Patient, Family/[employer] - fiance, brother Hx Last Menstrual Period: depo Pain Intensity: 0 - Allergy/Home Medications Allergies/Adverse Reactions: Allergies Allergy/AdvReac Type Severity Reaction Status Date / Time aspirin Allergy Swelling Verified 04/04/18 00:51 Of Face,Lips,& Throat bee venom protein (honey bee) Allergy Anaphylatic Verified 04/04/18 00:51 Shock cortisone Allergy localized Verified 04/04/18 00:51 swelling at injection site Latex, Natural Rubber Allergy Unknown Verified 04/04/18 00:51 Reaction Details phenobarbital Allergy Swelling Verified 04/04/18 00:51 Of Face,Lips,& Throat PMH/Surg Hx/FS Hx/Imm Hx Previously Healthy: Yes Endocrine/Hematology History: Denies: Hx Anticoagulant Therapy, Hx Diabetes, Hx Thyroid Disease, Other Endocrine/Hematological Disorders Cardiovascular History: Denies: Hx Congestive Heart Failure, Hx Deep Vein Thrombosis, Hx Hypertension , Hx Myocardial Infarction, Hx Pacemaker/ICD, Other Cardiovascular Problems/ Disorders Respiratory History: Reports: Hx Asthma - She is using her sister's Symbicort 160/4.5--she states she is on abluterol, Hx Chronic Obstructive Pulmonary Disease (COPD) Denies: Hx Lung Cancer, Hx Pneumonia, Hx Pulmonary Embolism, Other Respiratory Problems/Disorders GI History: Reports: Hx Gall Bladder Disease Denies: Hx Gastrointestinal Bleed, Hx Ulcer, Hx Urosepsis, Other GI Disorders History: Reports: Other Problems/Disorders - OVARIAN CYST, Denies: Hx Dialysis, Hx Kidney Stones, Hx Renal Disease Musculoskeletal History: Reports: Hx Back Problems - DDD lumbar spine - uses wheelchair Denies: Other Musculoskeletal History Sensory History: Reports: Hx Contacts or Glasses Denies: Other Sensory Impairments Opthamlomology History: Reports: Hx Contacts or Glasses Denies: Other Sensory Impairments Neurological History: Reports: Hx Seizures Denies: Hx Dementia, Hx Migraine, Hx Transient Ischemic Attacks (TIA), Other Neuro Impairments/Disorders Psychiatric History: Reports: Hx Anxiety, Hx Depression - She confesses to depression--on no Rx., Hx Bipolar Disorder Denies: Hx Schizophrenia, Hx Substance Abuse, Other Psychiatric Issues/ Disorders - Surgical History Surgery Procedure, Year, and Place: GALLBLADDER OUT 2010. 2010. APPENDECTOMY. abdominal laparoscopic surgery - Immunization History Date of Tetanus Vaccine: w/in last 10 years Date of Influenza Vaccine: none Infectious Disease History: No Infectious Disease History: Denies: Hx Clostridium Difficile, Hx Hepatitis, Hx Human Immunodeficiency Virus (HIV), Hx of Known/Suspected MRSA, Hx Shingles, Hx Tuberculosis, Hx Known/ Suspected VRE, Hx Known/Suspected VRSA, History Other Infectious Disease, Traveled Outside the [place] in Last 30 Days - Family History Known Family History: Positive: Cardiac Disease, Diabetes, Other - kidney cancer - Social History Lives: With Family - fiance Alcohol Use: Occasionally Alcohol Amount: on special occasions Hx Substance Use: No Substance Use Type: Reports: Marijuana, Prescribed - possibly - "dropped a bottle in the toilet" Substance Use Comment - Amount & Last Used: few months ago Hx Tobacco Use: Yes Smoking Status (MU): Heavy Every Day Tobacco Smoker Type: Cigarettes Review of Systems Constitutional: Negative Negative: Fever, Chills, Fatigue Cardiovascular: Negative Negative: Palpitations, Chest Pain Respiratory: Negative Negative: Shortness Of Breath, Cough Positive: Abdominal Pain, Vomiting, Nausea. Negative: Diarrhea Genitourinary: Negative Musculoskeletal: Negative Skin: Negative Neurological: Negative Positive: Anxious All Other Systems Reviewed And Are Negative: Yes Physical Exam Triage Information Reviewed: Yes Vital Signs On Initial Exam: Initial Vitals Pulse Pulse Ox 90 95 04/22/18 13:09 04/22/18 13:09 Vital Signs Reviewed: Yes Appearance: Positive: Well-Appearing, No Pain Distress - appears to be lying comfortably on stretcher w/ brother and fiance at her bedside Skin: Positive: Warm, Skin Color Reflects Adequate Perfusion, Dry Head/Face: Positive: Normal Head/Face Inspection Eyes: Positive: Normal, EOMI, Conjunctiva Clear - anicteric sclera ENT: Positive: Pharynx normal - mucosa moist. Negative: Nasal congestion Dental: Positive: Gross Decay/Caries @ Respiratory/Lung Sounds: Positive: Breath Sounds Present Cardiovascular: Positive: Normal Neurological: Positive: Alert, Oriented to Person Place, Time, CN Intact II-III Psychiatric: Positive: Anxious Diagnostics - Vital Signs Vital Signs Temp Pulse Resp BP Pulse Ox 04/22/18 14:10 79 15 113/66 96 04/22/18 14:00 83 15 96 04/22/18 13:58 97.9 F 80 18 130/73 99 04/22/18 13:56 80 14 130/73 95 04/22/18 13:10 97.8 F 91 16 100/61 97 04/22/18 13:09 90 95 - Laboratory Lab Statement: Any lab studies that have been ordered have been reviewed, and results considered in the medical decision making process. Re-Evaluation - Re-Evaluation First Eval Change: Improved - nausea resolved - able to tolerate PO liquid w/o difficulty, pain or vomiting GIGU Course/Dx - Course Course Of Treatment: Discussed that suboxone has side effects of nausea nad vomiting and since it's most likely stilll in her system, will provide anti- emetic and fluids to resolve her nausea and ab discomfort. WIll provide w/ crutches until she or her family can help her get her wheelchair repaired/ replaced via [facility] who has already agreed to help her with this. She will also f/ u w/ ALYSSA Durán, to see if she is a candidate for MRI/neurosurg consult. W/o acute back pain or neuro deficits today, this system was not further evaluated. Her ab pain also sounds to be from repeated vomiting so further w/u was not addressed there either. UPDATE: Sx are improved since meds zofran and IV Saline. Able to drink w/o difficulty. Education about refraining from trying medications that are not prescribed for her in the future. She will also continue to drink clear fluids until digestive tract has 24 hours to recover. After that time, she may start with soft foods and advance as tolerated. She will f/u w/ wheelchair services as mentioned above. Danger s/sx reviewed. NOTE : pt ate a tuna sandwich prior to d/c w/o pain or difficulty. - Diagnoses Provider Diagnoses: Adverse drug reaction Discharge - Sign-Out/Discharge Documenting (check all that apply): Patient Departure - Discharge Plan Condition: Stable Disposition: HOME Patient Education Materials: Adverse Drug Reaction (ED) Referrals: Nathalie Pope NP [Primary Care Provider] - Additional Instructions: You may continue to drink fluids for the next 24 hours until your stomach calms down. Avoid stimulants such as coffee, tea, soda, chocolate, alcohol. After that , you may try soft foods that are easy to digest - if this does not cause vomiting or pain, advance diet as tolerated. In the future, refrain from taking other people's medication. You may also have your brother or fiance return your wheelchair to [facility] for further repair or replacement. You will be provided with crutches in the meantime to aid in ambulation. - Billing Disposition and Condition Condition: STABLE Disposition: Home
[2018-04-22 16:14] VITALS: BP 101/68
== END | disposition home or self-care (01) ==
LOC: ED 13:04
DX: R11.2 Nausea with vomiting, unspecified (principal); M54.5 Low back pain; T40.605A Adverse effect of unspecified narcotics, initial encounter; F17.210 Nicotine dependence, cigarettes, uncomplicated; Y92.9 Unspecified place or not applicable
CPT/HCPCS: 96361; 96374; 99282; J2405

== ENCOUNTER → 2018-04-25 18:39 | Emergency (ER) | payer OTHER ==
[~2018-04-25 18:39] MED LIST changes: +Gabapentin CAP(*) 300 MG PO ONE; +Gabapentin TAB(NF) 600 MG PO ONE; +Magnesium Oxide TAB* 400 MG PO ONE; -NS 0.9% 1000 ML* 1,000 ML IV ONE; -Ondansetron INJ* 2 MG/ML VIAL IV ONE; +oxyCODONE/Acetamin 5/325 MG* TAB PO ONE
--- NOTE | 2018-04-25 19:49 | ED ---
Neurological HPI - HPI Summary HPI Summary: A 37 y/o female BIBA c/o two seizures today. She fell and claims to have left shoulder, hip and knee pain. Pt has a Hx of seizures. She claims that she has nerve damage from her elbows to her fingertips. The pt states that she cannot take Keppra and Dilantin. She also claims to have had a seizure a couple months ago and did not see a Doctor. She admits to smoking cigarettes and marijuana and drinks alcohol occasionally. - History of Current Complaint Chief Complaint: EDSeizure Stated Complaint: SEIZURES Time Seen by Provider: 04/25/18 19:15 Hx Obtained From: Patient, Family/Admission Liaison Hx Last Menstrual Period: depo Onset/Duration: Sudden Onset, Started hours ago Onset Severity: Moderate Current Severity: Moderate Seizure Severity: Moderate Number of Seizures: 2 Pain Intensity: 10 - Allergy/Home Medications Allergies/Adverse Reactions: Allergies Allergy/AdvReac Type Severity Reaction Status Date / Time aspirin Allergy Swelling Verified 04/25/18 18:56 Of Face,Lips,& Throat bee venom protein (honey bee) Allergy Anaphylatic Verified 04/25/18 18:56 Shock cortisone Allergy localized Verified 04/25/18 18:56 swelling at injection site Latex, Natural Rubber Allergy Unknown Verified 04/25/18 18:56 Reaction Details phenobarbital Allergy Swelling Verified 04/25/18 18:56 Of Face,Lips,& Throat PMH/Surg Hx/FS Hx/Imm Hx Endocrine/Hematology History: Denies: Hx Anticoagulant Therapy, Hx Diabetes, Hx Thyroid Disease, Other Endocrine/Hematological Disorders Cardiovascular History: Denies: Hx Congestive Heart Failure, Hx Deep Vein Thrombosis, Hx Hypertension , Hx Myocardial Infarction, Hx Pacemaker/ICD, Other Cardiovascular Problems/ Disorders Respiratory History: Reports: Hx Asthma - She is using her sister's Symbicort 160/4.5--she states she is on abluterol, Hx Chronic Obstructive Pulmonary Disease (COPD) Denies: Hx Lung Cancer, Hx Pneumonia, Hx Pulmonary Embolism, Other Respiratory Problems/Disorders GI History: Reports: Hx Gall Bladder Disease Denies: Hx Gastrointestinal Bleed, Hx Ulcer, Hx Urosepsis, Other GI Disorders History: Reports: Other Problems/Disorders - OVARIAN CYST, Denies: Hx Dialysis, Hx Kidney Stones, Hx Renal Disease Musculoskeletal History: Reports: Hx Back Problems - DDD lumbar spine - uses wheelchair Denies: Other Musculoskeletal History Sensory History: Reports: Hx Contacts or Glasses Denies: Other Sensory Impairments Opthamlomology History: Reports: Hx Contacts or Glasses Denies: Other Sensory Impairments Neurological History: Reports: Hx Seizures Denies: Hx Dementia, Hx Migraine, Hx Transient Ischemic Attacks (TIA), Other Neuro Impairments/Disorders Psychiatric History: Reports: Hx Anxiety, Hx Depression - She confesses to depression--on no Rx., Hx Bipolar Disorder Denies: Hx Schizophrenia, Hx Substance Abuse, Other Psychiatric Issues/ Disorders - Surgical History Surgery Procedure, Year, and Place: GALLBLADDER OUT 2010. 2010. APPENDECTOMY. abdominal laparoscopic surgery - Immunization History Date of Tetanus Vaccine: w/in last 10 years Date of Influenza Vaccine: none Immunizations Up to Date: Yes Infectious Disease History: No Infectious Disease History: Denies: Hx Clostridium Difficile, Hx Hepatitis, Hx Human Immunodeficiency Virus (HIV), Hx of Known/Suspected MRSA, Hx Shingles, Hx Tuberculosis, Hx Known/ Suspected VRE, Hx Known/Suspected VRSA, History Other Infectious Disease, Traveled Outside the [place] in Last 30 Days - Family History Known Family History: Positive: Cardiac Disease, Diabetes, Other - kidney cancer - Social History Alcohol Use: Occasionally Alcohol Amount: on special occasions Hx Substance Use: No Substance Use Type: Reports: Marijuana, Prescribed Substance Use Comment - Amount & Last Used: few months ago Hx Tobacco Use: Yes Smoking Status (MU): Heavy Every Day Tobacco Smoker Type: Cigarettes Review of Systems Negative: Fever Positive: Myalgia - left shoulder, hip and knee pain Neurological: Other - Positive: 2 seizures All Other Systems Reviewed And Are Negative: Yes Physical Exam - Summary Physical Exam Summary: Appearance: Well appearing, no pain distress Skin: warm, dry, reflects adequate perfusion Head/face: normal Eyes: EOMI, HANNAH ENT: normal Neck: supple, non-tender Respiratory: CTA, breath sounds present Cardiovascular: RRR, pulses symmetrical Abdomen: non-tender, soft Bowel: present Musculoskeletal:Tenderness in left shoulder, hip and thigh. Neuro: normal, sensory motor intact, A&Ox3 GCS: 15 Triage Information Reviewed: Yes Vital Signs On Initial Exam: Initial Vitals Temp Pulse Resp BP Pulse Ox 98.6 F 88 18 116/77 96 04/25/18 18:49 04/25/18 18:49 04/25/18 18:49 04/25/18 18:49 04/25/18 18:49 Vital Signs Reviewed: Yes Diagnostics - Vital Signs Vital Signs Temp Pulse Resp BP Pulse Ox 04/25/18 18:49 98.6 F 88 18 116/77 96 - Laboratory Result Diagrams: 04/25/18 20:17 04/25/18 20:17 Lab Statement: Any lab studies that have been ordered have been reviewed, and results considered in the medical decision making process. - Radiology Hip/pelvis x-ray Radiology Interpretation Completed By: ED Physician - Negative bone fracture. Pending official radiology report. femur x-ray Radiology Interpretation Completed By: ED Physician - Negative bone fracture. Pending official radiology report. shoulder x-ray Radiology Interpretation Completed By: ED Physician - Negative bone fracture. Pending official radiology report. - CT Brain CT Interpretation Completed By: Radiologist - No acute intracranial pathology. The ED physician has reviewed this report. Re-Evaluation - Re-Evaluation First Eval Re-Evaluation Time: 19:38 Change: Unchanged Comment: Checked patients medication list Second Eval Re-Evaluation Time: 20:26 Change: Unchanged Comment: Spoke with patient about her imaging results. Third Eval Re-Evaluation Time: 21:05 Change: Unchanged Comment: Spoke to the patient about her discharge instructions Course/Dx - Course Course Of Treatment: A 37 y/o female BIBA c/o two seizures today. She fell and claims to have left shoulder, hip and knee pain. Her PE showed tenderness in her left shoulder, hip and thigh. Her imaging results were negative for bone fractures.pt feels fine at present so will dc home. Dx: seixure, left hip and shoulder pain. The patient will be discharged and is agreeable to this plan. - Differential Dx Differential Diagnoses Neuro: Positive: Seizure Disorder, Vasovagal Reaction - Diagnoses Provider Diagnoses: Seizure, Left hip pain, Left shoulder pain - Physician Notifications Discussed Care Of Patient With: Hernán Bill - spoke with Dr. Bill about the patient's medications Time Discussed With Above Provider: 19:42 Discharge - Sign-Out/Discharge Documenting (check all that apply): Patient Departure - DC - Discharge Plan Condition: Stable Disposition: HOME Prescriptions: Gabapentin TAB(NF) [Neurontin 600 mg TAB(NF)] 600 mg PO TID #90 tab Tramadol HCl [Ultram] 50 mg PO TID #12 tablet MDD 3 Patient Education Materials: Epilepsy (ED), Shoulder Pain (ED), Hip Pain (ED) Referrals: Nathalie Pope SENIOR JAVA PROGRAMMER ANALYST [Primary Care Provider] - Additional Instructions: Follow up with your PCP in 3 days. Return to the ED if you experience any new or worsening symptoms. - Billing Disposition and Condition Condition: STABLE Disposition: Home - Attestation Statements Document Initiated by Scribe: Yes Documenting Scribe: Sotero Prado Provider For Whom Scribe is Documenting (Include Credential): Florentino Ahmadi Scribe Attestation: ISotero, scribed for Florentino Ahmadi on 04/25/18 at 2204. Scribe Documentation Reviewed: Yes Provider Attestation: The documentation as recorded by the Sotero sharma accurately reflects the service I personally performed and the decisions made by Florentino gordillo
--- NOTE | 2018-04-25 20:10 | RAD ---
EXAM: CT Head Without Intravenous Contrast CLINICAL HISTORY: 37 years old, female; Signs and symptoms; Other: Seizure; Additional info: Seizures TECHNIQUE: Axial computed tomography images of the head/brain without intravenous contrast. All CT scans at this facility use at least one of these dose optimization techniques: automated exposure control; mA and/or kV adjustment per patient size (includes targeted exams where dose is matched to clinical indication); or iterative reconstruction. COMPARISON: BRAIN WO CT BRAIN WO 12/23/2016 2:36 PM FINDINGS: Brain: No intracranial hemorrhage or extra-axial fluid collection. No evidence of mass effect or midline shift. [place]-white matter differentiation is normal. Ventricles: Ventricles and sulci are normal. Bones/joints: No acute osseus lesions or fractures. Soft tissues: Unremarkable. Sinuses: Unremarkable as visualized. No acute sinusitis. Mastoid air cells: Mastoid air cells are clear. IMPRESSION: No acute intracranial pathology. To contact [facility] with a general question: [facility] - [phone] For direct physician to physician contact: Physician Hotline - [phone] [facility] ([facility] Facility ID #[id number])
[2018-04-25 20:25] LABS: ABS Basophils 0.1 10^3/ul (0-0.2); ABS Eosinophils 0.2 10^3/ul (0-0.6); ABS Lymphocytes 3.5 10^3/ul (1.0-4.8); ABS Monocytes 0.5 10^3/ul (0-0.8); ABS Neutrophils 3.6 10^3/ul (1.5-7.7); ABS Nucleated RBC 0 10^3/ul; Eosinophil % 2.7 % (0-6); Hematocrit 39 % (35-47); Hemoglobin 13.1 g/dl (12.0-16.0); Lymphocyte % 44.6 % (25-47); Mean Corpuscular HGB Conc 34 g/dl (31-36); Mean Corpuscular Hemoglobin 30 pg (27-31); Mean Corpuscular Volume 90 fL (80-97); Mean Platelet Volume 8.2 um3 (7.4-10.4); Nucleated Red Blood Cells % 0.1; Platelet Count 256 10^3/ul (150-450); Red Blood Count 4.33 10^6/ul (4.00-5.40); Red Cell Distribution Width 14 % (10.5-15); White Blood Count 7.9 10^3/ul (3.5-10.8)
[2018-04-25 20:42] LABS: EGFR Non-African American 94.7 (>60)
[2018-04-25 21:43] VITALS: BP 119/83
--- NOTE | 2018-04-26 07:57 | RAD ---
HISTORY: pain/sz/fall COMPARISONS: December 02, 2016 VIEWS: 7 , Frontal view of the pelvis with frontal and crosstable lateral views of the left hip with frontal and lateral views of the left femur FINDINGS: BONE DENSITY: Normal. BONES: There is no displaced fracture. JOINTS: There is no arthropathy. ALIGNMENT: There is no dislocation. SOFT TISSUES: Unremarkable. OTHER FINDINGS: Degenerative changes are noted of the spine.. IMPRESSION: NO RADIOGRAPHIC EVIDENCE FOR HIP FRACTURE. NO ACUTE OSSEOUS INJURY TO THE DISTAL LEFT FEMUR. X-RAYS MAY BE NEGATIVE WITH NONDISPLACED HIP FRACTURE, IF THERE IS PERSISTENT CLINICAL CONCERN, RECOMMEND CONSIDERATION OF MRI. IN THE SETTING OF CONTRAINDICATION TO MRI OR LIMITATION IN EMERGENT ACCESS TO MRI, CT WOULD BE SUGGESTED. R1NF
--- NOTE | 2018-04-26 07:59 | RAD ---
Indication: Left shoulder pain. 4 views of left shoulder demonstrates no fracture. No other bone or joint abnormality is identified. Joint spaces all well-preserved. When compared to previous exam of September 16, 2017 no significant change is noted. IMPRESSION: No fracture of the left shoulder is noted. No changes noted since November 14, 2015. R1NF
== END | disposition home or self-care (01) ==
LOC: ED 18:39
DX: R56.9 Unspecified convulsions (principal); M25.552 Pain in left hip; M25.512 Pain in left shoulder; F17.210 Nicotine dependence, cigarettes, uncomplicated
CPT/HCPCS: 36415; 70450; 80053; 83735; 84702; 85025; 99283; A9270-GY

== ENCOUNTER 2018-07-20 14:23 | Emergency (ER) | payer OTHER ==
[2018-07-20] MEDS ORDERED: NS 0.9% 1000 ML* 1,000 ML IV ONE (14:50)
[2018-07-20] MEDS ORDERED: Ketorolac INJ* 30 MG/ML 1 ML VIAL IV PUSH ONE ×2 (14:53→16:01)
[2018-07-20 14:56] LABS: ABS Basophils 0.1 10^3/ul (0-0.2); ABS Eosinophils 0.1 10^3/ul (0-0.6); ABS Lymphocytes 2.5 10^3/ul (1.0-4.8); ABS Monocytes 0.5 10^3/ul (0-0.8); ABS Neutrophils 4.1 10^3/ul (1.5-7.7); ABS Nucleated RBC 0 10^3/ul; Eosinophil % 1.9 %; Hematocrit 41 % (35-47); Hemoglobin 13.9 g/dl (12.0-16.0); Lymphocyte % 33.9 %; Mean Corpuscular HGB Conc 34 g/dl (31-36); Mean Corpuscular Hemoglobin 30 pg (27-31); Mean Corpuscular Volume 89 fL (80-97); Mean Platelet Volume 8.1 fL (7.4-10.4); Nucleated Red Blood Cells % 0; Platelet Count 254 10^3/ul (150-450); Red Cell Distribution Width 14 % (10.5-15); White Blood Count 7.3 10^3/ul (3.5-10.8)
[2018-07-20 15:02] LABS: INR 1.03 (0.77-1.02)
[2018-07-20 15:22] LABS: Albumin 4.2 g/dL (3.2-5.2); Albumin/Globulin Ratio 1.3 (1-3); BUN/Creatinine Ratio 18.8 (8-20); Calcium 9.6 mg/dL (8.6-10.3); EGFR African American 114.6 (>60); EGFR Non-African American 94.7 (>60); Globulin 3.2 g/dL (2-4); Magnesium 1.8 mg/dL (1.9-2.7); Potassium 3.8 mmol/L (3.5-5.0); Total Bilirubin 0.2 mg/dL (0.2-1.0); Total Protein 7.4 g/dL (6.4-8.9)
[2018-07-20 15:27] LABS: HCG Pregnancy 1.66 mIU/mL
--- NOTE | 2018-07-20 15:37 | ED ---
Seizure - HPI Summary HPI Summary: 37 year old female presents with multiple seizures today. States she's had she believes she had 4 today. She doesn't remember anything. She was at the half-way when this occurred. Friend states that he saw one and it lasted 5 minutes. At the moment she is not postictal. She is not sure when she had her last seizure. States she does not currently have any seizure medications. States she's had seizures since she was 6. Currently being followed by primary and is not seeing a neurologist. She states she cannot do Keppra or Dilantin as it cause seizures. States she was on gabapentin but was not working. She states she hit her head multiple times days and is having severe headache. She denies any nausea or vomiting. She admits to dizziness. She also notes a left hip pain. No other injury. No chest pain or shortness of breath. States she' s been having a cough for the past week but is getting better. She admits to smoking cigarettes and marijuana and drinks alcohol occasionally. - History Of Current Complaint Chief Complaint: EDSeizure Time Seen by Provider: 07/20/18 14:35 - Allergies/Home Medications Allergies/Adverse Reactions: Allergies Allergy/AdvReac Type Severity Reaction Status Date / Time aspirin Allergy Swelling Verified 07/20/18 14:26 Of Face,Lips,& Throat bee venom protein (honey bee) Allergy Anaphylatic Verified 07/20/18 14:26 Shock cortisone Allergy localized Verified 07/20/18 14:26 swelling at injection site Latex, Natural Rubber Allergy Unknown Verified 07/20/18 14:26 Reaction Details phenobarbital Allergy Swelling Verified 07/20/18 14:26 Of Face,Lips,& Throat PMH/Surg Hx/FS Hx/Imm Hx Endocrine/Hematology History: Denies: Hx Anticoagulant Therapy, Hx Diabetes, Hx Thyroid Disease, Other Endocrine/Hematological Disorders Cardiovascular History: Denies: Hx Congestive Heart Failure, Hx Deep Vein Thrombosis, Hx Hypertension , Hx Myocardial Infarction, Hx Pacemaker/ICD, Other Cardiovascular Problems/ Disorders Respiratory History: Reports: Hx Asthma - She is using her sister's Symbicort 160/4.5--she states she is on abluterol, Hx Chronic Obstructive Pulmonary Disease (COPD) Denies: Hx Lung Cancer, Hx Pneumonia, Hx Pulmonary Embolism, Other Respiratory Problems/Disorders GI History: Reports: Hx Gall Bladder Disease Denies: Hx Gastrointestinal Bleed, Hx Ulcer, Hx Urosepsis, Other GI Disorders History: Reports: Other Problems/Disorders - OVARIAN CYST, Denies: Hx Dialysis, Hx Kidney Stones, Hx Renal Disease Musculoskeletal History: Reports: Hx Back Problems - DDD lumbar spine - uses wheelchair Denies: Other Musculoskeletal History Sensory History: Reports: Hx Contacts or Glasses Denies: Other Sensory Impairments Opthamlomology History: Reports: Hx Contacts or Glasses Denies: Other Sensory Impairments Neurological History: Reports: Hx Seizures Denies: Hx Dementia, Hx Migraine, Hx Transient Ischemic Attacks (TIA), Other Neuro Impairments/Disorders Psychiatric History: Reports: Hx Anxiety, Hx Depression - She confesses to depression--on no Rx., Hx Bipolar Disorder Denies: Hx Schizophrenia, Hx Substance Abuse, Other Psychiatric Issues/ Disorders - Surgical History Surgery Procedure, Year, and Place: GALLBLADDER OUT 2010. 2010. APPENDECTOMY. abdominal laparoscopic surgery - Immunization History Date of Tetanus Vaccine: w/in last 10 years Date of Influenza Vaccine: none Infectious Disease History: No Infectious Disease History: Denies: Hx Clostridium Difficile, Hx Hepatitis, Hx Human Immunodeficiency Virus (HIV), Hx of Known/Suspected MRSA, Hx Shingles, Hx Tuberculosis, Hx Known/ Suspected VRE, Hx Known/Suspected VRSA, History Other Infectious Disease, Traveled Outside the [place] in Last 30 Days - Family History Known Family History: Positive: Cardiac Disease, Diabetes, Other - kidney cancer - Social History Alcohol Use: Occasionally Alcohol Amount: on special occasions Hx Substance Use: No Substance Use Type: Reports: Marijuana, Prescribed Substance Use Comment - Amount & Last Used: few months ago Hx Tobacco Use: Yes Smoking Status (MU): Heavy Every Day Tobacco Smoker Type: Cigarettes Review of Systems Negative: Fever Negative: Chest Pain Negative: Shortness Of Breath Positive: Myalgia - left hip pain Neurological: Other - seizure Positive: Headache All Other Systems Reviewed And Are Negative: Yes Physical Exam Triage Information Reviewed: Yes Vital Signs On Initial Exam: Initial Vitals Temp Pulse Resp BP Pulse Ox 99.3 F 98 17 142/106 97 07/20/18 14:26 07/20/18 14:26 07/20/18 14:26 07/20/18 14:26 07/20/18 14:26 Vital Signs Reviewed: Yes Appearance: Positive: Well-Appearing Skin: Positive: Warm, Dry Head/Face: Positive: Normal Head/Face Inspection Eyes: Positive: Normal, EOMI, HANNAH, Conjunctiva Clear ENT: Positive: Normal ENT inspection, Pharynx normal, TMs normal Neck: Positive: Other: - nontender neck Respiratory/Lung Sounds: Positive: Clear to Auscultation, Breath Sounds Present Cardiovascular: Positive: Normal, RRR Abdomen Description: Positive: Nontender, Soft Bowel Sounds: Positive: Present Musculoskeletal: Positive: Strength/ROM Intact - left hip, Other - tenderness left hip, good pulses Neurological: Positive: Sensory/Motor Intact, Alert, Oriented to Person Place, Time, CN Intact II-III Psychiatric: Positive: Normal Diagnostics - Vital Signs Vital Signs Temp Pulse Resp BP Pulse Ox 07/20/18 14:50 97 07/20/18 14:26 99.3 F 98 17 142/106 97 - Laboratory Lab Results: Lab Results 07/20/18 07/20/18 07/20/18 Range/Units 13:50 13:50 13:50 WBC 7.3 (3.5-10.8) 10^3/ul RBC 4.60 (4.00-5.40) 10^6/ul Hgb 13.9 (12.0-16.0) g/dl Hct 41 (35-47) % MCV 89 (80-97) fL MCH 30 (27-31) pg MCHC 34 (31-36) g/dl RDW 14 (10.5-15) % Plt Count 254 (150-450) 10^3/ul MPV 8.1 (7.4-10.4) fL Neut % (Auto) 56.7 % Lymph % (Auto) 33.9 % [place] % (Auto) 6.7 % Eos % (Auto) 1.9 % Baso % (Auto) 0.8 % Absolute Neuts (auto) 4.1 (1.5-7.7) 10^3/ul Absolute Lymphs (auto) 2.5 (1.0-4.8) 10^3/ul Absolute Monos (auto) 0.5 (0-0.8) 10^3/ul Absolute Eos (auto) 0.1 (0-0.6) 10^3/ul Absolute Basos (auto) 0.1 (0-0.2) 10^3/ul Absolute Nucleated RBC 0 10^3/ul Nucleated RBC % 0 INR (Anticoag Therapy) 1.03 H (0.77-1.02) Sodium 138 (135-145) mmol/L Potassium 3.8 (3.5-5.0) mmol/L Chloride 102 (101-111) mmol/L Carbon Dioxide 28 (22-32) mmol/L Anion Gap 8 (2-11) mmol/L BUN 13 (6-24) mg/dL Creatinine 0.69 (0.51-0.95) mg/dL Est GFR ( Amer) 114.6 (>60) Est GFR (Non-Af Amer) 94.7 (>60) BUN/Creatinine Ratio 18.8 (8-20) Glucose 110 H (70-100) mg/dL Lactic Acid (0.5-2.0) mmol/L Calcium 9.6 (8.6-10.3) mg/dL Magnesium 1.8 L (1.9-2.7) mg/dL Total Bilirubin 0.20 (0.2-1.0) mg/dL AST 29 (13-39) U/L ALT 39 (7-52) U/L Alkaline Phosphatase 69 (34-104) U/L Total Protein 7.4 (6.4-8.9) g/dL Albumin 4.2 (3.2-5.2) g/dL Globulin 3.2 (2-4) g/dL Albumin/Globulin Ratio 1.3 (1-3) Beta HCG, Quant 1.66 mIU/mL 07/20/18 Range/Units 13:50 WBC (3.5-10.8) 10^3/ul RBC (4.00-5.40) 10^6/ul Hgb (12.0-16.0) g/dl Hct (35-47) % MCV (80-97) fL MCH (27-31) pg MCHC (31-36) g/dl RDW (10.5-15) % Plt Count (150-450) 10^3/ul MPV (7.4-10.4) fL Neut % (Auto) % Lymph % (Auto) % [place] % (Auto) % Eos % (Auto) % Baso % (Auto) % Absolute Neuts (auto) (1.5-7.7) 10^3/ul Absolute Lymphs (auto) (1.0-4.8) 10^3/ul Absolute Monos (auto) (0-0.8) 10^3/ul Absolute Eos (auto) (0-0.6) 10^3/ul Absolute Basos (auto) (0-0.2) 10^3/ul Absolute Nucleated RBC 10^3/ul Nucleated RBC % INR (Anticoag Therapy) (0.77-1.02) Sodium (135-145) mmol/L Potassium (3.5-5.0) mmol/L Chloride (101-111) mmol/L Carbon Dioxide (22-32) mmol/L Anion Gap (2-11) mmol/L BUN (6-24) mg/dL Creatinine (0.51-0.95) mg/dL Est GFR ( Amer) (>60) Est GFR (Non-Af Amer) (>60) BUN/Creatinine Ratio (8-20) Glucose (70-100) mg/dL Lactic Acid 1.7 (0.5-2.0) mmol/L Calcium (8.6-10.3) mg/dL Magnesium (1.9-2.7) mg/dL Total Bilirubin (0.2-1.0) mg/dL AST (13-39) U/L ALT (7-52) U/L Alkaline Phosphatase (34-104) U/L Total Protein (6.4-8.9) g/dL Albumin (3.2-5.2) g/dL Globulin (2-4) g/dL Albumin/Globulin Ratio (1-3) Beta HCG, Quant mIU/mL Result Diagrams: 07/20/18 13:50 07/20/18 13:50 Lab Statement: Any lab studies that have been ordered have been reviewed, and results considered in the medical decision making process. - Radiology hip Radiology Interpretation Completed By: Radiologist Summary of Radiographic Findings: no fracture - CT head CT Interpretation Completed By: Radiologist Summary of CT Findings: IMPRESSION: NO ACUTE INTRACRANIAL PATHOLOGY. - EKG No standard instances Cardiac Rate: NL EKG Rhythm: Sinus Rhythm EKG Comparison: No Significant Change Summary of EKG Findings: sinus rhythm Re-Evaluation - Re-Evaluation First Eval Re-Evaluation Time: 16:03 Change: Unchanged Comment: pain still present Second Eval Re-Evaluation Time: 16:39 Change: Improved Course/Dx - Course Course Of Treatment: 37 year old female presents with multiple seizures today. States she's had she believes she had 4 today. She doesn't remember anything. Friend states that he saw one and it lasted 5 minutes. At the moment she is not postictal. States she does not currently have any seizure medications. Currently being followed by primary and is not seeing a neurologist. She states she cannot do Keppra or Dilantin as it cause seizures. States she was on gabapentin but was not working but was only on 600mg tid. She states she hit her head multiple times days and is having severe headache. She denies any nausea or vomiting. She admits to dizziness. She also notes a left hip pain. No other injury. on exam normal neuro exam. tenderness left hip. got CT brain due to severe headache. CT brain normal. xray hip normal. spoke with dr bill who says to start back on gabapentin and increase to 900mg gradually and she should follow up in clinic. electrolytes normal. no uti symptoms so will wait for final culture. discussed with patient who agrees with this plan. - Diagnoses Differential Diagnosis/HQI/PQRI: Positive: Metabolic Disorder, Known Seizure Disorder, Other - uti Provider Diagnoses: Seizure, Head injury, Left hip pain Discharge - Sign-Out/Discharge Documenting (check all that apply): Patient Departure - Discharge Plan Condition: Good Disposition: HOME Prescriptions: Gabapentin CAP(*) [Neurontin 300 CAP(*)] 300 mg PO TID #30 cap Patient Education Materials: Epilepsy (ED) Referrals: Christy Dowell MD [Primary Care Provider] - Hernán Bill MD [Medical Doctor] - Additional Instructions: take gabapentin 300mg three times a day for 3 days, then increase to 600mg (two tablets) three times a day for three days, then 900mg (3 tablets) three times a day Follow up with neurology Take tyenlol or ibuprofen as needed for pain Return to ED if develop any new or worsening symptoms - Billing Disposition and Condition Condition: GOOD Disposition: Home
[2018-07-20] MEDS ORDERED: Metoclopramide IV* 5 MG/ML 2 ML VIAL IV SLOW PU ONE (16:01)
[2018-07-20] MEDS ORDERED: Gabapentin CAP(*) 300 MG PO ONE (16:29)
[2018-07-20 16:50] LABS: Urine Appearance Cloudy; Urine Bacteria Absent (Absent); Urine Bilirubin Negative (Negative); Urine Blood Negative (Negative); Urine Color Yellow; Urine Glucose Negative (Negative); Urine Ketones Negative (Negative); Urine Nitrite Negative (Negative); Urine Protein Negative (Negative); Urine Red Blood Cell 1+(3-5/hpf) (Absent); Urine Squamous Epithelial Cell Present (Absent); Urine Urobilinogen Negative (Negative); Urine White Blood Cell Trace(0-5/hpf) (Absent)
[2018-07-20 16:58] VITALS: BP 108/78
[2018-07-20 17:11] LABS: Barbiturates Urine Screen None Detected (None Detect); Benzodiazepine Urine Screen None Detected (None Detect); Urine Cannabinoids Screen Presumptive Positive (None Detect)
== END 2018-07-20 16:49 | disposition home or self-care (01) ==
LOC: ED 14:23
DX: G40.909 Epilepsy, unspecified, not intractable, without status epilepticus (principal); S09.90XA Unspecified injury of head, initial encounter; M25.552 Pain in left hip; F17.210 Nicotine dependence, cigarettes, uncomplicated; J45.909 Unspecified asthma, uncomplicated; F32.9 Major depressive disorder, single episode, unspecified; X58.XXXA Exposure to other specified factors, initial encounter; Y92.9 Unspecified place or not applicable
CPT/HCPCS: 36415; 70450; 80053; 80307; 81003; 81015; 83605; 83735; 84702; 85025; 85610; 87086; 93005; 96361; 96374; 96375; 96376; 99283; J1885; J2765

== ENCOUNTER 2018-08-02 13:39 | Emergency (ER) | payer OTHER ==
[2018-08-02] MEDS ORDERED: NS 0.9% 1000 ML** 1,000 ML IV ONE (14:03)
--- OUTSIDE RECORDS SUMMARY | 2018-08-02 14:07 | XMS REPORT | Continuity of Care Document ---
:1980 External Reference #:[id number] Author Name Darren Pantoja M.D. Address [address] [place] [address] Care Team Providers Name Role Phone Delmer Maurer, Christy Santos Care Team Information General Internist And Physician Leader Unavailable Delmer Maurer, Christy Santos Primary Care Physician Unavailable Payers Date Identification Numbers Payment Provider Subscriber Effective: 2018 Policy Number: [id number] [facility] Alondra Winn PayID: [id number] [address] [address] [place] [address] Advance Directives Description No Information Available Problems Description No Information Family History Description No Information Available Social History Type Date Description Comments Sex Unknown Allergies, Adverse Reactions, Alerts Description No Information Medications Description No Information Immunizations Description No Information Available Vital Signs Description No Information Available Results Description No Information Available Procedures Description No Information Available Encounters Description No Information Available Plan of Treatment No Information Available
--- NOTE | 2018-08-02 14:20 | ED ---
Neurological HPI - HPI Summary HPI Summary: This pt is a 37 y/o female presenting to [facility] via EMS from halfway for a witnessed seizure today. Pt with hx of seizures, for which she takes gabapentin (prescribed by her PCP). EMS notes the pt lives at a halfway and had a seizure today that lasted less than 1 minute. Pt notes she has been having headache, abd pain, some cough. Denies fever, chills, chest pain, SOB, diarrhea today. She notes she has not eaten all day today. Pt also reports left hip pain from a fall 2 weeks ago. Her last seizure was 2 weeks ago and came to the ED for this. Pt does not have a neurologist yet. - History of Current Complaint Stated Complaint: SEIZURES Time Seen by Provider: 08/02/18 13:41 Hx Obtained From: Patient Hx Last Menstrual Period: depo Onset/Duration: Sudden Onset, Resolved Timing: Sudden Onset Onset Severity: Moderate Current Severity: None Pain Intensity: 9 Character: Other: - seizure Aggravating: Nothing Alleviating: Nothing Associated Signs and Symptoms: Positive: Seizure, Pain - abdominal. Negative: Fever, Diarrhea, Chest Pain, Shortness of Breath - Allergy/Home Medications Allergies/Adverse Reactions: Allergies Allergy/AdvReac Type Severity Reaction Status Date / Time aspirin Allergy Swelling Verified 07/20/18 14:26 Of Face,Lips,& Throat bee venom protein (honey bee) Allergy Anaphylatic Verified 07/20/18 14:26 Shock cortisone Allergy localized Verified 07/20/18 14:26 swelling at injection site Latex, Natural Rubber Allergy Unknown Verified 07/20/18 14:26 Reaction Details phenobarbital Allergy Swelling Verified 07/20/18 14:26 Of Face,Lips,& Throat PMH/Surg Hx/FS Hx/Imm Hx Endocrine/Hematology History: Denies: Hx Anticoagulant Therapy, Hx Diabetes, Hx Thyroid Disease, Other Endocrine/Hematological Disorders Cardiovascular History: Denies: Hx Congestive Heart Failure, Hx Deep Vein Thrombosis, Hx Hypertension , Hx Myocardial Infarction, Hx Pacemaker/ICD, Other Cardiovascular Problems/ Disorders Respiratory History: Reports: Hx Asthma - She is using her sister's Symbicort 160/4.5--she states she is on abluterol, Hx Chronic Obstructive Pulmonary Disease (COPD) Denies: Hx Lung Cancer, Hx Pneumonia, Hx Pulmonary Embolism, Other Respiratory Problems/Disorders GI History: Reports: Hx Gall Bladder Disease Denies: Hx Gastrointestinal Bleed, Hx Ulcer, Hx Urosepsis, Other GI Disorders History: Reports: Other Problems/Disorders - OVARIAN CYST, Denies: Hx Dialysis, Hx Kidney Stones, Hx Renal Disease Musculoskeletal History: Reports: Hx Back Problems - DDD lumbar spine - uses wheelchair Denies: Other Musculoskeletal History Sensory History: Reports: Hx Contacts or Glasses Denies: Other Sensory Impairments Opthamlomology History: Reports: Hx Contacts or Glasses Denies: Other Sensory Impairments Neurological History: Reports: Hx Seizures Denies: Hx Dementia, Hx Migraine, Hx Transient Ischemic Attacks (TIA), Other Neuro Impairments/Disorders Psychiatric History: Reports: Hx Anxiety, Hx Depression - She confesses to depression--on no Rx., Hx Bipolar Disorder Denies: Hx Schizophrenia, Hx Substance Abuse, Other Psychiatric Issues/ Disorders - Surgical History Surgery Procedure, Year, and Place: GALLBLADDER OUT 2010. 2010. APPENDECTOMY. abdominal laparoscopic surgery - Immunization History Date of Tetanus Vaccine: w/in last 10 years Date of Influenza Vaccine: none Infectious Disease History: No Infectious Disease History: Denies: Hx Clostridium Difficile, Hx Hepatitis, Hx Human Immunodeficiency Virus (HIV), Hx of Known/Suspected MRSA, Hx Shingles, Hx Tuberculosis, Hx Known/ Suspected VRE, Hx Known/Suspected VRSA, History Other Infectious Disease, Traveled Outside the [place] in Last 30 Days - Family History Known Family History: Positive: Cardiac Disease, Diabetes, Other - kidney cancer - Social History Alcohol Use: Occasionally Alcohol Amount: on special occasions Hx Substance Use: No Substance Use Type: Reports: Marijuana, Prescribed Substance Use Comment - Amount & Last Used: today Hx Tobacco Use: Yes Smoking Status (MU): Heavy Every Day Tobacco Smoker Type: Cigarettes Review of Systems Negative: Fever, Chills Negative: Chest Pain Positive: Cough. Negative: Shortness Of Breath Positive: Abdominal Pain. Negative: Diarrhea Musculoskeletal: Other - POS: left hip pain Positive: Headache All Other Systems Reviewed And Are Negative: Yes Physical Exam - Summary Physical Exam Summary: VITAL SIGNS: Reviewed. GENERAL: Patient is a well-developed and nourished female who is lying comfortable in the stretcher. Patient is not in any acute respiratory distress. HEAD AND FACE: No signs of trauma. No ecchymosis, hematomas or skull depressions. No sinus tenderness. EYES: PERRLA, EOMI x 2, No injected conjunctiva, no nystagmus. No photophobia. EARS: Hearing grossly intact. Ear canals and tympanic membranes are within normal limits. MOUTH: Oropharynx within normal limits. Dry mouth. NECK: Supple, trachea is midline, no adenopathy, no JVD, no carotid bruit, no c- spine tenderness, neck with full ROM. No meningeal signs, no Kernig's or brudzinskis signs. CHEST: Symmetric, no tenderness at palpation LUNGS: Clear to auscultation bilaterally. No wheezing or crackles. CVS: Regular rate and rhythm, S1 and S2 present, no murmurs or gallops appreciated. Pt is hypotensive. ABDOMEN: Soft, non-tender. No signs of distention. No rebound no guarding, and no masses palpated. Bowel sounds are normal. EXTREMITIES: FROM in all major joints, no edema, no cyanosis or clubbing. NEURO: Alert and oriented x 3. No acute neurological deficits. Speech is normal and follows commands. Pt is a little slow. SKIN: Dry and warm. Pt is pale. GCS: 15 Triage Information Reviewed: Yes Vital Signs On Initial Exam: Initial Vitals Temp Pulse Resp BP Pulse Ox 96.9 F 51 15 84/40 98 08/02/18 13:48 08/02/18 13:48 08/02/18 13:48 08/02/18 13:48 08/02/18 13:48 Vital Signs Reviewed: Yes Diagnostics - Vital Signs Vital Signs Temp Pulse Resp BP Pulse Ox 08/02/18 14:06 94 08/02/18 14:00 26 08/02/18 13:49 50 20 84/40 96 08/02/18 13:48 96.9 F 52 19 84/40 92 - Laboratory Result Diagrams: 08/02/18 14:16 08/02/18 14:16 Lab Statement: Any lab studies that have been ordered have been reviewed, and results considered in the medical decision making process. - Radiology Chest XR Radiology Interpretation Completed By: Radiologist Summary of Radiographic Findings: IMPRESSION: No active cardiopulmonary disease is noted. Dr. Lorenzo has reviewed this report. Left hip and pelvis XR Radiology Interpretation Completed By: Radiologist Summary of Radiographic Findings: IMPRESSION: No fracture of the left hip or pelvis is noted. Dr. Lorenzo has reviewed this report. - CT Brain CT CT Interpretation Completed By: Radiologist Summary of CT Findings: IMPRESSION: No acute intracranial pathology. Dr. Lorenzo has reviewed this report. - EKG 14:43 Cardiac Rate: NL - at 82 bpm EKG Rhythm: Sinus Rhythm Summary of EKG Findings: No ST elevations. Course/Dx - Course Assessment/Plan: Blood work without any significant abnormality except for glucose of 108. Head CT impression: No acute intracranial pathology. Chest x- ray impression: No acute cardiopulmonary disease. In the ED course the patient reports the pain in the left hip therefore with sedative an x-ray of the hip. X -ray of the left hip impression: No fracture of the left hip or pelvis is noted. The patient was given IV fluids since she was hypotensive and Toradol for the pain. The patient has remained stable and she has no other complaints. After a bolus of fluids the blood pressure has normalized. The urinalysis came back to be positive for urinary tract infection, therefore the patient was given ciprofloxacin. At this point the patient is feeling better and she has no other complaints. I discussed the case with Dr. Bill from neurology and he recommends for the patient to be given Keppra instead of the gabapentin. The patient will be discharged home with follow-up from neurology. I discussed the findings and test results with the patient as well as the discharge plan and she agrees. Patient is ambulating normally, she has no other questions or concerns. Patient is hemodynamically stable, alert and oriented x3. - Differential Dx Differential Diagnoses Neuro: Positive: Cerebrovascular Accident, Seizure Disorder, Transient Ischemic Attack - Diagnoses Provider Diagnoses: Seizure, UTI (urinary tract infection) Discharge - Sign-Out/Discharge Documenting (check all that apply): Patient Departure - Discharge home Patient Received Moderate/Deep Sedation with Procedure: No - Discharge Plan Condition: Stable Disposition: HOME Prescriptions: Ciprofloxacin TAB* [Cipro 500 MG TAB*] 500 mg PO BID #6 tab levETIRAcetam TAB* [Keppra TAB*] 500 mg PO BID #30 tab Patient Education Materials: Urinary Tract Infection in Women (ED), Recurrent Seizures in Adults (ED) Referrals: Christy Dowell MD [Primary Care Provider] - Additional Instructions: FOLLOW UP WITH YOUR PRIMARY CARE PROVIDER IN 2-3 DAYS. RETURN TO THE ED FOR ANY NEW OR WORSENING SYMPTOMS. - Billing Disposition and Condition Condition: STABLE Disposition: Home - Attestation Statements Document Initiated by Erasto: Yes Documenting Scribe: Tania Kirkpatrick Provider For Whom Scribe is Documenting (Include Credential): Bear Lorenzo MD Scribe Attestation: I, Tania Kirkpatrick, scribed for Bear Lorenzo MD on 08/04/18 at 2036. Scribe Documentation Reviewed: Yes Provider Attestation: The documentation as recorded by the [email or web address] accurately reflects the service I personally performed and the decisions made by me, Bear Lorenzo MD Status of Scribe Document: Viewed
[2018-08-02 14:29] LABS: ABS Basophils 0.1 10^3/ul (0-0.2); ABS Eosinophils 0.2 10^3/ul (0-0.6); ABS Lymphocytes 3.9 10^3/ul (1.0-4.8); ABS Monocytes 0.6 10^3/ul (0-0.8); ABS Neutrophils 3.9 10^3/ul (1.5-7.7); ABS Nucleated RBC 0 10^3/ul; Eosinophil % 2.1 %; Hematocrit 40 % (35-47); Hemoglobin 13.6 g/dl (12.0-16.0); Lymphocyte % 44.6 %; Mean Corpuscular HGB Conc 34 g/dl (31-36); Mean Corpuscular Hemoglobin 30 pg (27-31); Mean Corpuscular Volume 90 fL (80-97); Nucleated Red Blood Cells % 0; Platelet Count 264 10^3/ul (150-450); Red Blood Count 4.49 10^6/ul (4.00-5.40); Red Cell Distribution Width 14 % (10.5-15); White Blood Count 8.7 10^3/ul (3.5-10.8)
[2018-08-02 14:58] LABS: ALT 27 U/L (7-52); AST 18 U/L (13-39); Albumin/Globulin Ratio 1.4 (1-3); Alkaline Phosphatase 63 U/L (34-104); Anion Gap 5 mmol/L (2-11); BUN/Creatinine Ratio 18.4 (8-20); Blood Urea Nitrogen 14 mg/dL (6-24); CO2 Carbon Dioxide 28 mmol/L (22-32); Calcium 8.9 mg/dL (8.6-10.3); Chloride 107 mmol/L (101-111); EGFR African American 102.5 (>60); EGFR Non-African American 84.7 (>60); Globulin 2.9 g/dL (2-4); Glucose 108 mg/dL (70-100); INR 1.02 (0.77-1.02); Magnesium 1.9 mg/dL (1.9-2.7); Potassium 3.7 mmol/L (3.5-5.0); Sodium 140 mmol/L (135-145); Total Protein 6.9 g/dL (6.4-8.9)
[2018-08-02 14:59] LABS: Alcohol < 10 mg/dL (<10)
[2018-08-02] MEDS ORDERED: Ketorolac INJ* 30 MG/ML 1 ML VIAL IV PUSH ONE (15:02)
[2018-08-02 15:12] LABS: TSH (Thyroid Stimulating Horm) 2.56 mcIU/mL (0.34-5.60)
[2018-08-02 16:31] LABS: Urine Appearance Cloudy; Urine Bacteria 1+ (Absent); Urine Bilirubin 1+ (Negative); Urine Blood Negative (Negative); Urine Color Amber; Urine Glucose Negative (Negative); Urine Ketones Trace (Negative); Urine Nitrite Negative (Negative); Urine Protein 2+(100 mg/dL) (Negative); Urine Red Blood Cell 3+(>10/hpf) (Absent); Urine Specific Gravity 1.034 (1.010-1.030); Urine Squamous Epithelial Cell Present (Absent); Urine Urobilinogen Negative (Negative); Urine White Blood Cell 3+(>20/hpf) (Absent)
[2018-08-02] MEDS ORDERED: Ciprofloxacin TAB* 500 MG PO ONE (16:40)
[2018-08-02 16:42] LABS: Barbiturates Urine Screen None Detected (None Detect); Benzodiazepine Urine Screen None Detected (None Detect); Urine Cannabinoids Screen Presumptive Positive (None Detect)
[2018-08-02 17:00] VITALS: BP 121/74
== END 2018-08-02 16:59 | disposition home or self-care (01) ==
LOC: ED 13:39
DX: R56.9 Unspecified convulsions (principal); N39.0 Urinary tract infection, site not specified; R51 Headache; R10.9 Unspecified abdominal pain; R05 Cough; M25.552 Pain in left hip; Z88.8 Allergy status to other drugs, medicaments and biological substances; Z88.6 Allergy status to analgesic agent; Z91.030 Bee allergy status; Z91.040 Latex allergy status; F17.210 Nicotine dependence, cigarettes, uncomplicated
CPT/HCPCS: 36415; 70450; 71046; 80053; 80307; 80320; 81003; 81015; 83605; 83735; 84443; 85025; 85610; 85730; 87086; 93005; 96361; 96374; 99284; A9270-GY; G0480; J1885

== ENCOUNTER 2018-08-07 15:52 | Emergency (ER) | payer OTHER ==
[2018-08-07 17:09] LABS: ABS Basophils 0.1 10^3/ul (0-0.2); ABS Eosinophils 0.2 10^3/ul (0-0.6); ABS Lymphocytes 3.4 10^3/ul (1.0-4.8); ABS Monocytes 0.5 10^3/ul (0-0.8); ABS Neutrophils 4.5 10^3/ul (1.5-7.7); ABS Nucleated RBC 0 10^3/ul; Eosinophil % 2.2 %; Hematocrit 41 % (35-47); Lymphocyte % 38.9 %; Mean Corpuscular HGB Conc 34 g/dl (31-36); Mean Corpuscular Hemoglobin 30 pg (27-31); Mean Corpuscular Volume 89 fL (80-97); Mean Platelet Volume 8.2 fL (7.4-10.4); Nucleated Red Blood Cells % 0.1; Platelet Count 241 10^3/ul (150-450); Red Blood Count 4.63 10^6/ul (4.00-5.40); Red Cell Distribution Width 14 % (10.5-15); White Blood Count 8.7 10^3/ul (3.5-10.8)
[2018-08-07 17:28] LABS: INR 1.02 (0.77-1.02)
[2018-08-07 17:41] LABS: Albumin 4.5 g/dL (3.2-5.2); Albumin/Globulin Ratio 1.6 (1-3); BUN/Creatinine Ratio 28.1 (8-20); Calcium 9.7 mg/dL (8.6-10.3); EGFR Non-African American 103.3 (>60); Globulin 2.9 g/dL (2-4); Potassium 3.8 mmol/L (3.5-5.0); Total Bilirubin 0.2 mg/dL (0.2-1.0); Total Protein 7.4 g/dL (6.4-8.9)
[2018-08-07] MEDS ORDERED: Lidocaine 2% VISCOUS* 15 ML UDC PO ONE (17:43)
[2018-08-07] MEDS ORDERED: Al Hydrox/Mg Hydrox/Simet LIQ* 30 ML UDC PO ONE (17:43)
[2018-08-07 17:55] LABS: Urine Appearance Cloudy; Urine Bacteria Absent (Absent); Urine Bilirubin Negative (Negative); Urine Blood 1+ (Negative); Urine Color Yellow; Urine Glucose Negative (Negative); Urine Ketones Negative (Negative); Urine Nitrite Negative (Negative); Urine Protein Negative (Negative); Urine Red Blood Cell 3+(>10/hpf) (Absent); Urine Specific Gravity 1.014 (1.010-1.030); Urine Squamous Epithelial Cell Present (Absent); Urine Urobilinogen Negative (Negative); Urine White Blood Cell 3+(>20/hpf) (Absent)
[2018-08-07 18:10] LABS: HCG Pregnancy 1.35 mIU/mL
--- NOTE | 2018-08-07 18:25 | ED ---
Seizure - HPI Summary HPI Summary: 37-year-old female presents with potential seizures today. States that she had some substernal chest pain and then either past out or had a seizure as she can not remember anything. She states that one person saw her pass out while another said that she [facility]. She has history of seizures and hasn't had multiple visits to the ER for such. She states that been taking the Keppra she started a couple days ago. She denies any urinary incontinence or biting her tongue. She states she landed on her left hip. she admits to pain of left hip pain that has had issue with in the past. She is complaining of chest pain too. no shortness of breath. He has history of COPD and seizures. - History Of Current Complaint Chief Complaint: EDSeizure Time Seen by Provider: 08/07/18 16:49 - Allergies/Home Medications Allergies/Adverse Reactions: Allergies Allergy/AdvReac Type Severity Reaction Status Date / Time aspirin Allergy Swelling Verified 07/20/18 14:26 Of Face,Lips,& Throat bee venom protein (honey bee) Allergy Anaphylatic Verified 07/20/18 14:26 Shock cortisone Allergy localized Verified 07/20/18 14:26 swelling at injection site Latex, Natural Rubber Allergy Unknown Verified 07/20/18 14:26 Reaction Details phenobarbital Allergy Swelling Verified 07/20/18 14:26 Of Face,Lips,& Throat PMH/Surg Hx/FS Hx/Imm Hx Endocrine/Hematology History: Denies: Hx Anticoagulant Therapy, Hx Diabetes, Hx Thyroid Disease, Other Endocrine/Hematological Disorders Cardiovascular History: Denies: Hx Congestive Heart Failure, Hx Deep Vein Thrombosis, Hx Hypertension , Hx Myocardial Infarction, Hx Pacemaker/ICD, Other Cardiovascular Problems/ Disorders Respiratory History: Reports: Hx Asthma - She is using her sister's Symbicort 160/4.5--she states she is on abluterol, Hx Chronic Obstructive Pulmonary Disease (COPD) Denies: Hx Lung Cancer, Hx Pneumonia, Hx Pulmonary Embolism, Other Respiratory Problems/Disorders GI History: Reports: Hx Gall Bladder Disease Denies: Hx Gastrointestinal Bleed, Hx Ulcer, Hx Urosepsis, Other GI Disorders History: Reports: Other Problems/Disorders - OVARIAN CYST, Denies: Hx Dialysis, Hx Kidney Stones, Hx Renal Disease Musculoskeletal History: Reports: Hx Back Problems - DDD lumbar spine - uses wheelchair Denies: Other Musculoskeletal History Sensory History: Reports: Hx Contacts or Glasses Denies: Other Sensory Impairments Opthamlomology History: Reports: Hx Contacts or Glasses Denies: Other Sensory Impairments Neurological History: Reports: Hx Seizures Denies: Hx Dementia, Hx Migraine, Hx Transient Ischemic Attacks (TIA), Other Neuro Impairments/Disorders Psychiatric History: Reports: Hx Anxiety, Hx Depression - She confesses to depression--on no Rx., Hx Bipolar Disorder Denies: Hx Schizophrenia, Hx Substance Abuse, Other Psychiatric Issues/ Disorders - Surgical History Surgery Procedure, Year, and Place: GALLBLADDER OUT 2010. 2010. APPENDECTOMY. abdominal laparoscopic surgery - Immunization History Date of Tetanus Vaccine: w/in last 10 years Date of Influenza Vaccine: none Infectious Disease History: No Infectious Disease History: Denies: Hx Clostridium Difficile, Hx Hepatitis, Hx Human Immunodeficiency Virus (HIV), Hx of Known/Suspected MRSA, Hx Shingles, Hx Tuberculosis, Hx Known/ Suspected VRE, Hx Known/Suspected VRSA, History Other Infectious Disease, Traveled Outside the [place] in Last 30 Days - Family History Known Family History: Positive: Cardiac Disease, Diabetes, Other - kidney cancer - Social History Alcohol Use: Occasionally Alcohol Amount: on special occasions Hx Substance Use: No Substance Use Type: Reports: Marijuana, Prescribed Substance Use Comment - Amount & Last Used: today Hx Tobacco Use: Yes Smoking Status (MU): Heavy Every Day Tobacco Smoker Type: Cigarettes Review of Systems Negative: Fever Positive: Chest Pain Negative: Shortness Of Breath, Cough Positive: Myalgia - left hip pain Neurological: Other - loc All Other Systems Reviewed And Are Negative: Yes Physical Exam Triage Information Reviewed: Yes Vital Signs On Initial Exam: Initial Vitals Temp Pulse Resp BP Pulse Ox 98.4 F 96 17 108/70 98 08/07/18 15:55 08/07/18 15:55 08/07/18 15:55 08/07/18 15:55 08/07/18 15:55 Vital Signs Reviewed: Yes Appearance: Positive: Well-Appearing Skin: Positive: Warm, Dry Head/Face: Positive: Normal Head/Face Inspection Eyes: Positive: Normal, EOMI, HANNAH, Conjunctiva Clear ENT: Positive: Normal ENT inspection, Pharynx normal, TMs normal Respiratory/Lung Sounds: Positive: Clear to Auscultation, Breath Sounds Present Cardiovascular: Positive: Normal, RRR Musculoskeletal: Positive: Strength/ROM Intact - left hip with pain, Other - tenderness left hip, good pulses Neurological: Positive: Sensory/Motor Intact, Alert, Oriented to Person Place, Time, CN Intact II-III Psychiatric: Positive: Normal Diagnostics - Vital Signs Vital Signs Temp Pulse Resp BP Pulse Ox 08/07/18 15:55 98.4 F 96 17 108/70 98 - Laboratory Lab Results: Lab Results 08/07/18 08/07/18 08/07/18 Range/Units 17:01 17:01 17:01 WBC 8.7 (3.5-10.8) 10^3/ul RBC 4.63 (4.00-5.40) 10^6/ul Hgb 14.0 (12.0-16.0) g/dl Hct 41 (35-47) % MCV 89 (80-97) fL MCH 30 (27-31) pg MCHC 34 (31-36) g/dl RDW 14 (10.5-15) % Plt Count 241 (150-450) 10^3/ul MPV 8.2 (7.4-10.4) fL Neut % (Auto) 51.7 % Lymph % (Auto) 38.9 % [place] % (Auto) 6.3 % Eos % (Auto) 2.2 % Baso % (Auto) 0.9 % Absolute Neuts (auto) 4.5 (1.5-7.7) 10^3/ul Absolute Lymphs (auto) 3.4 (1.0-4.8) 10^3/ul Absolute Monos (auto) 0.5 (0-0.8) 10^3/ul Absolute Eos (auto) 0.2 (0-0.6) 10^3/ul Absolute Basos (auto) 0.1 (0-0.2) 10^3/ul Absolute Nucleated RBC 0 10^3/ul Nucleated RBC % 0.1 INR (Anticoag Therapy) 1.02 (0.77-1.02) D-Dimer, Quantitative < 200 (Less Than 230) ng/mL Sodium 138 (135-145) mmol/L Potassium 3.8 (3.5-5.0) mmol/L Chloride 105 (101-111) mmol/L Carbon Dioxide 25 (22-32) mmol/L Anion Gap 8 (2-11) mmol/L BUN 18 (6-24) mg/dL Creatinine 0.64 (0.51-0.95) mg/dL Est GFR ( Amer) 125.0 (>60) Est GFR (Non-Af Amer) 103.3 (>60) BUN/Creatinine Ratio 28.1 H (8-20) Glucose 90 (70-100) mg/dL Lactic Acid (0.5-2.0) mmol/L Calcium 9.7 (8.6-10.3) mg/dL Magnesium 2.0 (1.9-2.7) mg/dL Total Bilirubin 0.20 (0.2-1.0) mg/dL AST 22 (13-39) U/L ALT 30 (7-52) U/L Alkaline Phosphatase 72 (34-104) U/L Troponin I 0.00 (<0.04) ng/mL Total Protein 7.4 (6.4-8.9) g/dL Albumin 4.5 (3.2-5.2) g/dL Globulin 2.9 (2-4) g/dL Albumin/Globulin Ratio 1.6 (1-3) Beta HCG, Quant 1.35 mIU/mL Urine Color Urine Appearance Urine pH (5-9) Ur Specific [place] (1.010-1.030) Urine Protein (Negative) Urine Ketones (Negative) Urine Blood (Negative) Urine Nitrate (Negative) Urine Bilirubin (Negative) Urine Urobilinogen (Negative) Ur Leukocyte Esterase (Negative) Urine WBC (Auto) (Absent) Urine RBC (Auto) (Absent) Ur Squamous Epith Cells (Absent) Urine Bacteria (Absent) Urine Glucose (Negative) 08/07/18 08/07/18 Range/Units 17:01 17:17 WBC (3.5-10.8) 10^3/ul RBC (4.00-5.40) 10^6/ul Hgb (12.0-16.0) g/dl Hct (35-47) % MCV (80-97) fL MCH (27-31) pg MCHC (31-36) g/dl RDW (10.5-15) % Plt Count (150-450) 10^3/ul MPV (7.4-10.4) fL Neut % (Auto) % Lymph % (Auto) % [place] % (Auto) % Eos % (Auto) % Baso % (Auto) % Absolute Neuts (auto) (1.5-7.7) 10^3/ul Absolute Lymphs (auto) (1.0-4.8) 10^3/ul Absolute Monos (auto) (0-0.8) 10^3/ul Absolute Eos (auto) (0-0.6) 10^3/ul Absolute Basos (auto) (0-0.2) 10^3/ul Absolute Nucleated RBC 10^3/ul Nucleated RBC % INR (Anticoag Therapy) (0.77-1.02) D-Dimer, Quantitative (Less Than 230) ng/mL Sodium (135-145) mmol/L Potassium (3.5-5.0) mmol/L Chloride (101-111) mmol/L Carbon Dioxide (22-32) mmol/L Anion Gap (2-11) mmol/L BUN (6-24) mg/dL Creatinine (0.51-0.95) mg/dL Est GFR ( Amer) (>60) Est GFR (Non-Af Amer) (>60) BUN/Creatinine Ratio (8-20) Glucose (70-100) mg/dL Lactic Acid 1.4 (0.5-2.0) mmol/L Calcium (8.6-10.3) mg/dL Magnesium (1.9-2.7) mg/dL Total Bilirubin (0.2-1.0) mg/dL AST (13-39) U/L ALT (7-52) U/L Alkaline Phosphatase (34-104) U/L Troponin I (<0.04) ng/mL Total Protein (6.4-8.9) g/dL Albumin (3.2-5.2) g/dL Globulin (2-4) g/dL Albumin/Globulin Ratio (1-3) Beta HCG, Quant mIU/mL Urine Color Yellow Urine Appearance Cloudy Urine pH 6.0 (5-9) Ur Specific [place] 1.014 (1.010-1.030) Urine Protein Negative (Negative) Urine Ketones Negative (Negative) Urine Blood 1+ A (Negative) Urine Nitrate Negative (Negative) Urine Bilirubin Negative (Negative) Urine Urobilinogen Negative (Negative) Ur Leukocyte Esterase 3+ A (Negative) Urine WBC (Auto) 3+(>20/hpf) A (Absent) Urine RBC (Auto) 3+(>10/hpf) A (Absent) Ur Squamous Epith Cells Present A (Absent) Urine Bacteria Absent (Absent) Urine Glucose Negative (Negative) Result Diagrams: 08/07/18 17:01 08/07/18 17:01 Lab Statement: Any lab studies that have been ordered have been reviewed, and results considered in the medical decision making process. - Radiology chest Radiology Interpretation Completed By: Radiologist Summary of Radiographic Findings: IMPRESSION: No radiographic evidence of acute cardiopulmonary disease. hip Radiology Interpretation Completed By: Radiologist Summary of Radiographic Findings: IMPRESSION: Normal radiograph of the left hip. - EKG No standard instances Cardiac Rate: NL EKG Rhythm: Sinus Rhythm EKG Comparison: No Significant Change Summary of EKG Findings: sinus rhythm, early repolization Re-Evaluation - Re-Evaluation First Eval Re-Evaluation Time: 18:40 Change: Improved Comment: chest pain resolved after GI cocktail Second Eval Re-Evaluation Time: 19:33 Comment: requesting knee immbolizer and crutches for hip pain Course/Dx - Course Course Of Treatment: 37-year-old female presents with potential seizures today. States that she had some substernal chest pain and then either past out or had a seizure as she can not remember anything. She states that one person saw her pass out while another said that [facility] She has history of seizures and hasn't had multiple visits to the ER for such. She states that been taking the Keppra she started a couple days ago. She denies any urinary incontinence or biting her tongue. She states she landed on her left hip. she admits to pain of left hip pain that has had issue with in the past. She is complaining of chest pain too. no shortness of breath. He has history of COPD and seizures. On exam lungs clear to auscultation. Abdomen soft nontender. Tenderness over left hip. Neurovascular intact. EKG shows early repolarization. 2 troponins are negative. Gave GI cocktail and chest resolved. urine likely a contaminant so will have wait for cultures as just finished a script for uti today. Patient had no seizure-like activity in the ED. X-ray normal. Patient requesting a immbolizer and crutches for this pain. Discussed with history of seizure likely had a seizure. Told needs to follow-up with neurology as has not followed about this. patient understand and agrees with plan. - Diagnoses Differential Diagnosis/HQI/PQRI: Positive: Metabolic Disorder, Known Seizure Disorder Provider Diagnoses: Left hip pain, Chest pain, Seizure Discharge - Sign-Out/Discharge Documenting (check all that apply): Patient Departure Patient Received Moderate/Deep Sedation with Procedure: No - Discharge Plan Condition: Good Disposition: HOME Patient Education Materials: Hip Pain (ED) Referrals: Christy Dowell MD [Primary Care Provider] - Mikey Rios MD [Medical Doctor] - Additional Instructions: follow up with neurology about seizure Continue keppra as prescribed Take tyenlol or ibuprofen for pain Follow up with primary within 5 days Return to ED if develop any new or worsening symptoms - Billing Disposition and Condition Condition: GOOD Disposition: Home
[2018-08-07] MEDS ORDERED: Ketorolac INJ* 30 MG/ML 1 ML VIAL IM ONE (18:58)
[2018-08-07 20:19] VITALS: BP 110/69
[2018-08-08 11:51] LABS: Neisseria gonorrhoeae (GC) RNA Negative (Negative)
== END 2018-08-07 20:05 | disposition home or self-care (01) ==
LOC: ED 15:52
DX: M25.552 Pain in left hip (principal); R07.2 Precordial pain; R56.9 Unspecified convulsions; J45.909 Unspecified asthma, uncomplicated; Z88.8 Allergy status to other drugs, medicaments and biological substances; Z88.6 Allergy status to analgesic agent; Z91.030 Bee allergy status; Z91.040 Latex allergy status; F17.210 Nicotine dependence, cigarettes, uncomplicated
CPT/HCPCS: 36415; 71046; 80053; 80177; 81003; 81015; 83605; 83735; 84484; 84702; 85025; 85379; 85610; 87086; 87491; 87591; 93005; 96372; 99283; A9270-GY; J1885

== ENCOUNTER 2018-08-10 11:03 | Emergency (ER) | payer OTHER ==
[2018-08-10] MEDS ORDERED: Al Hydrox/Mg Hydrox/Simet LIQ* 30 ML UDC PO ONE (11:35)
[2018-08-10] MEDS ORDERED: Ondansetron ODT TAB* 4 MG SL ONE (11:35)
[2018-08-10 11:57] LABS: ABS Basophils 0 10^3/ul (0-0.2); ABS Eosinophils 0.1 10^3/ul (0-0.6); ABS Lymphocytes 0.9 10^3/ul (1.0-4.8); ABS Monocytes 0.4 10^3/ul (0-0.8); ABS Neutrophils 10.7 10^3/ul (1.5-7.7); ABS Nucleated RBC 0 10^3/ul; Eosinophil % 1.1 %; Hematocrit 46 % (35-47); Hemoglobin 15.2 g/dl (12.0-16.0); Lymphocyte % 7.1 %; Mean Corpuscular HGB Conc 33 g/dl (31-36); Mean Corpuscular Hemoglobin 30 pg (27-31); Mean Corpuscular Volume 91 fL (80-97); Mean Platelet Volume 8.5 fL (7.4-10.4); Nucleated Red Blood Cells % 0; Platelet Count 253 10^3/ul (150-450); Red Cell Distribution Width 14 % (10.5-15); White Blood Count 12.1 10^3/ul (3.5-10.8)
[2018-08-10 12:16] LABS: Albumin 4.5 g/dL (3.2-5.2); Albumin/Globulin Ratio 1.3 (1-3); BUN/Creatinine Ratio 26.3 (8-20); C Reactive Protein 10.82 mg/L (<8.01); EGFR African American 102.5 (>60); EGFR Non-African American 84.7 (>60); Globulin 3.5 g/dL (2-4); Magnesium 1.7 mg/dL (1.9-2.7); Potassium 4.4 mmol/L (3.5-5.0); Total Bilirubin 0.4 mg/dL (0.2-1.0)
[2018-08-10 12:22] LABS: HCG Pregnancy 1.88 mIU/mL
[2018-08-10 14:34] VITALS: BP 102/82
--- NOTE | 2018-08-10 17:03 | ED ---
Nausea/Vomiting/Diarrhea HPI - HPI Summary HPI Summary: Patient is a 37-year-old female presenting to the ED with nausea, vomiting and diarrhea since roughly 3 hours ago. She endorses 3 episodes of vomiting and 3 episodes of diarrhea. Denies any abdominal discomfort. She states she lives at the senior living and has been eating Ramen noodles. She denies any fevers, sweats , chills. Denies any headache. Symptoms are not worse or better with positioning or better with rest. She is not tried any [id number] medications prior to arrival. She denies any hematemesis or melena. Last bowel movement was just prior to arrival. She states she is able to give us a stool sample if needed. - History of Current Complaint Chief Complaint: EDNauseaVomitDiarrh Stated Complaint: VOMITING Time Seen by Provider: 08/10/18 11:17 Hx Obtained From: Patient Hx Last Menstrual Period: depo ?: No Onset/Duration: Sudden Onset Timing: Constant Severity Initially: Mild Severity Currently: Mild Pain Intensity: 5 Pain Scale Used: 0-10 Numeric Aggravating Factor(s): Nothing Alleviating Factor(s): Nothing Vomiting Frequency: Every 15-60 minutes Nausea/Vomiting Duration: 0-12 hours Diarrhea Presence: Yes Diarrhea Frequency: Every 1-2 hours Diarrhea Duration: 0-12 hours Diarrhea Characteristics: Watery - Risk Factors Surgical Obstruction Risk Factor(s): Negative - Allergies/Home Medications Allergies/Adverse Reactions: Allergies Allergy/AdvReac Type Severity Reaction Status Date / Time aspirin Allergy Swelling Verified 08/10/18 11:10 Of Face,Lips,& Throat bee venom protein (honey bee) Allergy Anaphylatic Verified 08/10/18 11:10 Shock cortisone Allergy localized Verified 08/10/18 11:10 swelling at injection site Latex, Natural Rubber Allergy Unknown Verified 08/10/18 11:10 Reaction Details phenobarbital Allergy Swelling Verified 08/10/18 11:10 Of Face,Lips,& Throat PMH/Surg Hx/FS Hx/Imm Hx Previously Healthy: Yes Endocrine/Hematology History: Denies: Hx Anticoagulant Therapy, Hx Diabetes, Hx Thyroid Disease, Other Endocrine/Hematological Disorders Cardiovascular History: Denies: Hx Congestive Heart Failure, Hx Deep Vein Thrombosis, Hx Hypertension , Hx Myocardial Infarction, Hx Pacemaker/ICD, Other Cardiovascular Problems/ Disorders Respiratory History: Reports: Hx Asthma - She is using her sister's Symbicort 160/4.5--she states she is on abluterol, Hx Chronic Obstructive Pulmonary Disease (COPD) Denies: Hx Lung Cancer, Hx Pneumonia, Hx Pulmonary Embolism, Other Respiratory Problems/Disorders GI History: Reports: Hx Gall Bladder Disease Denies: Hx Gastrointestinal Bleed, Hx Ulcer, Hx Urosepsis, Other GI Disorders History: Reports: Other Problems/Disorders - OVARIAN CYST, Denies: Hx Dialysis, Hx Kidney Stones, Hx Renal Disease Musculoskeletal History: Reports: Hx Back Problems - DDD lumbar spine - uses wheelchair Denies: Other Musculoskeletal History Sensory History: Reports: Hx Contacts or Glasses Denies: Other Sensory Impairments Opthamlomology History: Reports: Hx Contacts or Glasses Denies: Other Sensory Impairments Neurological History: Reports: Hx Seizures Denies: Hx Dementia, Hx Migraine, Hx Transient Ischemic Attacks (TIA), Other Neuro Impairments/Disorders Psychiatric History: Reports: Hx Anxiety, Hx Depression - She confesses to depression--on no Rx., Hx Bipolar Disorder Denies: Hx Schizophrenia, Hx Substance Abuse, Other Psychiatric Issues/ Disorders - Surgical History Surgery Procedure, Year, and Place: GALLBLADDER OUT 2010. 2010. APPENDECTOMY. abdominal laparoscopic surgery - Immunization History Date of Tetanus Vaccine: w/in last 10 years Date of Influenza Vaccine: none Hx Pertussis Vaccination: No Immunizations Up to Date: Yes Infectious Disease History: No Infectious Disease History: Denies: Hx Clostridium Difficile, Hx Hepatitis, Hx Human Immunodeficiency Virus (HIV), Hx of Known/Suspected MRSA, Hx Shingles, Hx Tuberculosis, Hx Known/ Suspected VRE, Hx Known/Suspected VRSA, History Other Infectious Disease, Traveled Outside the [place] in Last 30 Days - Family History Known Family History: Positive: Cardiac Disease, Diabetes, Other - kidney cancer - Social History Occupation: Unemployed Lives: Alone - senior living Alcohol Use: Occasionally Alcohol Amount: on special occasions Hx Substance Use: No Substance Use Type: Reports: Marijuana, Prescribed Substance Use Comment - Amount & Last Used: today Hx Tobacco Use: Yes Smoking Status (MU): Heavy Every Day Tobacco Smoker Type: Cigarettes Review of Systems Constitutional: Negative Negative: Fever, Chills, Fatigue, Skin Diaphoresis Negative: Palpitations, Chest Pain Negative: Shortness Of Breath, Cough Positive: Abdominal Pain, Vomiting, Diarrhea, Nausea Genitourinary: Negative Positive: no symptoms reported, see HPI. Negative: burning, dysuria, discharge Negative: Arthralgia, Myalgia Negative: Rash, Bruising Negative: Headache, Weakness All Other Systems Reviewed And Are Negative: Yes Physical Exam Triage Information Reviewed: Yes Vital Signs On Initial Exam: Initial Vitals Temp Pulse Resp BP Pulse Ox 98.2 F 133 19 114/83 98 08/10/18 11:06 08/10/18 11:06 08/10/18 11:06 08/10/18 11:06 08/10/18 11:06 Vital Signs Reviewed: Yes Appearance: Positive: Well-Appearing, Well-Nourished Skin: Positive: Warm, Skin Color Reflects Adequate Perfusion Head/Face: Positive: Normal Head/Face Inspection Eyes: Positive: HANNAH, Conjunctiva Clear Neck: Positive: Supple, No Lymphadenopathy Respiratory/Lung Sounds: Positive: Clear to Auscultation, Breath Sounds Present Cardiovascular: Positive: RRR, Pulses are Symmetrical in both Upper and Lower Extremities Abdomen Description: Positive: Nontender, Soft. Negative: CVA Tenderness (R), CVA Tenderness (L), McBurney's Point Tenderness Bowel Sounds: Positive: Present Musculoskeletal: Positive: Normal, Strength/ROM Intact Neurological: Positive: Speech Normal Psychiatric: Positive: Normal, Affect/Mood Appropriate AVPU Assessment: Alert Diagnostics - Vital Signs Vital Signs Temp Pulse Resp BP Pulse Ox 08/10/18 14:33 98.7 F 110 16 102/82 96 08/10/18 14:23 109 102/82 96 08/10/18 14:00 112 94 08/10/18 13:53 107 114/71 93 08/10/18 13:23 111 119/61 95 08/10/18 13:00 116 95 08/10/18 12:53 104 109/64 91 08/10/18 12:23 112 99/67 94 08/10/18 12:00 111 96 08/10/18 11:55 114 95 08/10/18 11:53 111 152/129 96 08/10/18 11:06 98.2 F 133 19 114/83 98 - Laboratory Lab Results: Lab Results 08/10/18 08/10/18 08/10/18 Range/Units 11:47 11:47 11:47 WBC 12.1 H (3.5-10.8) 10^3/ul RBC 5.10 (4.00-5.40) 10^6/ul Hgb 15.2 (12.0-16.0) g/dl Hct 46 (35-47) % MCV 91 (80-97) fL MCH 30 (27-31) pg MCHC 33 (31-36) g/dl RDW 14 (10.5-15) % Plt Count 253 (150-450) 10^3/ul MPV 8.5 (7.4-10.4) fL Neut % (Auto) 88.3 % Lymph % (Auto) 7.1 % [place] % (Auto) 3.3 % Eos % (Auto) 1.1 % Baso % (Auto) 0.2 % Absolute Neuts (auto) 10.7 H (1.5-7.7) 10^3/ul Absolute Lymphs (auto) 0.9 L (1.0-4.8) 10^3/ul Absolute Monos (auto) 0.4 (0-0.8) 10^3/ul Absolute Eos (auto) 0.1 (0-0.6) 10^3/ul Absolute Basos (auto) 0 (0-0.2) 10^3/ul Absolute Nucleated RBC 0 10^3/ul Nucleated RBC % 0 Sodium 140 (135-145) mmol/L Potassium 4.4 (3.5-5.0) mmol/L Chloride 107 (101-111) mmol/L Carbon Dioxide 23 (22-32) mmol/L Anion Gap 10 (2-11) mmol/L BUN 20 (6-24) mg/dL Creatinine 0.76 (0.51-0.95) mg/dL Est GFR ( Amer) 102.5 (>60) Est GFR (Non-Af Amer) 84.7 (>60) BUN/Creatinine Ratio 26.3 H (8-20) Glucose 109 H (70-100) mg/dL Lactic Acid 1.8 (0.5-2.0) mmol/L Calcium 10.0 (8.6-10.3) mg/dL Magnesium 1.7 L (1.9-2.7) mg/dL Total Bilirubin 0.40 (0.2-1.0) mg/dL AST 30 (13-39) U/L ALT 35 (7-52) U/L Alkaline Phosphatase 85 (34-104) U/L C-Reactive Protein 10.82 H (<8.01) mg/L Total Protein 8.0 (6.4-8.9) g/dL Albumin 4.5 (3.2-5.2) g/dL Globulin 3.5 (2-4) g/dL Albumin/Globulin Ratio 1.3 (1-3) Lipase 35 (11.0-82.0) U/L Beta HCG, Quant 1.88 mIU/mL Result Diagrams: 08/10/18 11:47 08/10/18 11:47 Lab Statement: Any lab studies that have been ordered have been reviewed, and results considered in the medical decision making process. Naus/Vom/Diarrhea Course/Dx - Course Course Of Treatment: On arrival into the ED, patient's vital signs are stable. She endorses emesis and diarrhea 3 hours. She has had 3 bouts of each since this morning. Patient appears well, nontoxic, lungs CTA, RRR. Abdomen is soft and nontender. She is given ODT Zofran and Maalox with good relief. She denies any other symptoms currently. Patient was able to give us a stool sample in the ED and this was sent for culture. As patient remained stable, eating and drinking of the case, she will be discharged home with nausea, vomiting, diarrhea. - Differential Dx/Diagnosis Differential Diagnoses - Female: Other - Nausea, vomiting, diarrhea, gastroparesis, gastroenteritis, food poisoning Provider Diagnosis: Nausea and vomiting, Diarrhea Condition At Discharge: Stable Discharge - Sign-Out/Discharge Documenting (check all that apply): Patient Departure Patient Received Moderate/Deep Sedation with Procedure: No - Discharge Plan Condition: Stable Disposition: HOME Prescriptions: Ondansetron ODT TAB* [Zofran 4 MG Odt TAB*] 4 mg PO Q6H PRN #12 tab.odt MDD 4 PRN Reason: Nausea Patient Education Materials: Acute Nausea and Vomiting (ED), Acute Diarrhea (ED ) Referrals: Christy Dowell MD [Primary Care Provider] - Additional Instructions: Drink plenty of fluids Zofran as needed for nausea and vomiting Will call if there are any positive results from your stool - Billing Disposition and Condition Condition: STABLE Disposition: Home
== END 2018-08-10 14:33 | disposition home or self-care (01) ==
LOC: ED 11:03
DX: R11.2 Nausea with vomiting, unspecified (principal); R19.7 Diarrhea, unspecified; F32.9 Major depressive disorder, single episode, unspecified; F17.210 Nicotine dependence, cigarettes, uncomplicated
CPT/HCPCS: 36415; 80053; 82272; 83605; 83690; 83735; 84702; 85025; 86140; 87045; 87046; 87899; 99283; A9270-GY

== ENCOUNTER → 2018-09-10 18:48 | Emergency (ER) | payer OTHER ==
--- NOTE | 2018-09-10 19:23 | ED ---
Syncope/Near Syncope - HPI Summary HPI Summary: This patient is a 37 year old F brought in by ambulance to [facility] with a chief complaint of becoming lightheaded before falling backwards and hitting her head with a seizure lasting roughly 30 seconds after having a BM prior to arrival. Reports neck pain. Patient reports istory of seizures. She took Keppra today with lunch. Reports having one beer today. Patient requests a test with her bloodwork. States LNMP was over a year ago prior to having two depo provera shots. - History Of Current Complaint Chief Complaint: EDSeizure Time Seen by Provider: 09/10/18 19:00 Hx Obtained From: Patient Onset/Duration: Sudden Onset Timing: Frequency Of Episodes - 1x30 seconds Context: Loss Of Consciousness Activity At Onset: Other - BM Alleviating Factor(s): Spontaneous Resolution Associated Signs And Symptoms: Lightheadedness Related History: Similar Episode/Dx as - seizures - Allergies/Home Medications Allergies/Adverse Reactions: Allergies Allergy/AdvReac Type Severity Reaction Status Date / Time aspirin Allergy Swelling Verified 08/10/18 11:10 Of Face,Lips,& Throat bee venom protein (honey bee) Allergy Anaphylatic Verified 08/10/18 11:10 Shock cortisone Allergy localized Verified 08/10/18 11:10 swelling at injection site Latex, Natural Rubber Allergy Unknown Verified 08/10/18 11:10 Reaction Details phenobarbital Allergy Swelling Verified 08/10/18 11:10 Of Face,Lips,& Throat Home Medications: Home Medications Beclomethasone Dipropionate [Qvar Redihaler] 80 inh INH Q4HR PRN 09/10/18 [ History Confirmed 09/10/18] Folic Acid TAB* [Folvite TAB*] 1 mg PO DAILY WITH MEAL 09/10/18 [History Confirmed 09/10/18] Nystatin 15 gm TOPICAL PRN 09/10/18 [History] PMH/Surg Hx/FS Hx/Imm Hx Endocrine/Hematology History: Denies: Hx Anticoagulant Therapy, Hx Diabetes, Hx Thyroid Disease, Other Endocrine/Hematological Disorders Cardiovascular History: Denies: Hx Congestive Heart Failure, Hx Deep Vein Thrombosis, Hx Hypertension , Hx Myocardial Infarction, Hx Pacemaker/ICD, Other Cardiovascular Problems/ Disorders Respiratory History: Reports: Hx Asthma - She is using her sister's Symbicort 160/4.5--she states she is on abluterol, Hx Chronic Obstructive Pulmonary Disease (COPD) Denies: Hx Lung Cancer, Hx Pneumonia, Hx Pulmonary Embolism, Other Respiratory Problems/Disorders GI History: Reports: Hx Gall Bladder Disease Denies: Hx Gastrointestinal Bleed, Hx Ulcer, Hx Urosepsis, Other GI Disorders History: Reports: Other Problems/Disorders - OVARIAN CYST, Denies: Hx Dialysis, Hx Kidney Stones, Hx Renal Disease Musculoskeletal History: Reports: Hx Back Problems - DDD lumbar spine - uses wheelchair Denies: Other Musculoskeletal History Sensory History: Reports: Hx Contacts or Glasses Denies: Other Sensory Impairments Opthamlomology History: Reports: Hx Contacts or Glasses Denies: Other Sensory Impairments Neurological History: Reports: Hx Seizures Denies: Hx Dementia, Hx Migraine, Hx Transient Ischemic Attacks (TIA), Other Neuro Impairments/Disorders Psychiatric History: Reports: Hx Anxiety, Hx Depression - She confesses to depression--on no Rx., Hx Bipolar Disorder Denies: Hx Schizophrenia, Hx Substance Abuse, Other Psychiatric Issues/ Disorders - Surgical History Surgery Procedure, Year, and Place: GALLBLADDER OUT 2010. 2010. APPENDECTOMY. abdominal laparoscopic surgery - Immunization History Date of Tetanus Vaccine: w/in last 10 years Date of Influenza Vaccine: none Infectious Disease History: No Infectious Disease History: Denies: Hx Clostridium Difficile, Hx Hepatitis, Hx Human Immunodeficiency Virus (HIV), Hx of Known/Suspected MRSA, Hx Shingles, Hx Tuberculosis, Hx Known/ Suspected VRE, Hx Known/Suspected VRSA, History Other Infectious Disease, Traveled Outside the [place] in Last 30 Days - Family History Known Family History: Positive: Cardiac Disease, Diabetes, Other - kidney cancer - Social History Alcohol Use: Occasionally Alcohol Amount: on special occasions Hx Substance Use: No Substance Use Type: Reports: Marijuana, Prescribed Substance Use Comment - Amount & Last Used: today Hx Tobacco Use: Yes Smoking Status (MU): Heavy Every Day Tobacco Smoker Type: Cigarettes Review of Systems Positive: Other - lightheaded Positive: Syncope - seizure All Other Systems Reviewed And Are Negative: Yes Physical Exam - Summary Physical Exam Summary: VITAL SIGNS: Reviewed. GENERAL: Patient is a well-developed and nourished female who is lying comfortable in the stretcher. Patient is not in any acute respiratory distress. HEAD AND FACE: No signs of trauma. No ecchymosis, hematomas or skull depressions. No sinus tenderness. EYES: PERRLA, EOMI x 2, No injected conjunctiva, no nystagmus. EARS: Hearing grossly intact. Ear canals and tympanic membranes are within normal limits. MOUTH: Oropharynx within normal limits. NECK: Supple, trachea is midline, no adenopathy, no JVD, no carotid bruit, no c- spine tenderness, neck with full ROM. CHEST: Symmetric, no tenderness at palpation LUNGS: Clear to auscultation bilaterally. No wheezing or crackles. CVS: Regular rate and rhythm, S1 and S2 present, no murmurs or gallops appreciated. ABDOMEN: Soft, non-tender. No signs of distention. No rebound no guarding, and no masses palpated. Bowel sounds are normal. EXTREMITIES: FROM in all major joints, no edema, no cyanosis or clubbing. NEURO: Alert and oriented x 3. No acute neurological deficits. Speech is normal and follows commands. SKIN: Dry and warm GCS: 15 Triage Information Reviewed: Yes Vital Signs On Initial Exam: Initial Vitals Temp Pulse Resp BP Pulse Ox 98.1 F 91 11 141/81 99 09/10/18 19:05 09/10/18 19:05 09/10/18 19:05 09/10/18 19:05 09/10/18 19:05 Vital Signs Reviewed: Yes Diagnostics - Vital Signs Vital Signs Temp Pulse Resp BP Pulse Ox 09/10/18 19:05 98.1 F 91 11 141/81 99 - Laboratory Result Diagrams: 09/10/18 19:23 09/10/18 19:23 Lab Statement: Any lab studies that have been ordered have been reviewed, and results considered in the medical decision making process. - CT Brain CT CT Interpretation Completed By: Radiologist Summary of CT Findings: No acute intracranial pathology. ED Physician has reviewed this repot. C-Spine CT CT Interpretation Completed By: Radiologist Summary of CT Findings: No cervical spine fracture or other acute traumatic CT pathology. ED Physician has reviewed this report. - EKG 1944 Cardiac Rate: NL - 93 BPM EKG Rhythm: Sinus Rhythm Summary of EKG Findings: No ST elevations. Course/Dx Assessment/Plan: This patient is a 37-year-old female with history of seizures who presents to the emergency department with a chief complaint of having one seizure. Blood work without any significant abnormality except for magnesium 1.8, urinalysis is negative for UTI, urine toxicology negative. I decided to do a head CT since the patient reports that she hit her head and she was having a light headache and neck pain. Head CT impression: No acute intracranial pathology. C-spine CT impression: No cervical spine fracture or other acute traumatic CT pathology. In the ED course the patient is back to baseline. The patient is eating and drinking without any nausea and vomiting. I discussed my physical exam, findings and test results with Dr. Knapp who recommends to increase her Keppra to 750 twice a day. The patient shell follow-up with the primary care physician. At this point I discussed all the findings and test results with the patient. He was instructed to return to the emergency room immediately if any of the symptoms return or worsens. They understand and agree. Neurological exam before discharge: Patient is alert and oriented x 3. No acute neurological deficits. Patient vital signs are stable. Patient is to follow up with PCP in the next 2 3 days. They understand and agree. Plan of care was discussed with the patient and patient understands and agrees with the plan of care. All questions were answered at patient satisfaction. There were no further complaints or concerns. - Diagnoses Provider Diagnoses: Seizure - Physician Notifications Discussed Care of Patient With: Paolo Knapp Time Discussed With Above Provider: 20:55 Instructed by Provider To: Other - Increase Keppra to 750mg BID and to follow up with PCP Discharge - Sign-Out/Discharge Documenting (check all that apply): Patient Departure - discharge Patient Received Moderate/Deep Sedation with Procedure: No - Discharge Plan Condition: Stable Disposition: HOME Patient Education Materials: Recurrent Seizures in Adults (ED) Referrals: Christy Dowell MD [Primary Care Provider] - 3 Days Additional Instructions: Increase her Keppra to 750 mg twice a day. Follow-up with the primary care physician and her neurologist. RETURN TO THE EMERGENCY DEPARTMENT FOR CHANGING OR WORSENING SYMPTOMS. - Billing Disposition and Condition Condition: STABLE Disposition: Home - Attestation Statements Document Initiated by Scribe: Yes Documenting Scribe: Keri Malcolm Provider For Whom Scribe is Documenting (Include Credential): Bear Lorenzo MD Scribe Attestation: Keri Mason, scribed for Bear Lorenzo MD on 09/11/18 at 0745. Scribe Documentation Reviewed: Yes Provider Attestation: The documentation as recorded by the scribe, Keri Malcolm accurately reflects the service I personally performed and the decisions made by me, Bear Lorenzo MD Status of Erasto Document: Viewed
[2018-09-10 19:34] LABS: ABS Basophils 0.2 10^3/ul (0-0.2); ABS Eosinophils 0.2 10^3/ul (0-0.6); ABS Lymphocytes 3.3 10^3/ul (1.0-4.8); ABS Monocytes 0.6 10^3/ul (0-0.8); ABS Neutrophils 6.3 10^3/ul (1.5-7.7); ABS Nucleated RBC 0 10^3/ul; Eosinophil % 2.2 %; Hematocrit 41 % (33-41); Hemoglobin 13.7 g/dL (12.0-16.0); Lymphocyte % 31.3 %; Mean Corpuscular HGB Conc 34 g/dL (31-36); Mean Corpuscular Hemoglobin 31 pg (27-31); Mean Corpuscular Volume 90 fL (80-97); Mean Platelet Volume 8.5 fL (7.4-10.4); Nucleated Red Blood Cells % 0; Platelet Count 260 10^3/uL (150-450); Red Blood Count 4.48 10^6 /uL (3.70-4.87); Red Cell Distribution Width 15 % (10.5-15); White Blood Count 10.6 10^3/uL (3.5-10.8)
[2018-09-10 19:40] LABS: INR 0.98 (0.77-1.02)
[2018-09-10 19:51] LABS: ALT 32 U/L (7-52); AST 22 U/L (13-39); Albumin 4.3 g/dL (3.2-5.2); Albumin/Globulin Ratio 1.4 (1-3); Alkaline Phosphatase 71 U/L (34-104); Anion Gap 7 mmol/L (2-11); BUN/Creatinine Ratio 18.2 (8-20); Blood Urea Nitrogen 12 mg/dL (6-24); CO2 Carbon Dioxide 26 mmol/L (22-32); Calcium 9.5 mg/dL (8.6-10.3); Chloride 104 mmol/L (101-111); EGFR African American 120.6 (>60); EGFR Non-African American 99.7 (>60); Glucose 99 mg/dL (70-100); Magnesium 1.8 mg/dL (1.9-2.7); Potassium 3.8 mmol/L (3.5-5.0); Sodium 137 mmol/L (135-145); Total Protein 7.3 g/dL (6.4-8.9)
[2018-09-10 19:58] LABS: HCG Pregnancy 1.63 mIU/mL
[2018-09-10 20:10] LABS: Alcohol < 10 mg/dL (<10)
[2018-09-10 20:18] LABS: Urine Appearance Clear; Urine Bacteria Absent (Absent); Urine Bilirubin Negative (Negative); Urine Blood 1+ (Negative); Urine Color Yellow; Urine Glucose Negative (Negative); Urine Ketones Negative (Negative); Urine Nitrite Negative (Negative); Urine Protein Negative (Negative); Urine Red Blood Cell Trace(0-2/hpf) (Absent); Urine Specific Gravity 1.004 (1.010-1.030); Urine Squamous Epithelial Cell Present (Absent); Urine Urobilinogen Negative (Negative); Urine White Blood Cell Trace(0-5/hpf) (Absent)
[2018-09-10 20:27] LABS: Barbiturates Urine Screen None Detected (None Detect); Benzodiazepine Urine Screen None Detected (None Detect); Urine Cannabinoids Screen None Detected (None Detect)
[2018-09-10 21:22] VITALS: BP 123/79
== END | disposition home or self-care (01) ==
LOC: ED 18:48
DX: R56.9 Unspecified convulsions (principal); R42 Dizziness and giddiness; M54.2 Cervicalgia; Z88.8 Allergy status to other drugs, medicaments and biological substances; Z88.6 Allergy status to analgesic agent; Z91.030 Bee allergy status; Z91.040 Latex allergy status; F17.210 Nicotine dependence, cigarettes, uncomplicated
CPT/HCPCS: 36415; 70450; 71045; 72125; 80053; 80177; 80307; 80320; 81003; 81015; 83605; 83735; 84702; 85025; 85610; 87086; 93005; 99283; G0480

== ENCOUNTER 2018-10-16 14:39 | Emergency (ER) | payer OTHER ==
[2018-10-16 15:26] VITALS: BP 109/72
[2018-10-16] MEDS ORDERED: diPHENhydraMINE PO* 25 MG PO ONE (15:38)
--- NOTE | 2018-10-16 15:43 | UC ---
Skin Complaint HPI - HPI Summary HPI Summary: 37-year-old woman comes in with a chief complaint of a rash on the right side of her scalp. Started about 3 days ago and it happened right after the patient put some hair dye in her hair. It does itch. It's also been producing serous drainage. No fevers or chills. Feels well otherwise. She's tried cleaning her hair with shampoo and it doesn't seem to help at all. No prior history of shingles. Denies history of MRSA. - History of Current Complaint Chief Complaint: UCSkin Time Seen by Provider: 10/16/18 15:29 Stated Complaint: SKIN COMPLAINT Hx Last Menstrual Period: unknown Pain Intensity: 7 - Allergy/Home Medications Allergies/Adverse Reactions: Allergies Allergy/AdvReac Type Severity Reaction Status Date / Time aspirin Allergy Swelling Verified 10/16/18 15:26 Of Face,Lips,& Throat bee venom protein (honey bee) Allergy Anaphylatic Verified 10/16/18 15:26 Shock cortisone Allergy localized Verified 10/16/18 15:26 swelling at injection site Latex, Natural Rubber Allergy Unknown Verified 10/16/18 15:26 Reaction Details phenobarbital Allergy Swelling Verified 10/16/18 15:26 Of Face,Lips,& Throat PMH/Surg Hx/FS Hx/Imm Hx Previously Healthy: Yes Other History Of: Negative For: HIV, Hepatitis B, Hepatitis C, Anticoagulant Therapy - Surgical History Surgical History: Yes Surgery Procedure, Year, and Place: GALLBLADDER OUT 2010. 2010. APPENDECTOMY. abdominal laparoscopic surgery - Family History Known Family History: Positive: Cardiac Disease, Diabetes, Other - kidney cancer - Social History Alcohol Use: Occasionally Alcohol Amount: on special occasions Substance Use Type: Marijuana Substance Use Comment - Amount & Last Used: occasionally Smoking Status (MU): Heavy Every Day Tobacco Smoker Type: Cigarettes Household Exposure Type: Cigarettes - Immunization History Most Recent Influenza Vaccination: never Most Recent Tetanus Shot: up to date Most Recent Pneumonia Vaccination: never Review of Systems All Other Systems Reviewed And Are Negative: Yes Constitutional: Positive: Negative Skin: Positive: Other - SEE HPI ENT: Positive: Negative Respiratory: Positive: Negative Cardiovascular: Positive: Negative Gastrointestinal: Positive: Negative Motor: Positive: Negative Neurovascular: Positive: Negative Musculoskeletal: Positive: Negative Neurological: Positive: Negative Psychological: Positive: Negative Is Patient Immunocompromised?: No Physical Exam Triage Information Reviewed: Yes Appearance: Well-Appearing, No Pain Distress, Well-Nourished Vital Signs: Initial Vital Signs Temp 98.7 F 10/16/18 15:20 Pulse 94 10/16/18 15:20 Resp 16 10/16/18 15:20 BP 109/72 10/16/18 15:20 Pulse Ox 99 10/16/18 15:20 Vital Signs Reviewed: Yes Eye Exam: Normal Eyes: Positive: Conjunctiva Clear ENT: Positive: TMs normal Neck: Positive: Supple Respiratory: Positive: No respiratory distress Musculoskeletal Exam: Normal Musculoskeletal: Positive: Strength Intact, ROM Intact Neurological Exam: Normal Neurological: Positive: Alert, Muscle Tone Normal Psychological Exam: Normal Psychological: Positive: Age Appropriate Behavior Skin: Positive: Other - On the right side of the scalp on the right side of the scalp there is an erythematous rash with vesicles draining serous fluid. There is underlying soft tissue swelling. The eardrum and that side is normal. Do not see any rash that is not in the hairline. There is no rash on the left side of the scalp. Course/Dx - Course Course Of Treatment: The rash having appeared right after the application of the hair dye is suspicious for contact dermatitis and therefore. With prednisone. With the rashes being on one side is also suspicion for potential shingles therefore I'm treating with valacyclovir. With the drainage and the crusting we'll also use an antibiotic and case there is a superficial arterial infection. Patient to follow-up with her primary care doctor and/or dermatology if not completely improved. - Diagnoses Provider Diagnosis: Rash Discharge - Sign-Out/Discharge Documenting (check all that apply): Patient Departure All imaging exams completed and their final reports reviewed: No Studies - Discharge Plan Condition: Stable Disposition: HOME Prescriptions: DOXYcycline CAP(*) [DOXYcycline 100MG CAP(*)] 100 mg PO BID #20 cap predniSONE TAB* [Deltasone TAB*] 50 mg PO DAILY #5 tab Valacyclovir HCl [Valacyclovir] 1 gm PO TID #21 tab Patient Education Materials: Shingles (ED), Acute Rash (ED), Dermatitis (ED) Referrals: Christy Dowell MD [Primary Care Provider] - Washington Huggins MD [Medical Doctor] - Additional Instructions: FOLLOW UP WITH YOUR PRIMARY CARE DOCTOR OR DERMATOLOGY IF NOT COMPLETELY IMPROVED. GET REEVALUATED SOONER IF YOUR CONDITION WORSENS OR ANY QUESTIONS OR CONCERNS. - Billing Disposition and Condition Condition: STABLE Disposition: Home
== END 2018-10-16 16:05 | disposition home or self-care (01) ==
LOC: UCEAST 14:39
DX: R21 Rash and other nonspecific skin eruption (principal); Z88.8 Allergy status to other drugs, medicaments and biological substances; Z88.6 Allergy status to analgesic agent; Z91.030 Bee allergy status; Z91.040 Latex allergy status; F17.210 Nicotine dependence, cigarettes, uncomplicated
CPT/HCPCS: 99212; A9270-GY; G0463

== ENCOUNTER → 2018-11-06 13:35 | Emergency (ER) | payer OTHER ==
[~2018-11-06 13:35] MED LIST changes: +Acetaminophen TAB* 325 MG PO ONE; -Gabapentin CAP(*) 300 MG PO ONE; -Gabapentin TAB(NF) 600 MG PO ONE; -Magnesium Oxide TAB* 400 MG PO ONE; -oxyCODONE/Acetamin 5/325 MG* TAB PO ONE
--- NOTE | 2018-11-06 13:54 | ED ---
Neurological HPI - HPI Summary HPI Summary: Patient is a 38 y/o F presenting to ED via EMS after reported witnessed seizure. Patient was at the [facility] today in the bathroom when she became nauseous, vomited, and experienced onset of a seizure. Patient states that she fell and at present reports lower back pain and left leg pain. She also endorses head injury. Worker at the [facility] witnessed the seizure , EMS was called. Patient's male renal dialysis rn, who is present in the room, claims that the patient has had two seizures today and one two days ago. Patient has been prescribed Keppra but states that she has not been taking this medication for over a month because, "they werent working and were giving me really bad side effects that I dont like". She states that she experiences increased mood swings and also claims that she experiences more seizures when she takes Keppra. Patient additionally states that she has been prescribed gabapentin and dilantin with minimal effectiveness. However, she also claims that she does not have a regular neurologist. Patient states that she had been prescribed her medications by the neurologist she had seen in ED and that she cannot get in to see a neurologist as she does not have a referral and because "they don't take my medicaid insurance". Patient is A&Ox3 in the room. PMHx of asthma, COPD, gall bladder disease, ovarian cyst, DDD lumbar spine, seizures, anxiety, depression, bipolar disorder. PSHx of cholecystectomy, appendectomy, abdominal laparoscopic surgery. FMHx of cardiac disease, diabetes, and kidney cancer. Patient is a daily smoker, uses marijuana, and drinks alcohol occasionally. On triage, pain is rated 10/10, nothing is noted to aggravate/alleviate Sx. Home medications and allergies are reviewed. - History of Current Complaint Chief Complaint: EDSeizure Stated Complaint: SEIZURE , BACK PAIN, LEG PAIN, PER PT Time Seen by Provider: 11/06/18 13:43 Hx Obtained From: Patient Hx Last Menstrual Period: unknown Onset/Duration: Started hours ago - 2 seizures today, Started days ago - one seizure two days ago, Resolved Timing: Intermittent Episodes Lasting: Current Severity: Severe - 10/10 pain Pain Intensity: 10 Pain Scale Used: 0-10 Numeric - 10/10 Character: Other: - seizure Syncope Context: Witnessed Frequency: Episodes x___ - 2 today, 1 two days ago Aggravating: Nothing Alleviating: Nothing Associated Signs and Symptoms: Positive: Seizure, Nausea/Vomiting - Allergy/Home Medications Allergies/Adverse Reactions: Allergies Allergy/AdvReac Type Severity Reaction Status Date / Time aspirin Allergy Swelling Verified 10/16/18 15:26 Of Face,Lips,& Throat bee venom protein (honey bee) Allergy Anaphylatic Verified 10/16/18 15:26 Shock cortisone Allergy localized Verified 10/16/18 15:26 swelling at injection site Latex, Natural Rubber Allergy Unknown Verified 10/16/18 15:26 Reaction Details phenobarbital Allergy Swelling Verified 10/16/18 15:26 Of Face,Lips,& Throat PMH/Surg Hx/FS Hx/Imm Hx Endocrine/Hematology History: Denies: Hx Anticoagulant Therapy, Hx Diabetes, Hx Thyroid Disease, Other Endocrine/Hematological Disorders Cardiovascular History: Denies: Hx Congestive Heart Failure, Hx Deep Vein Thrombosis, Hx Hypertension , Hx Myocardial Infarction, Hx Pacemaker/ICD, Other Cardiovascular Problems/ Disorders Respiratory History: Reports: Hx Asthma - She is using her sister's Symbicort 160/4.5--she states she is on abluterol, Hx Chronic Obstructive Pulmonary Disease (COPD) Denies: Hx Lung Cancer, Hx Pneumonia, Hx Pulmonary Embolism, Other Respiratory Problems/Disorders GI History: Reports: Hx Gall Bladder Disease Denies: Hx Gastrointestinal Bleed, Hx Ulcer, Hx Urosepsis, Other GI Disorders History: Reports: Other Problems/Disorders - OVARIAN CYST, Denies: Hx Dialysis, Hx Kidney Stones, Hx Renal Disease Musculoskeletal History: Reports: Hx Back Problems - DDD lumbar spine - uses wheelchair Denies: Other Musculoskeletal History Sensory History: Reports: Hx Contacts or Glasses Denies: Other Sensory Impairments Opthamlomology History: Reports: Hx Contacts or Glasses Denies: Other Sensory Impairments Neurological History: Reports: Hx Seizures Denies: Hx Dementia, Hx Migraine, Hx Transient Ischemic Attacks (TIA), Other Neuro Impairments/Disorders Psychiatric History: Reports: Hx Anxiety, Hx Depression - She confesses to depression--on no Rx., Hx Bipolar Disorder Denies: Hx Schizophrenia, Hx Substance Abuse, Other Psychiatric Issues/ Disorders - Surgical History Surgery Procedure, Year, and Place: GALLBLADDER OUT 2010. 2010. APPENDECTOMY. abdominal laparoscopic surgery - Immunization History Date of Tetanus Vaccine: w/in last 10 years Date of Influenza Vaccine: none Infectious Disease History: No Infectious Disease History: Denies: Hx Clostridium Difficile, Hx Hepatitis, Hx Human Immunodeficiency Virus (HIV), Hx of Known/Suspected MRSA, Hx Shingles, Hx Tuberculosis, Hx Known/ Suspected VRE, Hx Known/Suspected VRSA, History Other Infectious Disease, Traveled Outside the [place] in Last 30 Days - Family History Known Family History: Positive: Cardiac Disease, Diabetes, Other - kidney cancer - Social History Alcohol Use: Occasionally Alcohol Amount: on special occasions Hx Substance Use: No Substance Use Type: Reports: Marijuana Substance Use Comment - Amount & Last Used: occasionally Hx Tobacco Use: Yes Smoking Status (MU): Heavy Every Day Tobacco Smoker Type: Cigarettes Review of Systems Positive: Vomiting, Nausea Musculoskeletal: Other - POSITIVE - LOWER BACK PAIN, LEFT LEG PAIN Neurological: Other - POSITIVE - SEIZURE, HEAD INJURY All Other Systems Reviewed And Are Negative: Yes Physical Exam - Summary Physical Exam Summary: Appearance: The patient is well-nourished in no acute distress and in no acute pain. Skin: The skin is warm and dry and skin color reflects adequate perfusion. HEENT: The head is normocephalic and atraumatic. The pupils are equal and reactive. The conjunctivae are clear and without drainage. Nares are patent and without drainage. Mouth reveals moist mucous membranes and the throat is without erythema and exudate. The external ears are intact. The ear canals are patent and without drainage. The tympanic membranes are intact. Neck: The neck is supple with full range of motion and non-tender. There are no carotid bruits. There is no neck vein distension. Respiratory: Chest is non-tender. Lungs are clear to auscultation and breath sounds are symmetrical and equal. Cardiovascular: Heart is regular rate and rhythm. There is no murmur or rub auscultated. There is no peripheral edema and pulses are symmetrical and equal. Abdomen: The abdomen is soft and non-tender. There are normal bowel sounds heard in all four quadrants and there is no organomegaly palpated. Musculoskeletal: There is no back tenderness noted. Extremities are non-tender with full range of motion. There is good capillary refill. There is no peripheral edema or calf tenderness elicited. Neurological: Patient is alert and oriented to person, place and time. The patient has symmetrical motor strength in all four extremities. Cranial nerves are grossly intact. Deep tendon reflexes are symmetrical and equal in all four extremities. GCS 15, no neurological deficits. Psychiatric: The patient has an appropriate affect and does not exhibit any anxiety or depression. Triage Information Reviewed: Yes Vital Signs On Initial Exam: Initial Vitals Temp Pulse Resp BP Pulse Ox 98.8 F 115 16 96/67 97 11/06/18 13:42 11/06/18 13:42 11/06/18 13:42 11/06/18 13:42 11/06/18 13:42 Vital Signs Reviewed: Yes Diagnostics - Vital Signs Vital Signs Temp Pulse Resp BP Pulse Ox 11/06/18 13:42 98.8 F 115 16 96/67 97 - Laboratory Result Diagrams: 11/06/18 15:16 11/06/18 15:16 Lab Statement: Any lab studies that have been ordered have been reviewed, and results considered in the medical decision making process. Re-Evaluation - Re-Evaluation First Eval Re-Evaluation Time: 17:11 Comment: Patient states that she wants to be discharged to home. Results of labs and tests were discussed with patient. She will be discharged to home. Course/Dx - Course Course Of Treatment: Ms. Winn presents complaining of a few seizures in the last couple of days. She is very vague about her seizure history but admits that she is not taking her Keppra because she believes that it makes her have more seizures and mood swings. She has no complaint when I see her. She was not incontinent nor did she bite her tongue. She was very slightly tachycardic on presentation. Her labs are good and she remained stable here in the department. We are still waiting for a test but the analyzer has broken down. She is unwilling to stay any longer and spurring my concerns that her tachycardia has gotten worse. I would like to try to get a referral to a neurologist but in the meantime she is referred to [facility] to try to get her some stability in care. - Diagnoses Provider Diagnoses: Seizure Discharge - Sign-Out/Discharge Documenting (check all that apply): Patient Departure - discharge Patient Received Moderate/Deep Sedation with Procedure: No - Discharge Plan Condition: Stable Disposition: HOME Patient Education Materials: Recurrent Seizures in Adults (ED) Referrals: Christy Dowell MD [Primary Care Provider] - 2 Days [facility] [Outside] - 2 Days Hernán Bill MD [Medical Doctor] - 2 Days Additional Instructions: RETURN TO ED FOR ANY NEW OR WORSENING SYMPTOMS. FOLLOW UP WITH NEUROLOGIST AND YOUR PRIMARY CARE PHYSICIAN WITHIN TWO DAYS. - Billing Disposition and Condition Condition: STABLE Disposition: Home - Attestation Statements Document Initiated by Erasto: Yes Documenting Scribe: CHAPINCITO AUSTIN Provider For Whom Erasto is Documenting (Include Credential): SOCORRO HEBERT MD Scribe Attestation: CHAPINCITO Mason, scribed for SOCORRO HEBERT MD on 11/06/18 at 1735. Scribe Documentation Reviewed: Yes Provider Attestation: The documentation as recorded by the CHAPINCITO sharma accurately reflects the service I personally performed and the decisions made by me, SOCORRO HEBERT MD Status of Scribe Document: Viewed
[2018-11-06 15:28] LABS: ABS Eosinophils 0.1 10^3/ul (0-0.6); ABS Lymphocytes 1.6 10^3/ul (1.0-4.8); ABS Monocytes 0.6 10^3/ul (0-0.8); ABS Neutrophils 3.1 10^3/ul (1.5-7.7); Eosinophil % 1.5 %; Hematocrit 42 % (35-47); Hemoglobin 13.9 g/dL (12.0-16.0); Lymphocyte % 29.7 %; Mean Corpuscular HGB Conc 33 g/dL (31-36); Mean Corpuscular Hemoglobin 30 pg (27-31); Mean Corpuscular Volume 92 fL (80-97); Mean Platelet Volume 8.3 fL (7.4-10.4); Platelet Count 221 10^3/uL (150-450); Red Blood Count 4.58 10^6 /uL (3.70-4.87); Red Cell Distribution Width 15 % (10.5-15); White Blood Count 5.4 10^3/uL (3.5-10.8)
[2018-11-06 15:43] LABS: INR 1.14 (0.82-1.09)
[2018-11-06 16:17] LABS: Albumin 4.1 g/dL (3.2-5.2); Anion Gap 7 mmol/L (2-11); CO2 Carbon Dioxide 25 mmol/L (22-32); Calcium 9.6 mg/dL (8.6-10.3); Chloride 107 mmol/L (101-111); Magnesium 1.9 mg/dL (1.9-2.7); Potassium 4.1 mmol/L (3.5-5.0); Sodium 139 mmol/L (135-145)
[2018-11-06 16:17] LABS: Urine Appearance Cloudy; Urine Bacteria Absent (Absent); Urine Bilirubin Negative (Negative); Urine Blood 2+ (Negative); Urine Color Yellow; Urine Glucose Negative (Negative); Urine Ketones Negative (Negative); Urine Nitrite Negative (Negative); Urine Protein Negative (Negative); Urine Red Blood Cell 1+(3-5/hpf) (Absent); Urine Specific Gravity 1.021 (1.010-1.030); Urine Squamous Epithelial Cell Present (Absent); Urine Urobilinogen Negative (Negative); Urine White Blood Cell 1+(6-10/hpf) (Absent)
[2018-11-06 16:18] LABS: ALT 23 U/L (7-52); AST 19 U/L (13-39); Albumin/Globulin Ratio 1.3 (1-3); Alkaline Phosphatase 65 U/L (34-104); BUN/Creatinine Ratio 17.9 (8-20); Blood Urea Nitrogen 12 mg/dL (6-24); EGFR Non-African American 97.5 (>60); Globulin 3.1 g/dL (2-4); Glucose 96 mg/dL (70-100); Total Protein 7.2 g/dL (6.4-8.9)
[2018-11-06 16:53] LABS: Alcohol < 10 mg/dL (<10)
[2018-11-06 17:04] LABS: Urine Benzodiazepine Screen None Detected (None Detect); Urine Opiates Screen None Detected (None Detect)
[2018-11-06 17:16] VITALS: BP 115/75
== END | disposition home or self-care (01) ==
LOC: ED 13:35
DX: R56.9 Unspecified convulsions (principal); J44.9 Chronic obstructive pulmonary disease, unspecified; F41.9 Anxiety disorder, unspecified; F31.9 Bipolar disorder, unspecified; F17.210 Nicotine dependence, cigarettes, uncomplicated; N83.209 Unspecified ovarian cyst, unspecified side; M51.36 Other intervertebral disc degeneration, lumbar region; Z88.6 Allergy status to analgesic agent; Z88.8 Allergy status to other drugs, medicaments and biological substances; Z91.040 Latex allergy status
CPT/HCPCS: 36415; 80053; 80307; 80320; 81003; 81015; 83605; 83735; 84702; 85025; 85610; 87086; 99282; A9270-GY; G0480

== ENCOUNTER → 2019-01-15 10:59 | Emergency (ER) | payer OTHER ==
[2019-01-15 11:02] VITALS: BP 148/117
--- OUTSIDE RECORDS SUMMARY | 2019-01-15 11:36 | XMS REPORT | Continuity of Care Document ---
:1980 Author Organization [facility] Address [address], [place] [id number] Phone Care Team Providers Name Role Phone Keri Portillo NP Unavailable Unavailable Allergies, Adverse Reactions, Alerts Substance Reaction Status bee venom protein (honey bee) Active cortisone (severe) Active phenobarbital (severe) Active aspirin Hives/Skin Rash Active Medications Medication Instructions Dosage Effective Dates Status Comments (start - stop) Provera 10 mg take 1 tablet by - Active tablet oral route every day for 5 days 28 mg Take one tablet - Active iron-800 mcg daily tablet QVAR REDIHALER Not Available - Active (unknown strength) Problems Condition Effective Dates (start Clinical Status Comments - stop) Human immunodeficiency virus - [HIV] counseling Irregular menstruation, unspecified Encounter for test, result negative Moderate cervical dysplasia Cervical high risk HPV DNA test positive Moderate cervical dysplasia Acute vaginitis Encounter for surveillance of injectable contraceptive Encounter for surveillance of injectable contraceptive Encounter for test, result negative Encounter for surveillance of injectable contraceptive Adverse effect of oth estrogens and progestogens, init Pelvic and perineal pain Irregular menstruation, unspecified Moderate cervical dysplasia Atyp squam cell not excl hi grd intrepith lesn cyto smr crvx Atyp squam cell not excl hi grd intrepith lesn cyto smr crvx Atyp squam cell not excl hi grd intrepith lesn cyto smr crvx Cervical high risk HPV DNA test positive Disorder of the skin and subcutaneous tissue, unspecified Encounter for surveillance of injectable contraceptive Encounter for surveillance of injectable contraceptive Encounter for test, result negative Encntr for staff development nurse exam (general) (routine) w/o abn findings Encounter for oth screening for malignant neoplasm of breast Encounter for surveillance of injectable contraceptive Encounter for test, result negative Encounter for prescription of emergency contraception Encounter for initial prescription of injectable contracep Encntr screen for infections w sexl mode of transmiss Encounter for oth general cnsl and advice on contraception RhD positive - Active Endometriosis (clinical) - Active Laparoscopy 2013 Procedures Procedure Date No information Results Test Name Date and Time Measure Units Reference Range Abnormal Flag Status Comments No information Advance Directives Directive Yes / No Effective Date File Name No information Encounters Encounter Practice Location Reason(s) Diagnoses Date Provider Providers Description For Visit Copied on Encounter [facility] Nov- [facility] . [facility] [address] [place], [address] [place], , [place], [place], [address]. [id number], tel:[phone] tel:[phone] [facility] Human October- [facility]. Provider: [facility] virus [HIV] [address] counselingIrregular [place] Joseluis J, [facility], [address] [place] unspecifiedEncounte [place], [place] [address], [place], [place], [place], [place], [place], test, [place] [address], [place], [address]. [id number], negative [place]. tel:+[phone] [place] tel:[phone] tel:[phone] [facility] Moderate [facility]ervical . [facility] high risk HPV DNA [address] test positive [place] [facility], [address] [place], St, [place], [place], [address]. [id number], tel:[phone] [place] [phone] tel:[phone] [facility] Moderate cervical Jan- [facility] dysplasiaAcute [place]. [facility] vaginitis [address] [place], [address] [place], St, [place], [address]. [id number], tel:+ [place] [phone] tel:[phone] [facility] Encounter for Dec- White Referring [facility] [place] surveillance of 0-201 Yumi. Provider: [facility] injectable [address] contraceptive [place], [place], [address], [address] [place], [place] [address], [address], [place], [place], [place], [address], [place], [address]. [id number], [place]. tel:+ [place] [phone] tel:[phone] [facility] Encounter for October- White Referring [facility] [place] surveillance of 3-201 Yumi. Provider: [facility] injectable [address] contraceptive [place], [place], [address], [address] [place], [place] [address], [address], [place], [place], [place], [address], [place], [address]. [id number], [place]. tel: [place] [phone] tel:+ [facility] [phone] Provider: [place]SE [place] [facility] Encounter for Jul- Borglum [facility]erring [facility] [place] test, . Provider: [facility] result 7 [address] negativeEncounter [place], [place], [address], [address] [place] injectable [place], [place] [address], St, [place], contraceptiveAdvers [place], [place], [place] [address], [place], [address]. [id number], estrogens and [place]. tel:+60 [place] progestogens, tel: [phone] tel:+[phone] initPelvic and [phone] perineal painIrregular menstruation, unspecified [facility] Moderate cervical Jun- [facility] dysplasia 0-. [facility] 7 [address] [place], [address] [place], St, [place], [address]. [id number], tel:+[phone] [place] [phone] tel:[phone] [facility] Atyp squam cell not Jun-2 [facility] [place] excl hi grd Decia. [facility] intrepith lesn cyto [address] smr crvx [place], [address] [place], St, [place], [address]. [id number], tel:[phone] [place] [phone] tel:[phone] [facility] Atyp squam cell not Fabricio-2 [facility] [place] excl hi grd Decia. [facility] intrepith lesn cyto 7 [address] smr crvx [place], [address] [place], St, [place], [address]. [id number], tel:[phone] [place] [phone] tel:[phone] [facility] Atyp squam cell not Jun-0 [facility] [place] excl hi grd Decia. [facility] intrepith lesn cyto 7 [address] smr crvxCervical [place] [facility], [address] [place] test [place], , [place], positiveDisorder [place], the skin [place] [address]. [id number], subcutaneous tel:+[phone] [place] tissue, unspecified [id number] tel:[phone] [facility] Encounter for [place]- Referring [facility] [place] surveillance of [address] [place] Provider: [facility] injectable 6 [place]. [address] contraceptive [address], [place], [address] [place] [address] [place] [address], [place] [address], St, [place], [place], [place], [address]. [id number], [address]. tel:+[phone] [place] tel:[phone] tel:[phone] sulting [phone] Provider: [place]SE [place] [facility] Encounter for White Referring [facility] [place] surveillance of Yumi. Provider: [facility] injectable 6 [address] contraceptive [place], [place], [address], [address] [place], [place] [address], [address], [place], [place], [place], [address], [place], [address]. [id number], [place]. tel:[phone] [place] [phone] tel:+ sulting [phone] Provider: [facility]SE [place] [facility] Encounter for [facility] [place] test, Yumi. [facility] result [address] negativeEncntr for [place], [address] staff development nurse exam (general) St, W [place] (routine) w/o abn [place], , [place], findingsEncounter [place], [place], for oth screening [address], [id number], for malignant [place]. [place] neoplasm of tel:[phone] breastEncounter for [phone] surveillance of injectable contraceptive [facility] Encounter for [place]- Referring Parenthood [place] test, [place] Provider: [facility] result 6 [place]. [place] negativeEncounter [address], [facility], [address] for prescription of [place] [address] [place] [address], [place] [address], St, [place], contraceptionEncoun [place], [place], [place], [place], [address]. [id number], [place] [address]. tel:+[phone] [place] injectable tel: [phone] tel:[phone] contracepEncntr [phone] screen for infections w sexl mode of transmissEncounter for oth general cnsl and advice on contraception Family History Family Member Diagnosis Age At Onset Mother Diabetes mellitus 1st degree relative No hx of venous thromboembolism 1st degree relative No hx of osteoporosis Mother Cardiovascular disease (Cause Of ) 66 Mother No history of Stroke before age 65 1st degree relative No hx of coronary heart disease (female <65, male <55) Father No history of Myocardial infarction before age 55 Mother No history of Myocardial infarction before age 65 1st degree relative No hx of cancer of breast, colon, endometrium or ovary Father No history of Stroke before age 55 Immunizations Vaccine Date Status Comments No information Payers Payer name Insurance type Covered alliance party ID Authorization(s) No information Social History Type Description Quantity Date Captured Comments Alcohol Use Details Unknown Caffeine Use Details Unknown Tobacco Use Status Smoking Status Heavy tobacco smoker Sex Female Vital Signs Date / Height Weight BMI Pulse Blood Temperature Respiratory Body Head BMI Pulse Inhaled Time: Rate Pressure Rate Surface Circumference percentile Ox Ox Area No information Chief Complaint And Reason For Visit No information Reason For Referral Reason For Referral No information Plan Of Treatment Date Type Action Status Goal Tobacco cessation counseling completed Goal Tobacco cessation counseling completed Goal Tobacco cessation counseling completed Referral Ordered: ordered [facility] (related to Moderate cervical dysplasia) Referral Ordered: ordered [facility] (related to Moderate cervical dysplasia) Referral Referred To: ordered [id number] Ordered: Referrals: [facility]. Evaluate and treat History Of Present Illness Encounter Date Complaint History Of Present Illness No information Functional Status Date Functional Assessment No information Medications Administered Medication Instructions Dosage Effective Dates (start - stop) Status Comments No information Instructions Date Instruction Additional Information No information Assessments Type Assessment Date No information Goals Health Concern Goal Type Priority Status Date No information Medical Equipment Description Device [place] Device Identifier Effective Dates (start - stop ) Status No information Mental Status Date Cognitive Assessment No information Health Concerns Observation Date No information Concern Status Date No information
--- OUTSIDE RECORDS SUMMARY | 2019-01-15 11:36 | XMS REPORT | Continuity of Care Document ---
:1980 Author Organization [facility] Address [address] [place] [address], [place] [id number] Phone Care Team Providers Name Role Phone Alondra Huggins NP Unavailable Unavailable Allergies, Adverse Reactions, Alerts [...] Encounter for test, result negative Encntr for hat sizer exam (general) (routine) w/o abn findings Encounter [...] For Visit Copied on Encounter [facility] [place] issa. Southern [address] [place], [address] [place], , [place], [address], [id number], [place]. [place] tel:+ tel:+ [phone] [facility] Human Joseluis [facility]erring [facility] [place] immunodeficiency issa. Provider: [facility] virus [HIV] [address] counselingIrregular [place] Jos[place]uis J, [facility], [address] [place] unspecifiedEncounte [place], [place] [address], St, [place], [place] for [place], [place], [place], [place], [place] [address], [place], [address]. [id number], negative [place]. tel:+60 [place] tel:+ [phone] tel:+ [phone] [facility] Moderate cervical Jan- [facility] dysplasiaCervical Decia. [facility] high risk HPV DNA [address] test positive [place], [address] [place], St, [place], [address]. [id number], tel:+ [place] [phone] tel:[phone] [facility] Moderate cervical Jan- [facility] dysplasiaAcute Decia. [facility] vaginitis [address] [place], [address] [place], St, [place], [address]. [id number], tel:+ [place] [phone] tel:[phone] [facility] Encounter for Dec- White [facility]erring [facility] [place] surveillance of 0-201 Yumi. Provider: [facility] injectable 7 [address] contraceptive [place], [place], [address], [address] [place], [place] [address], St, [place], [place], [place], [address], [place], [address]. [id number], [place]. tel:[phone] [place] [phone] tel:[phone] [facility] Encounter for October-0 White Referring [facility] [place] surveillance of 3- Yumi. Provider: [facility] injectable 7 [address] contraceptive [place], [place], [address], [address] [place], [place] [address], St, [place], [place], [place], [address], [place], [address]. [id number], [place]. tel: [place] [phone] tel:[phone] [facility] [phone] Provider: NURSE [place] [facility]. [facility] Encounter for Jul- Borglum [facility]erring [facility] [place] test, Yadira. Provider: [facility] result 7 [address] negativeEncounter [place], [place], [address], [address] [place] injectable [place], [place] [address], St, [place], contraceptiveAdvers [place], [place], [place] [address], [place], [address]. [id number], estrogens and [place]. tel:+60 [place] progestogens, tel: [phone] tel:[phone] initPelvic and [phone] perineal painIrregular menstruation, unspecified [facility] Moderate cervical Jun-3 [facility] [place] dysplasia 0-. Southern 7 [address] [place], [address], [address] [place], St, [place], [address]. [id number], tel:[phone] [place] [phone] tel:[phone] [facility] Atyp squam cell not Jun-2 [facility] [place] excl hi grd Keri. [place] intrepith lesn cyto 7 [address] smr crvx [place], [address], [address] [place], St, [place], [address]. [id number], tel:[phone] [place] [phone] tel:[phone] [facility] Atyp squam cell not Fabricio-2 [facility] [place] excl hi grd Keri. [place] intrepith lesn cyto 7 [address] smr crvx [place], [address], [address] [place], St, [place], [address]. [id number], tel:[phone] [place] [phone] tel:[phone] [facility] Atyp squam cell not Fabricio-0 [facility] [place] excl hi grd Keri. [place] intrepith lesn cyto 7 [address] smr crvxCervical [place], [address] [place] test [place], , [place], positiveDisorder [place], the skin [place] [address]. [id number], subcutaneous tel:+160 [place] tissue, unspecified [id number] tel:[phone] [facility] Encounter for Goodreau- Referring [facility] [place] surveillance of [address] [place] Provider: [facility] injectable 6 Sueane. [address] contraceptive [address] [place], [place], [address] [place] [address] [place] [address], [place] [address], St, [place], [place], [place], [address]. [id number], [address]. tel:+[phone] [place] tel:[phone] tel:[phone] sulting [phone] Provider: NURSE [place] [facility]. [facility] Encounter for White Referring [facility] [place] surveillance of Yumi. Provider: [facility] injectable 6 [address] contraceptive [place], [place], [address], [address] [place], [place] [address], St, [place], [place], [place], [address], [place], [address]. [id number], [place]. tel:[phone] [place] [phone] tel:[phone] sulting [phone] Provider: NURSE [place] [facility]. [facility] Encounter for [facility] [place] test, Yumi. Southern result 6 [address] negativeEncntr for [place], 620 hat sizer exam (general) St, W [place] (routine) w/o abn [place], , [place], findingsEncounter [place], for oth screening [id number], [id number], for malignant [place]. [place] neoplasm of tel:[phone] breastEncounter for [phone] surveillance of injectable contraceptive [facility] Encounter for Goodreau- Referring [facility] [place] test, [place] Provider: [facility] result 6 Sueane. [address] negativeEncounter [address] [place], [facility], [address] for prescription of [place] [address] [place] [address], [place] [address], St, [place], contraceptionEncoun [place], [place], [place], [address]. [id number], [place] [address]. tel:+[phone] [place] injectable tel:+ [phone] tel:+[phone] contracepEncntr [id number] screen for infections w sexl mode of [...] information Payers Payer name Insurance type Covered green party ID Authorization(s) No information Social History [...] Tobacco cessation counseling completed Referral Ordered: ordered Lead Painter (related to Moderate cervical dysplasia) Referral Ordered: ordered Lead Painter (related to Moderate cervical dysplasia) Referral Referred To: ordered [id number] Ordered: Referrals: Lead Painter. Evaluate and treat History Of Present Illness [...] Date No information Medical Equipment Description Device Reading Device Identifier Effective Dates (start - stop ) Status No information Mental Status Date Cognitive Assessment No information Health Concerns Observation Date No information Concern Status Date No information
== END | disposition left against medical advice (07) ==
LOC: ED 10:59
DX: Z53.21 Procedure and treatment not carried out due to patient leaving prior to being seen by health care provider (principal)
CPT/HCPCS: 99281

== ENCOUNTER 2019-04-26 13:20 | Emergency (ER) | payer OTHER ==
[2019-04-26] MEDS ORDERED: Ketorolac *IM* INJ* 60 MG/2 ML VIAL IM ONE (13:46)
[2019-04-26] MEDS ORDERED: Penicillin VK TAB* 250 MG PO ONE (13:46)
--- NOTE | 2019-04-26 13:47 | ED ---
Complex/Multi-Sys Presentation - HPI Summary HPI Summary: Pt. is a 38 y.o female who presents to the ER with complaints of left sided dental pain x several days. Pt. denies fever, facial swelling or vomiting. Pt. notes that she has a hx of "seizures" and notes she is working with her family doctor to find a seizure medication that works for her. Pt. states that the previous seizure medications she has been tried on have increased her seizure. Sxs are mild in severity. NO current modifying factors. Pt. noted to be seen in ED frequently for seizure like activity. - History Of Current Complaint Chief Complaint: EDSeizure Time Seen by Provider: 04/26/19 13:27 Hx Obtained From: Patient - Allergies/Home Medications Allergies/Adverse Reactions: Allergies Allergy/AdvReac Type Severity Reaction Status Date / Time aspirin Allergy Swelling Verified 10/16/18 15:26 Of Face,Lips,& Throat bee venom protein (honey bee) Allergy Anaphylatic Verified 10/16/18 15:26 Shock cortisone Allergy localized Verified 10/16/18 15:26 swelling at injection site Latex, Natural Rubber Allergy Unknown Verified 10/16/18 15:26 Reaction Details phenobarbital Allergy Swelling Verified 10/16/18 15:26 Of Face,Lips,& Throat PMH/Surg Hx/FS Hx/Imm Hx Endocrine/Hematology History: Denies: Hx Anticoagulant Therapy, Hx Diabetes, Hx Thyroid Disease, Other Endocrine/Hematological Disorders Cardiovascular History: Denies: Hx Congestive Heart Failure, Hx Deep Vein Thrombosis, Hx Hypertension , Hx Myocardial Infarction, Hx Pacemaker/ICD, Other Cardiovascular Problems/ Disorders Respiratory History: Reports: Hx Asthma - She is using her sister's Symbicort 160/4.5--she states she is on abluterol, Hx Chronic Obstructive Pulmonary Disease (COPD) Denies: Hx Lung Cancer, Hx Pneumonia, Hx Pulmonary Embolism, Other Respiratory Problems/Disorders GI History: Reports: Hx Gall Bladder Disease Denies: Hx Gastrointestinal Bleed, Hx Ulcer, Hx Urosepsis, Other GI Disorders History: Reports: Other Problems/Disorders - OVARIAN CYST, Denies: Hx Dialysis, Hx Kidney Stones, Hx Renal Disease Musculoskeletal History: Reports: Hx Back Problems - DDD lumbar spine - uses wheelchair Denies: Other Musculoskeletal History Sensory History: Reports: Hx Contacts or Glasses Denies: Other Sensory Impairments Opthamlomology History: Reports: Hx Contacts or Glasses Denies: Other Sensory Impairments Neurological History: Reports: Hx Seizures Denies: Hx Dementia, Hx Migraine, Hx Transient Ischemic Attacks (TIA), Other Neuro Impairments/Disorders Psychiatric History: Reports: Hx Anxiety, Hx Depression - She confesses to depression--on no Rx., Hx Bipolar Disorder Denies: Hx Schizophrenia, Hx Substance Abuse, Other Psychiatric Issues/ Disorders - Surgical History Surgery Procedure, Year, and Place: GALLBLADDER OUT 2010. 2010. APPENDECTOMY. abdominal laparoscopic surgery - Immunization History Date of Tetanus Vaccine: w/in last 10 years Date of Influenza Vaccine: none Infectious Disease History: No Infectious Disease History: Denies: Hx Clostridium Difficile, Hx Hepatitis, Hx Human Immunodeficiency Virus (HIV), Hx of Known/Suspected MRSA, Hx Shingles, Hx Tuberculosis, Hx Known/ Suspected VRE, Hx Known/Suspected VRSA, History Other Infectious Disease, Traveled Outside the [place] in Last 30 Days - Family History Known Family History: Positive: Cardiac Disease, Diabetes, Other - kidney cancer - Social History Alcohol Use: Occasionally Alcohol Amount: on special occasions Hx Substance Use: No Substance Use Type: Reports: Marijuana Substance Use Comment - Amount & Last Used: occasionally Hx Tobacco Use: Yes Smoking Status (MU): Heavy Every Day Tobacco Smoker Type: Cigarettes Review of Systems Constitutional: Negative Positive: Dental Pain Cardiovascular: Negative Respiratory: Negative Gastrointestinal: Negative Skin: Negative Neurological: Other - ?seizure All Other Systems Reviewed And Are Negative: Yes Physical Exam Triage Information Reviewed: Yes Vital Signs On Initial Exam: Initial Vitals Temp Pulse Resp BP Pulse Ox 98.2 F 88 16 136/88 99 04/26/19 13:21 04/26/19 13:21 04/26/19 13:21 04/26/19 13:21 04/26/19 13:21 Vital Signs Reviewed: Yes Appearance: Positive: Well-Appearing - Pt. sitting on bed in NAD> Holding ice pack to face. SO present. Skin: Positive: Warm, Dry Head/Face: Positive: Normal Head/Face Inspection Eyes: Positive: Normal, EOMI Dental: Positive: Other - Poor dentition through out. Pain to left bottom last molar. Gingiva erythematous and edematous. No drainable abscess. No trismus or submandibular edema. Neck: Positive: Supple, No Lymphadenopathy Respiratory/Lung Sounds: Positive: Clear to Auscultation, Breath Sounds Present Cardiovascular: Positive: Normal, RRR Musculoskeletal: Positive: Normal, Strength/ROM Intact Neurological: Positive: Normal, Alert, Oriented to Person Place, Time, CN Intact II-III Psychiatric: Positive: Affect/Mood Appropriate Procedures - Sedation Patient Received Moderate/Deep Sedation with Procedure: No Diagnostics - Vital Signs Vital Signs Temp Pulse Resp BP Pulse Ox 04/26/19 13:21 98.2 F 88 16 136/88 99 - Laboratory Lab Statement: Any lab studies that have been ordered have been reviewed, and results considered in the medical decision making process. Complex Multi-Symp Course/Dx Course Of Treatment: Pt. to ed for main complaint of dental pain. Pt. given a dose of toradol and pnc in ed. Pt. notes she has been having increased ? seizure activity and is working with her pcp to find a medication that works for her. Pt. observed in ed without seizure activity. Pt. requesting to be dc from the er stating she is claustrophobic. Will continue on pnc and motrin. Strongly advised to see a dentist and pcp as soon as possible. - Diagnoses Provider Diagnoses: Dentalgia, Seizure disorder Discharge ED - Sign-Out/Discharge Documenting (check all that apply): Patient Departure - Discharge Plan Condition: Improved Disposition: HOME Prescriptions: Ibuprofen TAB* [Motrin TAB* 600 MG] 600 mg PO TID #20 tab Penicillin VK 500 MG TAB(NF) [Penicillin VK 500 mg Tab] 500 mg PO QID #40 tab Patient Education Materials: Toothache (ED) Referrals: Christy Dowell MD [Primary Care Provider] - Additional Instructions: Please see your PCP and a dentist as soon as possible Take medication as directed Return to ER if symptoms change or worsen - Billing Disposition and Condition Condition: IMPROVED Disposition: Home - Attestation Statements Provider Attestation: I was available for consultation for this patient. I did not evaluate the patient or participate in any medical decision making or disposition decisions unless I am specifically named in the chart as having consulted on the patient. If I have consulted on the patient, please see my own ED note on the patient encounter. Ruperto Ramon MD
[2019-04-26 15:08] VITALS: BP 122/76
== END 2019-04-26 15:08 | disposition home or self-care (01) ==
LOC: ED 13:20
DX: K08.89 Other specified disorders of teeth and supporting structures (principal); G40.909 Epilepsy, unspecified, not intractable, without status epilepticus; J44.9 Chronic obstructive pulmonary disease, unspecified; F41.9 Anxiety disorder, unspecified; F31.9 Bipolar disorder, unspecified; F17.210 Nicotine dependence, cigarettes, uncomplicated; Z90.49 Acquired absence of other specified parts of digestive tract; Z79.899 Other long term (current) drug therapy; Z88.8 Allergy status to other drugs, medicaments and biological substances; Z88.6 Allergy status to analgesic agent; Z91.040 Latex allergy status
CPT/HCPCS: 96372; 99283; A9270-GY; J1885

== ENCOUNTER 2019-06-19 14:37 | Emergency (ER) | payer OTHER ==
--- NOTE | 2019-06-19 14:48 | ED ---
Neurological HPI - HPI Summary HPI Summary: This pt is a 38 y/o female, with hx of seizures, presenting to [facility] via EMS for a witnessed seizure today. EMS reports pt was right outside the bathroom in [place] when pt had a seizure. EMS notes they arrived immediately on scene and pt was not in postictal state. Per EMS blood glucose is 145. Pt states she was running errands today and while at [place] she had a seizure. Pt states she had an aura prior to the seizure where she felt dizzy and started shaking. She told her fiance she was about to have a seizure. Pt does not remember having the seizure. Denies neck pain or head injury. She denies recent headache, visual changes, or weakness. Pt is c/o left hip pain now. Pt admits to recent stress. The last time pt had a seizure was 2 weeks ago per her fiance. Pt does not take any medications for seizures. She states she does not have a neurologist because she can't find one that takes her insurance [place]. Pt reports recent toothache and swelling in her mouth for which she just finished antibiotics recently. PMHx: seizure disorder, asthma, COPD, chronic back pain. Her PCP is Christy Dowell at [facility]. Allergic Phenobarbital, aspirin, cortisone. Denies alcohol or drug use but admits to still smoking cigarettes. Medications reviewed. Allergies noted. - History of Current Complaint Chief Complaint: EDSeizure Stated Complaint: SEIZURE Time Seen by Provider: 06/19/19 14:39 Hx Obtained From: Patient Hx Last Menstrual Period: unknown Onset/Duration: Sudden Onset Timing: Sudden Onset Current Severity: Moderate Seizure Severity: Mild Pain Intensity: 8 - left hip Pain Scale Used: 0-10 Numeric Character: Other: - seizure Aggravating: Nothing Alleviating: Nothing Associated Signs and Symptoms: Positive: Seizure, Pain - left hip. Negative: Visual Changes, Headache, Weakness, Fever Related Hx: Seizure - Allergy/Home Medications Allergies/Adverse Reactions: Allergies Allergy/AdvReac Type Severity Reaction Status Date / Time aspirin Allergy Swelling Verified 10/16/18 15:26 Of Face,Lips,& Throat bee venom protein (honey bee) Allergy Anaphylatic Verified 10/16/18 15:26 Shock cortisone Allergy localized Verified 10/16/18 15:26 swelling at injection site Latex, Natural Rubber Allergy Unknown Verified 10/16/18 15:26 Reaction Details phenobarbital Allergy Swelling Verified 10/16/18 15:26 Of Face,Lips,& Throat Home Medications: Home Medications Acetaminophen TAB* [Tylenol TAB*] 325 mg PO Q4H PRN 06/19/19 [History Confirmed 06/19/19] PMH/Surg Hx/FS Hx/Imm Hx Endocrine/Hematology History: Denies: Hx Anticoagulant Therapy, Hx Diabetes, Hx Thyroid Disease, Other Endocrine/Hematological Disorders Cardiovascular History: Denies: Hx Congestive Heart Failure, Hx Deep Vein Thrombosis, Hx Hypertension , Hx Myocardial Infarction, Hx Pacemaker/ICD, Other Cardiovascular Problems/ Disorders Respiratory History: Reports: Hx Asthma - She is using her sister's Symbicort 160/4.5--she states she is on abluterol, Hx Chronic Obstructive Pulmonary Disease (COPD) Denies: Hx Lung Cancer, Hx Pneumonia, Hx Pulmonary Embolism, Other Respiratory Problems/Disorders GI History: Reports: Hx Gall Bladder Disease Denies: Hx Gastrointestinal Bleed, Hx Ulcer, Hx Urosepsis, Other GI Disorders History: Reports: Other Problems/Disorders - OVARIAN CYST, Denies: Hx Dialysis, Hx Kidney Stones, Hx Renal Disease Musculoskeletal History: Reports: Hx Back Problems - DDD lumbar spine - uses wheelchair Denies: Other Musculoskeletal History Sensory History: Reports: Hx Contacts or Glasses Denies: Other Sensory Impairments Opthamlomology History: Reports: Hx Contacts or Glasses Denies: Other Sensory Impairments Neurological History: Reports: Hx Seizures Denies: Hx Dementia, Hx Migraine, Hx Transient Ischemic Attacks (TIA), Other Neuro Impairments/Disorders Psychiatric History: Reports: Hx Anxiety, Hx Depression - She confesses to depression--on no Rx., Hx Bipolar Disorder Denies: Hx Schizophrenia, Hx Substance Abuse, Other Psychiatric Issues/ Disorders - Surgical History Surgical History: Yes Surgery Procedure, Year, and Place: GALLBLADDER OUT 2010. 2010. APPENDECTOMY. abdominal laparoscopic surgery - Immunization History Date of Tetanus Vaccine: w/in last 10 years Date of Influenza Vaccine: none Infectious Disease History: No Infectious Disease History: Denies: Hx Clostridium Difficile, Hx Hepatitis, Hx Human Immunodeficiency Virus (HIV), Hx of Known/Suspected MRSA, Hx Shingles, Hx Tuberculosis, Hx Known/ Suspected VRE, Hx Known/Suspected VRSA, History Other Infectious Disease, Traveled Outside the [place] in Last 30 Days - Family History Known Family History: Positive: Cardiac Disease, Diabetes, Other - kidney cancer - Social History Alcohol Use: Occasionally Alcohol Amount: on special occasions Hx Substance Use: No Substance Use Type: Reports: Marijuana Substance Use Comment - Amount & Last Used: occasionally Hx Tobacco Use: Yes Smoking Status (MU): Heavy Every Day Tobacco Smoker Type: Cigarettes Review of Systems Negative: Fever Negative: Other - visual changes Positive: Dental Pain Musculoskeletal: Other - POSTIIVE: left hip pain Negative: Other - NEGATIVE: neck pain Neurological: Other - POSITIVE: seizure Negative: Headache, Weakness All Other Systems Reviewed And Are Negative: Yes Physical Exam - Summary Physical Exam Summary: Constitutional: Well-developed, Well-nourished, Alert. (-) Distressed Skin: Warm, Dry HENT: Normocephalic; Atraumatic Eyes: Conjunctiva normal Neck: Musculoskeletal ROM normal neck. (-) JVD, (-) Stridor, (-) Tracheal deviation Cardio: Rhythm regular, rate normal, Heart sounds normal; Intact distal pulses; The pedal pulses are 2+ and symmetric. Radial pulses are 2+ and symmetric. (-) Murmur Pulmonary/Chest wall: Effort normal. (-) Respiratory distress, (-) Wheezes, (-) Rales Abd: Soft, (-) tenderness, (-) Distension, (-) Guarding, (-) Rebound Musculoskeletal: (-) Edema. Pain at left hip. Lymph: (-) Cervical adenopathy Neuro: Alert, Oriented x3 Psych: Mood and affect Normal Triage Information Reviewed: Yes Vital Signs On Initial Exam: Initial Vitals Temp Pulse Resp BP Pulse Ox 98.7 F 95 16 103/65 97 06/19/19 14:39 06/19/19 14:39 06/19/19 14:39 06/19/19 14:39 06/19/19 14:39 Vital Signs Reviewed: Yes Procedures - Sedation Patient Received Moderate/Deep Sedation with Procedure: No Diagnostics - Vital Signs Vital Signs Temp Pulse Resp BP Pulse Ox 06/19/19 14:39 98.7 F 95 16 103/65 97 - Laboratory Result Diagrams: 06/19/19 15:11 06/19/19 15:11 Lab Statement: Any lab studies that have been ordered have been reviewed, and results considered in the medical decision making process. - EKG 15:01 Cardiac Rate: NL - at 96 bpm EKG Rhythm: Sinus Rhythm Summary of EKG Findings: EKG at 1501 shows sinus rhythm at a rate of 96 bpm. No ischemic changes. No STEMI. Course/Dx - Course Course Of Treatment: Patient is here with potential seizure activity. Patient was seen by EMS shortly after her seizure ended and she had no postictal symptoms. Patient states she's tried multiple antiepileptic medications with activity side effects. Patient is currently not on any medications and cannot see a neurologist except her insurance. Patient has a PCP appointment on Tuesday. Patient had blood work performed which was grossly unremarkable. Patient had no reflux symptoms necessitating CT brain. Patient was discharged instructions to discuss further AED's on Tuesday and do not drive her car. - Diagnoses Provider Diagnoses: Seizure disorder, Seizure Discharge ED - Sign-Out/Discharge Documenting (check all that apply): Patient Departure - Discharge home - Discharge Plan Condition: Stable Disposition: HOME Patient Education Materials: Recurrent Seizures in Adults (ED) Referrals: Christy Dowell MD [Primary Care Provider] - Additional Instructions: Follow up with your primary care provider on Tuesday as scheduled to discuss your seizure medications. You cannot drive until cleared by your doctor. PLEASE RETURN TO EMERGENCY DEPARTMENT FOR ONE SIDED WEAKNESS, CHANGE IN VISION, SLURRED SPEECH. - Billing Disposition and Condition Condition: STABLE Disposition: Home - Attestation Statements Document Initiated by Erasto: Yes Documenting Scribe: Tania Kirkpatrick Provider For Whom Erasto is Documenting (Include Credential): Tr Weston MD Scribe Attestation: Tania Mason, scribed for Tr Weston MD on 06/19/19 at 1727. Scribe Documentation Reviewed: Yes Provider Attestation: The documentation as recorded by the Tania sharma accurately reflects the service I personally performed and the decisions made by me, Tr Weston MD Status of Scribe Document: Viewed
[2019-06-19] MEDS ORDERED: NS 0.9% 1000 ML** 1,000 ML IV ONE (14:51)
[2019-06-19 15:17] LABS: ABS Basophils 0.1 10^3/ul (0-0.2); ABS Eosinophils 0.2 10^3/ul (0-0.6); ABS Lymphocytes 2.7 10^3/ul (1.0-4.8); ABS Monocytes 0.6 10^3/ul (0-0.8); ABS Neutrophils 4.6 10^3/ul (1.5-7.7); Eosinophil % 2.3 %; Hematocrit 38 % (35-47); Mean Corpuscular HGB Conc 34 g/dL (31-36); Mean Corpuscular Hemoglobin 31 pg (27-31); Mean Corpuscular Volume 90 fL (80-97); Mean Platelet Volume 7.8 fL (7.4-10.4); Platelet Count 264 10^3/uL (150-450); Red Blood Count 4.21 10^6 /uL (3.70-4.87); Red Cell Distribution Width 14 % (10-15); White Blood Count 8.2 10^3/uL (3.5-10.8)
[2019-06-19 15:33] LABS: Albumin 4.2 g/dL (3.2-5.2); BUN/Creatinine Ratio 20.8 (8-20); Calcium 9.3 mg/dL (8.6-10.3); EGFR African American 108.6 (>60); EGFR Non-African American 89.7 (>60); Potassium 3.4 mmol/L (3.5-5.0); Total Protein 7.2 g/dL (6.4-8.9)
[2019-06-19 15:34] LABS: Albumin/Globulin Ratio 1.4 (1-3); Total Bilirubin 0.2 mg/dL (0.2-1.0)
[2019-06-19] MEDS ORDERED: Acetaminophen TAB* 325 MG PO ONE (15:38)
[2019-06-19 15:40] LABS: HCG Pregnancy 0.9 mIU/mL
[2019-06-19] MEDS ORDERED: Ketorolac INJ* 30 MG/ML 1 ML VIAL IV PUSH ONE (15:56)
[2019-06-19 16:21] VITALS: BP 108/75
== END 2019-06-19 16:20 | disposition home or self-care (01) ==
LOC: ED 14:37
DX: G40.909 Epilepsy, unspecified, not intractable, without status epilepticus (principal); J44.9 Chronic obstructive pulmonary disease, unspecified; F41.9 Anxiety disorder, unspecified; F32.9 Major depressive disorder, single episode, unspecified; F17.210 Nicotine dependence, cigarettes, uncomplicated; Z90.49 Acquired absence of other specified parts of digestive tract; Z90.89 Acquired absence of other organs; Z88.8 Allergy status to other drugs, medicaments and biological substances; Z91.040 Latex allergy status
CPT/HCPCS: 36415; 80053; 84702; 85025; 93005; 96361; 96374; 99282; A9270-GY; J1885

== ENCOUNTER 2019-09-06 21:46 | Emergency (ER) | payer OTHER ==
--- OUTSIDE RECORDS SUMMARY | 2019-09-06 22:02 | XMS REPORT | Continuity of Care Document ---
:1980 External Reference #:[id number] Author Name KILLIAN Vargas Address [address] [place] [address] Care Team Providers Name Role Phone Jerrell Finn MD - Family Medicine Care Team Information Holistic Pulser Desi Bravo - Pulmonary Disease Care Team Information Holistic Pulser Problems Active Problems Provider Date Chronic pain syndrome Jerrell Finn M.D. Onset: 11/24/2017 Seizure Jerrell Finn M.D. Onset: 11/24/2017 Chronic obstructive lung disease Jerrell Finn M.D. Onset: 11/24/2017 Social History Type Date Description Comments Sex Unknown Tobacco Use Start: 06/27/86 Heavy tobacco smoker (more than 10 cigarettes/day) ETOH Use Rare Recreational Drug Use Marijuana Tobacco Use Start: Unknown Heavy tobacco smoker (more than 10 cigarettes/day) Smoking Status Reviewed: 08/23/19 Heavy tobacco smoker (more than 10 cigarettes/day) Allergies, Adverse Reactions, Alerts Active Allergies Reaction Severity Comments Date Ephedrine / Phenobarbital 04/21/2017 Bees 04/21/2017 Aluminum Aspirin 04/21/2017 Latex 04/21/2017 Cortizone Difficulty swallowing, Hives Severe 07/25/2019 Betadine rash Moderate 07/25/2019 Medications Active Medications SIG Qnty Indications Ordering Date Provider True Metrix Go Blood for use daily, 1units Jerrell Harrington 08/02/2019 Glucose Meter for lifetime Libertad Finn w/Device diagnosis of Kit r73.01. True Metrix Pro for use to check 100units Jerrell Harrington 08/02/2019 Glucose Test Strips blood sugar 2-3x/ Libertad Finn day Strips Ez Smart Blood Glucose for use to check 90units Jerrell A. 08/02/2019 Lancets blood sugar 2-3x/ Libertad Finn [facility] [place] for lifetime diagnosis of r73.01. Cyclobenzaprine HCL take one by mouth 45tabs M54.5 Jerrell A. 07/26/2019 10mg up to 2 times per Libertad Finn Tablets day for back pain Gabapentin 1 tablet twice a 60tabs R56.9 Jerrell A. 07/25/2019 800mg Tablets day Libertad Finn Albuterol Sulfate for use in 90ml R56.9 [place] A. 07/25/2019 nebulizer every Dennis FinnDCesar (2.5mg/3ML) 0.083% 4-6 hours as Nebulizer needed Epipen 2-Jeovany use in case of 2units R56.9 Jerrell A. 07/25/2019 0.3mg/0.3ML life threatening Libertad Finn Solution Auto-Inject allergic reaction Ventolin HFA take 1-2 puffs 18gm J45.901 [place] 04/21/2017 108(90Base) inhaled every 4 Ren, [employer] mcg/Act Aerosol hours as needed for wheezing or tightness in the chest Iron Unknown 240(27Fe) mg Tablets Ibuprofen 1 tab by mouth Unknown 600mg Tablets every 8 hours as needed pain. take with food History Medications Pneumovax 23 [place] A. 08/22/2019 - 25mcg/0.5ML Libertad Finn 08/22/2019 Injection Accuchek Linda Meter for daily use, 1units Jerrell A. 08/02/2019 - lifetime Libertad Finn 08/02/2019 diagnosis of r73.01. Nebulizer Use every 4-6 1units Jerrell A. 07/25/2019 - hours as needed Libertad Finn 08/22/2019 for lifetime diagnosis of ashtma, j45.909. Test Strips Accucheck for use daily to 90units R73.01 Jerrell A. 07/25/2019 - Glucometer check blood Libertad Finn 08/02/2019 sugars Accu-Chek Needs glucometer 1units R73.01 Jerrell CristianCesar 07/25/2019 - Kit and test strips Libertad Finn 08/02/2019 to check blood sugar 2-3x/ day for diagnosis of r73.01. Methylprednisolone day 1- take 5 15tabs R09.1 Jerrell CristianCesar 07/25/2019 - 4mg Tablets tablets day 2- Libertad Finn 08/22/2019 take 4 tablets day 3- take 3 tablets day 4- take 2 tablets day 5- take 1 tablet Nebulizer Set Up And use as needed for 1Unit J45.909 Jerrell Harrington 07/25/2019 - Tubing shortness of Libertad Finn 08/22/2019 breath. lifetime use for asthma diagnosis j45.909 Immunizations CPT Code Status Date Vaccine Lot # [id number] Given 08/22/2019 Pneumococcal Immunization [id number] Vital Signs Date Vital Result Comment 08/22/2019 3:15pm BP Systolic 102 mmHg BP Diastolic 64 mmHg Heart Rate 104 /min Body Temperature 98.8 F Height 67 inches 5'7" 07/25/2019 3:45pm BP Systolic 112 mmHg BP Diastolic 72 mmHg Heart Rate 100 /min Body Temperature 98.2 F Respiratory Rate 20 /min Height 67 inches 5'7" Weight 207.50 lb shoes/coat on BMI (Body Mass Index) 32.5 kg/m2 Results Test Acquired Date Facility Test Result H/L Range Note Laboratory test 08/22/2019 family medicine Hemoglobin A1c 6.8% % High 4.1 -5.7 finding (607)- - (Fma) Procedures Date Code Description Status 06/27/2019 86285406 Mammogram Completed 06/27/2007 37000369 Colonoscopy Completed Medical Devices Description No Information Available Encounters Type Date Location Provider Dx Diagnosis Office Visit 07/25/2019 [facility] Roseann Gomez, J45.909 Unspecified asthma, 3:45p PA uncomplicated R09.1 Pleurisy R56.9 Unspecified convulsions R73.01 Impaired fasting glucose M25.521 Pain in right elbow Assessments Date Code Description Provider 08/22/2019 R09.1 Pleurisy KILLIAN Vargas 08/22/2019 R56.9 Unspecified convulsions KILLIAN Vargas 08/22/2019 J45.909 Unspecified asthma, uncomplicated Roseann Efrain Gomez, PA 08/22/2019 R73.01 Impaired fasting glucose KILLIAN Vargas 08/22/2019 M25.521 Pain in right elbow Roseann Gomez, PA 07/25/2019 J45.909 Unspecified asthma, uncomplicated Roseann Gomez, PA 07/25/2019 R09.1 Pleurisy Roseann Gomez, KILLIAN 07/25/2019 R56.9 Unspecified convulsions Roseann Gomez, PA 07/25/2019 R73.01 Impaired fasting glucose Roseann Gomez, PA 07/25/2019 M25.521 Pain in right elbow KILLIAN Vargas Plan of Treatment Future Appointment(s):10/22/2019 3:00 pm - KILLIAN Vargas at [facility] [id number]/22/2019 - Roseann Gomez, PAR09.1 PleurisyComments:Refill of Gabapentin and Cyclobenzaprine jtomnasjR39.9 Unspecified convulsionsComments: Continue gabapentin See txtuoiryuL48.909 Unspecified asthma, uncomplicatedComments:See special lung doctor, Dr. Bravo given pneumonia shot today Continue inhalers and vkoqurvvqS86.01 Impaired fasting glucoseComments: Check labs mazbwD40.521 Pain in right elbowNew Xrays:Elbow Complete Min 3 Views LT, Ordered: 08/22/19Comments:Check Right elbow X ray Use Ice Gentle stretchingAllNew Medication:Pneumovax 23 25 mcg/0.5ML -Comments:PCMHMedication Management Patient Understands medications he's taking? Yes Are there Barriers to Adherence? No Has the patient been asked about herbal supplements and therapies, and OTC meds? Yes Care Plan1. Patient has been queried about patient's goals/preferences and functional/lifestyle goals at relevant visits. Yes If relevant, describe: N/A2. Treatment goals as explained to the patient: above3. Are there barriers to meeting treatment goals ? No If Yes, please describe:4. Self-Management goals as described to the patient: Yes As always, we strongly encourage a healthy diet and making physical activity a part of your every day life. If you have questions about how or where to start, please contact the office. Functional Status Description No Information Available Mental Status Description No Information Available Referrals Refer to Dr Reason for Referral Status Appt Date Desi Bravo consult and tx-pleurisy/? absestos exposure Created [address] [place] [address] [phone]
[2019-09-06] MEDS ORDERED: Ketorolac INJ* 30 MG/ML 1 ML VIAL IM ONE (23:30)
--- NOTE | 2019-09-06 23:30 | ED ---
Upper Extremity Pain - HPI Summary HPI Summary: 38 year old female presents with right elbow pain for the past couple weeks. States it is worse every time she moves her elbow. She is right-handed. She is not currently working. Has a seizure history. States she has not fallen on the right side. Pain is worse with wrist movement. Denies any numbness or tingling. She has history of osteoarthritis. - History of Current Complaint Chief Complaint: EDExtremityUpper Stated Complaint: R ARM PAIN PER PT Time Seen by Provider: 09/06/19 23:19 Hx Last Menstrual Period: unknown - Allergies/Home Medications Allergies/Adverse Reactions: Allergies Allergy/AdvReac Type Severity Reaction Status Date / Time aspirin Allergy Swelling Verified 10/16/18 15:26 Of Face,Lips,& Throat bee venom protein (honey bee) Allergy Anaphylatic Verified 10/16/18 15:26 Shock cortisone Allergy localized Verified 10/16/18 15:26 swelling at injection site Latex, Natural Rubber Allergy Unknown Verified 10/16/18 15:26 Reaction Details phenobarbital Allergy Swelling Verified 10/16/18 15:26 Of Face,Lips,& Throat Home Medications: Home Medications Ibuprofen TAB* [Motrin TAB* 600 MG] 600 mg PO TID #20 tab 04/26/19 [Rx Confirmed 06/19/19] Acetaminophen TAB* [Tylenol TAB*] 325 mg PO Q4H PRN 06/19/19 [History Confirmed 06/19/19] PMH/Surg Hx/FS Hx/Imm Hx Endocrine/Hematology History: Denies: Hx Anticoagulant Therapy, Hx Diabetes, Hx Thyroid Disease, Other Endocrine/Hematological Disorders Cardiovascular History: Denies: Hx Congestive Heart Failure, Hx Deep Vein Thrombosis, Hx Hypertension , Hx Myocardial Infarction, Hx Pacemaker/ICD, Other Cardiovascular Problems/ Disorders Respiratory History: Reports: Hx Asthma - She is using her sister's Symbicort 160/4.5--she states she is on abluterol, Hx Chronic Obstructive Pulmonary Disease (COPD) Denies: Hx Lung Cancer, Hx Pneumonia, Hx Pulmonary Embolism, Other Respiratory Problems/Disorders GI History: Reports: Hx Gall Bladder Disease Denies: Hx Gastrointestinal Bleed, Hx Ulcer, Hx Urosepsis, Other GI Disorders History: Reports: Other Problems/Disorders - OVARIAN CYST, Denies: Hx Dialysis, Hx Kidney Stones, Hx Renal Disease Musculoskeletal History: Reports: Hx Back Problems - DDD lumbar spine - uses wheelchair Denies: Other Musculoskeletal History Sensory History: Reports: Hx Contacts or Glasses Denies: Other Sensory Impairments Opthamlomology History: Reports: Hx Contacts or Glasses Denies: Other Sensory Impairments Neurological History: Reports: Hx Seizures Denies: Hx Dementia, Hx Migraine, Hx Transient Ischemic Attacks (TIA), Other Neuro Impairments/Disorders Psychiatric History: Reports: Hx Anxiety, Hx Depression - She confesses to depression--on no Rx., Hx Bipolar Disorder Denies: Hx Schizophrenia, Hx Substance Abuse, Other Psychiatric Issues/ Disorders - Surgical History Surgery Procedure, Year, and Place: GALLBLADDER OUT 2010. 2010. APPENDECTOMY. abdominal laparoscopic surgery - Immunization History Date of Tetanus Vaccine: w/in last 10 years Date of Influenza Vaccine: none Infectious Disease History: No Infectious Disease History: Denies: Hx Clostridium Difficile, Hx Hepatitis, Hx Human Immunodeficiency Virus (HIV), Hx of Known/Suspected MRSA, Hx Shingles, Hx Tuberculosis, Hx Known/ Suspected VRE, Hx Known/Suspected VRSA, History Other Infectious Disease, Traveled Outside the [place] in Last 30 Days - Family History Known Family History: Positive: Cardiac Disease, Diabetes, Other - kidney cancer - Social History Alcohol Use: Occasionally Alcohol Amount: on special occasions Hx Substance Use: No Substance Use Type: Reports: None Substance Use Comment - Amount & Last Used: occasionally Hx Tobacco Use: Yes Smoking Status (MU): Heavy Every Day Tobacco Smoker Type: Cigarettes Review of Systems Negative: Fever Negative: Chest Pain Negative: Shortness Of Breath Positive: Myalgia - right elbow pain All Other Systems Reviewed And Are Negative: Yes Physical Exam Triage Information Reviewed: Yes Vital Signs On Initial Exam: Initial Vitals Temp Pulse Resp BP Pulse Ox 98 F 115 20 142/88 98 09/06/19 21:51 09/06/19 21:51 09/06/19 21:51 09/06/19 21:51 09/06/19 21:51 Vital Signs Reviewed: Yes Appearance: Positive: Well-Appearing Skin: Positive: Warm, Dry Head/Face: Positive: Normal Head/Face Inspection Eyes: Positive: Normal, Conjunctiva Clear ENT: Positive: Pharynx normal Respiratory/Lung Sounds: Positive: Clear to Auscultation, Breath Sounds Present Cardiovascular: Positive: Normal, RRR Musculoskeletal: Positive: Other - tenderness right elbow, good pulses, pain with flexion and extension of wrist, tenderness medial and lateral epicondyle Neurological: Positive: Normal Psychiatric: Positive: Normal Procedures - Sedation Patient Received Moderate/Deep Sedation with Procedure: No Diagnostics - Vital Signs Vital Signs Temp Pulse Resp BP Pulse Ox 09/06/19 21:51 98 F 115 20 142/88 98 - Laboratory Lab Statement: Any lab studies that have been ordered have been reviewed, and results considered in the medical decision making process. - Radiology elbow Radiology Interpretation Completed By: ED Physician Summary of Radiographic Findings: no fracture Course/Dx - Course Course Of Treatment: 38 year old female presents with right elbow pain for the past couple weeks. States it is worse every time she moves her elbow. She is right-handed. She is not currently working. Has a seizure history. States she has not fallen on the right side. Pain is worse with wrist movement. Denies any numbness or tingling. She has history of osteoarthritis. On exam tenderness over medial and lateral epicondyle. Neurovascular intact. X-ray normal. told to treat conservatively. told if no improvement to follow up with ortho. Patient understands agrees with the plan. - Diagnoses Differential Diagnosis/HQI/PQRI: Positive: Fracture (Closed), Strain, Sprain Provider Diagnoses: Right elbow pain Discharge ED - Sign-Out/Discharge Documenting (check all that apply): Patient Departure - Discharge Plan Condition: Good Disposition: HOME Patient Education Materials: R.I.C.ECesar Treatment (ED) Referrals: Roseann Gomez PA [Primary Care Provider] - Manuel Trejo MD [Medical Doctor] - Additional Instructions: Take Tylenol or ibuprofen every 6 hours as needed for pain Apply ice, rest, elevate Follow up with ortho Return to ED if develop any new or worsening symptoms - Billing Disposition and Condition Condition: GOOD Disposition: Home
[2019-09-06 23:47] VITALS: BP 132/94
== END 2019-09-06 23:45 | disposition home or self-care (01) ==
LOC: ED 21:46
DX: M25.521 Pain in right elbow (principal); J45.909 Unspecified asthma, uncomplicated; R56.9 Unspecified convulsions; Z88.8 Allergy status to other drugs, medicaments and biological substances; Z88.6 Allergy status to analgesic agent; Z91.030 Bee allergy status; Z91.040 Latex allergy status; F17.210 Nicotine dependence, cigarettes, uncomplicated
CPT/HCPCS: 96372; 99282; J1885

== ENCOUNTER 2024-01-28 21:14 | Observation (INO) ==
[2024-01-28 22:04] LABS: ABS Basophils 0.1 10^3/uL (0.0-0.1); ABS Eosinophils 0.3 10^3/uL (0.0-0.5); ABS Lymphocytes 2.7 10^3/uL (1.0-4.8); ABS Monocytes 0.5 10^3/uL (0.0-0.9); ABS Neutrophils 4.2 10^3/uL (1.5-7.6); Eosinophil % 3.6 %; Hematocrit 37.4 % (35-45); Hemoglobin 12.5 g/dL (11.5-14.3); Lymphocyte % 34.7 %; Mean Corpuscular Hemoglobin 30.1 pg (27-33); Mean Corpuscular Hgb Conc 33.4 g/dL (31-36); Mean Corpuscular Volume 90.4 fL (80-97); Mean Platelet Volume 8.3 fL (7.5-11.2); Platelet Count 224 10^3/uL (150-450); Red Blood Count 4.14 10^6/uL (3.63-4.92); White Blood Count 7.8 10^3/uL (3.8-11.8)
[2024-01-28 22:13] LABS: INR 1.04 (0.83-1.13)
[2024-01-28] MEDS: levETIRAcetam IV 1,500 MG in NS 0.9% 100 ml BAG 100 ML IVPB ONE (22:34)
[2024-01-28 22:37] LABS: ALT 18 U/L (7-52); AST 15 U/L (13-39); Albumin/Globulin Ratio 1.5 (1-3); Alkaline Phosphatase 58 U/L (35-149); Anion Gap 10 mmol/L (2-16); Blood Urea Nitrogen 18 mg/dL (6-24); CO2 Carbon Dioxide 24 mmol/L (22-32); Calcium 9.5 mg/dL (8.6-10.3); Carbamazepine < 2.0 mcg/mL (4.0-12.0); Chloride 103 mmol/L (101-111); Creatinine, Serum 0.55 mg/dL (0.51-0.95); Globulin 2.6 g/dL (2-4); Glucose 197 mg/dL (70-100); Magnesium 1.4 mg/dL (1.9-2.7); Potassium 3.7 mmol/L (3.5-5.0); Sodium 137 mmol/L (135-145); Total Bilirubin 0.2 mg/dL (0.2-1.0); Total Protein 6.6 g/dL (6.4-8.9); eGFR CKD-EPI 115.1 (>60)
[2024-01-29] MEDS: Metoclopramide 5 MG/ML VIAL (10 mg) IV ONE (00:20)
[2024-01-29] MEDS: Lactated Ringers 1000 ml BAG 1,000 ML IV ONE (00:24)
[2024-01-29] MEDS: Magnesium Sulfate 2 gm BAG 2 GM/50 ML BAG IVPB ONE (01:01)
[2024-01-29] MEDS ORDERED: Nicotine GUM 4MG FRUIT FLAVOR PO ONE (08:15)
[2024-01-29 09:52] VITALS: BP 119/85
== END 2024-01-29 09:50 | disposition left against medical advice (07) ==
LOC: EDHOLD 21:14 → ED 21:14 → EDHOLD 01-29 09:49
PROVIDERS: ADMIT Student in an Organized Health Care Education/Training Program; ATTEND Internal Medicine